=== PATIENT | female | born 2000 | race Caucasian/White ===

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

== ENCOUNTER 2021-04-12 10:41 | Emergency (ER) | payer OTHER, MEDICAID ==
[2021-04-12 11:00] VITALS: BP 135/69
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
== END 2021-04-12 11:48 | disposition home or self-care (01) ==
LOC: ED 10:41
DX: S09.90XA Unspecified injury of head, initial encounter (principal); W03.XXXA Other fall on same level due to collision with another person, initial encounter; Y99.0 Civilian activity done for income or pay
CPT/HCPCS: 99282

== ENCOUNTER 2021-10-16 17:16 | Emergency (ER) | payer OTHER, MEDICAID ==
[2021-10-16 17:29] VITALS: BP 131/87
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
--- NOTE | 2021-10-16 17:49 | XRAY Report ---
PROCEDURE: Wrist 4 View LT INDICATIONS: Trauma TECHNIQUE: 4 views of the wrist were acquired. COMPARISON: None. FINDINGS: Bones: No acute fractures or dislocations. No suspicious bony lesions. Scaphoid view: Intact scaphoid. Soft tissues: No suspicious soft tissue calcifications. IMPRESSION: No acute osseous abnormality. If there is clinical concern or persistent symptoms, additional imaging such as repeat radiographs or advanced imaging (e.g. CT, MRI) may be helpful for further evaluation. Reviewed by: Rene Bradford MD on 10/16/2021 4:47 PM [facility] Approved by: Rene Bradford MD on 10/16/2021 4:47 PM [facility] Station ID: [id number]
[2021-10-16] MEDS ORDERED: IBUPROFEN 400 MG TABLET PO STA (18:07)
[2021-10-16] MEDS ORDERED: ACETAMINOPHEN 500 MG TABLET PO STA (18:08)
== END 2021-10-16 18:24 | disposition home or self-care (01) ==
LOC: ED 17:16
DX: S63.502A Unspecified sprain of left wrist, initial encounter (principal); W03.XXXA Other fall on same level due to collision with another person, initial encounter; Y93.F9 Activity, other caregiving; Y92.199 Unspecified place in other specified residential institution as the place of occurrence of the external cause; Y99.0 Civilian activity done for income or pay
CPT/HCPCS: 73110; 99282; 99283; A9270

== ENCOUNTER 2021-12-01 10:42 | Emergency (ER) | payer MEDICAID ==
[2021-12-01] MEDS ORDERED: SODIUM CHLORIDE 0.9% 1,000 ML IV STA (11:18)
[2021-12-01 11:38] LABS: BASOPHILS % (AUTO) 0.2 %; BILIRUBIN,URINE NEGATIVE (NEGATIVE); EOSINOPHILS % (AUTO) 0.4 %; GLUCOSE, URINE (UA) NEGATIVE (NEGATIVE); HCT - HEMATOCRIT 37.9 % (37.0-47.0); KETONES,URINE (UA) NEGATIVE (NEGATIVE); LEUKOCYTE ESTERASE, URINE NEGATIVE (NEGATIVE); LYMPHOCYTES # (AUTO) 3.3 10^3/uL (1.5-3.5); LYMPHOCYTES % (AUTO) 31.5 %; MEAN CORPUSCULAR HGB CONC 31.7 g/dL (32.0-36.0); MEAN PLATELET VOLUME 9.1 fL (7.9-10.8); MONOCYTES # (AUTO) 0.8 10^3/uL (0.0-1.0); MONOCYTES % (AUTO) 7.1 %; NEUTROPHILS # (AUTO) 6.4 10^3/uL (1.5-6.6); NEUTROPHILS % (AUTO) 60.5 %; NITRITE,URINE NEGATIVE (NEGATIVE); OCCULT BLOOD,URINE TRACE-INTA (NEGATIVE); PH,URINE 6.5 PH (5.0-7.5); PLT - PLATELET COUNT 353 10^3/uL (130-450); PROTEIN,URINE NEGATIVE (NEGATIVE); RED BLOOD COUNT 4.62 10^6/uL (4.20-5.40); RED CELL DISTRIBUTION WIDTH 14.3 % (12.0-15.0); UROBILINOGEN,URINE 2 E.U./dL (NORMAL); WHITE BLOOD COUNT 10.5 x10^3/uL (4.8-10.8)
[2021-12-01 11:40] LABS: CLARITY,URINE CLEAR (CLEAR); HCG UR QUAL NEGATIVE
[2021-12-01 11:51] LABS: ALBUMIN 4.5 g/dL (3.2-5.5); ALBUMIN/GLOBULIN RATIO 1.4 (1.0-2.2); BILIRUBIN,TOTAL 0.8 mg/dL (0.2-1.0); CALCIUM 9.8 mg/dL (8.5-10.3); CREATININE 0.7 mg/dL (0.4-1.0); POTASSIUM 3.6 mmol/L (3.5-5.0); TOTAL PROTEIN 7.7 g/dL (6.7-8.2)
--- NOTE | 2021-12-01 12:35 | ED Physician Documentation ---
PD HPI ABD PAIN - Stated complaint Stated Complaint: LOWER ABDOMINAL PX - Chief complaint Chief Complaint: Abd Pain - History obtained from History obtained from: Patient - Additional information Additional information: Pt c/o RLQ pain for the past couple of days. She states she has not had any other sx--no nausea, fever, chills, dysuria, or bowel changes. No vaginal sx. H/o possible ovarian cyst in the past. She states the pain seemed a little worse today, so she decided to come in. 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 Review of Systems Ten Systems: 10 systems reviewed and negative Constitutional: reports: Reviewed and negative Eyes: reports: Reviewed and negative Ears: reports: Reviewed and negative Nose: reports: Reviewed and negative Throat: reports: Reviewed and negative Cardiac: reports: Reviewed and negative Respiratory: reports: Reviewed and negative GI: reports: Abdominal Pain : reports: Reviewed and negative Skin: reports: Reviewed and negative Musculoskeletal: reports: Reviewed and negative Neurologic: reports: Reviewed and negative Psychiatric: reports: Reviewed and negative Endocrine: reports: Reviewed and negative Immunocompromised: reports: Reviewed and negative PD PAST MEDICAL HISTORY - Past Medical History Cardiovascular: None Respiratory: None Psych: ADD/ADHD Musculoskeletal: None - Past Surgical History Past Surgical History: No - Present Medications Home Medications: Ambulatory Orders Medication Instructions Recorded Confirmed No Known Home Medications 12/31/20 12/31/20 - Allergies Allergies/Adverse Reactions: Allergies Allergy/AdvReac Type Severity Reaction Status Date / Time No Known Drug Allergies Allergy Verified 12/01/21 10:52 - Social History Does the pt smoke?: No Smoking Status: Never smoker Does the pt drink ETOH?: No Does the pt have substance abuse?: Yes - Immunizations Immunizations are current?: Yes - POLST Patient has POLST: No PD ED PE NORMAL - Vitals Vital signs reviewed: Yes - General General: Alert and oriented X 3, No acute distress, Well developed/nourished - HEENT HEENT: Atraumatic, PERRL, EOMI, Moist mucous membranes - Neck Neck: Supple, no meningeal sign - Cardiac Cardiac: RRR, No murmur - Respiratory Respiratory: No respiratory distress, Clear bilaterally - Abdomen Abdomen: Soft, Non distended, Other (mild RLQ tenderness) - Derm Derm: Warm and dry - Extremities Extremities: No deformity - Neuro Neuro: Alert and oriented X 3 - Psych Psych: Normal mood, Normal affect Results - Vitals Vitals: Oxygen O2 Source Room air - Labs Labs: Laboratory Tests 12/01/21 12/01/21 12/01/21 11:23 11:23 11:23 WBC 10.5 RBC 4.62 Hgb 12.0 Hct 37.9 MCV 82.0 MCH 26.0 L MCHC 31.7 L RDW 14.3 Plt Count 353 MPV 9.1 Neut # (Auto) 6.4 Lymph # (Auto) 3.3 [place] # (Auto) 0.8 Eos # (Auto) 0.0 Baso # (Auto) 0.0 Absolute Nucleated RBC 0.00 Nucleated RBC % 0.0 Sodium 139 Potassium 3.6 Chloride 104 Carbon Dioxide 24 Anion Gap 11.0 BUN 15 Creatinine 0.7 Estimated GFR (MDRD) 107 Glucose 96 Calcium 9.8 Total Bilirubin 0.8 AST 19 ALT 14 Alkaline Phosphatase 42 Total Protein 7.7 Albumin 4.5 Globulin 3.2 Albumin/Globulin Ratio 1.4 Lipase 28 Urine Color YELLOW Urine Clarity CLEAR Urine pH 6.5 Ur Specific [place] 1.020 Urine Protein NEGATIVE Urine Glucose (UA) NEGATIVE Urine Ketones NEGATIVE Urine Occult Blood TRACE-INTA Urine Nitrite NEGATIVE Urine Bilirubin NEGATIVE Urine Urobilinogen 2 H Ur Leukocyte Esterase NEGATIVE Ur Microscopic Review NOT INDICATED Urine Culture Comments NOT INDICATED Urine HCG, Qual NEGATIVE - Rads (name of study) CT abd/pelvis Radiology: Final report received, EMP read indepedently, See rad report (neg) PD MEDICAL DECISION MAKING - ED course Complexity details: reviewed results, re-evaluated patient, considered differential, d/w patient, d/w family ED course: Pt was worked up with labs and CT, all of which were negative. We have discussed home management of the sx, as well as the usual indications for return. Departure - Departure Disposition: 01 Home, Self Care Clinical Impression: Gallstone Qualifiers: Cholecystitis presence: without cholecystitis Biliary obstruction: without biliary obstruction Qualified Code(s): K80.20 - Calculus of gallbladder without cholecystitis without obstruction Inguinal strain Qualifiers: Encounter type: initial encounter Laterality: right Qualified Code(s): S76.211A - Strain of adductor muscle, fascia and tendon of right thigh, initial encounter Condition: Stable Instructions: Gallstones Dc, ED Strain Groin Comments: Your CT scan does not show any problems with your appendix and does not show any kidney stones. You do not have any discernible cysts on your ovaries. You do incidentally have a stone in your gallbladder, but this does not appear to be causing any problems at this point. Additionally, this is way above where your pain is and is unlikely related to what you are experiencing. 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 You should take ibuprofen to help with inflammation and try to avoid heavy lifting whenever possible until this is feeling better. If you do lift, be sure to bend her legs and try not to strain your pelvic area. If you begin to notice worsening pain with lifting then you will need to have a more extended period of relief from the heavy work, as you could be in the process of developing a hernia. Please follow-up with your primary care physician for further concerns in this regard. Discharge Date/Time: 12/01/21 14:40
[2021-12-01] MEDS ORDERED: iohexoL-300 100 ML VIAL ONE (13:05)
[2021-12-01] MEDS ORDERED: HYDROmorphone 0.5 MG/0.5 ML SYRINGE IVP STA (13:26)
[2021-12-01] MEDS ORDERED: iohexoL-300 100 ML VIAL IVP ONE (13:27)
--- NOTE | 2021-12-01 14:11 | CT Report ---
PROCEDURE: ABDOMEN/PELVIS W INDICATIONS: RLQ pain CONTRAST: 100ml omni 300 TECHNIQUE: After the administration of intravenous contrast, 5 mm thick sections acquired from the diaphragms to the symphysis. 5 mm thick coronal and sagittal reformats were acquired. For radiation dose reducti on, the following was used: automated exposure control, adjustment of mA and/or kV according to idalmis ent size. COMPARISON: None. FINDINGS: Image quality: Excellent. ABDOMEN: Lung bases: Lung bases are clear. Heart size is normal. Solid organs: Calcified gallstone in the gallbladder neck measuring 4 mm. No gallbladder wall thicken ing or pericholecystic fluid identified. No intrahepatic or extrahepatic biliary ductal dilatation. L iver, spleen, adrenal glands, kidneys, and pancreas normal. Peritoneum and bowel: Appendix not definitively identified. No inflammatory changes or free fluid in the right lower quadrant. No right lower quadrant lymphadenopathy. Nodes and vessels: No retroperito peterson or mesenteric adenopathy by size criteria. Aorta and inferior vena cava are normal in size. Miscellaneous: No ventral hernias. PELVIS: Genitourinary: Normal appearance of ovaries and uterus. Urinary bladder unremarkable. Small volume fr ee pelvic fluid is within physiologic normal limits. Miscellaneous: No inguinal hernias or adenopathy. Bones: No suspicious bony lesions. No vertebral body compression fractures. IMPRESSION: Approximately 4 mm gallstone in the gallbladder neck with no CT findings of cholecystitis. Right uppe r quadrant ultrasound could be considered for more sensitive gallbladder evaluation. Appendix not visualized however there are no secondary signs of appendicitis in the right lower quadr ant. Reviewed by: Mayank Marino MD on 12/01/2021 2:10 PM PDT Approved by: Mayank Marino MD on 12/01/2021 2:10 PM PDT Station ID: [id number]
[2021-12-01 14:40] VITALS: BP 118/77
== END 2021-12-01 14:40 | disposition home or self-care (01) ==
LOC: ED 10:42
DX: K80.20 Calculus of gallbladder without cholecystitis without obstruction (principal); S76.211A Strain of adductor muscle, fascia and tendon of right thigh, initial encounter; X50.0XXA Overexertion from strenuous movement or load, initial encounter; Y93.F2 Activity, caregiving, lifting
CPT/HCPCS: 36415; 74177; 80053; 81003; 81025; 83690; 85025; 96374; 99282; 99284; J1170; Q9967; 81001; 87086

== ENCOUNTER 2021-12-24 18:11 | Emergency (ER) | payer MEDICAID ==
[2021-12-24 18:42] VITALS: BP 119/72
--- NOTE | 2021-12-24 19:07 | XRAY Report ---
PROCEDURE: Ankle 3 View RT INDICATIONS: Trauma TECHNIQUE: 3 views of the ankle were acquired. COMPARISON: None FINDINGS: Bones: No fractures or dislocations. Ankle mortise is normally aligned. No suspicious bony lesions . Soft tissues: No tibiotalar joint effusion. Achilles tendon appears normal. IMPRESSION: No acute radiographic abnormality. If there is high concern for occult injury, consider repeat radiography or cross-sectional imaging. Reviewed by: Guy Landin MD on 12/24/2021 7:06 PM [facility] Approved by: Guy Landin MD on 12/24/2021 7:06 PM PST Station ID: [id number]
--- NOTE | 2021-12-24 19:46 | ED Physician Documentation ---
History of Present Illness - Stated complaint Stated Complaint: RT ANKLE INJ - Chief complaint Chief Complaint: Trauma Ext - Additonal information Additional information: 21-year-old female presents emergency department for evaluation of acute right ankle injury. Reports riding her skateboard yesterday and twisting it however the skateboard came back and hit her on the inside of the foot. Antalgic gait and pain bearing weight since. Has a history of recurrent sprains and injuries to this foot in the past. Did not strike her head or lose consciousness Review of Systems Musculoskeletal: reports: Joint pain PD PAST MEDICAL HISTORY - Past Medical History Past Medical History: Yes Cardiovascular: None Respiratory: None Psych: ADD/ADHD Musculoskeletal: None - Past Surgical History Past Surgical History: No - Present Medications Home Medications: Ambulatory Orders Medication Instructions Recorded Confirmed norgestimate-ethinyl estradioL 1 tab PO DAILY 12/24/21 12/24/21 [Norgestimate-Ee 0.25-0.035 mg] - Allergies Allergies/Adverse Reactions: Allergies Allergy/AdvReac Type Severity Reaction Status Date / Time No Known Drug Allergies Allergy Verified 12/24/21 18:42 - Social History Does the pt smoke?: No Smoking Status: Never smoker Does the pt drink ETOH?: No Does the pt have substance abuse?: Yes - Immunizations Immunizations are current?: Yes - POLST Patient has POLST: No PD ED PE NORMAL - General General: Alert and oriented X 3, No acute distress - Abdomen Abdomen: Normal bowel sounds, Soft, Non tender, Non distended - Derm Derm: Normal color, Warm and dry, No rash - Extremities Extremities: Other (Mild tenderness of the lateral malleolus. No swelling. Full range of motion of the ankle in all planes. 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 Eye Opening: Spontaneous Motor: Obeys Commands Verbal: Oriented GCS Score: 15 Results - Vitals Vitals: Vital Signs - 24 hr 12/24/21 18:39 Temperature 36.9 C Heart Rate 84 Respiratory 14 Rate Blood Pressure 119/72 O2 Saturation 100 Oxygen O2 Source Room air - Rads (name of study) right foot Radiology: Final report received (No acute fracture or osseous lesion or dislocation) PD MEDICAL DECISION MAKING - ED course Complexity details: reviewed results, re-evaluated patient, considered differential, d/w patient ED course: Well-appearing 21-year-old female presents emergency department for evaluation of acute right ankle pain after an inversion injury yesterday afternoon and the skateboard came back and hit her in the medial foot. No bruising or ecchymosis. Full range of motion of the ankle in all planes and normal dorsi and plantar flexion. Has an antalgic gait. Given the lack of obvious x-ray findings as well as ability to bear weight my suspicion for occult fracture is rather low. Patient reports having crutches at home. She was placed in an Ash bandage and advised Motrin and Tylenol. Return to the emergency department if not markedly better in 7 to 10 days for repeat imaging Departure - Departure Disposition: Home, Self Care Clinical Impression: Moderate right ankle sprain Qualifiers: Encounter type: initial encounter Qualified Code(s): S93.401A - Sprain of unspecified ligament of right ankle, initial encounter Condition: Stable Record reviewed to determine appropriate education?: Yes Instructions: ED Sprain Ankle Comments: The x-ray of your foot and ankle do not show any broken bones however you probably have a bruise or contusion where the skateboard hit it and you also have a sprain from twisting it. In general use 600 mg of ibuprofen or alternate with 500 mg of Tylenol 2-3 times a day for discomfort. Use the crutches that you have at home to get around. In general I would expect your pain and ability to bear weight to be markedly better over the next week. If not improving then please return immediately to the ER for second evaluation.
== END 2021-12-24 19:56 | disposition home or self-care (01) ==
LOC: ED 18:11
DX: S93.401A Sprain of unspecified ligament of right ankle, initial encounter (principal); X50.1XXA Overexertion from prolonged static or awkward postures, initial encounter; W20.8XXA Other cause of strike by thrown, projected or falling object, initial encounter; Y93.51 Activity, roller skating (inline) and skateboarding
CPT/HCPCS: 99281; 99283

== ENCOUNTER 2021-12-30 10:19 | Emergency (ER) | payer OTHER, MEDICAID ==
[2021-12-30 10:50] VITALS: BP 139/87
--- NOTE | 2021-12-30 12:31 | CT Report ---
PROCEDURE: HEAD WO INDICATIONS: head injury, altered TECHNIQUE: Noncontrast 4.5 mm thick angled axial sections acquired from the foramen magnum to the vertex. For r adiation dose reduction, the following was used: automated exposure control, adjustment of mA and/or kV according to patient size. COMPARISON: None. FINDINGS: Image quality: Excellent. CSF spaces: Basal cisterns are patent. No extra-axial fluid collections. Ventricles are normal in size and shape. Brain: No midline shift. No intracranial masses or hemorrhage. Armendariz-white matter interface is norm al. Skull and face: Calvarium and visualized facial bones are intact, without suspicious lesions. Sinuses: Visualized sinuses and mastoids are clear. IMPRESSION: No acute intracranial process. Reviewed by: Megan Church MD on 12/30/2021 12:29 PM PST Approved by: Megan Church MD on 12/30/2021 12:29 PM [facility] Station ID: [id number]
[2021-12-30 12:55] LABS: HCG UR QUAL NEGATIVE
[2021-12-30] MEDS ORDERED: ONDANSETRON ODT 4 MG TABLET TL STA (13:30)
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
== END 2021-12-30 13:54 | disposition home or self-care (01) ==
LOC: ED 10:19
DX: S06.0X0A Concussion without loss of consciousness, initial encounter (principal); W51.XXXA Accidental striking against or bumped into by another person, initial encounter; Y93.F9 Activity, other caregiving; Y92.199 Unspecified place in other specified residential institution as the place of occurrence of the external cause; Y99.0 Civilian activity done for income or pay
CPT/HCPCS: 1040M; 70450; 81025; 99284; Q0162

== ENCOUNTER 2022-01-26 08:00 | Outpatient (CLI) | payer MEDICAID ==
[2022-01-26 18:36] LABS: HCG,QUALITATIVE BLOOD NEGATIVE
== END 2022-01-26 23:59 | disposition home or self-care (01) ==
LOC: LAB.N 08:00
PROVIDERS: ATTEND Nurse Practitioner
DX: N92.6 Irregular menstruation, unspecified (principal)
CPT/HCPCS: 36415; 84703

== ENCOUNTER 2022-02-16 15:10 | Outpatient (CLI) | payer MEDICAID ==
--- NOTE | 2022-02-16 17:07 | XRAY Report ---
PROCEDURE: Lumbar Spine 2 View INDICATIONS: LOW BACK PAIN UNSPECIFIED TECHNIQUE: 2 views of the lumbar spine were acquired. COMPARISON: CT abdomen pelvis 12/01/2021. FINDINGS: Bones: 5 [id number] vertebrae are present. There is normal bony alignment. No vertebral body compression fractures. No suspicious bony lesions. Soft tissues: Overlying bowel gas pattern is normal. No suspicious soft tissue calcifications. IMPRESSION: No osseous abnormality demonstrated. Reviewed by: Adal Love MD on 02/16/2022 5:06 PM [facility] Approved by: Adal Love MD on 02/16/2022 5:06 PM [facility] Station ID: [id number]
== END 2022-02-16 15:11 | disposition home or self-care (01) ==
LOC: DI 15:10
PROVIDERS: ATTEND Nurse Practitioner
DX: M54.50 Low back pain, unspecified (principal)

== ENCOUNTER 2022-02-24 05:44 | Emergency (ER) | payer MEDICAID ==
[2022-02-24 07:42] LABS: BASOPHILS % (AUTO) 0.3 %; EOSINOPHILS % (AUTO) 0.2 %; HGB - HEMOGLOBIN 12.7 g/dL (12.0-16.0); LYMPHOCYTES # (AUTO) 1.7 10^3/uL (1.5-3.5); LYMPHOCYTES % (AUTO) 14.6 %; MEAN CORPUSCULAR HGB CONC 32.6 g/dL (32.0-36.0); MEAN CORPUSCULAR VOLUME 82.8 fL (81.0-99.0); MEAN PLATELET VOLUME 8.8 fL (7.9-10.8); MONOCYTES # (AUTO) 0.7 10^3/uL (0.0-1.0); MONOCYTES % (AUTO) 5.8 %; NEUTROPHILS # (AUTO) 8.9 10^3/uL (1.5-6.6); NEUTROPHILS % (AUTO) 78.8 %; PLT - PLATELET COUNT 301 10^3/uL (130-450); RED BLOOD COUNT 4.71 10^6/uL (4.20-5.40); RED CELL DISTRIBUTION WIDTH 13.6 % (12.0-15.0); WHITE BLOOD COUNT 11.3 x10^3/uL (4.8-10.8)
[2022-02-24 08:02] LABS: ALBUMIN 4.8 g/dL (3.2-5.5); ALBUMIN/GLOBULIN RATIO 1.6 (1.0-2.2); BILIRUBIN,TOTAL 1.2 mg/dL (0.2-1.0); CALCIUM 9.5 mg/dL (8.5-10.3); CREATININE 0.7 mg/dL (0.4-1.0); POTASSIUM 3.6 mmol/L (3.5-5.0); TOTAL PROTEIN 7.8 g/dL (6.7-8.2)
--- NOTE | 2022-02-24 08:02 | XRAY Report ---
PROCEDURE: Chest 1 View X-Ray INDICATIONS: chest pain TECHNIQUE: One view of the chest was acquired. COMPARISON: None. FINDINGS: Surgical changes and devices: None. Lungs and pleura: No pleural effusions or pneumothorax. Lungs are clear. Mediastinum: Mediastinal contours appear normal. Heart size is normal. Bones and chest wall: No suspicious bony lesions. Overlying soft tissues appear unremarkable. IMPRESSION: Normal portable chest. Reviewed by: Moises Mendoza MD on 02/24/2022 7:01 AM [facility] Approved by: Moises Mendoza MD on 02/24/2022 7:01 AM [facility] Station ID: [id number]
[2022-02-24 08:11] LABS: RAPID STREP SCREEN Negative (Negative)
--- NOTE | 2022-02-24 08:15 | ED Physician Documentation ---
PD HPI CHEST PAIN - Stated complaint Stated Complaint: CHEST PX/SOA - Chief complaint Chief Complaint: Resp - History obtained from History obtained from: Patient - History of Present Illness Timing - onset: Today Timing - onset during: Rest Timing - duration: Hours Timing - details: Gradual onset, Still present, Waxing and waning Quality: Pressure, Sharp, Pain Location: Left chest Radiation: No: Jaw, Neck, Back, Abdominal, Left upper extremity, Right upper extremity Improved by: Rest Worsened by: Inspiration, Palpation Associated symptoms: No: Shortness of air, Diaphoresis, Nausea, Vomiting, Feeling faint / dizzy, General Weakness, Palpitations, Cough Similar symptoms before: Has not had sx before Recently seen: Not recently seen - Additional information Additional information: 21-year-old Carol Grimm has developed pain in her left chest and she feels this might likely related to the amount of stress that she has been under with her significant other being hospitalized yesterday. Review of Systems Constitutional: denies: Fever Eyes: denies: Decreased vision Ears: denies: Ear pain Nose: denies: Congestion Throat: denies: Sore throat Cardiac: reports: Chest pain / pressure. denies: Palpitations Respiratory: denies: Dyspnea, Cough GI: denies: Abdominal Pain, Nausea, Vomiting, Constipation, Diarrhea PD PAST MEDICAL HISTORY - Past Medical History Past Medical History: Yes Cardiovascular: None Respiratory: None Psych: ADD/ADHD Musculoskeletal: None - Past Surgical History Past Surgical History: No - Present Medications Home Medications: Ambulatory Orders Medication Instructions Recorded Confirmed Ondansetron Odt [Zofran] 4 mg TL Q6H PRN #10 tablet 12/30/21 02/24/22 - Allergies Allergies/Adverse Reactions: Allergies Allergy/AdvReac Type Severity Reaction Status Date / Time No Known Drug Allergies Allergy Verified 02/24/22 06:02 - Social History Does the pt smoke?: No Smoking Status: Never smoker Does the pt drink ETOH?: No Does the pt have substance abuse?: Yes - Immunizations Immunizations are current?: Yes - POLST Patient has POLST: No PD ED PE NORMAL - Vitals Vital signs reviewed: Yes (Normal) - General General: Alert and oriented X 3, No acute distress, Well developed/nourished - HEENT HEENT: Atraumatic, PERRL, EOMI - Neck Neck: Supple, no meningeal sign, No bony TTP - Cardiac Cardiac: RRR, No murmur, Other (Tenderness to left anterior chest wall to deep palpation.) - Respiratory Respiratory: No respiratory distress, Clear bilaterally - Abdomen Abdomen: Soft, Non tender - Back Back: No CVA TTP, No spinal TTP - Derm Derm: Normal color, Warm and dry, No rash - Extremities Extremities: No deformity, No edema - Neuro Neuro: Alert and oriented X 3, roving hauler 2-12 intact, No motor deficit, No sensory deficit, Normal speech Eye Opening: Spontaneous Motor: Obeys Commands Verbal: Oriented GCS Score: 15 - Psych Psych: Normal mood, Normal affect Results - Vitals Vitals: Vital Signs - 24 hr 02/24/22 02/24/22 02/24/22 05:51 06:16 07:00 Temperature 37.1 C 37.0 C Heart Rate 95 81 68 Respiratory 18 16 16 Rate Blood Pressure 124/67 118/74 101/75 O2 Saturation 99 98 98 02/24/22 08:24 Temperature Heart Rate 80 Respiratory 80 H Rate Blood Pressure 103/66 O2 Saturation 97 Oxygen O2 Source Room air - EKG (time done) 0600 Rate: Rate (enter#) (88) Rhythm: NSR Ischemia: Normal ST segments Compare to prior EKG: Old EKG unavailable Computer interpretation: Agree with computer - Labs Labs: Laboratory Tests 02/24/22 02/24/22 02/24/22 07:35 07:35 07:35 WBC 11.3 H RBC 4.71 Hgb 12.7 Hct 39.0 MCV 82.8 MCH 27.0 MCHC 32.6 RDW 13.6 Plt Count 301 MPV 8.8 Neut # (Auto) 8.9 H Lymph # (Auto) 1.7 Henry # (Auto) 0.7 Eos # (Auto) 0.0 Baso # (Auto) 0.0 Absolute Nucleated RBC 0.00 Nucleated RBC % 0.0 Sodium 135 Potassium 3.6 Chloride 101 Carbon Dioxide 24 Anion Gap 10.0 BUN 15 Creatinine 0.7 Estimated GFR (MDRD) 107 Glucose 98 Calcium 9.5 Total Bilirubin 1.2 H AST 14 ALT 14 Alkaline Phosphatase 43 Troponin I High Sens < 2.3 L Total Protein 7.8 Albumin 4.8 Globulin 3.0 Albumin/Globulin Ratio 1.6 Lipase 27 Group A Strep Rapid 02/24/22 07:50 WBC RBC Hgb Hct MCV MCH MCHC RDW Plt Count MPV Neut # (Auto) Lymph # (Auto) Henry # (Auto) Eos # (Auto) Baso # (Auto) Absolute Nucleated RBC Nucleated RBC % Sodium Potassium Chloride Carbon Dioxide Anion Gap BUN Creatinine Estimated GFR (MDRD) Glucose Calcium Total Bilirubin AST ALT Alkaline Phosphatase Troponin I High Sens Total Protein Albumin Globulin Albumin/Globulin Ratio Lipase Group A Strep Rapid Negative - Rads (name of study) chest Radiology: Prelim report reviewed (Impression: Normal portable chest.), EMP read indepedently PD Medical Decision Making - ED course Complexity details: reviewed old records, reviewed results, re-evaluated idalmis ent, considered differential, d/w patient Reviewed Lab Results: Specifically reviewed a complete blood count with a normal white blood cell count hematocrit hemoglobin and platelets. Chemistry panel evaluated with normal electrolytes kidney and liver function. ED course: 21-year-old female with chest wall pain and a stress reaction has some te nderness to her chest wall and normal-appearing chest x-ray minimal pain and normal electrocardiogram, troponin and blood work. She did not require specific treatment. Departure - Departure Disposition: 01 Home, Self Care Clinical Impression: Costochondritis, acute, Viral URI with cough, Stress reaction Condition: Stable Instructions: ED Stress React, ED Chest Pain Costochondritis, ED URI Viral Follow-Up: Jennifer Rincon ARNP [Provider Admit Priv/Credential] - Comments: Carol, today it looks like the pain you are having in your chest is related to your chest wall and we did not find any evidence of a heart attack or a problem in the lungs itself. Discharge Date/Time: 02/24/22 08:31
[2022-02-24 08:25] VITALS: BP 103/66
== END 2022-02-24 08:31 | disposition home or self-care (01) ==
LOC: ED 05:44
DX: M94.0 Chondrocostal junction syndrome [Tietze] (principal); J06.9 Acute upper respiratory infection, unspecified; F43.9 Reaction to severe stress, unspecified
CPT/HCPCS: 36415; 80053; 83690; 84484; 85025; 87070; 87430; 93005; 99283; 99284

== ENCOUNTER 2022-04-02 16:38 | Emergency (ER) | payer MEDICAID ==
[2022-04-02 17:26] LABS: BILIRUBIN,URINE NEGATIVE (NEGATIVE); GLUCOSE, URINE (UA) NEGATIVE (NEGATIVE); KETONES,URINE (UA) TRACE mg/dL (NEGATIVE); LEUKOCYTE ESTERASE, URINE NEGATIVE (NEGATIVE); NITRITE,URINE NEGATIVE (NEGATIVE); OCCULT BLOOD,URINE NEGATIVE (NEGATIVE); PROTEIN,URINE NEGATIVE (NEGATIVE); UROBILINOGEN,URINE 0.2 (NORMAL) E.U./dL (NORMAL)
[2022-04-02 17:29] LABS: BASOPHILS % (AUTO) 0.4 %; EOSINOPHILS % (AUTO) 0.4 %; HCT - HEMATOCRIT 39.8 % (37.0-47.0); HGB - HEMOGLOBIN 12.4 g/dL (12.0-16.0); LYMPHOCYTES # (AUTO) 2.5 10^3/uL (1.5-3.5); LYMPHOCYTES % (AUTO) 22.9 %; MEAN CORPUSCULAR HEMOGLOBIN 26.8 pg (27.0-31.0); MEAN CORPUSCULAR HGB CONC 31.2 g/dL (32.0-36.0); MONOCYTES # (AUTO) 0.7 10^3/uL (0.0-1.0); MONOCYTES % (AUTO) 6.6 %; NEUTROPHILS # (AUTO) 7.5 10^3/uL (1.5-6.6); NEUTROPHILS % (AUTO) 69.2 %; PLT - PLATELET COUNT 307 10^3/uL (130-450); RED BLOOD COUNT 4.63 10^6/uL (4.20-5.40); RED CELL DISTRIBUTION WIDTH 14.3 % (12.0-15.0); WHITE BLOOD COUNT 10.8 x10^3/uL (4.8-10.8)
[2022-04-02 17:33] LABS: CLARITY,URINE CLEAR (CLEAR); HCG UR QUAL NEGATIVE
--- OUTSIDE RECORDS SUMMARY | 2022-04-02 17:33 | EXTERNAL MEDICAL SUMMARY RPT | Continuity of Care Document ---
:2000 Author Organization [facility] Address [address] [place] [address] Phone Care Team Providers Name Role Phone Abdias Valles Unavailable Unavailable Allergies and Intolerances date description facility type (no date) No Known Drug Allergies [facility] (unkn own) Encounters No information. Functional Status No information. Immunizations No information. Medications No information. Problems date description facility 2022-03-08 00:00 Endometriosis [facility] 2022-03-08 00:00 Abdominal pain [facility] 2022-03-21 10:55 Unspecified abdominal pain [facility] 2022-03-21 10:55 Encounter for screening for infections with a [facility] predominantly 2022-03-21 16:11 Amenorrhea, unspecified [facility] 2022-03-21 16:11 Pelvic and perineal pain [facility] 2022-03-21 16:11 Encounter for test, result [facility] 2022-03-21 17:21 Amenorrhea, unspecified [facility] 2022-03-21 17:21 Pelvic and perineal pain [facility] 2022-03-21 17:21 Encounter for test, result [facility] 2022-03-22 00:57 Unspecified abdominal pain [facility] 2022-03-22 00:57 Encounter for screening for infections with a [facility] predominantly Procedures No information. Results/Labs test date author facility value unit interpret ation Result panel 1 (unknown) (no (unknown) (unknown) (no value) (units (unk nown) date) unknown) (unknown) (no (unknown) (unknown) 03/08/22 (units (unkno wn) date) unknown) (unknown) (no (unknown) (unknown) 19:36 03/08/22 (units (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) unknown) (unknown) (no (unknown) (unknown) 21:35 03/08/22 (units (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) unknown) (unknown) (no (unknown) (unknown) 21:36 (units (unkno wn) date) unknown) (unknown) (no (unknown) (unknown) : [id number] (units (u nknown) date) unknown) (unknown) (no (unknown) (unknown) Age/Sex: 21 / F (units (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) unknown) (unknown) (no (unknown) (unknown) Allergies (units (unkn own) date) unknown) (unknown) (no (unknown) (unknown) Allergy/AdvReac (units (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) Type Severity unknown) Reaction Status Date / Time (unknown) (no (unknown) (unknown) Bedside Urine (units ( 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) Bilirubin - unknown) Negative (unknown) (no (unknown) (unknown) Bedside Urine (units ( 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) Glucose Negative unknown) (unknown) (no (unknown) (unknown) Bedside Urine (units ( 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) Ketone - unknown) Negative (unknown) (no (unknown) (unknown) Bedside Urine (units ( 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) Leukocytes - unknown) Negative (unknown) (no (unknown) (unknown) Bedside Urine (units ( 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) Nitrite - unknown) Negative (unknown) (no (unknown) (unknown) Bedside Urine (units ( 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) Occult Blood - unknown) Negative (unknown) (no (unknown) (unknown) Bedside Urine (units ( 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) Protein - unknown) Negative (unknown) (no (unknown) (unknown) Bedside Urine (units ( 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) Urobilinogen - unknown) Negative (unknown) (no (unknown) (unknown) Bedside Urine (units ( 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) pH 7.0 unknown) (unknown) (no (unknown) (unknown) Blood Pressure (units (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) 112/68 unknown) (unknown) (no (unknown) (unknown) Blood Pressure (units (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) 121/72 03/08/22 unknown) 19:36 (unknown) (no (unknown) (unknown) Blood Pressure (units (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) 121 unknown) (unknown) (no (unknown) (unknown) Chief (units (unkno wn) date) complaint: unknown) Abdominal Pain (unknown) (no (unknown) (unknown) Course (units (unkno wn) date) unknown) (unknown) (no (unknown) (unknown) : 2000 (units (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) Acct:[id number] unknown) (unknown) (no (unknown) (unknown) Date of (units (unkno wn) date) Service: unknown) 03/08/22 (unknown) (no (unknown) (unknown) ER Physician: (units ( 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) Abdias Valles unknown) D.O. (unknown) (no (unknown) (unknown) Emergency (units (unkn own) date) Report unknown) (unknown) (no (unknown) (unknown) Esterase (units (unkno wn) date) unknown) (unknown) (no (unknown) (unknown) Exam (units (unkno wn) date) unknown) (unknown) (no (unknown) (unknown) General (units (unkno wn) date) unknown) (unknown) (no (unknown) (unknown) HPI - General (units ( 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) Adult unknown) (unknown) (no (unknown) (unknown) Healthy adult (units ( 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) unknown) (unknown) (no (unknown) (unknown) Initial Vital (units ( 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) Signs unknown) (unknown) (no (unknown) (unknown) Initial Vital (units ( 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) Signs: unknown) (unknown) (no (unknown) (unknown) [facility] (units (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) [address] [place] [address] unknown) [place] [address] (unknown) (no (unknown) (unknown) Lab Data (units (unkno wn) date) unknown) (unknown) (no (unknown) (unknown) Labs: (units (unkno wn) date) unknown) (unknown) (no (unknown) (unknown) Medical (units (unkno wn) date) Decision Making unknown) (unknown) (no (unknown) (unknown) Medical History (units (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) (Reviewed unknown) 06/25/20 @ 23:13 by Abdias Valles DO) (unknown) (no (unknown) (unknown) Mode of (units (unkno wn) date) arrival: unknown) Ambulatory (unknown) (no (unknown) (unknown) No Known Drug (units ( 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) Allergies unknown) Allergy Verified 03/08/22 19:36 (unknown) (no (unknown) (unknown) Oxygen Delivery (units (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) Method 03/08/22 unknown) 19:36 (unknown) (no (unknown) (unknown) Oxygen Delivery (units (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) Method Room Air unknown) Room Air Room Air (unknown) (no (unknown) (unknown) Oxygen Delivery (units (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) Method unknown) (unknown) (no (unknown) (unknown) Patient History (units (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) unknown) (unknown) (no (unknown) (unknown) Patient: (units (unkno wn) date) Carol Grimm unknown) Claudia MR# (unknown) (no (unknown) (unknown) Point of Care (units ( 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) Testing unknown) (unknown) (no (unknown) (unknown) Point of care (units ( 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) testing: unknown) (unknown) (no (unknown) (unknown) Test (units (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) Results Negative unknown) (unknown) (no (unknown) (unknown) Pulse Oximetry (units (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) 98 03/08/22 unknown) 19:36 (unknown) (no (unknown) (unknown) Pulse Oximetry (units (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) 98 99 99 unknown) (unknown) (no (unknown) (unknown) Pulse Oximetry (units (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) unknown) (unknown) (no (unknown) (unknown) Pulse Rate 97 H (units (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) 03/08/22 19:36 unknown) (unknown) (no (unknown) (unknown) Pulse Rate 97 H (units (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) 95 H 95 H unknown) (unknown) (no (unknown) (unknown) Pulse Rate (units (unk nown) date) unknown) (unknown) (no (unknown) (unknown) Related Data (units (u nknown) date) unknown) (unknown) (no (unknown) (unknown) Respiratory (units (un known) date) Rate 15 03/08/22 unknown) 19:36 (unknown) (no (unknown) (unknown) Respiratory (units (un known) date) Rate 15 unknown) (unknown) (no (unknown) (unknown) Respiratory (units (un known) date) Rate unknown) (unknown) (no (unknown) (unknown) Signed By: (units (unk nown) date) unknown) (unknown) (no (unknown) (unknown) Smoking Status: (units (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) Unknown if ever unknown) smoked (unknown) (no (unknown) (unknown) Social History (units (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) (Reviewed unknown) 06/25/20 @ 23:13 by Abdias Valles DO) (unknown) (no (unknown) (unknown) Source: patient (units (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) unknown) (unknown) (no (unknown) (unknown) Stated (units (unkno wn) date) complaint: lower unknown) abd pain moving to back (unknown) (no (unknown) (unknown) Substance Use (units ( 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) Type: marijuana unknown) (unknown) (no (unknown) (unknown) Temperature (units (un known) date) 98.1 F 03/08/22 unknown) 19:36 (unknown) (no (unknown) (unknown) Temperature (units (un known) date) 98.1 F unknown) (unknown) (no (unknown) (unknown) Temperature (units (un known) date) unknown) (unknown) (no (unknown) (unknown) Time Seen by (units (u nknown) date) Provider: unknown) 03/08/22 21:27 (unknown) (no (unknown) (unknown) Urine Dip (units (unkn own) date) unknown) (unknown) (no (unknown) (unknown) Urine Specific (units (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) [place] 1.010 unknown) (unknown) (no (unknown) (unknown) Vital Signs - 8 (units (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) hr unknown) (unknown) (no (unknown) (unknown) Vital Signs (units (un known) date) unknown) (unknown) (no (unknown) (unknown) Vital signs: (units (u nknown) date) unknown) (unknown) (no (unknown) (unknown) alcohol intake (units (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) frequency: unknown) holidays/special occasions only (unknown) (no (unknown) (unknown) lives (units (unkno wn) date) independently: unknown) Yes Result panel 2 (unknown) (no (unknown) (unknown) (no value) (units (unk nown) date) unknown) (unknown) (no (unknown) (unknown) <Electronically (units (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) signed by Abdias Valles D.O.> (unknown) (no (unknown) (unknown) 03/08/22 (units (unkno wn) date) unknown) (unknown) (no (unknown) (unknown) 03/09/22 0257 (units ( 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) unknown) (unknown) (no (unknown) (unknown) 19:36 03/08/22 (units (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) unknown) (unknown) (no (unknown) (unknown) 21:35 03/08/22 (units (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) unknown) (unknown) (no (unknown) (unknown) 21:36 03/08/22 (units (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) unknown) (unknown) (no (unknown) (unknown) 21:36 (units (unkno wn) date) unknown) (unknown) (no (unknown) (unknown) 22:00 03/08/22 (units (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) unknown) (unknown) (no (unknown) (unknown) 22:00 (units (unkno wn) date) unknown) (unknown) (no (unknown) (unknown) : [id number] (units (u nknown) date) unknown) (unknown) (no (unknown) (unknown) Abdominal pain, (units (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) Endometriosis unknown) (unknown) (no (unknown) (unknown) Activity (units (unkno wn) date) Restrictions/Additi unknown) onal Instructions: (unknown) (no (unknown) (unknown) Advised that she (units (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) contact OB to unknown) discuss further evaluation treatment of her (unknown) (no (unknown) (unknown) Age/Sex: 21 / F (units (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) unknown) (unknown) (no (unknown) (unknown) Allergies (units (unkn own) date) unknown) (unknown) (no (unknown) (unknown) Allergy/AdvReac (units (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) Type Severity unknown) Reaction Status Date / Time (unknown) (no (unknown) (unknown) Back/Spine/Pelvis (units (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) unknown) (unknown) (no (unknown) (unknown) Back: No CVA (units (u nknown) date) tenderness unknown) (unknown) (no (unknown) (unknown) Bedside Urine (units ( 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) Bilirubin - unknown) Negative (unknown) (no (unknown) (unknown) Bedside Urine (units ( 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) Glucose Negative unknown) (unknown) (no (unknown) (unknown) Bedside Urine (units ( 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) Ketone - Negative unknown) (unknown) (no (unknown) (unknown) Bedside Urine (units ( 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) Leukocytes - unknown) Negative (unknown) (no (unknown) (unknown) Bedside Urine (units ( 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) Nitrite - Negative unknown) (unknown) (no (unknown) (unknown) Bedside Urine (units ( 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) Occult Blood - unknown) Negative (unknown) (no (unknown) (unknown) Bedside Urine (units ( 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) Protein - Negative unknown) (unknown) (no (unknown) (unknown) Bedside Urine (units ( 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) Urobilinogen - unknown) Negative (unknown) (no (unknown) (unknown) Bedside Urine pH (units (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) 7.0 unknown) (unknown) (no (unknown) (unknown) Blood Pressure (units (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) 112/68 98/56 L unknown) (unknown) (no (unknown) (unknown) Blood Pressure (units (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) 121/72 03/08/22 unknown) 19:36 (unknown) (no (unknown) (unknown) Blood Pressure (units (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) 121/72 unknown) (unknown) (no (unknown) (unknown) Cardio (units (unkno wn) date) unknown) (unknown) (no (unknown) (unknown) Chief complaint: (units (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) Abdominal Pain unknown) (unknown) (no (unknown) (unknown) Chronic Condition (units (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) is having:: Mild unknown) excerbation (unknown) (no (unknown) (unknown) Clinical (units (o wn) date) Impression: unknown) (unknown) (no (unknown) (unknown) Condition is at (units (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) treatment goal?: unknown) Yes (unknown) (no (unknown) (unknown) Constitutional (units (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) unknown) (unknown) (no (unknown) (unknown) Constitutional: (units (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) Reports system unknown) reviewed and no additional complaints, except as (unknown) (no (unknown) (unknown) Course (units (o wn) date) unknown) (unknown) (no (unknown) (unknown) : 2000 (units (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) Acct:[id number] unknown) (unknown) (no (unknown) (unknown) Date of Service: (units (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) 03/08/22 unknown) (unknown) (no (unknown) (unknown) Departure (units (unkn own) date) unknown) (unknown) (no (unknown) (unknown) Differential (units (u nknown) date) Diagnosis unknown) (unknown) (no (unknown) (unknown) Differential (units (u nknown) date) Diagnosis: unknown) Appendicitis, endometriosis, UTI, pyelo, , (unknown) (no (unknown) (unknown) Discharge Plan (units (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) unknown) (unknown) (no (unknown) (unknown) Discontinued (units (u nknown) date) Medications unknown) (unknown) (no (unknown) (unknown) Documented By: CLEMENTINE (units (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) unknown) (unknown) (no (unknown) (unknown) ER Physician: (units ( 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) Abdias Valles D.O. unknown) (unknown) (no (unknown) (unknown) Emergency Report (units (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) unknown) (unknown) (no (unknown) (unknown) Esterase (units (unkno wn) date) unknown) (unknown) (no (unknown) (unknown) Exam (units (unkno wn) date) unknown) (unknown) (no (unknown) (unknown) Extrem (units (unkno wn) date) unknown) (unknown) (no (unknown) (unknown) GI (units (unkno wn) date) unknown) (unknown) (no (unknown) (unknown) Jasmyne Abraham, (units (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) [Physician] unknown) (unknown) (no (unknown) (unknown) Gastrointestinal (units (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) unknown) (unknown) (no (unknown) (unknown) Gastrointestinal: (units (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) Reports system unknown) reviewed and no additional complaints, except (unknown) (no (unknown) (unknown) General (units (unkno wn) date) unknown) (unknown) (no (unknown) (unknown) General: normal to (units (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) inspection unknown) (unknown) (no (unknown) (unknown) Genitourinary (units ( 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) unknown) (unknown) (no (unknown) (unknown) Genitourinary: (units (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) Reports system unknown) reviewed and no additional complaints, except as (unknown) (no (unknown) (unknown) HENMT (units (unkno wn) date) unknown) (unknown) (no (unknown) (unknown) HPI - General (units ( 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) Adult unknown) (unknown) (no (unknown) (unknown) HPI narrative: (units (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) unknown) (unknown) (no (unknown) (unknown) Head: normal to (units (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) inspection and unknown) normocephalic (unknown) (no (unknown) (unknown) Healthy adult (units ( 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) unknown) (unknown) (no (unknown) (unknown) History of Present (units (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) Illness unknown) (unknown) (no (unknown) (unknown) I recommend that (units (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) you contact an OB unknown) provider for a follow-up. You can contact (unknown) (no (unknown) (unknown) Initial Vital (units ( 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) Signs unknown) (unknown) (no (unknown) (unknown) Initial Vital (units ( 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) Signs: unknown) (unknown) (no (unknown) (unknown) Inspection: normal (units (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) to inspection and unknown) non-distended (unknown) (no (unknown) (unknown) Instructions: DI (units (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) for Endometriosis, unknown) DI for Abdominal Pain-Adult (unknown) (no (unknown) (unknown) Integumentary/[place] (units (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) sts unknown) (unknown) (no (unknown) (unknown) [facility] (units (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) [address] unknown) [place] [address] (unknown) (no (unknown) (unknown) Ketorolac (units (unkn own) date) Tromethamine unknown) (Ketorolac 30 Mg/Ml Vial) 30 mg IM NOW ONE (unknown) (no (unknown) (unknown) Lab Data (units (unkno wn) date) unknown) (unknown) (no (unknown) (unknown) Lab results (units (un known) date) reviewed: Yes I unknown) reviewed the patient's lab results. (unknown) (no (unknown) (unknown) Labs: (units (unkno wn) date) unknown) (unknown) (no (unknown) (unknown) Last Admin: (units (un known) date) 03/08/22 22:29 unknown) Dose: 30 mg (unknown) (no (unknown) (unknown) Limitations: no (units (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) limitations unknown) (unknown) (no (unknown) (unknown) MDM Narrative (units ( 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) unknown) (unknown) (no (unknown) (unknown) Medical Decision (units (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) Making unknown) (unknown) (no (unknown) (unknown) Medical History (units (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) (Reviewed 03/09/22 unknown) @ 02:55 by Abdias Valles DO) (unknown) (no (unknown) (unknown) Medical decision (units (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) making narrative: unknown) (unknown) (no (unknown) (unknown) Mode of arrival: (units (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) Ambulatory unknown) (unknown) (no (unknown) (unknown) No Known Drug (units ( 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) Allergies Allergy unknown) Verified 03/08/22 19:36 (unknown) (no (unknown) (unknown) Ordered: (units (unkno wn) date) unknown) (unknown) (no (unknown) (unknown) Orders (units (unkno wn) date) unknown) (unknown) (no (unknown) (unknown) Oxygen Delivery (units (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) Method 03/08/22 unknown) 19:36 (unknown) (no (unknown) (unknown) Oxygen Delivery (units (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) Method Room Air unknown) Room Air Room Air (unknown) (no (unknown) (unknown) Oxygen Delivery (units (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) Method Room Air unknown) (unknown) (no (unknown) (unknown) Palpation: tender (units (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) (Lower abdomen) unknown) (unknown) (no (unknown) (unknown) Patient (units (unkno wn) date) Disposition: Home unknown) (unknown) (no (unknown) (unknown) Patient History (units (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) unknown) (unknown) (no (unknown) (unknown) Patient is a (units (u nknown) date) 21-year-old female unknown) who is here for evaluation of approximately 5 (unknown) (no (unknown) (unknown) Patient: (units (unkno wn) date) Carol Grimm unknown) Claudia MR# (unknown) (no (unknown) (unknown) Point of Care (units ( 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) Testing unknown) (unknown) (no (unknown) (unknown) Point of care (units ( 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) testing: unknown) (unknown) (no (unknown) (unknown) Test (units (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) Results Negative unknown) (unknown) (no (unknown) (unknown) Pulse Oximetry 98 (units (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) 03/08/22 19:36 unknown) (unknown) (no (unknown) (unknown) Pulse Oximetry 98 (units (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) 99 99 unknown) (unknown) (no (unknown) (unknown) Pulse Oximetry 98 (units (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) unknown) (unknown) (no (unknown) (unknown) Pulse Rate 75 (units ( 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) unknown) (unknown) (no (unknown) (unknown) Pulse Rate 97 H (units (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) 03/08/22 19:36 unknown) (unknown) (no (unknown) (unknown) Pulse Rate 97 H 95 (units (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) H 95 H unknown) (unknown) (no (unknown) (unknown) Rate: regular rate (units (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) unknown) (unknown) (no (unknown) (unknown) Referrals: (units (unk nown) date) unknown) (unknown) (no (unknown) (unknown) Related Data (units (u nknown) date) unknown) (unknown) (no (unknown) (unknown) Respiratory Rate (units (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) 15 03/08/22 19:36 unknown) (unknown) (no (unknown) (unknown) Respiratory Rate (units (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) 15 unknown) (unknown) (no (unknown) (unknown) Respiratory Rate (units (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) unknown) (unknown) (no (unknown) (unknown) Review of Systems (units (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) unknown) (unknown) (no (unknown) (unknown) She is not on (units ( 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) control. She unknown) does have a history of endometriosis. No (unknown) (no (unknown) (unknown) Signed By: (units (unk nown) date) unknown) (unknown) (no (unknown) (unknown) Skin/Breast: (units (u nknown) date) Reports system unknown) reviewed and no additional complaints, except as (unknown) (no (unknown) (unknown) Smoking Status: (units (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) Unknown if ever unknown) smoked (unknown) (no (unknown) (unknown) Social History (units (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) (Reviewed 03/09/22 unknown) @ 02:55 by Abdias Valles DO) (unknown) (no (unknown) (unknown) Source: patient (units (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) unknown) (unknown) (no (unknown) (unknown) Stand Alone Forms: (units (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) Patient Portal/API unknown) (unknown) (no (unknown) (unknown) Stated complaint: (units (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) lower abd pain unknown) moving to back (unknown) (no (unknown) (unknown) Stop: 03/08/22 (units (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) 22:23 unknown) (unknown) (no (unknown) (unknown) Substance Use (units ( 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) Type: marijuana unknown) (unknown) (no (unknown) (unknown) Temperature 98.1 F (units (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) 03/08/22 19:36 unknown) (unknown) (no (unknown) (unknown) Temperature 98.1 F (units (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) unknown) (unknown) (no (unknown) (unknown) Temperature (units (un known) date) unknown) (unknown) (no (unknown) (unknown) Time Seen by (units (u nknown) date) Provider: 03/08/22 unknown) 21:27 (unknown) (no (unknown) (unknown) Urinalysis shows (units (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) no signs of unknown) infection. Low suspicion for pyelo. She does have (unknown) (no (unknown) (unknown) Urine Dip (units (unkn own) date) unknown) (unknown) (no (unknown) (unknown) Urine Specific (units (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) [place] 1.010 unknown) (unknown) (no (unknown) (unknown) Vital Signs - 8 hr (units (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) unknown) (unknown) (no (unknown) (unknown) Vital Signs (units (un known) date) unknown) (unknown) (no (unknown) (unknown) Vital signs: (units (u nknown) date) unknown) (unknown) (no (unknown) (unknown) a history of (units (u nknown) date) endometriosis. She unknown) has had the discomfort that she came in with (unknown) (no (unknown) (unknown) alcohol intake (units (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) frequency: unknown) holidays/special occasions only (unknown) (no (unknown) (unknown) appendicitis to be (units (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) off and on for unknown) months. I do not feel that a CT scan is (unknown) (no (unknown) (unknown) as documented (units ( 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) unknown) (unknown) (no (unknown) (unknown) but no vomiting. (units (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) unknown) (unknown) (no (unknown) (unknown) couple days. Her (units (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) test is unknown) negative. She is not on control. No (unknown) (no (unknown) (unknown) days of (units (unkno wn) date) persistently unknown) worsening lower abdominal pain that at 1 point was radiat (unknown) (no (unknown) (unknown) diverticulitis, (units (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) bowel o unknown) (unknown) (no (unknown) (unknown) doctor. (units (unkno wn) date) Endometriosis most unknown) of the time response to anti-inflammatories . Return (unknown) (no (unknown) (unknown) documented (units (unk nown) date) unknown) (unknown) (no (unknown) (unknown) endometriosis. (units (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) unknown) (unknown) (no (unknown) (unknown) help the (units (unkno wn) date) endometriosis since unknown) she declined. She was given a shot of Toradol. (unknown) (no (unknown) (unknown) ing to her back. (units (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) She actually has unknown) had this pain off and on for the past several (unknown) (no (unknown) (unknown) intra-abdominal (units (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) surgical pathology unknown) to include appendicitis however her (unknown) (no (unknown) (unknown) lives (units (unkno wn) date) independently: Yes unknown) (unknown) (no (unknown) (unknown) presenting (units (unk nown) date) symptoms are not unknown) consistent with this. Would not suspect (unknown) (no (unknown) (unknown) prior abdominal (units (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) surgeries. No unknown) change in bowel habits. She has had some nausea (unknown) (no (unknown) (unknown) them if you wish. (units (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) It is also unknown) important that you follow-up with a primary (unknown) (no (unknown) (unknown) to the emergency (units (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) department for new unknown) symptoms. (unknown) (no (unknown) (unknown) today off and on (units (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) for the past unknown) several months has just been worse over the past (unknown) (no (unknown) (unknown) urinary symptoms. (units (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) Has not had a unknown) menstrual cycle in the past several months. (unknown) (no (unknown) (unknown) vaginal bleeding. (units (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) She does have lower unknown) abdominal tenderness. Considered acute (unknown) (no (unknown) (unknown) warranted today. I (units (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) did offer to start unknown) her on control to see if this would (unknown) (no (unknown) (unknown) weeks/months. It (units (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) has just become unknown) more frequent recently. She denies any Result panel 3 (unknown) (no (unknown) (unknown) (no value) (units (unk nown) date) unknown) (unknown) (no (unknown) (unknown) 03/21/22 (units (unkno wn) date) unknown) (unknown) (no (unknown) (unknown) : [id number] (units (u nknown) date) unknown) (unknown) (no (unknown) (unknown) Age/Sex: 21 / F (units (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) Date of Service: unknown) (unknown) (no (unknown) (unknown) Allergies (units (unkn own) date) unknown) (unknown) (no (unknown) (unknown) D[place]RI[place] (units ( 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) [id number] unknown) (unknown) (no (unknown) (unknown) Attending Dr: (units ( 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) Yordan Llanos unknown) (unknown) (no (unknown) (unknown) : 2000 (units (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) Acct:[id number] unknown) (unknown) (no (unknown) (unknown) Dept at (units (unkno wn) date) . unknown) (unknown) (no (unknown) (unknown) Documented By: (units (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) Yordan Llanos unknown) 03/21/22 0955 (unknown) (no (unknown) (unknown) Draft (units (unkno wn) date) unknown) (unknown) (no (unknown) (unknown) [facility] (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) (unknown) (no (unknown) (unknown) Gynecology Visit (units (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) unknown) (unknown) (no (unknown) (unknown) Healthy adult (units ( 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) unknown) (unknown) (no (unknown) (unknown) Intake (units (unkno wn) date) unknown) (unknown) (no (unknown) (unknown) Loc: [facility] (units (unkno wn) date) unknown) (unknown) (no (unknown) (unknown) Medical History (units (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) (Reviewed unknown) 03/09/22 @ 02:55 by Abdias Valles DO) (unknown) (no (unknown) (unknown) No Known Drug (units ( 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) Allergies Allergy unknown) (Verified 03/08/22 19:36) (unknown) (no (unknown) (unknown) PFSH (units (unkno wn) date) unknown) (unknown) (no (unknown) (unknown) Patient: (units (unkno wn) date) Carol Grimm unknown) Claudia MR# (unknown) (no (unknown) (unknown) Reason For Visit (units (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) unknown) (unknown) (no (unknown) (unknown) Signed By: (units (unk nown) date) unknown) (unknown) (no (unknown) (unknown) Smoking Status: (units (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) Unknown if ever unknown) smoked (unknown) (no (unknown) (unknown) Social History (units (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) unknown) (unknown) (no (unknown) (unknown) This note may (units ( 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) have been all or unknown) partially generated using voice recognition (unknown) (no (unknown) (unknown) Tobacco + (units (unkn own) date) Substance Use unknown) (unknown) (no (unknown) (unknown) Tobacco Status (units (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) unknown) (unknown) (no (unknown) (unknown) 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 (units (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) If there are any unknown) questions, please contact the Medical Records (unknown) (no (unknown) (unknown) lives (units (unkno wn) date) independently: unknown) Yes (unknown) (no (unknown) (unknown) may occur. (units (unk nown) date) Occasional unknown) wrong-word or 'sound-alike' substitutions may have (unknown) (no (unknown) (unknown) occurred due to (units (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) the inherent unknown) limitations of voice recognition software. Please (unknown) (no (unknown) (unknown) read the note (units ( 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) carefully and unknown) recognize, using context, where these substitutions (unknown) (no (unknown) (unknown) software. (units (unkn own) date) Although every unknown) effort is made to edit content, cereal miller errors Result panel 4 (unknown) (no (unknown) (unknown) (no value) (units (unk nown) date) unknown) (unknown) (no (unknown) (unknown) 03/21/22 (units (unkno wn) date) unknown) (unknown) (no (unknown) (unknown) : [id number] (units (u nknown) date) unknown) (unknown) (no (unknown) (unknown) Age/Sex: 21 / F (units (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) Date of Service: unknown) (unknown) (no (unknown) (unknown) Allergies (units (unkn own) date) unknown) (unknown) (no (unknown) (unknown) [place], [place] (units ( 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) [id number] unknown) (unknown) (no (unknown) (unknown) Attending Dr: (units ( 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) Yordan Llanos unknown) (unknown) (no (unknown) (unknown) : 2000 (units (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) Acct:[id number] unknown) (unknown) (no (unknown) (unknown) Dept at (units (unkno wn) date) . unknown) (unknown) (no (unknown) (unknown) Documented By: (units (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) Yordan Llanos unknown) 03/21/22 0955 (unknown) (no (unknown) (unknown) Draft (units (unkno wn) date) unknown) (unknown) (no (unknown) (unknown) [facility] (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) (unknown) (no (unknown) (unknown) Gynecology Visit (units (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) unknown) (unknown) (no (unknown) (unknown) Healthy adult (units ( 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) unknown) (unknown) (no (unknown) (unknown) Intake performed (units (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) by: Maggie Bonds unknown) (unknown) (no (unknown) (unknown) Intake (units (unkno wn) date) unknown) (unknown) (no (unknown) (unknown) Intake- Clincial (units (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) Staff unknown) (unknown) (no (unknown) (unknown) Loc: [facility] (units (unkno wn) date) unknown) (unknown) (no (unknown) (unknown) Medical History (units (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) (Reviewed unknown) 03/09/22 @ 02:55 by Abdias Valles DO) (unknown) (no (unknown) (unknown) Medications (units (un known) date) unknown) (unknown) (no (unknown) (unknown) No Known Drug (units ( 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) Allergies Allergy unknown) (Verified 03/21/22 10:08) (unknown) (no (unknown) (unknown) No Known Home (units ( 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) Medications unknown) 03/21/22 [History Confirmed 03/21/22] (unknown) (no (unknown) (unknown) PFSH (units (unkno wn) date) unknown) (unknown) (no (unknown) (unknown) Patient: (units (unkno wn) date) Carol Grimm unknown) Claudia MR# (unknown) (no (unknown) (unknown) Reason For Visit (units (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) unknown) (unknown) (no (unknown) (unknown) Signed By: (units (unk nown) date) unknown) (unknown) (no (unknown) (unknown) Smoking Status: (units (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) Unknown if ever unknown) smoked (unknown) (no (unknown) (unknown) Social History (units (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) unknown) (unknown) (no (unknown) (unknown) This note may (units ( 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) have been all or unknown) partially generated using voice recognition (unknown) (no (unknown) (unknown) Tobacco + (units (unkn own) date) Substance Use unknown) (unknown) (no (unknown) (unknown) Tobacco Status (units (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) unknown) (unknown) (no (unknown) (unknown) 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 (units (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) If there are any unknown) questions, please contact the Medical Records (unknown) (no (unknown) (unknown) lives (units (unkno wn) date) independently: unknown) Yes (unknown) (no (unknown) (unknown) may occur. (units (unk nown) date) Occasional unknown) wrong-word or 'sound-alike' substitutions may have (unknown) (no (unknown) (unknown) occurred due to (units (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) the inherent unknown) limitations of voice recognition software. Please (unknown) (no (unknown) (unknown) read the note (units ( 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) carefully and unknown) recognize, using context, where these substitutions (unknown) (no (unknown) (unknown) software. (units (unkn own) date) Although every unknown) effort is made to edit content, cereal miller errors Result panel 5 (unknown) (no (unknown) (unknown) (no value) (units (unk nown) date) unknown) (unknown) (no (unknown) (unknown) 03/21/22 (units (unkno wn) date) unknown) (unknown) (no (unknown) (unknown) 10:17 (units (unkno wn) date) unknown) (unknown) (no (unknown) (unknown) : [id number] (units (u nknown) date) unknown) (unknown) (no (unknown) (unknown) Age/Sex: 21 / F (units (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) Date of Service: unknown) (unknown) (no (unknown) (unknown) Allergies (units (unkn own) date) unknown) (unknown) (no (unknown) (unknown) [place], [place] (units ( 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) [id number] unknown) (unknown) (no (unknown) (unknown) Attending Dr: (units ( 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) Yordan Llanos unknown) (unknown) (no (unknown) (unknown) BMI 21.3 (units (unkno wn) date) unknown) (unknown) (no (unknown) (unknown) BP 120/70 (units (unkn own) date) unknown) (unknown) (no (unknown) (unknown) Blood Pressure (units (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) Location Rt unknown) brachial (unknown) (no (unknown) (unknown) : 2000 (units (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) Acct:[id number] unknown) (unknown) (no (unknown) (unknown) Date of Last (units (u nknown) date) Menstrual Period: unknown) 12/26/21 (unknown) (no (unknown) (unknown) Dept at (units (unkno wn) date) . unknown) (unknown) (no (unknown) (unknown) Documented By: (units (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) Yordan Llanos unknownRikki CHINCHILLA 03/21/22 0955 (unknown) (no (unknown) (unknown) Draft (units (unkno wn) date) unknown) (unknown) (no (unknown) (unknown) [facility] (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 unknown) (unknown) (no (unknown) (unknown) Gynecology Visit (units (unknown) date) unknown) (unknown) (no (unknown) (unknown) Healthy adult (units ( unknown) date) unknown) (unknown) (no (unknown) (unknown) Height 4 ft 10 (units (unknown) date) in unknown) (unknown) (no (unknown) (unknown) Her PCP (units (unkno wn) date) suggested to her unknown) that she may have endometriosis. (unknown) (no (unknown) (unknown) Intake Note: (units (u nknown) date) unknown) (unknown) (no (unknown) (unknown) Intake performed (units (unknown) date) by: Maggie Bonds unknown) (unknown) (no (unknown) (unknown) Intake (units (unkno wn) date) unknown) (unknown) (no (unknown) (unknown) Intake- Clincial (units (unknown) date) Staff unknown) (unknown) (no (unknown) (unknown) Is last (units (unkno wn) date) menstrual period unknown) known: Yes (unknown) (no (unknown) (unknown) Last Menstural (units (unknown) date) Cycle + Details unknown) (unknown) (no (unknown) (unknown) Loc: [facility] (units (unkno wn) date) unknown) (unknown) (no (unknown) (unknown) Medical History (units (unknown) date) (Reviewed unknown) 03/09/22 @ 02:55 by Abdias Valles DO) (unknown) (no (unknown) (unknown) Medications (units (un known) date) unknown) (unknown) (no (unknown) (unknown) 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 unknown) (unknown) (no (unknown) (unknown) No Known Drug (units ( unknown) date) Allergies Allergy unknown) (Verified 03/21/22 10:08) (unknown) (no (unknown) (unknown) No Known Home (units ( unknown) date) Medications unknown) 03/21/22 [History Confirmed 03/21/22] (unknown) (no (unknown) (unknown) PFSH (units (unkno wn) date) unknown) (unknown) (no (unknown) (unknown) Patient: (units (unkno wn) date) AlfaCarol unknown) Claudia MR# (unknown) (no (unknown) (unknown) Position Sitting (units (unknown) date) unknown) (unknown) (no (unknown) (unknown) Pt has never had (units (unknown) date) a pap performed unknown) due to her age (unknown) (no (unknown) (unknown) Pt said she (units (un known) date) asked for an US unknown) in the ER but they refused to order one and have it (unknown) (no (unknown) (unknown) Pt states that (units ( unknown) date) since she was 13 unknown) she has had extremely heavy periods was using BC (unknown) (no (unknown) (unknown) Reason For Visit (units (unknown) date) unknown) (unknown) (no (unknown) (unknown) She stopped (units (un known) date) taking the BC unknown) when her period started in Dec and has not had a (unknown) (no (unknown) (unknown) Signed By: (units (unk nown) date) unknown) (unknown) (no (unknown) (unknown) Smoking Status: (units (unknown) date) Never smoker unknown) (unknown) (no (unknown) (unknown) Social History (units (unknown) date) unknown) (unknown) (no (unknown) (unknown) This note may (units ( unknown) date) have been all or unknown) partially generated using voice recognition (unknown) (no (unknown) (unknown) Tobacco + (units (unkn own) date) Substance Use unknown) (unknown) (no (unknown) (unknown) Tobacco Status (units (unknown) date) unknown) (unknown) (no (unknown) (unknown) 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 (unknown) (no (unknown) (unknown) have occurred. (units (unknown) date) If there are any unknown) questions, please contact the Medical Records (unknown) (no (unknown) (unknown) lives (units (unkno wn) date) independently: unknown) Yes (unknown) (no (unknown) (unknown) may occur. (units (unk nown) date) Occasional unknown) wrong-word or 'sound-alike' substitutions may have (unknown) (no (unknown) (unknown) occurred due to (units (unknown) date) the inherent unknown) limitations of voice recognition software. Please (unknown) (no (unknown) (unknown) performed. (units (unk nown) date) unknown) (unknown) (no (unknown) (unknown) period since. She (units (unknown) date) has had multiple unknown) negative tests including in the ER. (unknown) (no (unknown) (unknown) read the note (units ( unknown) date) carefully and unknown) recognize, using context, where these substitutions (unknown) (no (unknown) (unknown) software. (units (unkn own) date) Although every unknown) effort is made to edit content, cereal miller errors Result panel 6 (unknown) (no (unknown) (unknown) (no value) (units (unk nown) date) unknown) (unknown) (no (unknown) (unknown) 03/21/22 (units (unkno wn) date) unknown) (unknown) (no (unknown) (unknown) 10:17 (units (unkno wn) date) unknown) (unknown) (no (unknown) (unknown) 6-8 week history (units (unknown) date) unknown) (unknown) (no (unknown) (unknown) : [id number] (units (u nknown) date) unknown) (unknown) (no (unknown) (unknown) Age/Sex: 21 / F (units (unknown) date) Date of Service: unknown) (unknown) (no (unknown) (unknown) Allergies (units (unkn own) date) unknown) (unknown) (no (unknown) (unknown) [place], [place] (units ( unknown) date) [id number] unknown) (unknown) (no (unknown) (unknown) Attending Dr: (units ( unknown) date) Yordan Llanos unknown) (unknown) (no (unknown) (unknown) BMI 21.3 (units (unkno wn) date) unknown) (unknown) (no (unknown) (unknown) BP 120/70 (units (unkn own) date) unknown) (unknown) (no (unknown) (unknown) Blood Pressure (units (unknown) date) Location Rt unknown) brachial (unknown) (no (unknown) (unknown) Carol is a (units (u nknown) date) 21-year-old unknown) G0, LMP 12/26/2021 who presents today with a (unknown) (no (unknown) (unknown) Chief Complaint: (units (unknown) date) Lower abdominal unknown) pain (unknown) (no (unknown) (unknown) : 2000 (units (unknown) date) Acct:[id number] unknown) (unknown) (no (unknown) (unknown) Date of Last (units (u nknown) date) Menstrual Period: unknown) 12/26/21 (unknown) (no (unknown) (unknown) Dept at (units (unkno wn) date) . unknown) (unknown) (no (unknown) (unknown) Documented By: (units (unknown) date) Yordan Llanos unknown) 03/21/22 0955 (unknown) (no (unknown) (unknown) Draft (units (unkno wn) date) unknown) (unknown) (no (unknown) (unknown) [facility] ([facility] date[facility] unknown) (unknown) (no (unknown) (unknown) Gynecology Visit (units (unknown) date) unknown) (unknown) (no (unknown) (unknown) Healthy adult (units ( unknown) date) unknown) (unknown) (no (unknown) (unknown) Height 4 ft 10 (units (unknown) date) in unknown) (unknown) (no (unknown) (unknown) Her PCP (units (unkno wn) date) suggested to her unknown) that she may have endometriosis. (unknown) (no (unknown) (unknown) Intake Note: (units (u nknown) date) unknown) (unknown) (no (unknown) (unknown) Intake performed (units (unknown) date) by: Maggie Bonds unknown) (unknown) (no (unknown) (unknown) Intake (units (unkno wn) date) unknown) (unknown) (no (unknown) (unknown) Intake- Clincial (units (unknown) date) Staff unknown) (unknown) (no (unknown) (unknown) Is last (units (unkno wn) date) menstrual period unknown) known: Yes (unknown) (no (unknown) (unknown) Last Menstural (units (unknown) date) Cycle + Details unknown) (unknown) (no (unknown) (unknown) Loc: [facility] (units (unkno wn) date) unknown) (unknown) (no (unknown) (unknown) Medical History (units (unknown) date) (Reviewed unknown) 03/09/22 @ 02:55 by Abdias Valles DO) (unknown) (no (unknown) (unknown) Medications (units (un known) date) unknown) (unknown) (no (unknown) (unknown) 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 unknown) (unknown) (no (unknown) (unknown) No Known Drug (units ( unknown) date) Allergies Allergy unknown) (Verified 03/21/22 10:08) (unknown) (no (unknown) (unknown) No Known Home (units ( unknown) date) Medications unknown) 03/21/22 [History Confirmed 03/21/22] (unknown) (no (unknown) (unknown) Note (units (unkno wn) date) unknown) (unknown) (no (unknown) (unknown) Note: (units (unkno wn) date) unknown) (unknown) (no (unknown) (unknown) Notes (units (unkno wn) date) unknown) (unknown) (no (unknown) (unknown) PFSH (units (unkno wn) date) unknown) (unknown) (no (unknown) (unknown) Patient: (units (unkno wn) date) Carol Grimm unknown) Claudia MR# (unknown) (no (unknown) (unknown) Position Sitting (units (unknown) date) unknown) (unknown) (no (unknown) (unknown) Pt has never had (units (unknown) date) a pap performed unknown) due to her age (unknown) (no (unknown) (unknown) Pt said she (units (un known) date) asked for an US unknown) in the ER but they refused to order one and have it (unknown) (no (unknown) (unknown) Pt states that (units ( unknown) date) since she was 13 unknown) she has had extremely heavy periods was using BC (unknown) (no (unknown) (unknown) Reason For Visit (units (unknown) date) unknown) (unknown) (no (unknown) (unknown) She stopped (units (un known) date) taking the BC unknown) when her period started in Nov and has not had a (unknown) (no (unknown) (unknown) Signed By: (units (unk nown) date) unknown) (unknown) (no (unknown) (unknown) Smoking Status: (units (unknown) date) Never smoker unknown) (unknown) (no (unknown) (unknown) Social History (units (unknown) date) unknown) (unknown) (no (unknown) (unknown) This note may (units ( unknown) date) have been all or unknown) partially generated using voice recognition (unknown) (no (unknown) (unknown) Tobacco + (units (unkn own) date) Substance Use unknown) (unknown) (no (unknown) (unknown) Tobacco Status (units (unknown) date) unknown) (unknown) (no (unknown) (unknown) 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 (unknown) (no (unknown) (unknown) have occurred. (units (unknown) date) If there are any unknown) questions, please contact the Medical Records (unknown) (no (unknown) (unknown) lives (units (unkno wn) date) independently: unknown) Yes (unknown) (no (unknown) (unknown) may occur. (units (unk nown) date) Occasional unknown) wrong-word or 'sound-alike' substitutions may have (unknown) (no (unknown) (unknown) occurred due to (units (unknown) date) the inherent unknown) limitations of voice recognition software. Please (unknown) (no (unknown) (unknown) performed. (units (unk nown) date) unknown) (unknown) (no (unknown) (unknown) period since. She (units (unknown) date) has had multiple unknown) negative tests including in the ER. (unknown) (no (unknown) (unknown) read the note (units ( unknown) date) carefully and unknown) recognize, using context, where these substitutions (unknown) (no (unknown) (unknown) software. (units (unkn own) date) Although every unknown) effort is made to edit content, cereal miller errors Result panel 7 (unknown) (no (unknown) (unknown) (no value) (units (unk nown) date) unknown) (unknown) (no (unknown) (unknown) 03/21/22 (units (unkno wn) date) unknown) (unknown) (no (unknown) (unknown) 10:17 (units (unkno wn) date) unknown) (unknown) (no (unknown) (unknown) 6-8 week history (units (unknown) date) of lower abdominal unknown) discomfort which is typically midline but (unknown) (no (unknown) (unknown) : [id number] (units (u nknown) date) unknown) (unknown) (no (unknown) (unknown) Age/Sex: 21 / F (units (unknown) date) Date of Service: unknown) (unknown) (no (unknown) (unknown) Allergies (units (unkn own) date) unknown) (unknown) (no (unknown) (unknown) [place] (units ( unknown) date) [id number] unknown) (unknown) (no (unknown) (unknown) Attending Dr: (units ( unknown) date) Yordan Llanos MD unknown) (unknown) (no (unknown) (unknown) BMI 21.3 (units (unkno wn) date) unknown) (unknown) (no (unknown) (unknown) BP 120/70 (units (unkn own) date) unknown) (unknown) (no (unknown) (unknown) Blood Pressure (units (unknown) date) Location Rt unknown) brachial (unknown) (no (unknown) (unknown) Carol is a (units (u nknown) date) 21-year-old unknown) G0, LMP 12/26/2021 who presents today with a (unknown) (no (unknown) (unknown) Chief Complaint: (units (unknown) date) Lower abdominal unknown) pain (unknown) (no (unknown) (unknown) : 2000 (units (unknown) date) Acct:[id number] unknown) (unknown) (no (unknown) (unknown) Date of Last (units (u nknown) date) Menstrual Period: unknown) 12/26/21 (unknown) (no (unknown) (unknown) January 2022, (units (unknown) date) the patient began unknown) having constant pain in the lower abdomen with (unknown) (no (unknown) (unknown) Dept at (units (unkno wn) date) . unknown) (unknown) (no (unknown) (unknown) Documented By: (units (unknown) date) Yordan Llanos MD unknown) 03/21/22 0955 (unknown) (no (unknown) (unknown) Draft (units (unkno wn) date) unknown) (unknown) (no (unknown) (unknown) [facility]units ([facility] date[facility] unknown) (unknown) (no (unknown) (unknown) Gynecology Visit (units (unknown) date) unknown) (unknown) (no (unknown) (unknown) Healthy adult (units ( unknown) date) unknown) (unknown) (no (unknown) (unknown) Height 4 ft 10 in (units (unknown) date) unknown) (unknown) (no (unknown) (unknown) Her PCP suggested (units (unknown) date) to her that she unknown) may have endometriosis. (unknown) (no (unknown) (unknown) Intake Note: (units (u nknown) date) unknown) (unknown) (no (unknown) (unknown) Intake performed (units (unknown) date) by: Maggie Bonds unknown) (unknown) (no (unknown) (unknown) Intake (units (unkno wn) date) unknown) (unknown) (no (unknown) (unknown) Intake- Clincial (units (unknown) date) Staff unknown) (unknown) (no (unknown) (unknown) Is last menstrual (units (unknown) date) period known: Yes unknown) (unknown) (no (unknown) (unknown) Last Menstural (units (unknown) date) Cycle + Details unknown) (unknown) (no (unknown) (unknown) Loc: [facility] (units (unkno wn) date) unknown) (unknown) (no (unknown) (unknown) Medical History (units (unknown) date) (Reviewed 03/09/22 unknown) @ 02:55 by Abdias Valles DO) (unknown) (no (unknown) (unknown) Medications (units (un known) date) unknown) (unknown) (no (unknown) (unknown) 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 unknown) (unknown) (no (unknown) (unknown) No Known Drug (units ( unknown) date) Allergies Allergy unknown) (Verified 03/21/22 10:08) (unknown) (no (unknown) (unknown) No Known Home (units ( unknown) date) Medications unknown) 03/21/22 [History Confirmed 03/21/22] (unknown) (no (unknown) (unknown) Note (units (unkno wn) date) unknown) (unknown) (no (unknown) (unknown) Note: (units (unkno wn) date) unknown) (unknown) (no (unknown) (unknown) Notes (units (unkno wn) date) unknown) (unknown) (no (unknown) (unknown) PFSH (units (unkno wn) date) unknown) (unknown) (no (unknown) (unknown) Patient: (units (unkno wn) date) Carol Grimm unknown) Claudia MR# (unknown) (no (unknown) (unknown) Position Sitting (units (unknown) date) unknown) (unknown) (no (unknown) (unknown) Pt has never had (units (unknown) date) a pap performed unknown) due to her age (unknown) (no (unknown) (unknown) Pt said she asked (units (unknown) date) for an US in the unknown) ER but they refused to order one and have it (unknown) (no (unknown) (unknown) Pt states that (units ( unknown) date) since she was 13 unknown) she has had extremely heavy periods was using BC (unknown) (no (unknown) (unknown) Reason For Visit (units (unknown) date) unknown) (unknown) (no (unknown) (unknown) She stopped (units (un known) date) taking the BC when unknown) her period started in Nov and has not had a (unknown) (no (unknown) (unknown) Signed By: (units (unk nown) date) unknown) (unknown) (no (unknown) (unknown) Smoking Status: (units (unknown) date) Never smoker unknown) (unknown) (no (unknown) (unknown) Social History (units (unknown) date) unknown) (unknown) (no (unknown) (unknown) This note may (units ( unknown) date) have been all or unknown) partially generated using voice recognition (unknown) (no (unknown) (unknown) Tobacco + (units (unkn own) date) Substance Use unknown) (unknown) (no (unknown) (unknown) Tobacco Status (units (unknown) date) unknown) (unknown) (no (unknown) (unknown) 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 She has had no vaginal bleeding (unknown) (no (unknown) (unknown) control (units ( unknown) date) pills immediately unknown) prior to her LMP in December 2021. Around mid (unknown) (no (unknown) (unknown) but states that (units (unknown) date) her PCP switched unknown) it to a non hormonal one without telling her. (unknown) (no (unknown) (unknown) can also be in (units (unknown) date) the left and right unknown) lower quadrant. Patient has been on (unknown) (no (unknown) (unknown) control pills (units ( unknown) date) since she was unknown) about 18 due to dysmenorrhea and discontinued the (unknown) (no (unknown) (unknown) have occurred. If (units (unknown) date) there are any unknown) questions, please contact the Medical Records (unknown) (no (unknown) (unknown) lives (units (unkno wn) date) independently: Yes unknown) (unknown) (no (unknown) (unknown) may occur. (units (unk nown) date) Occasional unknown) wrong-word or 'sound-alike' substitutions may have (unknown) (no (unknown) (unknown) occurred due to (units (unknown) date) the inherent unknown) limitations of voice recognition software. Please (unknown) (no (unknown) (unknown) on a constant (units (u nknown) date) basis with sharp unknown) severe exacerbations she rates as a 10/10 and can (unknown) (no (unknown) (unknown) performed. (units (unk nown) date) unknown) (unknown) (no (unknown) (unknown) period since. She (units (unknown) date) has had multiple unknown) negative tests including in the ER. (unknown) (no (unknown) (unknown) read the note (units ( unknown) date) carefully and unknown) recognize, using context, where these substitutions (unknown) (no (unknown) (unknown) result in nausea (units (unknown) date) and vomiting. The unknown) pain also radiates to her back, goes up her (unknown) (no (unknown) (unknown) severe episodes (units (unknown) date) which comes unknown) sporadically and without warning. The pain is dull (unknown) (no (unknown) (unknown) since dense (units (un known) date) discontinuation of unknown) her oral contraceptives in December 2021 (unknown) (no (unknown) (unknown) software. (units (unkn own) date) Although every unknown) effort is made to edit content, cereal miller errors Result panel 8 (unknown) (no (unknown) (unknown) (no value) (units (unk nown) date) unknown) (unknown) (no (unknown) (unknown) (Clear, (units (unkno wn) date) proliferative unknown) phase cervical mucus), no cervical discharge, no lesions (unknown) (no (unknown) (unknown) 03/21/22 (units (unkno wn) date) unknown) (unknown) (no (unknown) (unknown) 10:17 (units (unkno wn) date) unknown) (unknown) (no (unknown) (unknown) 6-8 week history (units (unknown) date) of lower abdominal unknown) discomfort which is typically midline but (unknown) (no (unknown) (unknown) : [id number] (units (u nknown) date) unknown) (unknown) (no (unknown) (unknown) Affect: normal (units (unknown) date) affect unknown) (unknown) (no (unknown) (unknown) Age/Sex: 21 / F (units (unknown) date) Date of Service: unknown) (unknown) (no (unknown) (unknown) Allergies (units (unkn own) date) unknown) (unknown) (no (unknown) (unknown) [place], [place] (units ( unknown) date) [id number] unknown) (unknown) (no (unknown) (unknown) Appearance: (units (un known) date) grossly normal unknown) (unknown) (no (unknown) (unknown) Attending Dr: (units ( unknown) date) Yordan Llanos MD unknown) (unknown) (no (unknown) (unknown) Attitude: (units (unkn own) date) cooperative unknown) (unknown) (no (unknown) (unknown) BMI 21.3 (units (unkno wn) date) unknown) (unknown) (no (unknown) (unknown) BP 120/70 (units (unkn own) date) unknown) (unknown) (no (unknown) (unknown) Bimanual Exam- (units (unknown) date) Adnexa, other: unknown) normal adnexae, adnexae mobile, no masses, non (unknown) (no (unknown) (unknown) Bimanual Exam- (units (unknown) date) Vagina + Uterus: unknown) normal bimanual exam, uterine size normal, No (unknown) (no (unknown) (unknown) Blood Pressure (units (unknown) date) Location Rt unknown) brachial (unknown) (no (unknown) (unknown) Carol is a (units (u nknown) date) 21-year-old unknown) G0, LMP 12/26/2021 who presents today with a (unknown) (no (unknown) (unknown) Chief Complaint (units (unknown) date) unknown) (unknown) (no (unknown) (unknown) Chief Complaint: (units (unknown) date) Lower abdominal unknown) pain (unknown) (no (unknown) (unknown) Conjunctivae: (units ( unknown) date) conjunctivae unknown) normal (unknown) (no (unknown) (unknown) Const (units (unkno wn) date) unknown) (unknown) (no (unknown) (unknown) : 2000 (units (unknown) date) Acct:[id number] unknown) (unknown) (no (unknown) (unknown) Date of Last (units (u nknown) date) Menstrual Period: unknown) 12/26/21 (unknown) (no (unknown) (unknown) January 2022, (units (unknown) date) the patient began unknown) having constant pain in the lower abdomen with (unknown) (no (unknown) (unknown) Dept at (units (unkno wn) date) . unknown) (unknown) (no (unknown) (unknown) Details: (units (o wn) date) unknown) (unknown) (no (unknown) (unknown) Documented By: (units (unknown) date) Yordan Llanos MD unknown) 03/21/22 0955 (unknown) (no (unknown) (unknown) Draft (units (o wn) date) unknown) (unknown) (no (unknown) (unknown) EOM: EOM intact (units (unknown) date) bilaterally unknown) (unknown) (no (unknown) (unknown) Ears: hearing (units ( unknown) date) grossly normal unknown) bilaterally (unknown) (no (unknown) (unknown) Effort + (units (o wn) date) Inspection: normal unknown) respiratory effort and able to speak in complete (unknown) (no (unknown) (unknown) Exam (units (unkno wn) date) unknown) (unknown) (no (unknown) (unknown) External Female (units (unknown) date) Exam: normal unknown) external appearance, normal appearance of the (unknown) (no (unknown) (unknown) Eyes (units (unkno wn) date) unknown) (unknown) (no (unknown) (unknown) Face and sinus: (units (unknown) date) face symmetric unknown) (unknown) (no (unknown) (unknown) [facility]) (unknown) (no (unknown) (unknown) (units (o wn) date) unknown) (unknown) (no (unknown) (unknown) General: (units (o wn) date) appearance normal, unknown) both eyes and all related structures (unknown) (no (unknown) (unknown) General: (units (o wn) date) cooperative, unknown) comfortable and no acute distress (unknown) (no (unknown) (unknown) Gynecology Visit (units (unknown) date) unknown) (unknown) (no (unknown) (unknown) HENMT (units (unkno wn) date) unknown) (unknown) (no (unknown) (unknown) HPI (units (unkno wn) date) unknown) (unknown) (no (unknown) (unknown) Head: normal to (units (unknown) date) inspection, unknown) normocephalic and atraumatic (unknown) (no (unknown) (unknown) Healthy adult (units ( unknown) date) unknown) (unknown) (no (unknown) (unknown) Height 4 ft 10 in (units (unknown) date) unknown) (unknown) (no (unknown) (unknown) Her PCP suggested (units (unknown) date) to her that she unknown) may have endometriosis. (unknown) (no (unknown) (unknown) Intake Note: (units (u nknown) date) unknown) (unknown) (no (unknown) (unknown) Intake performed (units (unknown) date) by: Maggie Bonds unknown) (unknown) (no (unknown) (unknown) Intake (units (unkno wn) date) unknown) (unknown) (no (unknown) (unknown) Intake- Clincial (units (unknown) date) Staff unknown) (unknown) (no (unknown) (unknown) Is last menstrual (units (unknown) date) period known: Yes unknown) (unknown) (no (unknown) (unknown) Judgment: (units (unkn own) date) judgment good unknown) (unknown) (no (unknown) (unknown) Last Menstural (units (unknown) date) Cycle + Details unknown) (unknown) (no (unknown) (unknown) Loc: [facility] (units (unkno wn) date) unknown) (unknown) (no (unknown) (unknown) Medical History (units (unknown) date) (Reviewed 03/09/22 unknown) @ 02:55 by Abdias Valles DO) (unknown) (no (unknown) (unknown) Medications (units (un known) date) unknown) (unknown) (no (unknown) (unknown) Mental Status: (units (unknown) date) mental status unknown) grossly normal (unknown) (no (unknown) (unknown) Mood: congruent (units (unknown) date) mood unknown) (unknown) (no (unknown) (unknown) 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 unknown) (unknown) (no (unknown) (unknown) Neck (units (unkno wn) date) unknown) (unknown) (no (unknown) (unknown) Neck: normal (units (u nknown) date) visual inspection unknown) (unknown) (no (unknown) (unknown) No Known Drug (units ( unknown) date) Allergies Allergy unknown) (Verified 03/21/22 10:08) (unknown) (no (unknown) (unknown) No Known Home (units ( unknown) date) Medications unknown) 03/21/22 [History Confirmed 03/21/22] (unknown) (no (unknown) (unknown) Nutritional (units (un known) date) Appearance: unknown) average body habitus (unknown) (no (unknown) (unknown) OB/External + (units ( unknown) date) Speculum: cervical unknown) os open (Clear, proliferative phase cervical (unknown) (no (unknown) (unknown) Orientation: (units (u nknown) date) alert and oriented unknown) x3 (unknown) (no (unknown) (unknown) PFSH (units (unkno wn) date) unknown) (unknown) (no (unknown) (unknown) Patient: (units (unkno wn) date) Carol Grimm unknown) Claudia MR# (unknown) (no (unknown) (unknown) Position Sitting (units (unknown) date) unknown) (unknown) (no (unknown) (unknown) Problem-specific (units (unknown) date) ROS positives unknown) included with the HPI (unknown) (no (unknown) (unknown) Psych (units (unkno wn) date) unknown) (unknown) (no (unknown) (unknown) Pt has never had (units (unknown) date) a pap performed unknown) due to her age (unknown) (no (unknown) (unknown) Pt said she asked (units (unknown) date) for an US in the unknown) ER but they refused to order one and have it (unknown) (no (unknown) (unknown) Pt states that (units ( unknown) date) since she was 13 unknown) she has had extremely heavy periods was using BC (unknown) (no (unknown) (unknown) ROS Narrative (units ( unknown) date) unknown) (unknown) (no (unknown) (unknown) ROS Narrative: (units (unknown) date) unknown) (unknown) (no (unknown) (unknown) ROS (units (unkno wn) date) unknown) (unknown) (no (unknown) (unknown) Reason For Visit (units (unknown) date) unknown) (unknown) (no (unknown) (unknown) Resp (units (unkno wn) date) unknown) (unknown) (no (unknown) (unknown) Sclera: sclerae (units (unknown) date) normal unknown) (unknown) (no (unknown) (unknown) She stopped (units (un known) date) taking the BC when unknown) her period started in Nov and has not had a (unknown) (no (unknown) (unknown) Signed By: (units (unk nown) date) unknown) (unknown) (no (unknown) (unknown) Smoking Status: (units (unknown) date) Never smoker unknown) (unknown) (no (unknown) (unknown) Social History (units (unknown) date) unknown) (unknown) (no (unknown) (unknown) Speculum Exam - (units (unknown) date) Cervix: normal unknown) appearance of the cervix, cervical os open (unknown) (no (unknown) (unknown) Speculum Exam - (units (unknown) date) Vagina: normal unknown) appearance of the vagina, normal vaginal (unknown) (no (unknown) (unknown) Speculum Exam: (units (unknown) date) cervical os open unknown) (Clear, proliferative phase cervical mucus) and (unknown) (no (unknown) (unknown) Speech and (units (unk nown) date) Movement: speech unknown) and movement normal (unknown) (no (unknown) (unknown) This note may (units ( unknown) date) have been all or unknown) partially generated using voice recognition (unknown) (no (unknown) (unknown) Thought Content: (units (unknown) date) normal unknown) (unknown) (no (unknown) (unknown) Thought Process: (units (unknown) date) normal unknown) (unknown) (no (unknown) (unknown) Tobacco + (units (unkn own) date) Substance Use unknown) (unknown) (no (unknown) (unknown) Tobacco Status (units (unknown) date) unknown) (unknown) (no (unknown) (unknown) Urethra: normal (units (unknown) date) appearance of the unknown) urethra (unknown) (no (unknown) (unknown) 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 She has had no vaginal bleeding (unknown) (no (unknown) (unknown) control (units ( unknown) date) pills immediately unknown) prior to her LMP in December 2021. Around mid (unknown) (no (unknown) (unknown) but states that (units (unknown) date) her PCP switched unknown) it to a non hormonal one without telling her. (unknown) (no (unknown) (unknown) can also be in (units (unknown) date) the left and right unknown) lower quadrant. Patient has been on (unknown) (no (unknown) (unknown) control pills (units ( unknown) date) since she was unknown) about 18 due to dysmenorrhea and discontinued the (unknown) (no (unknown) (unknown) discharge, no (units ( unknown) date) lesions, No unknown) vaginal bleeding and nontender (unknown) (no (unknown) (unknown) had a Pap or (units (u nknown) date) pelvic exam unknown) performed. (unknown) (no (unknown) (unknown) have occurred. If (units (unknown) date) there are any unknown) questions, please contact the Medical Records (unknown) (no (unknown) (unknown) lives (units (unkno wn) date) independently: Yes unknown) (unknown) (no (unknown) (unknown) may occur. (units (unk nown) date) Occasional unknown) wrong-word or 'sound-alike' substitutions may have (unknown) (no (unknown) (unknown) mucus) and No (units ( unknown) date) vaginal bleeding unknown) (unknown) (no (unknown) (unknown) no vaginal (units (unk nown) date) bleeding unknown) (unknown) (no (unknown) (unknown) occurred due to (units (unknown) date) the inherent unknown) limitations of voice recognition software. Please (unknown) (no (unknown) (unknown) office hCG today (units (unknown) date) is negative. unknown) Patient has not had pelvic imaging and has never (unknown) (no (unknown) (unknown) on a constant (units (u nknown) date) basis with sharp unknown) severe exacerbations she rates as a 10/10 and can (unknown) (no (unknown) (unknown) performed. (units (unk nown) date) unknown) (unknown) (no (unknown) (unknown) period since. She (units (unknown) date) has had multiple unknown) negative tests including in the ER. (unknown) (no (unknown) (unknown) read the note (units ( unknown) date) carefully and unknown) recognize, using context, where these substitutions (unknown) (no (unknown) (unknown) result in nausea (units (unknown) date) and vomiting. The unknown) pain also radiates to her back, goes up her (unknown) (no (unknown) (unknown) retroverted) (units (u nknown) date) unknown) (unknown) (no (unknown) (unknown) sentences (units (unkn own) date) unknown) (unknown) (no (unknown) (unknown) severe episodes (units (unknown) date) which comes unknown) sporadically and without warning. The pain is dull (unknown) (no (unknown) (unknown) since dense (units (un known) date) discontinuation of unknown) her oral contraceptives in December 2021. In (unknown) (no (unknown) (unknown) software. (units (unkn own) date) Although every unknown) effort is made to edit content, cereal miller errors (unknown) (no (unknown) (unknown) tender and other (units (unknown) date) unknown) (unknown) (no (unknown) (unknown) tender, (units (unkno wn) date) non-tender, no unknown) cervical motion tenderness and displaced (Slightly (unknown) (no (unknown) (unknown) urethra and no (units (unknown) date) lesions unknown) Result panel 9 (unknown) (no (unknown) (unknown) (no value) (units (unk nown) date) unknown) (unknown) (no (unknown) (unknown) (1) Abdominal (units ( unknown) date) pain: unknown) (unknown) (no (unknown) (unknown) (Clear, (units (unkno wn) date) proliferative unknown) phase cervical mucus), no cervical discharge, no lesions (unknown) (no (unknown) (unknown) (constipative (units ( unknown) date) type) but those unknown) symptoms have largely resolved over the last few (unknown) (no (unknown) (unknown) 03/21/22 (units (unkno wn) date) unknown) (unknown) (no (unknown) (unknown) 10:17 (units (unkno wn) date) unknown) (unknown) (no (unknown) (unknown) 6-8 week history (units (unknown) date) of lower abdominal unknown) discomfort which is typically midline but (unknown) (no (unknown) (unknown) : [id number] (units (u nknown) date) unknown) (unknown) (no (unknown) (unknown) Abdominal (units (unkn own) date) location: lower unknown) abdomen, unspecified Qualified Code(s): (unknown) (no (unknown) (unknown) Affect: normal (units (unknown) date) affect unknown) (unknown) (no (unknown) (unknown) Age/Sex: 21 / F (units (unknown) date) Date of Service: unknown) (unknown) (no (unknown) (unknown) Allergies (units (unkn own) date) unknown) (unknown) (no (unknown) (unknown) [place], [place] (units ( unknown) date) [id number] unknown) (unknown) (no (unknown) (unknown) Appearance: (units (un known) date) grossly normal unknown) (unknown) (no (unknown) (unknown) Assessment + Plan (units (unknown) date) unknown) (unknown) (no (unknown) (unknown) Attending Dr: (units ( unknown) date) Yordan Llanos MD unknown) (unknown) (no (unknown) (unknown) Attitude: (units (unkn own) date) cooperative unknown) (unknown) (no (unknown) (unknown) BMI 21.3 (units (unkno wn) date) unknown) (unknown) (no (unknown) (unknown) BP 120/70 (units (unkn own) date) unknown) (unknown) (no (unknown) (unknown) Bimanual Exam- (units ( unknown) date) Adnexa, other: unknown) normal adnexae, adnexae mobile, no masses, normal, (unknown) (no (unknown) (unknown) Bimanual Exam- (units (unknown) date) Vagina + Uterus: unknown) normal bimanual exam, uterine size normal, No (unknown) (no (unknown) (unknown) Blood Pressure (units (unknown) date) Location Rt unknown) brachial (unknown) (no (unknown) (unknown) Carol is a (units (u nknown) date) 21-year-old unknown) G0, LMP 12/26/2021 who presents today with a (unknown) (no (unknown) (unknown) Chief Complaint (units (unknown) date) unknown) (unknown) (no (unknown) (unknown) Chief Complaint: (units (unknown) date) Lower abdominal unknown) pain (unknown) (no (unknown) (unknown) Chlamydia (units (unkn own) date) Gonorrhea PCR unknown) -URINE Today R10.9 - Unspecified abdominal pain, Z11.3 (unknown) (no (unknown) (unknown) Clinical (units (unkno wn) date) history/findings unknown) and pelvic exam are not consistent with a gynecologic (unknown) (no (unknown) (unknown) Conjunctivae: (units ( unknown) date) conjunctivae unknown) normal (unknown) (no (unknown) (unknown) Const (units (unkno wn) date) unknown) (unknown) (no (unknown) (unknown) : 2000 (units (unknown) date) Acct:[id number] unknown) (unknown) (no (unknown) (unknown) Date of Last (units (u nknown) date) Menstrual Period: unknown) 12/26/21 (unknown) (no (unknown) (unknown) January 2022, (units (unknown) date) the patient began unknown) having constant pain in the lower abdomen with (unknown) (no (unknown) (unknown) Dept at (units (unkno wn) date) . unknown) (unknown) (no (unknown) (unknown) Details: (units (unkno wn) date) unknown) (unknown) (no (unknown) (unknown) Documented By: (units (unknown) date) Yordan Llanos MD unknown) 03/21/22 0955 (unknown) (no (unknown) (unknown) Draft (units (unkno wn) date) unknown) (unknown) (no (unknown) (unknown) EOM: EOM intact (units (unknown) date) bilaterally unknown) (unknown) (no (unknown) (unknown) Ears: hearing (units ( unknown) date) grossly normal unknown) bilaterally (unknown) (no (unknown) (unknown) Effort + (units (unkno wn) date) Inspection: normal unknown) respiratory effort and able to speak in complete (unknown) (no (unknown) (unknown) Encounter for (units ( unknown) date) screening for unknown) infections with a predominantly sexual mode of (unknown) (no (unknown) (unknown) Exam (units (unkno wn) date) unknown) (unknown) (no (unknown) (unknown) External Female (units (unknown) date) Exam: normal unknown) external appearance, normal appearance of the (unknown) (no (unknown) (unknown) Eyes (units (unkno wn) date) unknown) (unknown) (no (unknown) (unknown) Face and sinus: (units (unknown) date) face symmetric unknown) (unknown) (no (unknown) (unknown) [facility]) (unknown) (no (unknown) (unknown) (units (unkno wn) date) unknown) (unknown) (no (unknown) (unknown) General: (units (o wn) date) appearance normal, unknown) both eyes and all related structures (unknown) (no (unknown) (unknown) General: (units (o wn) date) cooperative, unknown) comfortable and no acute distress (unknown) (no (unknown) (unknown) Gynecology Visit (units (unknown) date) unknown) (unknown) (no (unknown) (unknown) HENMT (units (unkno wn) date) unknown) (unknown) (no (unknown) (unknown) HPI (units (unkno wn) date) unknown) (unknown) (no (unknown) (unknown) Head: normal to (units (unknown) date) inspection, unknown) normocephalic and atraumatic (unknown) (no (unknown) (unknown) Healthy adult (units ( unknown) date) unknown) (unknown) (no (unknown) (unknown) Height 4 ft 10 in (units (unknown) date) unknown) (unknown) (no (unknown) (unknown) Her PCP suggested (units (unknown) date) to her that she unknown) may have endometriosis. (unknown) (no (unknown) (unknown) Intake Note: (units (u nknown) date) unknown) (unknown) (no (unknown) (unknown) Intake performed (units (unknown) date) by: Maggie Bonds unknown) (unknown) (no (unknown) (unknown) Intake (units (unkno wn) date) unknown) (unknown) (no (unknown) (unknown) Intake- Clincial (units (unknown) date) Staff unknown) (unknown) (no (unknown) (unknown) Is last menstrual (units (unknown) date) period known: Yes unknown) (unknown) (no (unknown) (unknown) Judgment: (units (unkn own) date) judgment good unknown) (unknown) (no (unknown) (unknown) Last Menstural (units (unknown) date) Cycle + Details unknown) (unknown) (no (unknown) (unknown) Loc: [facility] (units (unkno wn) date) unknown) (unknown) (no (unknown) (unknown) Medical History (units (unknown) date) (Reviewed 03/09/22 unknown) @ 02:55 by Abdias Valles DO) (unknown) (no (unknown) (unknown) Medications (units (un known) date) unknown) (unknown) (no (unknown) (unknown) Mental Status: (units (unknown) date) mental status unknown) grossly normal (unknown) (no (unknown) (unknown) Mood: congruent (units (unknown) date) mood unknown) (unknown) (no (unknown) (unknown) 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 unknown) (unknown) (no (unknown) (unknown) Neck (units (unkno wn) date) unknown) (unknown) (no (unknown) (unknown) Neck: normal (units (u nknown) date) visual inspection unknown) (unknown) (no (unknown) (unknown) No Known Drug (units ( unknown) date) Allergies Allergy unknown) (Verified 03/21/22 10:08) (unknown) (no (unknown) (unknown) No Known Home (units ( unknown) date) Medications unknown) 03/21/22 [History Confirmed 03/21/22] (unknown) (no (unknown) (unknown) Nutritional (units (un known) date) Appearance: unknown) average body habitus (unknown) (no (unknown) (unknown) OB/External + (units ( unknown) date) Speculum: cervical unknown) os open (Clear, proliferative phase cervical (unknown) (no (unknown) (unknown) Orders (units (unkno wn) date) unknown) (unknown) (no (unknown) (unknown) Orders: (units (unkno wn) date) unknown) (unknown) (no (unknown) (unknown) Orientation: (units (u nknown) date) alert and oriented unknown) x3 (unknown) (no (unknown) (unknown) PFSH (units (unkno wn) date) unknown) (unknown) (no (unknown) (unknown) Patient: (units (unkno wn) date) Carol Grimm unknown) Claudia MR# (unknown) (no (unknown) (unknown) Pelvic Support: (units (unknown) date) normal unknown) (unknown) (no (unknown) (unknown) Plan (units (unkno wn) date) unknown) (unknown) (no (unknown) (unknown) Position Sitting (units (unknown) date) unknown) (unknown) (no (unknown) (unknown) Problem-specific (units (unknown) date) ROS positives unknown) included with the HPI (unknown) (no (unknown) (unknown) Psych (units (unkno wn) date) unknown) (unknown) (no (unknown) (unknown) Pt has never had (units (unknown) date) a pap performed unknown) due to her age (unknown) (no (unknown) (unknown) Pt said she asked (units (unknown) date) for an US in the unknown) ER but they refused to order one and have it (unknown) (no (unknown) (unknown) Pt states that (units ( unknown) date) since she was 13 unknown) she has had extremely heavy periods was using BC (unknown) (no (unknown) (unknown) Qualifiers: (units (un known) date) unknown) (unknown) (no (unknown) (unknown) R10.30 - Lower (units (unknown) date) abdominal pain, unknown) unspecified (unknown) (no (unknown) (unknown) ROS Narrative (units ( unknown) date) unknown) (unknown) (no (unknown) (unknown) ROS Narrative: (units (unknown) date) unknown) (unknown) (no (unknown) (unknown) ROS (units (unkno wn) date) unknown) (unknown) (no (unknown) (unknown) Reason For Visit (units (unknown) date) unknown) (unknown) (no (unknown) (unknown) Resp (units (unkno wn) date) unknown) (unknown) (no (unknown) (unknown) Sclera: sclerae (units (unknown) date) normal unknown) (unknown) (no (unknown) (unknown) She stopped (units (un known) date) taking the BC when unknown) her period started in Dec and has not had a (unknown) (no (unknown) (unknown) Signed By: (units (unk nown) date) unknown) (unknown) (no (unknown) (unknown) Smoking Status: (units (unknown) date) Never smoker unknown) (unknown) (no (unknown) (unknown) Social History (units (unknown) date) unknown) (unknown) (no (unknown) (unknown) Speculum Exam - (units (unknown) date) Cervix: normal unknown) appearance of the cervix, cervical os open (unknown) (no (unknown) (unknown) Speculum Exam - (units (unknown) date) Vagina: normal unknown) appearance of the vagina, normal vaginal (unknown) (no (unknown) (unknown) Speculum Exam: (units (unknown) date) cervical os open unknown) (Clear, proliferative phase cervical mucus) and (unknown) (no (unknown) (unknown) Speech and (units (unk nown) date) Movement: speech unknown) and movement normal (unknown) (no (unknown) (unknown) Status: Acute (units ( unknown) date) unknown) (unknown) (no (unknown) (unknown) This note may (units ( unknown) date) have been all or unknown) partially generated using voice recognition (unknown) (no (unknown) (unknown) Thought Content: (units (unknown) date) normal unknown) (unknown) (no (unknown) (unknown) Thought Process: (units (unknown) date) normal unknown) (unknown) (no (unknown) (unknown) Tobacco + (units (unkn own) date) Substance Use unknown) (unknown) (no (unknown) (unknown) Tobacco Status (units (unknown) date) unknown) (unknown) (no (unknown) (unknown) Urethra: normal (units (unknown) date) appearance of the unknown) urethra (unknown) (no (unknown) (unknown) 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 She has had no vaginal bleeding (unknown) (no (unknown) (unknown) control (units ( unknown) date) pills immediately unknown) prior to her LMP in December 2021. Around mid (unknown) (no (unknown) (unknown) but states that (units (unknown) date) her PCP switched unknown) it to a non hormonal one without telling her. (unknown) (no (unknown) (unknown) can also be in (units (unknown) date) the left and right unknown) lower quadrant. Patient has been on (unknown) (no (unknown) (unknown) control pills (units ( unknown) date) since she was unknown) about 18 due to dysmenorrhea and discontinued the (unknown) (no (unknown) (unknown) discharge, no (units ( unknown) date) lesions, No unknown) vaginal bleeding and nontender (unknown) (no (unknown) (unknown) have occurred. If (units (unknown) date) there are any unknown) questions, please contact the Medical Records (unknown) (no (unknown) (unknown) imaging and has (units (unknown) date) never had a Pap or unknown) pelvic exam performed. (unknown) (no (unknown) (unknown) lives (units (unkno wn) date) independently: Yes unknown) (unknown) (no (unknown) (unknown) may occur. (units (unk nown) date) Occasional unknown) wrong-word or 'sound-alike' substitutions may have (unknown) (no (unknown) (unknown) mucus) and No (units ( unknown) date) vaginal bleeding unknown) (unknown) (no (unknown) (unknown) no vaginal (units (unk nown) date) bleeding unknown) (unknown) (no (unknown) (unknown) non-tender and (units (unknown) date) other (Right ovary unknown) is palpable 3 x 4 cm, non-tender, left (unknown) (no (unknown) (unknown) nonpalpable) (units (u nknown) date) unknown) (unknown) (no (unknown) (unknown) occurred due to (units (unknown) date) the inherent unknown) limitations of voice recognition software. Please (unknown) (no (unknown) (unknown) office hCG today (units (unknown) date) is negative. unknown) Patient has a history of irritable bowel syndrome (unknown) (no (unknown) (unknown) on a constant (units (u nknown) date) basis with sharp unknown) severe exacerbations she rates as a 10/10 and can (unknown) (no (unknown) (unknown) performed. (units (unk nown) date) unknown) (unknown) (no (unknown) (unknown) period since. She (units (unknown) date) has had multiple unknown) negative tests including in the ER. (unknown) (no (unknown) (unknown) read the note (units ( unknown) date) carefully and unknown) recognize, using context, where these substitutions (unknown) (no (unknown) (unknown) result in nausea (units (unknown) date) and vomiting. The unknown) pain also radiates to her back, goes up her (unknown) (no (unknown) (unknown) retroverted) (units (u nknown) date) unknown) (unknown) (no (unknown) (unknown) sentences (units (unkn own) date) unknown) (unknown) (no (unknown) (unknown) severe episodes (units (unknown) date) which comes unknown) sporadically and without warning. The pain is dull (unknown) (no (unknown) (unknown) since dense (units (un known) date) discontinuation of unknown) her oral contraceptives in December 2021. In (unknown) (no (unknown) (unknown) software. 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 unknown) (unknown) (no (unknown) (unknown) tender, (units (unkno wn) date) non-tender, no unknown) cervical motion tenderness and displaced (Slightly (unknown) (no (unknown) (unknown) transmission (units (u nknown) date) unknown) (unknown) (no (unknown) (unknown) urethra and no (units (unknown) date) lesions unknown) (unknown) (no (unknown) (unknown) years and (units (unkn own) date) currently her unknown) bowel function is normal. Patient has not had pelvic Result panel 10 (unknown) (no (unknown) (unknown) (no value) (units (unk nown) date) unknown) (unknown) (no (unknown) (unknown) (1) Abdominal (units ( unknown) date) pain: unknown) (unknown) (no (unknown) (unknown) (Clear, (units (unkno wn) date) proliferative unknown) phase cervical mucus), no cervical discharge, no lesions (unknown) (no (unknown) (unknown) (constipative (units ( unknown) date) type) but those unknown) symptoms have largely resolved over the last few (unknown) (no (unknown) (unknown) 03/21/22 (units (unkno wn) date) unknown) (unknown) (no (unknown) (unknown) 10:17 (units (unkno wn) date) unknown) (unknown) (no (unknown) (unknown) 6-8 week history (units (unknown) date) of lower abdominal unknown) discomfort which is typically midline but (unknown) (no (unknown) (unknown) : [id number] (units (u nknown) date) unknown) (unknown) (no (unknown) (unknown) Abdominal (units (unkn own) date) location: lower unknown) abdomen, unspecified Qualified Code(s): (unknown) (no (unknown) (unknown) Affect: normal (units (unknown) date) affect unknown) (unknown) (no (unknown) (unknown) Age/Sex: 21 / F (units (unknown) date) Date of Service: unknown) (unknown) (no (unknown) (unknown) Allergies (units (unkn own) date) unknown) (unknown) (no (unknown) (unknown) Also discussed (units (unknown) date) post pill unknown) amenorrhea. Patient does not wish to resume OCs as she (unknown) (no (unknown) (unknown) [place], [place] (units ( unknown) date) [id number] unknown) (unknown) (no (unknown) (unknown) Appearance: (units (un known) date) grossly normal unknown) (unknown) (no (unknown) (unknown) Assessment + Plan (units (unknown) date) unknown) (unknown) (no (unknown) (unknown) Attending Dr: (units ( unknown) date) Yordan Llanos MD unknown) (unknown) (no (unknown) (unknown) Attitude: (units (unkn own) date) cooperative unknown) (unknown) (no (unknown) (unknown) BMI 21.3 (units (unkno wn) date) unknown) (unknown) (no (unknown) (unknown) BP 120/70 (units (unkn own) date) unknown) (unknown) (no (unknown) (unknown) Bimanual Exam- (units ( unknown) date) Adnexa, other: unknown) normal adnexae, adnexae mobile, no masses, normal, (unknown) (no (unknown) (unknown) Bimanual Exam- (units (unknown) date) Vagina + Uterus: unknown) normal bimanual exam, uterine size normal, No (unknown) (no (unknown) (unknown) Blood Pressure (units (unknown) date) Location Rt unknown) brachial (unknown) (no (unknown) (unknown) Carol is a (units (u nknown) date) 21-year-old unknown) G0, LMP 12/26/2021 who presents today with a (unknown) (no (unknown) (unknown) Chief Complaint (units (unknown) date) unknown) (unknown) (no (unknown) (unknown) Chief Complaint: (units (unknown) date) Lower abdominal unknown) pain (unknown) (no (unknown) (unknown) Chlamydia (units (unkn own) date) Gonorrhea PCR unknown) -URINE Today R10.9 - Unspecified abdominal pain, Z11.3 (unknown) (no (unknown) (unknown) Clinical (units (unkno wn) date) history/findings unknown) and pelvic exam are not consistent with a gynecologic (unknown) (no (unknown) (unknown) Conjunctivae: (units ( unknown) date) conjunctivae unknown) normal (unknown) (no (unknown) (unknown) Const (units (unkno wn) date) unknown) (unknown) (no (unknown) (unknown) : 2000 (units (unknown) date) Acct:[id number] unknown) (unknown) (no (unknown) (unknown) Date of Last (units (u nknown) date) Menstrual Period: unknown) 12/26/21 (unknown) (no (unknown) (unknown) January 2022, (units (unknown) date) the patient began unknown) having constant pain in the lower abdomen with (unknown) (no (unknown) (unknown) Dept at (units (unkno wn) date) . unknown) (unknown) (no (unknown) (unknown) Details: (units (unkno wn) date) unknown) (unknown) (no (unknown) (unknown) Documented By: (units (unknown) date) Yordan Llanos MD unknown) 03/21/22 0955 (unknown) (no (unknown) (unknown) Draft (units (unkno wn) date) unknown) (unknown) (no (unknown) (unknown) EOM: EOM intact (units (unknown) date) bilaterally unknown) (unknown) (no (unknown) (unknown) Ears: hearing (units ( unknown) date) grossly normal unknown) bilaterally (unknown) (no (unknown) (unknown) Effort + (units (unkno wn) date) Inspection: normal unknown) respiratory effort and able to speak in complete (unknown) (no (unknown) (unknown) Encounter for (units ( unknown) date) screening for unknown) infections with a predominantly sexual mode of (unknown) (no (unknown) (unknown) Exam (units (unkno wn) date) unknown) (unknown) (no (unknown) (unknown) External Female (units (unknown) date) Exam: normal unknown) external appearance, normal appearance of the (unknown) (no (unknown) (unknown) Eyes (units (unkno wn) date) unknown) (unknown) (no (unknown) (unknown) Face and sinus: (units (unknown) date) face symmetric unknown) (unknown) (no (unknown) (unknown) [facility]) (unknown) (no (unknown) (unknown) GC and chlamydia (units (unknown) date) submitted although unknown) unlikely to be positive. (unknown) (no (unknown) (unknown) (units (unkno wn) date) unknown) (unknown) (no (unknown) (unknown) General: (units (unkno wn) date) appearance normal, unknown) both eyes and all related structures (unknown) (no (unknown) (unknown) General: (units (unkno wn) date) cooperative, unknown) comfortable and no acute distress (unknown) (no (unknown) (unknown) Gynecology Visit (units (unknown) date) unknown) (unknown) (no (unknown) (unknown) HENMT (units (unkno wn) date) unknown) (unknown) (no (unknown) (unknown) HPI (units (unkno wn) date) unknown) (unknown) (no (unknown) (unknown) Head: normal to (units (unknown) date) inspection, unknown) normocephalic and atraumatic (unknown) (no (unknown) (unknown) Healthy adult (units ( unknown) date) unknown) (unknown) (no (unknown) (unknown) Height 4 ft 10 in (units (unknown) date) unknown) (unknown) (no (unknown) (unknown) Her PCP suggested (units (unknown) date) to her that she unknown) may have endometriosis. (unknown) (no (unknown) (unknown) Intake Note: (units (u nknown) date) unknown) (unknown) (no (unknown) (unknown) Intake performed (units (unknown) date) by: Maggie Bonds unknown) (unknown) (no (unknown) (unknown) Intake (units (unkno wn) date) unknown) (unknown) (no (unknown) (unknown) Intake- Clincial (units (unknown) date) Staff unknown) (unknown) (no (unknown) (unknown) Is last menstrual (units (unknown) date) period known: Yes unknown) (unknown) (no (unknown) (unknown) Judgment: (units (unkn own) date) judgment good unknown) (unknown) (no (unknown) (unknown) Last Menstural (units (unknown) date) Cycle + Details unknown) (unknown) (no (unknown) (unknown) Loc: [facility] (units (unkno wn) date) unknown) (unknown) (no (unknown) (unknown) Medical History (units (unknown) date) (Reviewed 03/09/22 unknown) @ 02:55 by Abdias Valles DO) (unknown) (no (unknown) (unknown) Medications (units (un known) date) unknown) (unknown) (no (unknown) (unknown) Mental Status: (units (unknown) date) mental status unknown) grossly normal (unknown) (no (unknown) (unknown) Mood: congruent (units (unknown) date) mood unknown) (unknown) (no (unknown) (unknown) 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 unknown) (unknown) (no (unknown) (unknown) Neck (units (unkno wn) date) unknown) (unknown) (no (unknown) (unknown) Neck: normal (units (u nknown) date) visual inspection unknown) (unknown) (no (unknown) (unknown) No Known Drug (units ( unknown) date) Allergies Allergy unknown) (Verified 03/21/22 10:08) (unknown) (no (unknown) (unknown) No Known Home (units ( unknown) date) Medications unknown) 03/21/22 [History Confirmed 03/21/22] (unknown) (no (unknown) (unknown) Nutritional (units (un known) date) Appearance: unknown) average body habitus (unknown) (no (unknown) (unknown) OB/External + (units ( unknown) date) Speculum: cervical unknown) os open (Clear, proliferative phase cervical (unknown) (no (unknown) (unknown) Orders (units (unkno wn) date) unknown) (unknown) (no (unknown) (unknown) Orders: (units (unkno wn) date) unknown) (unknown) (no (unknown) (unknown) Orientation: (units (u nknown) date) alert and oriented unknown) x3 (unknown) (no (unknown) (unknown) PFSH (units (unkno wn) date) unknown) (unknown) (no (unknown) (unknown) Patient advised (units (unknown) date) to identify a unknown) primary care provider for continuity care and for (unknown) (no (unknown) (unknown) Patient: (units (unkno wn) date) Carol Grimm unknown) Claudia MR# (unknown) (no (unknown) (unknown) Pelvic Support: (units (unknown) date) normal unknown) (unknown) (no (unknown) (unknown) Pelvic ultrasound (units (unknown) date) ordered and it unknown) will be done later today. Patient be notified (unknown) (no (unknown) (unknown) Plan (units (unkno wn) date) unknown) (unknown) (no (unknown) (unknown) Position Sitting (units (unknown) date) unknown) (unknown) (no (unknown) (unknown) Prescription for (units (unknown) date) naproxen 500 mg unknown) q.8 hours to the patient's pharmacy. Patient (unknown) (no (unknown) (unknown) Problem-specific (units (unknown) date) ROS positives unknown) included with the HPI (unknown) (no (unknown) (unknown) Psych (units (unkno wn) date) unknown) (unknown) (no (unknown) (unknown) Pt has never had (units (unknown) date) a pap performed unknown) due to her age (unknown) (no (unknown) (unknown) Pt said she asked (units (unknown) date) for an US in the unknown) ER but they refused to order one and have it (unknown) (no (unknown) (unknown) Pt states that (units ( unknown) date) since she was 13 unknown) she has had extremely heavy periods was using BC (unknown) (no (unknown) (unknown) Qualifiers: (units (un known) date) unknown) (unknown) (no (unknown) (unknown) R10.30 - Lower (units (unknown) date) abdominal pain, unknown) unspecified (unknown) (no (unknown) (unknown) ROS Narrative (units ( unknown) date) unknown) (unknown) (no (unknown) (unknown) ROS Narrative: (units (unknown) date) unknown) (unknown) (no (unknown) (unknown) ROS (units (unkno wn) date) unknown) (unknown) (no (unknown) (unknown) Reason For Visit (units (unknown) date) unknown) (unknown) (no (unknown) (unknown) Resp (units (unkno wn) date) unknown) (unknown) (no (unknown) (unknown) Sclera: sclerae (units (unknown) date) normal unknown) (unknown) (no (unknown) (unknown) She stopped (units (un known) date) taking the BC when unknown) her period started in Nov and has not had a (unknown) (no (unknown) (unknown) Signed By: (units (unk nown) date) unknown) (unknown) (no (unknown) (unknown) Smoking Status: (units (unknown) date) Never smoker unknown) (unknown) (no (unknown) (unknown) Social History (units (unknown) date) unknown) (unknown) (no (unknown) (unknown) Speculum Exam - (units (unknown) date) Cervix: normal unknown) appearance of the cervix, cervical os open (unknown) (no (unknown) (unknown) Speculum Exam - (units (unknown) date) Vagina: normal unknown) appearance of the vagina, normal vaginal (unknown) (no (unknown) (unknown) Speculum Exam: (units (unknown) date) cervical os open unknown) (Clear, proliferative phase cervical mucus) and (unknown) (no (unknown) (unknown) Speech and (units (unk nown) date) Movement: speech unknown) and movement normal (unknown) (no (unknown) (unknown) Status: Acute (units ( unknown) date) unknown) (unknown) (no (unknown) (unknown) This note may (units ( unknown) date) have been all or unknown) partially generated using voice recognition (unknown) (no (unknown) (unknown) Thought Content: (units (unknown) date) normal unknown) (unknown) (no (unknown) (unknown) Thought Process: (units (unknown) date) normal unknown) (unknown) (no (unknown) (unknown) Tobacco + (units (unkn own) date) Substance Use unknown) (unknown) (no (unknown) (unknown) Tobacco Status (units (unknown) date) unknown) (unknown) (no (unknown) (unknown) US pelvic (units (unkn own) date) complete Today unknown) N91.2 - Amenorrhea, unspecified, R10.2 - Pelvic and (unknown) (no (unknown) (unknown) Urethra: normal (units (unknown) date) appearance of the unknown) urethra (unknown) (no (unknown) (unknown) 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) Menorrhagia/Dysmen orrhea (unknown) (no (unknown) (unknown) Vitals (units (unkno wn) date) unknown) (unknown) (no (unknown) (unknown) Weight 102 lb (units ( unknown) date) unknown) (unknown) (no (unknown) (unknown) advised to start (units (unknown) date) taking naproxen 2 unknown) days prior to expected onset of menses for (unknown) (no (unknown) (unknown) and nontender (units ( unknown) date) unknown) (unknown) (no (unknown) (unknown) apparently that (units (unknown) date) suggested unknown) since she was 17 years old for the pain that (unknown) (no (unknown) (unknown) back, and can (units ( unknown) date) trigger the onset unknown) of a migraine. She has had no vaginal bleeding (unknown) (no (unknown) (unknown) best relief of (units (unknown) date) dysmenorrhea. unknown) (unknown) (no (unknown) (unknown) control (units ( unknown) date) pills immediately unknown) prior to her LMP in December 2021. Around mid (unknown) (no (unknown) (unknown) but states that (units (unknown) date) her PCP switched unknown) it to a non hormonal one without telling her. (unknown) (no (unknown) (unknown) can also be in (units (unknown) date) the left and right unknown) lower quadrant. Patient has been on (unknown) (no (unknown) (unknown) control pills (units ( unknown) date) since she was unknown) about 18 due to dysmenorrhea and discontinued the (unknown) (no (unknown) (unknown) discharge, no (units ( unknown) date) lesions, No unknown) vaginal bleeding and nontender (unknown) (no (unknown) (unknown) does not feel as (units (unknown) date) though they have unknown) been significantly beneficial. Discussed the (unknown) (no (unknown) (unknown) further (units (unkno wn) date) evaluation for non unknown) gynecologic causes of her ongoing abdominal pain (unknown) (no (unknown) (unknown) have occurred. If (units (unknown) date) there are any unknown) questions, please contact the Medical Records (unknown) (no (unknown) (unknown) imaging and has (units (unknown) date) never had a Pap or unknown) pelvic exam performed. (unknown) (no (unknown) (unknown) lives (units (unkno wn) date) independently: Yes unknown) (unknown) (no (unknown) (unknown) may occur. (units (unk nown) date) Occasional unknown) wrong-word or 'sound-alike' substitutions may have (unknown) (no (unknown) (unknown) mucus) and No (units ( unknown) date) vaginal bleeding unknown) (unknown) (no (unknown) (unknown) no vaginal (units (unk nown) date) bleeding unknown) (unknown) (no (unknown) (unknown) non-tender and (units (unknown) date) other (Right ovary unknown) is palpable 3 x 4 cm, non-tender, left (unknown) (no (unknown) (unknown) nonpalpable) (units (u nknown) date) unknown) (unknown) (no (unknown) (unknown) occurred due to (units (unknown) date) the inherent unknown) limitations of voice recognition software. Please (unknown) (no (unknown) (unknown) of results when (units (unknown) date) available. unknown) (unknown) (no (unknown) (unknown) office hCG today (units (unknown) date) is negative. unknown) Patient has a history of irritable bowel syndrome (unknown) (no (unknown) (unknown) on a constant (units (u nknown) date) basis with sharp unknown) severe exacerbations she rates as a 10/10 and can (unknown) (no (unknown) (unknown) otherwise (units (unkn own) date) follow-up will be unknown) on an as needed basis. (unknown) (no (unknown) (unknown) performed. (units (unk nown) date) unknown) (unknown) (no (unknown) (unknown) perineal pain, (units (unknown) date) Z32.02 - Encounter unknown) for test, result negative (unknown) (no (unknown) (unknown) period since. She (units (unknown) date) has had multiple unknown) negative tests including in the ER. (unknown) (no (unknown) (unknown) possibility of (units (unknown) date) laparoscopy for unknown) her severe dysmenorrhea at some point and (unknown) (no (unknown) (unknown) read the note (units ( unknown) date) carefully and unknown) recognize, using context, where these substitutions (unknown) (no (unknown) (unknown) result in nausea (units (unknown) date) and vomiting. The unknown) pain also radiates to her back, goes up her (unknown) (no (unknown) (unknown) retroverted) (units (u nknown) date) unknown) (unknown) (no (unknown) (unknown) sentences (units (unkn own) date) unknown) (unknown) (no (unknown) (unknown) severe episodes (units (unknown) date) which comes unknown) sporadically and without warning. The pain is dull (unknown) (no (unknown) (unknown) she has with her (units (unknown) date) periods. unknown) (unknown) (no (unknown) (unknown) since dense (units (un known) date) discontinuation of unknown) her oral contraceptives in December 2021. In (unknown) (no (unknown) (unknown) software. 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 unknown) (unknown) (no (unknown) (unknown) tender, (units (unkno wn) date) non-tender, no unknown) cervical motion tenderness and displaced (Slightly (unknown) (no (unknown) (unknown) transmission (units (u nknown) date) unknown) (unknown) (no (unknown) (unknown) urethra and no (units (unknown) date) lesions unknown) (unknown) (no (unknown) (unknown) years and (units (unkn own) date) currently her unknown) bowel function is normal. Patient has not had pelvic Result panel 11 (unknown) (no (unknown) (unknown) (no value) (units (unk nown) date) unknown) (unknown) (no (unknown) (unknown) (1) Abdominal (units ( unknown) date) pain: unknown) (unknown) (no (unknown) (unknown) (Clear, (units (unkno wn) date) proliferative unknown) phase cervical mucus), no cervical discharge, no lesions (unknown) (no (unknown) (unknown) (constipative (units ( unknown) date) type) but those unknown) symptoms have largely resolved over the last few (unknown) (no (unknown) (unknown) 03/21/22 (units (unkno wn) date) unknown) (unknown) (no (unknown) (unknown) 03/21/22] (units (unkn own) date) unknown) (unknown) (no (unknown) (unknown) 10:17 (units (unkno wn) date) unknown) (unknown) (no (unknown) (unknown) 500 mg PO Q8H PRN (units (unknown) date) 30 tabs 12RF pain unknown) (unknown) (no (unknown) (unknown) 6-8 week history (units (unknown) date) of lower abdominal unknown) discomfort which is typically midline but (unknown) (no (unknown) (unknown) : [id number] (units (u nknown) date) unknown) (unknown) (no (unknown) (unknown) Abdominal (units (unkn own) date) location: lower unknown) abdomen, unspecified Qualified Code(s): (unknown) (no (unknown) (unknown) Affect: normal (units (unknown) date) affect unknown) (unknown) (no (unknown) (unknown) Age/Sex: 21 / F (units (unknown) date) Date of Service: unknown) (unknown) (no (unknown) (unknown) Allergies (units (unkn own) date) unknown) (unknown) (no (unknown) (unknown) Also discussed (units (unknown) date) post pill unknown) amenorrhea. Patient does not wish to resume OCs as she (unknown) (no (unknown) (unknown) [place], [place] (units ( unknown) date) [id number] unknown) (unknown) (no (unknown) (unknown) Appearance: (units (un known) date) grossly normal unknown) (unknown) (no (unknown) (unknown) Assessment + Plan (units (unknown) date) unknown) (unknown) (no (unknown) (unknown) Attending Dr: (units ( unknown) date) Yordan Llanos MD unknown) (unknown) (no (unknown) (unknown) Attitude: (units (unkn own) date) cooperative unknown) (unknown) (no (unknown) (unknown) BMI 21.3 (units (unkno wn) date) unknown) (unknown) (no (unknown) (unknown) BP 120/70 (units (unkn own) date) unknown) (unknown) (no (unknown) (unknown) Bimanual Exam- (units ( unknown) date) Adnexa, other: unknown) normal adnexae, adnexae mobile, no masses, normal, (unknown) (no (unknown) (unknown) Bimanual Exam- (units (unknown) date) Vagina + Uterus: unknown) normal bimanual exam, uterine size normal, No (unknown) (no (unknown) (unknown) Blood Pressure (units (unknown) date) Location Rt unknown) brachial (unknown) (no (unknown) (unknown) Carol is a (units (u nknown) date) 21-year-old unknown) G0, LMP 12/26/2021 who presents today with a (unknown) (no (unknown) (unknown) Chief Complaint (units (unknown) date) unknown) (unknown) (no (unknown) (unknown) Chief Complaint: (units (unknown) date) Lower abdominal unknown) pain (unknown) (no (unknown) (unknown) Chlamydia (units (unkn own) date) Gonorrhea PCR unknown) -URINE Today R10.9 - Unspecified abdominal pain, Z11.3 (unknown) (no (unknown) (unknown) Clinical (units (unkno wn) date) history/findings unknown) and pelvic exam are not consistent with a gynecologic (unknown) (no (unknown) (unknown) Conjunctivae: (units ( unknown) date) conjunctivae unknown) normal (unknown) (no (unknown) (unknown) Const (units (unkno wn) date) unknown) (unknown) (no (unknown) (unknown) : 2000 (units (unknown) date) Acct:[id number] unknown) (unknown) (no (unknown) (unknown) Date of Last (units (u nknown) date) Menstrual Period: unknown) 12/26/21 (unknown) (no (unknown) (unknown) January 2022, (units (unknown) date) the patient began unknown) having constant pain in the lower abdomen with (unknown) (no (unknown) (unknown) Dept at (units ( wn) date) . unknown) (unknown) (no (unknown) (unknown) Details: (units ( wn) date) unknown) (unknown) (no (unknown) (unknown) Documented By: (units (unknown) date) Yordan Llanos MD unknown) 03/21/22 0955 (unknown) (no (unknown) (unknown) Draft (units (o wn) date) unknown) (unknown) (no (unknown) (unknown) EOM: EOM intact (units (unknown) date) bilaterally unknown) (unknown) (no (unknown) (unknown) Ears: hearing (units ( unknown) date) grossly normal unknown) bilaterally (unknown) (no (unknown) (unknown) Effort + (units (o wn) date) Inspection: normal unknown) respiratory effort and able to speak in complete (unknown) (no (unknown) (unknown) Encounter for (units ( unknown) date) screening for unknown) infections with a predominantly sexual mode of (unknown) (no (unknown) (unknown) Exam (units (o wn) date) unknown) (unknown) (no (unknown) (unknown) External Female (units (unknown) date) Exam: normal unknown) external appearance, normal appearance of the (unknown) (no (unknown) (unknown) Eyes (units (o wn) date) unknown) (unknown) (no (unknown) (unknown) Face and sinus: (units (unknown) date) face symmetric unknown) (unknown) (no (unknown) (unknown) [facility]) (unknown) (no (unknown) (unknown) For best effect, (units (unknown) date) start medication unknown) 1-2 days prior to expected onset of period (unknown) (no (unknown) (unknown) GC and chlamydia (units (unknown) date) submitted although unknown) unlikely to be positive. (unknown) (no (unknown) (unknown) (units (o wn) date) unknown) (unknown) (no (unknown) (unknown) General: (units ( wn) ) appearance normal, unknown) both eyes and all related structures (unknown) (no (unknown) (unknown) General: (units (unkno wn) date) cooperative, unknown) comfortable and no acute distress (unknown) (no (unknown) (unknown) Gynecology Visit (units (unknown) date) unknown) (unknown) (no (unknown) (unknown) HENMT (units (unkno wn) date) unknown) (unknown) (no (unknown) (unknown) HPI (units (unkno wn) date) unknown) (unknown) (no (unknown) (unknown) Head: normal to (units (unknown) date) inspection, unknown) normocephalic and atraumatic (unknown) (no (unknown) (unknown) Healthy adult (units ( unknown) date) unknown) (unknown) (no (unknown) (unknown) Height 4 ft 10 in (units (unknown) date) unknown) (unknown) (no (unknown) (unknown) Her PCP suggested (units (unknown) date) to her that she unknown) may have endometriosis. (unknown) (no (unknown) (unknown) Intake Note: (units (u nknown) date) unknown) (unknown) (no (unknown) (unknown) Intake performed (units (unknown) date) by: Maggie Bonds unknown) (unknown) (no (unknown) (unknown) Intake (units (unkno wn) date) unknown) (unknown) (no (unknown) (unknown) Intake- Clincial (units (unknown) date) Staff unknown) (unknown) (no (unknown) (unknown) Is last menstrual (units (unknown) date) period known: Yes unknown) (unknown) (no (unknown) (unknown) Judgment: (units (unkn own) date) judgment good unknown) (unknown) (no (unknown) (unknown) Last Menstural (units (unknown) date) Cycle + Details unknown) (unknown) (no (unknown) (unknown) Loc: [facility] (units (unkno wn) date) unknown) (unknown) (no (unknown) (unknown) Medical History (units (unknown) date) (Reviewed 03/09/22 unknown) @ 02:55 by Abdias Valles DO) (unknown) (no (unknown) (unknown) Medications (units (un known) date) unknown) (unknown) (no (unknown) (unknown) Medications: (units (u nknown) date) unknown) (unknown) (no (unknown) (unknown) Mental Status: (units (unknown) date) mental status unknown) grossly normal (unknown) (no (unknown) (unknown) Mood: congruent (units (unknown) date) mood unknown) (unknown) (no (unknown) (unknown) 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 unknown) (unknown) (no (unknown) (unknown) Neck (units (unkno wn) date) unknown) (unknown) (no (unknown) (unknown) Neck: normal (units (u nknown) date) visual inspection unknown) (unknown) (no (unknown) (unknown) New (units (unkno wn) date) unknown) (unknown) (no (unknown) (unknown) No Known Drug (units ( unknown) date) Allergies Allergy unknown) (Verified 03/21/22 10:08) (unknown) (no (unknown) (unknown) Nutritional (units (un known) date) Appearance: unknown) average body habitus (unknown) (no (unknown) (unknown) OB/External + (units ( unknown) date) Speculum: cervical unknown) os open (Clear, proliferative phase cervical (unknown) (no (unknown) (unknown) Orders (units (unkno wn) date) unknown) (unknown) (no (unknown) (unknown) Orders: (units (unkno wn) date) unknown) (unknown) (no (unknown) (unknown) Orientation: (units (u nknown) date) alert and oriented unknown) x3 (unknown) (no (unknown) (unknown) PFSH (units (unkno wn) date) unknown) (unknown) (no (unknown) (unknown) Patient advised (units (unknown) date) to identify a unknown) primary care provider for continuity care and for (unknown) (no (unknown) (unknown) Patient: (units (unkno wn) date) Carol Grimm unknown) Claudia MR# (unknown) (no (unknown) (unknown) Pelvic Support: (units (unknown) date) normal unknown) (unknown) (no (unknown) (unknown) Pelvic ultrasound (units (unknown) date) ordered and it unknown) will be done later today. Patient be notified (unknown) (no (unknown) (unknown) Plan (units (unkno wn) date) unknown) (unknown) (no (unknown) (unknown) Position Sitting (units (unknown) date) unknown) (unknown) (no (unknown) (unknown) Prescription for (units (unknown) date) naproxen 500 mg unknown) q.8 hours to the patient's pharmacy. Patient (unknown) (no (unknown) (unknown) Problem-specific (units (unknown) date) ROS positives unknown) included with the HPI (unknown) (no (unknown) (unknown) Psych (units (unkno wn) date) unknown) (unknown) (no (unknown) (unknown) Pt has never had (units (unknown) date) a pap performed unknown) due to her age (unknown) (no (unknown) (unknown) Pt said she asked (units (unknown) date) for an US in the unknown) ER but they refused to order one and have it (unknown) (no (unknown) (unknown) Pt states that (units ( unknown) date) since she was 13 unknown) she has had extremely heavy periods was using BC (unknown) (no (unknown) (unknown) Qualifiers: (units (un known) date) unknown) (unknown) (no (unknown) (unknown) R10.30 - Lower (units (unknown) date) abdominal pain, unknown) unspecified (unknown) (no (unknown) (unknown) ROS Narrative (units ( unknown) date) unknown) (unknown) (no (unknown) (unknown) ROS Narrative: (units (unknown) date) unknown) (unknown) (no (unknown) (unknown) ROS (units (unkno wn) date) unknown) (unknown) (no (unknown) (unknown) Reason For Visit (units (unknown) date) unknown) (unknown) (no (unknown) (unknown) Resp (units (unkno wn) date) unknown) (unknown) (no (unknown) (unknown) Sclera: sclerae (units (unknown) date) normal unknown) (unknown) (no (unknown) (unknown) She stopped (units (un known) date) taking the BC when unknown) her period started in Nov and has not had a (unknown) (no (unknown) (unknown) Signed By: (units (unk nown) date) unknown) (unknown) (no (unknown) (unknown) Smoking Status: (units (unknown) date) Never smoker unknown) (unknown) (no (unknown) (unknown) Social History (units (unknown) date) unknown) (unknown) (no (unknown) (unknown) Speculum Exam - (units (unknown) date) Cervix: normal unknown) appearance of the cervix, cervical os open (unknown) (no (unknown) (unknown) Speculum Exam - (units (unknown) date) Vagina: normal unknown) appearance of the vagina, normal vaginal (unknown) (no (unknown) (unknown) Speculum Exam: (units (unknown) date) cervical os open unknown) (Clear, proliferative phase cervical mucus) and (unknown) (no (unknown) (unknown) Speech and (units (unk nown) date) Movement: speech unknown) and movement normal (unknown) (no (unknown) (unknown) Status: Acute (units ( unknown) date) unknown) (unknown) (no (unknown) (unknown) This note may (units ( unknown) date) have been all or unknown) partially generated using voice recognition (unknown) (no (unknown) (unknown) Thought Content: (units (unknown) date) normal unknown) (unknown) (no (unknown) (unknown) Thought Process: (units (unknown) date) normal unknown) (unknown) (no (unknown) (unknown) Tobacco + (units (unkn own) date) Substance Use unknown) (unknown) (no (unknown) (unknown) Tobacco Status (units (unknown) date) unknown) (unknown) (no (unknown) (unknown) US pelvic (units (unkn own) date) complete Today unknown) N91.2 - Amenorrhea, unspecified, R10.2 - Pelvic and (unknown) (no (unknown) (unknown) Urethra: normal (units (unknown) date) appearance of the unknown) urethra (unknown) (no (unknown) (unknown) 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) Menorrhagia/Dysmen orrhea (unknown) (no (unknown) (unknown) Vitals (units (unkno wn) date) unknown) (unknown) (no (unknown) (unknown) Weight 102 lb (units ( unknown) date) unknown) (unknown) (no (unknown) (unknown) advised to start (units (unknown) date) taking naproxen 2 unknown) days prior to expected onset of menses for (unknown) (no (unknown) (unknown) and nontender (units ( unknown) date) unknown) (unknown) (no (unknown) (unknown) apparently that (units (unknown) date) suggested unknown) since she was 17 years old for the pain that (unknown) (no (unknown) (unknown) back, and can (units ( unknown) date) trigger the onset unknown) of a migraine. She has had no vaginal bleeding (unknown) (no (unknown) (unknown) best relief of (units (unknown) date) dysmenorrhea. unknown) (unknown) (no (unknown) (unknown) control (units ( unknown) date) pills immediately unknown) prior to her LMP in December 2021. Around mid (unknown) (no (unknown) (unknown) but states that (units (unknown) date) her PCP switched unknown) it to a non hormonal one without telling her. (unknown) (no (unknown) (unknown) can also be in (units (unknown) date) the left and right unknown) lower quadrant. Patient has been on (unknown) (no (unknown) (unknown) control pills (units ( unknown) date) since she was unknown) about 18 due to dysmenorrhea and discontinued the (unknown) (no (unknown) (unknown) discharge, no (units ( unknown) date) lesions, No unknown) vaginal bleeding and nontender (unknown) (no (unknown) (unknown) does not feel as (units (unknown) date) though they have unknown) been significantly beneficial. Discussed the (unknown) (no (unknown) (unknown) further (units (unkno wn) date) evaluation for non unknown) gynecologic causes of her ongoing abdominal pain ot (unknown) (no (unknown) (unknown) have occurred. If (units (unknown) date) there are any unknown) questions, please contact the Medical Records (unknown) (no (unknown) (unknown) herwise follow-up (units (unknown) date) will be on an as unknown) needed basis. (unknown) (no (unknown) (unknown) imaging and has (units (unknown) date) never had a Pap or unknown) pelvic exam performed. (unknown) (no (unknown) (unknown) lives (units (unkno wn) date) independently: Yes unknown) (unknown) (no (unknown) (unknown) may occur. (units (unk nown) date) Occasional unknown) wrong-word or 'sound-alike' substitutions may have (unknown) (no (unknown) (unknown) mucus) and No (units ( unknown) date) vaginal bleeding unknown) (unknown) (no (unknown) (unknown) naproxen 500 mg (units (unknown) date) tablet 500 mg PO unknown) Q8H PRN pain #30 tabs 03/21/22 [Rx Confirmed (unknown) (no (unknown) (unknown) naproxen (units (unkno wn) date) unknown) (unknown) (no (unknown) (unknown) no vaginal (units (unk nown) date) bleeding unknown) (unknown) (no (unknown) (unknown) non-tender and (units (unknown) date) other (Right ovary unknown) is palpable 3 x 4 cm, non-tender, left (unknown) (no (unknown) (unknown) nonpalpable) (units (u nknown) date) unknown) (unknown) (no (unknown) (unknown) occurred due to (units (unknown) date) the inherent unknown) limitations of voice recognition software. Please (unknown) (no (unknown) (unknown) of results when (units (unknown) date) available. unknown) (unknown) (no (unknown) (unknown) office hCG today (units (unknown) date) is negative. unknown) Patient has a history of irritable bowel syndrome (unknown) (no (unknown) (unknown) on a constant (units (u nknown) date) basis with sharp unknown) severe exacerbations she rates as a 10/10 and can (unknown) (no (unknown) (unknown) performed. (units (unk nown) date) unknown) (unknown) (no (unknown) (unknown) perineal pain, (units (unknown) date) Z32.02 - Encounter unknown) for test, result negative (unknown) (no (unknown) (unknown) period since. She (units (unknown) date) has had multiple unknown) negative tests including in the ER. (unknown) (no (unknown) (unknown) possibility of (units (unknown) date) laparoscopy for unknown) her severe dysmenorrhea at some point and (unknown) (no (unknown) (unknown) read the note (units ( unknown) date) carefully and unknown) recognize, using context, where these substitutions (unknown) (no (unknown) (unknown) result in nausea (units (unknown) date) and vomiting. The unknown) pain also radiates to her back, goes up her (unknown) (no (unknown) (unknown) retroverted) (units (u nknown) date) unknown) (unknown) (no (unknown) (unknown) sentences (units (unkn own) date) unknown) (unknown) (no (unknown) (unknown) severe episodes (units (unknown) date) which comes unknown) sporadically and without warning. The pain is dull (unknown) (no (unknown) (unknown) she has with her (units (unknown) date) periods. unknown) (unknown) (no (unknown) (unknown) since dense (units (un known) date) discontinuation of unknown) her oral contraceptives in December 2021. In (unknown) (no (unknown) (unknown) software. 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 unknown) (unknown) (no (unknown) (unknown) tender, (units (unkno wn) date) non-tender, no unknown) cervical motion tenderness and displaced (Slightly (unknown) (no (unknown) (unknown) transmission (units (u nknown) date) unknown) (unknown) (no (unknown) (unknown) urethra and no (units (unknown) date) lesions unknown) (unknown) (no (unknown) (unknown) years and (units (unkn own) date) currently her unknown) bowel function is normal. Patient has not had pelvic Result panel 12 (unknown) (no date) (unknown) (unknown) NOT DETECTED (units ( unknown) unknown) Result panel 13 (unknown) (no (unknown) (unknown) (no value) (units (unk nown) date) unknown) (unknown) (no (unknown) (unknown) #: [id number] (units ( unknown) date) unknown) (unknown) (no (unknown) (unknown) 03/21/22 (units (unkno wn) date) unknown) (unknown) (no (unknown) (unknown) [address] [place] [address] (units (unknown) date) unknown) (unknown) (no (unknown) (unknown) Accession (units (unkn own) date) Number: unknown) [id number] (unknown) (no (unknown) (unknown) Additional (units (unk nown) date) endovaginal unknown) scanning was necessary due to incomplete visualization (unknown) (no (unknown) (unknown) Age/Sex: 21 / F (units (unknown) date) Date of Service: unknown) (unknown) (no (unknown) (unknown) [place], [place] (units ( unknown) date) [id number] unknown) (unknown) (no (unknown) (unknown) Approved by: (units (u nknown) date) sandra Borden) Sophia on 03/23/2022 at 9:14 (unknown) (no (unknown) (unknown) COMPARISON: (units (un known) date) None. unknown) (unknown) (no (unknown) (unknown) : 2000 (units (unknown) date) Acct:[id number] unknown) (unknown) (no (unknown) (unknown) Dictated by: (units (u nknown) date) sandra Borden) Sophia on 03/23/2022 at 9:09 (unknown) (no (unknown) (unknown) FINDINGS: (units (unkn own) date) unknown) (unknown) (no (unknown) (unknown) IMPRESSION: (units (un known) date) Normal study. unknown) (unknown) (no (unknown) (unknown) INDICATIONS: LLQ (units (unknown) date) Pelvic Pain unknown) (unknown) (no (unknown) (unknown) [facility] (units (unknown) date) unknown) (unknown) (no (unknown) (unknown) Loc: US (units (unkno wn) date) unknown) (unknown) (no (unknown) (unknown) Ordering (units (unkno wn) date) Provider: unknown) Yordan Llanos MD (unknown) (no (unknown) (unknown) PROCEDURE: US (units ( unknown) date) PELVIC COMPLETE unknown) (unknown) (no (unknown) (unknown) Patient: (units (unkno wn) date) Carol Grimm unknown) Claudia MR (unknown) (no (unknown) (unknown) Physiologic (units (un known) date) unknown) (unknown) (no (unknown) (unknown) Procedure: US (units ( unknown) date) pelvic complete unknown) (unknown) (no (unknown) (unknown) Real-time (units (unkn own) date) scanning was unknown) performed of the pelvic organs, with image (unknown) (no (unknown) (unknown) Several (units (unkno wn) date) physiologic/folli unknown) cular subcentimeter cysts present in both ovaries. (unknown) (no (unknown) (unknown) Signed (units (unkno wn) date) unknown) (unknown) (no (unknown) (unknown) TECHNIQUE: (units (unk nown) date) unknown) (unknown) (no (unknown) (unknown) The uterine body (units (unknown) date) measures 6.4 x unknown) 3.2 x 4.1 centimeters. Normal endometrial (unknown) (no (unknown) (unknown) To assist (units (unkn own) date) unknown) (unknown) (no (unknown) (unknown) Ultrasound (units (unk nown) date) Report unknown) (unknown) (no (unknown) (unknown) We strive to (units (u nknown) date) produce accurate, unknown) complete, and clear reports of imaging services. (unknown) (no (unknown) (unknown) adnexal and (units (un known) date) endometrial unknown) structures by transabdominal scanning. (unknown) (no (unknown) (unknown) adnexal mass. (units ( unknown) date) unknown) (unknown) (no (unknown) (unknown) and voice (units (unkn own) date) recognition unknown) software. Therefore, it may contain abnormal punctuation, (unknown) (no (unknown) (unknown) documentation. (units (unknown) date) unknown) (unknown) (no (unknown) (unknown) free fluid in (units ( unknown) date) the [place]. unknown) (unknown) (no (unknown) (unknown) inaccuracies. (units ( unknown) date) unknown) (unknown) (no (unknown) (unknown) insertions (units (unk nown) date) and/or omissions. unknown) Occasional wrong-word or sound-alike substitutions (unknown) (no (unknown) (unknown) may (units (unkno wn) date) unknown) (unknown) (no (unknown) (unknown) occur. Though we (units (unknown) date) review the report unknown) and make efforts to correct it, we do (unknown) (no (unknown) (unknown) of the (units (unkno wn) date) unknown) (unknown) (no (unknown) (unknown) recommend that (units (unknown) date) unknown) (unknown) (no (unknown) (unknown) templates (units (unkn own) date) unknown) (unknown) (no (unknown) (unknown) the report be (units ( unknown) date) read carefully in unknown) proper context to recognize any text (unknown) (no (unknown) (unknown) thickness. No (units ( unknown) date) unknown) (unknown) (no (unknown) (unknown) us in improving (units (unknown) date) patient care, unknown) this report was composed using standard report (unknown) (no (unknown) (unknown) uterine mass. (units ( unknown) date) Normal size and unknown) appearance of both ovaries. No ovarian or Result panel 14 (unknown) (no (unknown) (unknown) (no value) (units (unk nown) date) unknown) (unknown) (no (unknown) (unknown) (1) Abdominal (units ( unknown) date) pain: unknown) (unknown) (no (unknown) (unknown) (Clear, (units (unkno wn) date) proliferative unknown) phase cervical mucus), no cervical discharge, no lesions (unknown) (no (unknown) (unknown) (constipative (units ( unknown) date) type) but those unknown) symptoms have largely resolved over the last few (unknown) (no (unknown) (unknown) 03/21/22 (units (unkno wn) date) unknown) (unknown) (no (unknown) (unknown) 03/21/22] (units (unkn own) date) unknown) (unknown) (no (unknown) (unknown) 10:17 (units (unkno wn) date) unknown) (unknown) (no (unknown) (unknown) 500 mg PO Q8H PRN (units (unknown) date) 30 tabs 12RF pain unknown) (unknown) (no (unknown) (unknown) 6-8 week history (units (unknown) date) of lower abdominal unknown) discomfort which is typically midline but (unknown) (no (unknown) (unknown) : [id number] (units (u nknown) date) unknown) (unknown) (no (unknown) (unknown) Abdominal (units (unkn own) date) location: lower unknown) abdomen, unspecified Qualified Code(s): (unknown) (no (unknown) (unknown) Affect: normal (units (unknown) date) affect unknown) (unknown) (no (unknown) (unknown) Age/Sex: 21 / F (units (unknown) date) Date of Service: unknown) (unknown) (no (unknown) (unknown) Allergies (units (unkn own) date) unknown) (unknown) (no (unknown) (unknown) Also discussed (units (unknown) date) post pill unknown) amenorrhea. Patient does not wish to resume OCs as she (unknown) (no (unknown) (unknown) [place], [place] (units ( unknown) date) [id number] unknown) (unknown) (no (unknown) (unknown) Appearance: (units (un known) date) grossly normal unknown) (unknown) (no (unknown) (unknown) Assessment + Plan (units (unknown) date) unknown) (unknown) (no (unknown) (unknown) Attending Dr: (units ( unknown) date) Yordan Llanos MD unknown) (unknown) (no (unknown) (unknown) Attitude: (units (unkn own) date) cooperative unknown) (unknown) (no (unknown) (unknown) BMI 21.3 (units (unkno wn) date) unknown) (unknown) (no (unknown) (unknown) BP 120/70 (units (unkn own) date) unknown) (unknown) (no (unknown) (unknown) Bimanual Exam- (units ( unknown) date) Adnexa, other: unknown) normal adnexae, adnexae mobile, no masses, normal, (unknown) (no (unknown) (unknown) Bimanual Exam- (units (unknown) date) Vagina + Uterus: unknown) normal bimanual exam, uterine size normal, No (unknown) (no (unknown) (unknown) Blood Pressure (units (unknown) date) Location Rt unknown) brachial (unknown) (no (unknown) (unknown) Carol is a (units (u nknown) date) 21-year-old unknown) G0, LMP 12/26/2021 who presents today with a (unknown) (no (unknown) (unknown) Chief Complaint (units (unknown) date) unknown) (unknown) (no (unknown) (unknown) Chief Complaint: (units (unknown) date) Lower abdominal unknown) pain (unknown) (no (unknown) (unknown) Chlamydia (units (unkn own) date) Gonorrhea PCR unknown) -URINE Today R10.9 - Unspecified abdominal pain, Z11.3 (unknown) (no (unknown) (unknown) Clinical (units (unkno wn) date) history/findings unknown) and pelvic exam are not consistent with a gynecologic (unknown) (no (unknown) (unknown) Conjunctivae: (units ( unknown) date) conjunctivae unknown) normal (unknown) (no (unknown) (unknown) Const (units (unkno wn) date) unknown) (unknown) (no (unknown) (unknown) : 2000 (units (unknown) date) Acct:[id number] unknown) (unknown) (no (unknown) (unknown) Date of Last (units (u nknown) date) Menstrual Period: unknown) 12/26/21 (unknown) (no (unknown) (unknown) January 2022, (units (unknown) date) the patient began unknown) having constant pain in the lower abdomen with (unknown) (no (unknown) (unknown) Dept at (units (unkno wn) date) . unknown) (unknown) (no (unknown) (unknown) Details: (units (unkno wn) date) unknown) (unknown) (no (unknown) (unknown) Documented By: (units (unknown) date) Yordan Llanos MD unknown) 03/21/22 0955 (unknown) (no (unknown) (unknown) Draft (units (unkno wn) date) unknown) (unknown) (no (unknown) (unknown) EOM: EOM intact (units (unknown) date) bilaterally unknown) (unknown) (no (unknown) (unknown) Ears: hearing (units ( unknown) date) grossly normal unknown) bilaterally (unknown) (no (unknown) (unknown) Effort + (units (unkno wn) date) Inspection: normal unknown) respiratory effort and able to speak in complete (unknown) (no (unknown) (unknown) Encounter for (units ( unknown) date) screening for unknown) infections with a predominantly sexual mode of (unknown) (no (unknown) (unknown) Exam (units (unkno wn) date) unknown) (unknown) (no (unknown) (unknown) External Female (units (unknown) date) Exam: normal unknown) external appearance, normal appearance of the (unknown) (no (unknown) (unknown) Eyes (units (unkno wn) date) unknown) (unknown) (no (unknown) (unknown) Face and sinus: (units (unknown) date) face symmetric unknown) (unknown) (no (unknown) (unknown) [facility]) (unknown) (no (unknown) (unknown) For best effect, (units (unknown) date) start medication unknown) 1-2 days prior to expected onset of period (unknown) (no (unknown) (unknown) GC and chlamydia (units (unknown) date) submitted although unknown) unlikely to be positive. (unknown) (no (unknown) (unknown) (units (unkno wn) date) unknown) (unknown) (no (unknown) (unknown) General: (units (unkno wn) date) appearance normal, unknown) both eyes and all related structures (unknown) (no (unknown) (unknown) General: (units (unkno wn) date) cooperative, unknown) comfortable and no acute distress (unknown) (no (unknown) (unknown) Gynecology Visit (units (unknown) date) unknown) (unknown) (no (unknown) (unknown) HENMT (units (unkno wn) date) unknown) (unknown) (no (unknown) (unknown) HPI (units (unkno wn) date) unknown) (unknown) (no (unknown) (unknown) Head: normal to (units (unknown) date) inspection, unknown) normocephalic and atraumatic (unknown) (no (unknown) (unknown) Healthy adult (units ( unknown) date) unknown) (unknown) (no (unknown) (unknown) Height 4 ft 10 in (units (unknown) date) unknown) (unknown) (no (unknown) (unknown) Her PCP suggested (units (unknown) date) to her that she unknown) may have endometriosis. (unknown) (no (unknown) (unknown) Intake Note: (units (u nknown) date) unknown) (unknown) (no (unknown) (unknown) Intake performed (units (unknown) date) by: Maggie Bonds unknown) (unknown) (no (unknown) (unknown) Intake (units (unkno wn) date) unknown) (unknown) (no (unknown) (unknown) Intake- Clincial (units (unknown) date) Staff unknown) (unknown) (no (unknown) (unknown) Is last menstrual (units (unknown) date) period known: Yes unknown) (unknown) (no (unknown) (unknown) Judgment: (units (unkn own) date) judgment good unknown) (unknown) (no (unknown) (unknown) Last Menstural (units (unknown) date) Cycle + Details unknown) (unknown) (no (unknown) (unknown) Loc: [facility] (units (unkno wn) date) unknown) (unknown) (no (unknown) (unknown) Medical History (units (unknown) date) (Reviewed 03/09/22 unknown) @ 02:55 by Abdias Valles DO) (unknown) (no (unknown) (unknown) Medications (units (un known) date) unknown) (unknown) (no (unknown) (unknown) Medications: (units (u nknown) date) unknown) (unknown) (no (unknown) (unknown) Mental Status: (units (unknown) date) mental status unknown) grossly normal (unknown) (no (unknown) (unknown) Mood: congruent (units (unknown) date) mood unknown) (unknown) (no (unknown) (unknown) 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 unknown) (unknown) (no (unknown) (unknown) Neck (units (unkno wn) date) unknown) (unknown) (no (unknown) (unknown) Neck: normal (units (u nknown) date) visual inspection unknown) (unknown) (no (unknown) (unknown) New (units (unkno wn) date) unknown) (unknown) (no (unknown) (unknown) No Known Drug (units ( unknown) date) Allergies Allergy unknown) (Verified 03/21/22 10:08) (unknown) (no (unknown) (unknown) Nutritional (units (un known) date) Appearance: unknown) average body habitus (unknown) (no (unknown) (unknown) OB/External + (units ( unknown) date) Speculum: cervical unknown) os open (Clear, proliferative phase cervical (unknown) (no (unknown) (unknown) Orders (units (unkno wn) date) unknown) (unknown) (no (unknown) (unknown) Orders: (units (unkno wn) date) unknown) (unknown) (no (unknown) (unknown) Orientation: (units (u nknown) date) alert and oriented unknown) x3 (unknown) (no (unknown) (unknown) PFSH (units (unkno wn) date) unknown) (unknown) (no (unknown) (unknown) POC PREG (units (unkno wn) date) unknown) (unknown) (no (unknown) (unknown) POC Preg Test (units ( unknown) date) Negative Last Edit unknown) by Maggie Bonds MA on 03/21/22 17:11 (unknown) (no (unknown) (unknown) POC Urine (units (unkn own) date) Test unknown) Today N91.2 - Amenorrhea, unspecified (unknown) (no (unknown) (unknown) Patient advised (units (unknown) date) to identify a unknown) primary care provider for continuity care and for (unknown) (no (unknown) (unknown) Patient: (units (unkno wn) date) Alfa,Carol unknown) Claudia MR# (unknown) (no (unknown) (unknown) Pelvic Support: (units (unknown) date) normal unknown) (unknown) (no (unknown) (unknown) Pelvic ultrasound (units (unknown) date) ordered and it unknown) will be done later today. Patient be notified (unknown) (no (unknown) (unknown) Plan (units (unkno wn) date) unknown) (unknown) (no (unknown) (unknown) Position Sitting (units (unknown) date) unknown) (unknown) (no (unknown) (unknown) Preg Expiration (units (unknown) date) [id number] Last Edit unknown) by Maggie Bonds MA on 03/21/22 17:11 (unknown) (no (unknown) (unknown) Preg Lot # (units (unk nown) date) [id number] Last unknown) Edit by Maggie Bonds MA on 03/21/22 17:11 (unknown) (no (unknown) (unknown) Preg QC (units (unkno wn) date) Acceptable? Yes unknown) Last Edit by Maggie Bonds MA on 03/21/22 17:11 (unknown) (no (unknown) (unknown) Prescription for (units (unknown) date) naproxen 500 mg unknown) q.8 hours to the patient's pharmacy. Patient (unknown) (no (unknown) (unknown) Problem-specific (units (unknown) date) ROS positives unknown) included with the HPI (unknown) (no (unknown) (unknown) Psych (units (unkno wn) date) unknown) (unknown) (no (unknown) (unknown) Pt has never had (units (unknown) date) a pap performed unknown) due to her age (unknown) (no (unknown) (unknown) Pt said she asked (units (unknown) date) for an US in the unknown) ER but they refused to order one and have it (unknown) (no (unknown) (unknown) Pt states that (units ( unknown) date) since she was 13 unknown) she has had extremely heavy periods was using BC (unknown) (no (unknown) (unknown) Qualifiers: (units (un known) date) unknown) (unknown) (no (unknown) (unknown) R10.30 - Lower (units (unknown) date) abdominal pain, unknown) unspecified (unknown) (no (unknown) (unknown) ROS Narrative (units ( unknown) date) unknown) (unknown) (no (unknown) (unknown) ROS Narrative: (units (unknown) date) unknown) (unknown) (no (unknown) (unknown) ROS (units (unkno wn) date) unknown) (unknown) (no (unknown) (unknown) Reason For Visit (units (unknown) date) unknown) (unknown) (no (unknown) (unknown) Resp (units (unkno wn) date) unknown) (unknown) (no (unknown) (unknown) Results (units (unkno wn) date) unknown) (unknown) (no (unknown) (unknown) Sclera: sclerae (units (unknown) date) normal unknown) (unknown) (no (unknown) (unknown) She stopped (units (un known) date) taking the BC when unknown) her period started in Nov and has not had a (unknown) (no (unknown) (unknown) Signed By: (units (unk nown) date) unknown) (unknown) (no (unknown) (unknown) Smoking Status: (units (unknown) date) Never smoker unknown) (unknown) (no (unknown) (unknown) Social History (units (unknown) date) unknown) (unknown) (no (unknown) (unknown) Speculum Exam - (units (unknown) date) Cervix: normal unknown) appearance of the cervix, cervical os open (unknown) (no (unknown) (unknown) Speculum Exam - (units (unknown) date) Vagina: normal unknown) appearance of the vagina, normal vaginal (unknown) (no (unknown) (unknown) Speculum Exam: (units (unknown) date) cervical os open unknown) (Clear, proliferative phase cervical mucus) and (unknown) (no (unknown) (unknown) Speech and (units (unk nown) date) Movement: speech unknown) and movement normal (unknown) (no (unknown) (unknown) Status: Acute (units ( unknown) date) unknown) (unknown) (no (unknown) (unknown) This note may (units ( unknown) date) have been all or unknown) partially generated using voice recognition (unknown) (no (unknown) (unknown) Thought Content: (units (unknown) date) normal unknown) (unknown) (no (unknown) (unknown) Thought Process: (units (unknown) date) normal unknown) (unknown) (no (unknown) (unknown) Tobacco + (units (unkn own) date) Substance Use unknown) (unknown) (no (unknown) (unknown) Tobacco Status (units (unknown) date) unknown) (unknown) (no (unknown) (unknown) US pelvic (units (unkn own) date) complete Today unknown) N91.2 - Amenorrhea, unspecified, R10.2 - Pelvic and (unknown) (no (unknown) (unknown) Urethra: normal (units (unknown) date) appearance of the unknown) urethra (unknown) (no (unknown) (unknown) 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) Menorrhagia/Dysmen orrhea (unknown) (no (unknown) (unknown) Vitals (units (unkno wn) date) unknown) (unknown) (no (unknown) (unknown) Weight 102 lb (units ( unknown) date) unknown) (unknown) (no (unknown) (unknown) advised to start (units (unknown) date) taking naproxen 2 unknown) days prior to expected onset of menses for (unknown) (no (unknown) (unknown) and nontender (units ( unknown) date) unknown) (unknown) (no (unknown) (unknown) apparently that (units (unknown) date) suggested unknown) since she was 17 years old for the pain that (unknown) (no (unknown) (unknown) back, and can (units ( unknown) date) trigger the onset unknown) of a migraine. She has had no vaginal bleeding (unknown) (no (unknown) (unknown) best relief of (units (unknown) date) dysmenorrhea. unknown) (unknown) (no (unknown) (unknown) control (units ( unknown) date) pills immediately unknown) prior to her LMP in December 2021. Around mid (unknown) (no (unknown) (unknown) but states that (units (unknown) date) her PCP switched unknown) it to a non hormonal one without telling her. (unknown) (no (unknown) (unknown) can also be in (units (unknown) date) the left and right unknown) lower quadrant. Patient has been on (unknown) (no (unknown) (unknown) control pills (units ( unknown) date) since she was unknown) about 18 due to dysmenorrhea and discontinued the (unknown) (no (unknown) (unknown) discharge, no (units ( unknown) date) lesions, No unknown) vaginal bleeding and nontender (unknown) (no (unknown) (unknown) does not feel as (units (unknown) date) though they have unknown) been significantly beneficial. Discussed the (unknown) (no (unknown) (unknown) further (units (unkno wn) date) evaluation for non unknown) gynecologic causes of her ongoing abdominal pain (unknown) (no (unknown) (unknown) have occurred. If (units (unknown) date) there are any unknown) questions, please contact the Medical Records (unknown) (no (unknown) (unknown) imaging and has (units (unknown) date) never had a Pap or unknown) pelvic exam performed. (unknown) (no (unknown) (unknown) lives (units (unkno wn) date) independently: Yes unknown) (unknown) (no (unknown) (unknown) may occur. (units (unk nown) date) Occasional unknown) wrong-word or 'sound-alike' substitutions may have (unknown) (no (unknown) (unknown) mucus) and No (units ( unknown) date) vaginal bleeding unknown) (unknown) (no (unknown) (unknown) naproxen 500 mg (units (unknown) date) tablet 500 mg PO unknown) Q8H PRN pain #30 tabs 03/21/22 [Rx Confirmed (unknown) (no (unknown) (unknown) naproxen (units (unkno wn) date) unknown) (unknown) (no (unknown) (unknown) no vaginal (units (unk nown) date) bleeding unknown) (unknown) (no (unknown) (unknown) non-tender and (units (unknown) date) other (Right ovary unknown) is palpable 3 x 4 cm, non-tender, left (unknown) (no (unknown) (unknown) nonpalpable) (units (u nknown) date) unknown) (unknown) (no (unknown) (unknown) occurred due to (units (unknown) date) the inherent unknown) limitations of voice recognition software. Please (unknown) (no (unknown) (unknown) of results when (units (unknown) date) available. unknown) (unknown) (no (unknown) (unknown) office hCG today (units (unknown) date) is negative. unknown) Patient has a history of irritable bowel syndrome (unknown) (no (unknown) (unknown) on a constant (units (u nknown) date) basis with sharp unknown) severe exacerbations she rates as a 10/10 and can (unknown) (no (unknown) (unknown) otherwise (units (unkn own) date) follow-up will be unknown) on an as needed basis. (unknown) (no (unknown) (unknown) performed. (units (unk nown) date) unknown) (unknown) (no (unknown) (unknown) perineal pain, (units (unknown) date) Z32.02 - Encounter unknown) for test, result negative (unknown) (no (unknown) (unknown) period since. She (units (unknown) date) has had multiple unknown) negative tests including in the ER. (unknown) (no (unknown) (unknown) possibility of (units (unknown) date) laparoscopy for unknown) her severe dysmenorrhea at some point and (unknown) (no (unknown) (unknown) read the note (units ( unknown) date) carefully and unknown) recognize, using context, where these substitutions (unknown) (no (unknown) (unknown) result in nausea (units (unknown) date) and vomiting. The unknown) pain also radiates to her back, goes up her (unknown) (no (unknown) (unknown) retroverted) (units (u nknown) date) unknown) (unknown) (no (unknown) (unknown) sentences (units (unkn own) date) unknown) (unknown) (no (unknown) (unknown) severe episodes (units (unknown) date) which comes unknown) sporadically and without warning. The pain is dull (unknown) (no (unknown) (unknown) she has with her (units (unknown) date) periods. unknown) (unknown) (no (unknown) (unknown) since dense (units (un known) date) discontinuation of unknown) her oral contraceptives in December 2021. In (unknown) (no (unknown) (unknown) software. 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 unknown) (unknown) (no (unknown) (unknown) tender, (units (unkno wn) date) non-tender, no unknown) cervical motion tenderness and displaced (Slightly (unknown) (no (unknown) (unknown) transmission (units (u nknown) date) unknown) (unknown) (no (unknown) (unknown) urethra and no (units (unknown) date) lesions unknown) (unknown) (no (unknown) (unknown) years and (units (unkn own) date) currently her unknown) bowel function is normal. Patient has not had pelvic Result panel 15 (unknown) (no (unknown) (unknown) (no value) (units (unk nown) date) unknown) (unknown) (no (unknown) (unknown) (1) Abdominal (units ( unknown) date) pain: unknown) (unknown) (no (unknown) (unknown) (2) IBS (units (unkno wn) date) (irritable bowel unknown) syndrome): (unknown) (no (unknown) (unknown) (Clear, (units (unkno wn) date) proliferative unknown) phase cervical mucus), no cervical discharge, no lesions (unknown) (no (unknown) (unknown) (constipative (units ( unknown) date) type) but those unknown) symptoms have largely resolved over the last few (unknown) (no (unknown) (unknown) 03/21/22 (units (unkno wn) date) unknown) (unknown) (no (unknown) (unknown) 03/21/22] (units (unkn own) date) unknown) (unknown) (no (unknown) (unknown) 03/22/22 1613 (units ( unknown) date) unknown) (unknown) (no (unknown) (unknown) 10:17 (units (unkno wn) date) unknown) (unknown) (no (unknown) (unknown) 500 mg PO Q8H PRN (units (unknown) date) 30 tabs 12RF pain unknown) (unknown) (no (unknown) (unknown) 6-8 week history (units (unknown) date) of lower abdominal unknown) discomfort which is typically midline but (unknown) (no (unknown) (unknown) : [id number] (units (u nknown) date) unknown) (unknown) (no (unknown) (unknown) Abdominal (units (unkn own) date) location: lower unknown) abdomen, unspecified Qualified Code(s): (unknown) (no (unknown) (unknown) Affect: normal (units (unknown) date) affect unknown) (unknown) (no (unknown) (unknown) Age/Sex: 21 / F (units (unknown) date) Date of Service: unknown) (unknown) (no (unknown) (unknown) Allergies (units (unkn own) date) unknown) (unknown) (no (unknown) (unknown) Also discussed (units (unknown) date) post pill unknown) amenorrhea. Patient does not wish to resume OCs as she (unknown) (no (unknown) (unknown) [place], [place] (units ( unknown) date) [id number] unknown) (unknown) (no (unknown) (unknown) Appearance: (units (un known) date) grossly normal unknown) (unknown) (no (unknown) (unknown) Assessment + Plan (units (unknown) date) unknown) (unknown) (no (unknown) (unknown) Attending Dr: (units ( unknown) date) Yordan Llanos MD unknown) (unknown) (no (unknown) (unknown) Attitude: (units (unkn own) date) cooperative unknown) (unknown) (no (unknown) (unknown) BMI 21.3 (units (unkno wn) date) unknown) (unknown) (no (unknown) (unknown) BP 120/70 (units (unkn own) date) unknown) (unknown) (no (unknown) (unknown) Bimanual Exam- (units ( unknown) date) Adnexa, other: unknown) normal adnexae, adnexae mobile, no masses, normal, (unknown) (no (unknown) (unknown) Bimanual Exam- (units (unknown) date) Vagina + Uterus: unknown) normal bimanual exam, uterine size normal, No (unknown) (no (unknown) (unknown) Blood Pressure (units (unknown) date) Location Rt unknown) brachial (unknown) (no (unknown) (unknown) Carol is a (units (u nknown) date) 21-year-old unknown) G0, LMP 12/26/2021 who presents today with a (unknown) (no (unknown) (unknown) Chief Complaint (units (unknown) date) unknown) (unknown) (no (unknown) (unknown) Chief Complaint: (units (unknown) date) Lower abdominal unknown) pain (unknown) (no (unknown) (unknown) Chlamydia (units (unkn own) date) Gonorrhea PCR unknown) -URINE 03/21/22 R10.9 - Unspecified abdominal pain, (unknown) (no (unknown) (unknown) Clinical (units (unkno wn) date) history/findings unknown) and pelvic exam are not consistent with a gynecologic (unknown) (no (unknown) (unknown) Conjunctivae: (units ( unknown) date) conjunctivae unknown) normal (unknown) (no (unknown) (unknown) Const (units (unkno wn) date) unknown) (unknown) (no (unknown) (unknown) Counseling and (units (unknown) date) educating the unknown) 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 unknown) (unknown) (no (unknown) (unknown) Details: (units (unkno wn) date) unknown) (unknown) (no (unknown) (unknown) Documented By: (units (unknown) date) Yordan Llanos MD unknown) 03/21/22 0955 (unknown) (no (unknown) (unknown) Documenting (units (un known) date) clinical unknown) information in EHR/Medical record: 10 (unknown) (no (unknown) (unknown) EOM: EOM intact (units (unknown) date) bilaterally unknown) (unknown) (no (unknown) (unknown) Ears: hearing (units ( unknown) date) grossly normal unknown) bilaterally (unknown) (no (unknown) (unknown) Effort + (units (unkno wn) date) Inspection: normal unknown) respiratory effort and able to speak in complete (unknown) (no (unknown) (unknown) Exam (units (unkno wn) date) unknown) (unknown) (no (unknown) (unknown) External Female (units (unknown) date) Exam: normal unknown) external appearance, normal appearance of the (unknown) (no (unknown) (unknown) Eyes (units (unkno wn) date) unknown) (unknown) (no (unknown) (unknown) Face and sinus: (units (unknown) date) face symmetric unknown) (unknown) (no (unknown) (unknown) [facility] unknown) (unknown) (no (unknown) (unknown) For best effect, (units (unknown) date) start medication unknown) 1-2 days prior to expected onset of period (unknown) (no (unknown) (unknown) GC and chlamydia (units (unknown) date) submitted although unknown) unlikely to be positive. (unknown) (no (unknown) (unknown) (units (unkno wn) date) unknown) (unknown) (no (unknown) (unknown) General: (units (unkno wn) date) appearance normal, unknown) both eyes and all related structures (unknown) (no (unknown) (unknown) General: (units (unkno wn) date) cooperative, unknown) comfortable and no acute distress (unknown) (no (unknown) (unknown) Gynecology Visit (units (unknown) date) unknown) (unknown) (no (unknown) (unknown) HENMT (units (unkno wn) date) unknown) (unknown) (no (unknown) (unknown) HPI (units (unkno wn) date) unknown) (unknown) (no (unknown) (unknown) Head: normal to (units (unknown) date) inspection, unknown) normocephalic and atraumatic (unknown) (no (unknown) (unknown) Healthy adult (units ( unknown) date) unknown) (unknown) (no (unknown) (unknown) Height 4 ft 10 in (units (unknown) date) unknown) (unknown) (no (unknown) (unknown) Her PCP suggested (units (unknown) date) to her that she unknown) may have endometriosis. (unknown) (no (unknown) (unknown) Intake Note: (units (u nknown) date) unknown) (unknown) (no (unknown) (unknown) Intake performed (units (unknown) date) by: Maggie Bonds unknown) (unknown) (no (unknown) (unknown) Intake (units (unkno wn) date) unknown) (unknown) (no (unknown) (unknown) Intake- Clincial (units (unknown) date) Staff unknown) (unknown) (no (unknown) (unknown) Irritable bowel (units (unknown) date) syndrome type: unknown) with constipation Qualified Code(s): (unknown) (no (unknown) (unknown) Is last menstrual (units (unknown) date) period known: Yes unknown) (unknown) (no (unknown) (unknown) Judgment: (units (unkn own) date) judgment good unknown) (unknown) (no (unknown) (unknown) K58.1 - Irritable (units (unknown) date) bowel syndrome unknown) with constipation (unknown) (no (unknown) (unknown) Last Menstural (units (unknown) date) Cycle + Details unknown) (unknown) (no (unknown) (unknown) Loc: [facility] (units (unkno wn) date) unknown) (unknown) (no (unknown) (unknown) Medical History (units (unknown) date) (Reviewed 03/09/22 unknown) @ 02:55 by Abdias Valles DO) (unknown) (no (unknown) (unknown) Medications (units (un known) date) unknown) (unknown) (no (unknown) (unknown) Medications: (units (u nknown) date) unknown) (unknown) (no (unknown) (unknown) Mental Status: (units (unknown) date) mental status unknown) grossly normal (unknown) (no (unknown) (unknown) Mood: congruent (units (unknown) date) mood unknown) (unknown) (no (unknown) (unknown) 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 unknown) (unknown) (no (unknown) (unknown) Neck (units (unkno wn) date) unknown) (unknown) (no (unknown) (unknown) Neck: normal (units (u nknown) date) visual inspection unknown) (unknown) (no (unknown) (unknown) New (units (unkno wn) date) unknown) (unknown) (no (unknown) (unknown) No Known Drug (units ( unknown) date) Allergies Allergy unknown) (Verified 03/21/22 10:08) (unknown) (no (unknown) (unknown) Nutritional (units (un known) date) Appearance: unknown) average body habitus (unknown) (no (unknown) (unknown) OB/External + (units ( unknown) date) Speculum: cervical unknown) os open (Clear, proliferative phase cervical (unknown) (no (unknown) (unknown) Obtaining and/or (units (unknown) date) reviewing unknown) separately obtained history: 5 (unknown) (no (unknown) (unknown) Ordering (units (unkno wn) date) medications, unknown) tests, or procedures: 5 (unknown) (no (unknown) (unknown) Orders (units (unkno wn) date) unknown) (unknown) (no (unknown) (unknown) Orders: (units (unkno wn) date) unknown) (unknown) (no (unknown) (unknown) Orientation: (units (u nknown) date) alert and oriented unknown) x3 (unknown) (no (unknown) (unknown) PFSH (units (unkno wn) date) unknown) (unknown) (no (unknown) (unknown) POC PREG (units (unkno wn) date) unknown) (unknown) (no (unknown) (unknown) POC Preg Test (units ( unknown) date) Negative Last Edit unknown) by Maggie Bonds MA on 03/21/22 17:11 (unknown) (no (unknown) (unknown) POC Urine (units (unkn own) date) Test unknown) 03/21/22 N91.2 - Amenorrhea, unspecified (unknown) (no (unknown) (unknown) Patient advised (units (unknown) date) to identify a unknown) primary care provider for continuity care and for (unknown) (no (unknown) (unknown) Patient: (units (unkno wn) date) Alfa,Carol unknown) Claudia MR# (unknown) (no (unknown) (unknown) Pelvic Support: (units (unknown) date) normal unknown) (unknown) (no (unknown) (unknown) Pelvic ultrasound (units (unknown) date) ordered and it unknown) will be done later today. Patient be notified (unknown) (no (unknown) (unknown) Performing a (units (u nknown) date) medically unknown) appropriate exam and/or evaluation: 5 (unknown) (no (unknown) (unknown) Plan (units (unkno wn) date) unknown) (unknown) (no (unknown) (unknown) Position Sitting (units (unknown) date) unknown) (unknown) (no (unknown) (unknown) Preg Expiration (units (unknown) date) [id number] Last Edit unknown) by Maggie Bonds MA on 03/21/22 17:11 (unknown) (no (unknown) (unknown) Preg Lot # (units (unk nown) date) [id number] Last unknown) Edit by Maggie Bonds MA on 03/21/22 17:11 (unknown) (no (unknown) (unknown) Preg QC (units (unkno wn) date) Acceptable? Yes unknown) Last Edit by Maggie Bonds MA on 03/21/22 17:11 (unknown) (no (unknown) (unknown) Preparing to see (units (unknown) date) the patient, i.e., unknown) chart review, review of tests: 5 (unknown) (no (unknown) (unknown) Prescription for (units (unknown) date) naproxen 500 mg unknown) q.8 hours to the patient's pharmacy. Patient (unknown) (no (unknown) (unknown) Problem-specific (units (unknown) date) ROS positives unknown) included with the HPI (unknown) (no (unknown) (unknown) Psych (units (unkno wn) date) unknown) (unknown) (no (unknown) (unknown) Pt has never had (units (unknown) date) a pap performed unknown) due to her age (unknown) (no (unknown) (unknown) Pt said she asked (units (unknown) date) for an US in the unknown) ER but they refused to order one and have it (unknown) (no (unknown) (unknown) Pt states that (units ( unknown) date) since she was 13 unknown) she has had extremely heavy periods was using BC (unknown) (no (unknown) (unknown) Qualifiers: (units (un known) date) unknown) (unknown) (no (unknown) (unknown) R10.30 - Lower (units (unknown) date) abdominal pain, unknown) unspecified (unknown) (no (unknown) (unknown) ROS Narrative (units ( unknown) date) unknown) (unknown) (no (unknown) (unknown) ROS Narrative: (units (unknown) date) unknown) (unknown) (no (unknown) (unknown) ROS (units (unkno wn) date) unknown) (unknown) (no (unknown) (unknown) Reason For Visit (units (unknown) date) unknown) (unknown) (no (unknown) (unknown) Resp (units (unkno wn) date) unknown) (unknown) (no (unknown) (unknown) Results (units (unkno wn) date) unknown) (unknown) (no (unknown) (unknown) Sclera: sclerae (units (unknown) date) normal unknown) (unknown) (no (unknown) (unknown) She stopped (units (un known) date) taking the BC when unknown) her period started in Nov and has not had a (unknown) (no (unknown) (unknown) Signed By: (units (unk nown) date) <Electronically unknown) signed by Yordan Llanos MD> (unknown) (no (unknown) (unknown) Signed (units (unkno wn) date) unknown) (unknown) (no (unknown) (unknown) Smoking Status: (units (unknown) date) Never smoker unknown) (unknown) (no (unknown) (unknown) Social History (units (unknown) date) unknown) (unknown) (no (unknown) (unknown) Speculum Exam - (units (unknown) date) Cervix: normal unknown) appearance of the cervix, cervical os open (unknown) (no (unknown) (unknown) Speculum Exam - (units (unknown) date) Vagina: normal unknown) appearance of the vagina, normal vaginal (unknown) (no (unknown) (unknown) Speculum Exam: (units (unknown) date) cervical os open unknown) (Clear, proliferative phase cervical mucus) and (unknown) (no (unknown) (unknown) Speech and (units (unk nown) date) Movement: speech unknown) and movement normal (unknown) (no (unknown) (unknown) Status: Acute (units ( unknown) date) unknown) (unknown) (no (unknown) (unknown) Status: Suspected (units (unknown) date) unknown) (unknown) (no (unknown) (unknown) This note may (units ( unknown) date) have been all or unknown) partially generated using voice recognition (unknown) (no (unknown) (unknown) Thought Content: (units (unknown) date) normal unknown) (unknown) (no (unknown) (unknown) Thought Process: (units (unknown) date) normal unknown) (unknown) (no (unknown) (unknown) Time Coding (units (un known) date) Minutes Spent: unknown) (must be on same date of service/appointmen t) (unknown) (no (unknown) (unknown) Time Spent (units (unk nown) date) unknown) (unknown) (no (unknown) (unknown) Tobacco + (units (unkn own) date) Substance Use unknown) (unknown) (no (unknown) (unknown) Tobacco Status (units (unknown) date) unknown) (unknown) (no (unknown) (unknown) Total Time: 35 (units (unknown) date) unknown) (unknown) (no (unknown) (unknown) US pelvic (units (unkn own) date) complete 03/21/22 unknown) N91.2 - Amenorrhea, unspecified, R10.2 - Pelvic and (unknown) (no (unknown) (unknown) Urethra: normal (units (unknown) date) appearance of the unknown) urethra (unknown) (no (unknown) (unknown) 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) Menorrhagia/Dysmen orrhea (unknown) (no (unknown) (unknown) Vitals (units (unkno wn) date) unknown) (unknown) (no (unknown) (unknown) Weight 102 lb (units ( unknown) date) unknown) (unknown) (no (unknown) (unknown) Z11.3 - Encounter (units (unknown) date) for screening for unknown) infections with a predominantly sexual mode (unknown) (no (unknown) (unknown) advised to start (units (unknown) date) taking naproxen 2 unknown) days prior to expected onset of menses for (unknown) (no (unknown) (unknown) and nontender (units ( unknown) date) unknown) (unknown) (no (unknown) (unknown) apparently that (units (unknown) date) suggested unknown) since she was 17 years old for the pain that (unknown) (no (unknown) (unknown) ay occur. (units (unkn own) date) Occasional unknown) wrong-word or 'sound-alike' substitutions may have (unknown) (no (unknown) (unknown) back, and can (units ( unknown) date) trigger the onset unknown) of a migraine. She has had no vaginal bleeding (unknown) (no (unknown) (unknown) best relief of (units (unknown) date) dysmenorrhea. unknown) (unknown) (no (unknown) (unknown) control (units ( unknown) date) pills immediately unknown) prior to her LMP in December 2021. Around mid (unknown) (no (unknown) (unknown) but states that (units (unknown) date) her PCP switched unknown) it to a non hormonal one without telling her. (unknown) (no (unknown) (unknown) can also be in (units (unknown) date) the left and right unknown) lower quadrant. Patient has been on (unknown) (no (unknown) (unknown) control pills (units ( unknown) date) since she was unknown) about 18 due to dysmenorrhea and discontinued the (unknown) (no (unknown) (unknown) discharge, no (units ( unknown) date) lesions, No unknown) vaginal bleeding and nontender (unknown) (no (unknown) (unknown) does not feel as (units (unknown) date) though they have unknown) been significantly beneficial. Discussed the (unknown) (no (unknown) (unknown) further (units (unkno wn) date) evaluation for non unknown) gynecologic causes of her ongoing abdominal pain (unknown) (no (unknown) (unknown) have occurred. If (units (unknown) date) there are any unknown) questions, please contact the Medical Records (unknown) (no (unknown) (unknown) imaging and has (units (unknown) date) never had a Pap or unknown) pelvic exam performed. (unknown) (no (unknown) (unknown) lives (units (unkno wn) date) independently: Yes unknown) (unknown) (no (unknown) (unknown) mucus) and No (units ( unknown) date) vaginal bleeding unknown) (unknown) (no (unknown) (unknown) naproxen 500 mg (units (unknown) date) tablet 500 mg PO unknown) Q8H PRN pain #30 tabs 03/21/22 [Rx Confirmed (unknown) (no (unknown) (unknown) naproxen (units (unkno wn) date) unknown) (unknown) (no (unknown) (unknown) no vaginal (units (unk nown) date) bleeding unknown) (unknown) (no (unknown) (unknown) non-tender and (units (unknown) date) other (Right ovary unknown) is palpable 3 x 4 cm, non-tender, left (unknown) (no (unknown) (unknown) nonpalpable) (units (u nknown) date) unknown) (unknown) (no (unknown) (unknown) occurred due to (units (unknown) date) the inherent unknown) limitations of voice recognition software. Please (unknown) (no (unknown) (unknown) of results when (units (unknown) date) available. unknown) (unknown) (no (unknown) (unknown) of transmission (units (unknown) date) unknown) (unknown) (no (unknown) (unknown) office hCG today (units (unknown) date) is negative. unknown) Patient has a history of irritable bowel syndrome (unknown) (no (unknown) (unknown) on a constant (units (u nknown) date) basis with sharp unknown) severe exacerbations she rates as a 10/10 and can (unknown) (no (unknown) (unknown) otherwise (units (unkn own) date) follow-up will be unknown) on an as needed basis. (unknown) (no (unknown) (unknown) performed. (units (unk nown) date) unknown) (unknown) (no (unknown) (unknown) perineal pain, (units (unknown) date) Z32.02 - Encounter unknown) for test, result negative (unknown) (no (unknown) (unknown) period since. She (units (unknown) date) has had multiple unknown) negative tests including in the ER. (unknown) (no (unknown) (unknown) possibility of (units (unknown) date) laparoscopy for unknown) her severe dysmenorrhea at some point and (unknown) (no (unknown) (unknown) read the note (units ( unknown) date) carefully and unknown) recognize, using context, where these substitutions (unknown) (no (unknown) (unknown) result in nausea (units (unknown) date) and vomiting. The unknown) pain also radiates to her back, goes up her (unknown) (no (unknown) (unknown) retroverted) (units (u nknown) date) unknown) (unknown) (no (unknown) (unknown) sentences (units (unkn own) date) unknown) (unknown) (no (unknown) (unknown) severe episodes (units (unknown) date) which comes unknown) sporadically and without warning. The pain is dull (unknown) (no (unknown) (unknown) she has with her (units (unknown) date) periods. unknown) (unknown) (no (unknown) (unknown) since dense (units (un known) date) discontinuation of unknown) her oral contraceptives in December 2021. In (unknown) (no (unknown) (unknown) software. (units (unkn own) date) Although every unknown) effort is made to edit content, cereal miller errors m (unknown) (no (unknown) (unknown) source for the (units (unknown) date) patient's pain. unknown) (unknown) (no (unknown) (unknown) tender, (units (unkno wn) date) non-tender, no unknown) cervical motion tenderness and displaced (Slightly (unknown) (no (unknown) (unknown) urethra and no (units (unknown) date) lesions unknown) (unknown) (no (unknown) (unknown) years and (units (unkn own) date) currently her unknown) bowel function is normal. Patient has not had pelvic Social History date description facility 2022-03-08 00:00 Tobacco smoking consumption unknown ([facility]) [facility] 2022-03-21 00:00 Never smoked tobacco (finding) [facility] Vital Signs date measurement value units 2022-03-08 00:00 BMI 21.7 kg/m2 2022-03-08 00:00 BP_diastolic 56 mmHg 2022-03-08 00:00 BP_systolic 98 mmHg 2022-03-08 00:00 heart_rate 75 /min 2022-03-08 00:00 height_metric 147.32 cm 2022-03-08 00:00 height_standard 58 in 2022-03-08 00:00 o2_saturation 98 % 2022-03-08 00:00 respiration_rate 15 /min 2022-03-08 00:00 temperature_metric 36.72 C 2022-03-08 00:00 temperature_standard 98.1 F 2022-03-08 00:00 weight_metric 47.17 kg 2022-03-08 00:00 weight_standard 103.99 lb 2022-03-21 00:00 BMI 21.3 kg/m2 2022-03-21 00:00 BP_diastolic 70 mmHg 2022-03-21 00:00 BP_systolic 120 mmHg 2022-03-21 00:00 height_metric 147.32 cm 2022-03-21 00:00 height_standard 58 in 2022-03-21 00:00 weight_metric 46.26 kg 2022-03-21 00:00 weight_standard 101.99 lb
[2022-04-02 17:40] LABS: ALBUMIN 4.8 g/dL (3.2-5.5); ALBUMIN/GLOBULIN RATIO 1.5 (1.0-2.2); BILIRUBIN,TOTAL 1.6 mg/dL (0.2-1.0); CALCIUM 10.8 mg/dL (8.5-10.3); CREATININE 0.6 mg/dL (0.4-1.0)
[2022-04-02] MEDS ORDERED: KETOROLAC 30 MG/ML VIAL IVP STA (20:04)
[2022-04-02] MEDS ORDERED: SODIUM CHLORIDE 0.9% 1,000 ML IV STA (20:04)
[2022-04-02] MEDS ORDERED: iohexoL-300 100 ML VIAL ONE (20:09)
[2022-04-02] MEDS ORDERED: iohexoL-300 100 ML VIAL IVP ONE (20:35)
--- NOTE | 2022-04-02 20:47 | CT Report ---
PROCEDURE: ABDOMEN/PELVIS W INDICATIONS: diffuse abd pain CONTRAST: 100mL Omni 300 TECHNIQUE: After the administration of nonionic contrast, 5 mm thick sections acquired from the diaphragms to th e symphysis. 5 mm thick coronal and sagittal reformats were acquired. For radiation dose reduction, the following was used: automated exposure control, adjustment of mA and/or kV according to patient size. COMPARISON: 12/01/[address] FINDINGS: Image quality: Excellent. ABDOMEN: Lung bases: Lung bases are clear. Heart size is normal. Solid organs: Liver and spleen are normal in size and enhancement. Gallbladder contains several sma ll nonobstructive calcified gallstones without evidence of associated biliary obstruction or acute ch olecystitis Biliary system is non dilated. Pancreas enhances normally. No adrenal nodules. Kidney s demonstrate normal size and enhancement, without hydronephrosis. Peritoneum and bowel: Bowel loops demonstrate normal wall thickness and caliber. No free fluid or a ir. Nodes and vessels: No retroperitoneal or mesenteric adenopathy by size criteria. Aorta and inferior vena cava are normal in size. Miscellaneous: No ventral hernias. PELVIS: Genitourinary: Bladder wall thickness is normal. Miscellaneous: No inguinal hernias or adenopathy. Bones: No suspicious bony lesions. No vertebral body compression fractures. IMPRESSION: Previously present small calcified gallstones are seen within the gallbladder lumen, wit hout evidence of biliary obstruction or acute cholecystitis. No intestinal obstruction or perforation is found. Reviewed by: Armand Parrish MD on 04/02/2022 8:46 PM PST Approved by: Armand Parrish MD on 04/02/2022 8:46 PM PST Station ID: [id number]
[2022-04-02] MEDS ORDERED: MORPHINE 2 MG/ML CARPUJECT IVP STA (21:22)
[2022-04-02 22:11] LABS: BACTERIAL VAGINOSIS DNA NEGATIVE (NEGATIVE)
[2022-04-02 22:12] LABS: CANDIDA GLABRATA DNA NEGATIVE (NEGATIVE); CANDIDA GROUP DNA NEGATIVE (NEGATIVE); CANDIDA KRUSEI DNA NEGATIVE (NEGATIVE); TRICHOMONAS VAGINALIS DNA NEGATIVE (NEGATIVE)
[2022-04-02] MEDS ORDERED: oxyCODONE 5 MG TABLET PO STA (22:26)
--- NOTE | 2022-04-02 22:29 | ED Physician Documentation ---
History of Present Illness - Stated complaint Stated Complaint: ABD PX - Chief complaint Chief Complaint: Abd Pain - History obtained from History obtained from: Patient - History of Present Illness Timing: Today Pain level max: 8 Pain level now: 8 - Additonal information Additional information: 21-year-old female presents to the emergency department complaint of pelvic pain. She states that this is been ongoing intermittently over several months, but increased recently. 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 She had a full pelvic exam. She states that she was told that everything was normal. At the triage note states that she had clear yellow discharge, patient denies this to me. She states that she has no vaginal bleeding or discharge. She denies any change in sexual partners. No STD exposure. Has not taken anything for the pain today. No fevers. No chills. Review of Systems Constitutional: denies: Fever, Chills Nose: denies: Rhinorrhea / runny nose, Congestion Respiratory: denies: Cough GI: denies: Diarrhea, Hematemesis, Bloody / black stool : denies: Dysuria, Frequency, Hesitancy Skin: denies: Rash Musculoskeletal: denies: Neck pain, Back pain Neurologic: denies: Headache PD PAST MEDICAL HISTORY - Past Medical History Cardiovascular: None Respiratory: None Psych: ADD/ADHD Musculoskeletal: None - Past Surgical History Past Surgical History: No - Present Medications Home Medications: Ambulatory Orders Medication Instructions Recorded Confirmed Ondansetron Odt [Zofran] 4 mg TL Q6H PRN #10 tablet 12/30/21 04/03/22 HYDROcod/ACETAM 5/325 [[place] 5/325] 1 - 2 ea PO Q6H PRN #14 tablet 04/02/22 04/03/22 - Allergies Allergies/Adverse Reactions: Allergies Allergy/AdvReac Type Severity Reaction Status Date / Time No Known Drug Allergies Allergy Verified 04/02/22 16:56 - Social History Does the pt smoke?: No Smoking Status: Never smoker Does the pt drink ETOH?: No Does the pt have substance abuse?: Yes - Immunizations Immunizations are current?: Yes - POLST Patient has POLST: No PD ED PE NORMAL - Vitals Vital signs reviewed: Yes - General General: Alert and oriented X 3, No acute distress - HEENT HEENT: Moist mucous membranes - Neck Neck: Supple, no meningeal sign - Cardiac Cardiac: RRR, Strong equal pulses - Respiratory Respiratory: No respiratory distress, Clear bilaterally - Abdomen Abdomen: Soft, Non tender, Non distended - Female Female : Pt declined - Back Back: No CVA TTP, No spinal TTP - Derm Derm: Warm and dry - Extremities Extremities: No edema - Neuro Neuro: Alert and oriented X 3 - Psych Psych: Normal mood, Normal affect Results - Vitals Vitals: Vital Signs - 24 hr 04/02/22 04/02/22 04/02/22 16:53 21:00 22:45 Temperature 36.8 C 36.9 C Heart Rate 79 69 71 Respiratory 16 15 15 Rate Blood Pressure 114/65 116/77 102/72 O2 Saturation 100 100 100 Oxygen O2 Source Room air - Labs Labs: Laboratory Tests 04/02/22 04/02/22 04/02/22 17:20 17:20 17:24 WBC 10.8 RBC 4.63 Hgb 12.4 Hct 39.8 MCV 86.0 MCH 26.8 L MCHC 31.2 L RDW 14.3 Plt Count 307 MPV 9.0 Neut # (Auto) 7.5 H Lymph # (Auto) 2.5 Crane # (Auto) 0.7 Eos # (Auto) 0.0 Baso # (Auto) 0.0 Absolute Nucleated RBC 0.00 Nucleated RBC % 0.0 Sodium Potassium Chloride Carbon Dioxide Anion Gap BUN Creatinine Estimated GFR (MDRD) Glucose Calcium Total Bilirubin AST ALT Alkaline Phosphatase Total Protein Albumin Globulin Albumin/Globulin Ratio Lipase Urine Color YELLOW Urine Clarity CLEAR Urine pH 6.0 Ur Specific [place] 1.010 Urine Protein NEGATIVE Urine Glucose (UA) NEGATIVE Urine Ketones TRACE Urine Occult Blood NEGATIVE Urine Nitrite NEGATIVE Urine Bilirubin NEGATIVE Urine Urobilinogen 0.2 (NORMAL) Ur Leukocyte Esterase NEGATIVE Ur Microscopic Review NOT INDICATED Urine Culture Comments NOT INDICATED Urine HCG, Qual NEGATIVE C. glabrata (PCR) C. krusei (PCR) Lesli species DNA Chlam trachomat DNA PCR N.gonorrhoeae DNA (PCR) T. vaginalis (PCR) Bact Vaginosis (PCR) 04/02/22 04/02/22 04/02/22 17:24 18:43 19:44 WBC RBC Hgb Hct MCV MCH MCHC RDW Plt Count MPV Neut # (Auto) Lymph # (Auto) Crane # (Auto) Eos # (Auto) Baso # (Auto) Absolute Nucleated RBC Nucleated RBC % Sodium 137 Potassium 4.0 Chloride 102 Carbon Dioxide 23 Anion Gap 12.0 BUN 15 Creatinine 0.6 Estimated GFR (MDRD) 127 Glucose 136 H Calcium 10.8 H Total Bilirubin 1.6 H AST 20 ALT 21 Alkaline Phosphatase 51 Total Protein 8.0 Albumin 4.8 Globulin 3.2 Albumin/Globulin Ratio 1.5 Lipase 28 Urine Color Urine Clarity Urine pH Ur Specific [place] Urine Protein Urine Glucose (UA) Urine Ketones Urine Occult Blood Urine Nitrite Urine Bilirubin Urine Urobilinogen Ur Leukocyte Esterase Ur Microscopic Review Urine Culture Comments Urine HCG, Qual C. glabrata (PCR) NEGATIVE C. krusei (PCR) NEGATIVE Lesli species DNA NEGATIVE Chlam trachomat DNA PCR NEGATIVE N.gonorrhoeae DNA (PCR) NEGATIVE T. vaginalis (PCR) TNP NEGATIVE Bact Vaginosis (PCR) NEGATIVE - Rads (name of study) CT abdomen pelvis Radiology: Final report received, See rad report Pelvic ultrasound Radiology: Final report received, See rad report PD Medical Decision Making - ED course Complexity details: reviewed results, re-evaluated patient, considered differential, d/w patient Reviewed Lab Results: No acute findings on CBC. Your abdominal panel shows a mildly elevated glucose, mildly elevated total bilirubin and mildly elevated calcium. Otherwise negative. Negative urinalysis. Negative test. Negative bacterial vaginitis panel. Negative gonorrhea and Chlamydia testing. ED course: Patient with pelvic pain of unclear etiology. No acute findings on laboratory testing. No significant findings on ultrasound other than a left paraovarian cyst. Patient refuses a pelvic exam as she states she just had one with her lining closer. Her swabs are negative. Pain well controlled. I will place her on pain medication have her follow-up with her doctor for further care. Abdomen is soft, nontender nondistended on serial exam. Patient counseled regarding signs and symptoms for which I believe and urgent re-evaluation would be necessary. Patient with good understanding of and agreement to plan and is comfortable going home at this time This document was made in part using voice recognition software. While efforts are made to proofread this document, sound alike and grammatical errors may occur. IMPRESSION: Previously present small calcified gallstones are seen within the gallbladder lumen, without evidence of biliary obstruction or acute cholecystitis. No intestinal obstruction or perforation is found. IMPRESSION: Normal-appearing uterus and endometrial lining, no evidence of ovarian torsion bilaterally. Patient was given IV Toradol, IV morphine and oral oxycodone for pain. Departure - Departure Disposition: 01 Home, Self Care Clinical Impression: Pelvic pain in female Ovarian cyst Qualifiers: Laterality: bilateral Qualified Code(s): N83.201 - Unspecified ovarian cyst, right side Condition: Good Instructions: ED Cyst Ovarian, ED Pelvic Pain [facility] Follow-Up: your,doctor in 1 week [Other] Prescriptions: HYDROcod/ACETAM 5/325 [[place] 5/325] 1 - 2 ea PO Q6H PRN #14 tablet PRN Reason: Pain Comments: Your prescriptions were sent to [email or web address] in [place]. You do have multiple ovarian cysts in the right ovary that appears to be a paraovarian cyst on the left ovary. You can use the medications as prescribed for pain. Please follow- up with your doctor for further care. Please return if you worsen. Your doctor will likely want to evaluate you for polycystic ovarian syndrome. I am prescribing a short course of narcotic pain medication for you. These are potentially dangerous and addictive medications that should be used carefully. These medications may constipate you. Take an zwyf-oxa-vbydrjo stool softener (docusate) twice daily with plenty of water while taking these medications. If you go 24 hours without a bowel movement, take kdks-ekj-yvgplen miralax, per package instructions. Do not drink or drive while taking these medications. If you received narcotic or sedating medications while in the emergency department, do not drive for 24 hours. Store this medication in a safe, secure place and out of reach of children. It is a violation of federal law to give or sell this medication to another person or to use in a manner other than prescribed. The ED will not refill narcotic prescriptions, including prescriptions lost or stolen. To dispose of unwanted medications: 1. [facility] [address] in [place] has a medication drop box. They accept prescription medications (in pill form) Saturday through Saturday 9:00 a.m. to 5:00 p.m. 2. The [facility] [employer] accepts prescription medications (in pill form only) for disposal year round. Call for more information. 3. Contact the [facility] for the next [facility] sponsored prescription drug collection event. , [phone], or [phone]; Discharge Date/Time: 04/02/22 22:46
[2022-04-02 22:46] VITALS: BP 102/72
--- NOTE | 2022-04-02 22:46 | Ultrasound Report ---
PROCEDURE: Pelvic w/Transvag+Doppler Comp INDICATIONS: pelvic pain, B TECHNIQUE: Real-time scanning was performed of the pelvic organs, with image documentation. Additional endovagi nal scanning was necessary due to incomplete visualization of the adnexal and endometrial structures by transabdominal scanning. Doppler interrogation was performed of the ovaries bilaterally. COMPARISON: 04/02/2022 CT abdomen/pelvis. FINDINGS: No pathologic free abdominal or pelvic fluid. Uterus: Uterus is normal in size at 2.9 x 4.2 x 6.4 cm. The endometrium measures 6.6 mm in combined thickness. Ovaries: The right ovary measures 1.9 x 4.1 x 4.0 cm and the left measures 3.5 x 3.0 x 3.5 cm. No do minant cyst is seen at either ovary. Normal appearing arterial and venous waveforms are confirmed to each ovary.] Incidental note is made of a small left paraovarian cyst at the left adnexa. Other: No free pelvic fluid. IMPRESSION: Normal-appearing uterus and endometrial lining, no evidence of ovarian torsion bilateral ly. Reviewed by: Armand Parrish MD on 04/02/2022 10:44 PM PST Approved by: Armand Parrish MD on 04/02/2022 10:44 PM PST Station ID: [id number]
[2022-04-03 01:04] LABS: CHLAMYDIA TRACHOMATIS DNA NEGATIVE (NEGATIVE); NEISSERIA GONORRHOEAE DNA NEGATIVE (NEGATIVE)
== END 2022-04-02 22:46 | disposition home or self-care (01) ==
LOC: ED 16:38
DX: N83.202 Unspecified ovarian cyst, left side (principal); R10.2 Pelvic and perineal pain
CPT/HCPCS: 36415; 74177; 76830; 76856; 80053; 81003; 81025; 81514; 83690; 85025; 87491; 87591; 93975; 96361; 96374; 96375; 99284; A9270; Q9967; 81001; 87086; 87661

== ENCOUNTER 2022-04-03 04:07 | Emergency (ER) | payer MEDICAID ==
--- NOTE | 2022-04-03 04:21 | ED Physician Documentation ---
PD HPI ABD PAIN - Stated complaint Stated Complaint: FEMALE - Chief complaint Chief Complaint: Abd Pain - History obtained from History obtained from: Patient - Additional information Additional information: HPI from patient. Patient c/o right pelvic pain, episodic over several months and has been evaluated in outpatient setting for this recently, no apparent etiology thus far. She was evaluated in this ED ([facility]) yesterday afternoon (approximately 12 hours ago) and had significant workup including blood tests, urinalysis, pelvic exam with swabs for hector, BV, trich, CT A/P, and pelvic US. There were no findings that suggested nor yielded an etiology for her symptoms. She was given 4mg IV morphine , IV toradol, and one dose of 5mg PO oxycodone. 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 She is visiting/staying with an inpatient friend of hers at [facility]. She tells me her symptoms are not new nor worse, but that they have returned to the level of pain she was having when she was first evaluated yesterday in this ED. She says her goal of this visit is simply adequate pain control until the pharmacy is open. Review of Systems Constitutional: denies: Fever, Chills, Sweats Cardiac: reports: Reviewed and negative Respiratory: reports: Reviewed and negative GI: reports: Abdominal Pain. denies: Nausea, Vomiting : denies: Dysuria, Frequency, Vaginal bleeding, Now [facility] PD PAST MEDICAL HISTORY - Past Medical History Cardiovascular: None Respiratory: None Psych: ADD/ADHD Musculoskeletal: None - Past Surgical History Past Surgical History: No - Present Medications Home Medications: Ambulatory Orders Medication Instructions Recorded Confirmed Ondansetron Odt [Zofran] 4 mg TL Q6H PRN #10 tablet 12/30/21 04/03/22 HYDROcod/ACETAM 5/325 [[place] 5/325] 1 - 2 ea PO Q6H PRN #14 tablet 04/02/22 04/03/22 - Allergies Allergies/Adverse Reactions: Allergies Allergy/AdvReac Type Severity Reaction Status Date / Time No Known Drug Allergies Allergy Verified 04/02/22 16:56 - Social History Does the pt smoke?: No Smoking Status: Never smoker Does the pt drink ETOH?: No Does the pt have substance abuse?: Yes - Immunizations Immunizations are current?: Yes - POLST Patient has POLST: No PD ED PE NORMAL - Vitals Vital signs reviewed: Yes - General General: Alert and oriented X 3, No acute distress, Well developed/nourished - Abdomen Abdomen: Soft, Non tender, Non distended - Back Back: No CVA TTP Results - Vitals Vitals: Oxygen O2 Source Room air PD Medical Decision Making - ED course Complexity details: reviewed old records, considered differential, d/w patient ED course: No indication for repeat nor further emergent testing at this time, given that she has no new c/o , just recurrence of the pain she presented with last night. She is being driven home. She is given 10mg PO oxycodone, take-home pack of percocet, and she says she will go to the pharmacy as soon as it opens to obtain the medication prescribed on yesterday's ED visit. Departure - Departure Disposition: Home, Self Care Clinical Impression: Pelvic pain in female Condition: Good Instructions: ED Pelvic Pain [facility] Comments: You had a number of the test performed in the ER on your visit here last night (less than 12 hours ago); there were no concerning or diagnostic findings on these tests. As you are returning for the same pain without new signs or symptoms, we are focusing on pain control at this time. You are given a dose of oxycodone on the previous visit (5 mg); you have indicated that this provided some pain relief that was short-lived. Thus, we are giving you twice the dose of the oxycodone on this current visit (10 mg) and I am providing you with a "take-at home" pack of Percocet. Percocet is oxycodone with acetaminophen (Tylenol) and there are four tablets in a take-home pack. 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 Please return to the emergency department if your symptoms are not controlled by the prescribed medications, or if you develop new/concerning signs/symptoms (such as fever, blood in vomitus, uncontrolled vomiting). I am prescribing a short course of narcotic pain medication for you. These are potentially dangerous and addictive medications that should be used carefully. These medications may constipate you. Take an agiq-xql-mfisdzt stool softener (docusate) twice daily with plenty of water while taking these medications. If you go 24 hours without a bowel movement, take itto-jye-tgqsumk miralax, per package instructions. Do not drink or drive while taking these medications. If you received narcotic or sedating medications while in the emergency department, do not drive for 24 hours. Store this medication in a safe, secure place and out of reach of children. It is a violation of federal law to give or sell this medication to another person or to use in a manner other than prescribed. The ED will not refill narcotic prescriptions, including prescriptions lost or stolen. To dispose of unwanted medications: 1. [facility] at [address] in [place] has a medication drop box. They accept prescription medications (in pill form) Saturday through Saturday 9:00 a.m. to 5:00 p.m. 2. The [facility] [employer] accepts prescription medications (in pill form only) for disposal year round. Call for more information. 3. Contact the [facility] for the next [facility] sponsored prescription drug collection event. , [phone], or [phone]; Discharge Date/Time: 04/03/22 05:07
[2022-04-03] MEDS ORDERED: oxyCODONE 5 MG TABLET PO STA (04:52)
[2022-04-03] MEDS ORDERED: oxyCODONE/ACET 5/325 Prepack 4 PO STA (04:55)
[2022-04-03 05:06] VITALS: BP 104/50
--- OUTSIDE RECORDS SUMMARY | 2022-04-03 05:09 | EXTERNAL MEDICAL SUMMARY RPT | Continuity of Care Document ---
:2000 Author Organization [facility] Address [address] [place] [address] Phone Care Team Providers Name Role Phone Abdias Valles Unavailable Unavailable Allergies and Intolerances date description facility type (no date) No Known Drug Allergies [facility] (unkn own) Encounters No information. Functional Status No information. Immunizations No information. Medications No information. Problems date description facility 2022-03-08 00:00 Endometriosis [facility] 2022-03-08 00:00 Abdominal pain [facility] 2022-03-21 10:55 Unspecified abdominal pain [facility] 2022-03-21 10:55 Encounter for screening for infections with a [facility] predominantly 2022-03-21 16:11 Amenorrhea, unspecified [facility] 2022-03-21 16:11 Pelvic and perineal pain [facility] 2022-03-21 16:11 Encounter for test, result [facility] 2022-03-21 17:21 Amenorrhea, unspecified [facility] 2022-03-21 17:21 Pelvic and perineal pain [facility] 2022-03-21 17:21 Encounter for test, result [facility] 2022-03-22 00:57 Unspecified abdominal pain [facility] 2022-03-22 00:57 Encounter for screening for infections with a [facility] predominantly Procedures No information. Results/Labs test date [...] date) unknown) (unknown) (no (unknown) (unknown) : [id number] (units (u nknown) date) unknown) (unknown) (no [...] (unknown) (unknown) : 2000 (units (unknown) date) Acct:[id number] unknown) (unknown) (no (unknown) (unknown) Date of [...] date) Signs: unknown) (unknown) (no (unknown) (unknown) [facility] (units (unknown) date) [address] [place] [address] unknown) [place] [address] (unknown) (no (unknown) (unknown) Lab Data (units [...] (unknown) (unknown) Urine Specific (units (unknown) date) [place] 1.010 unknown) (unknown) (no (unknown) (unknown) Vital [...] date) unknown) (unknown) (no (unknown) (unknown) : [id number] (units (u nknown) date) unknown) (unknown) (no [...] (unknown) (unknown) : 2000 (units (unknown) date) Acct:[id number] unknown) (unknown) (no (unknown) (unknown) Date of [...] for Abdominal Pain-Adult (unknown) (no (unknown) (unknown) Integumentary/Katherine (units (unknown) date) sts unknown) (unknown) (no (unknown) (unknown) [facility] (units (unknown) date) [address] unknown) [place] [address] (unknown) (no (unknown) (unknown) Ketorolac (units (unkn [...] (unknown) (unknown) Urine Specific (units (unknown) date) [place] 1.010 unknown) (unknown) (no (unknown) (unknown) Vital [...] date) unknown) (unknown) (no (unknown) (unknown) : [id number] (units (u nknown) date) unknown) (unknown) (no (unknown) (unknown) Age/Sex: 21 / F (units (unknown) date) Date of Service: unknown) (unknown) (no (unknown) (unknown) Allergies (units (unkn own) date) unknown) (unknown) (no (unknown) (unknown) DIMITRIOS Odonnell (units ( unknown) date) [id number] unknown) (unknown) (no (unknown) (unknown) Attending Dr: (units ( unknown) date) Yordan Llanos unknown) (unknown) (no (unknown) (unknown) : 2000 (units (unknown) date) Acct:[id number] unknown) (unknown) (no (unknown) (unknown) Dept at [...] (unknown) (unknown) 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: (units (unknown) date) 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) Menorrhagia/Dysme norrhea (unknown) (no [...] unknown) effort is made to edit content, welfare interviewer errors Result panel 4 (unknown) (no (unknown) (unknown) (no value) (units (unk nown) date) unknown) (unknown) (no (unknown) (unknown) 03/21/22 (units (unkno wn) date) unknown) (unknown) (no (unknown) (unknown) : [id number] (units (u nknown) date) unknown) (unknown) (no (unknown) (unknown) Age/Sex: 21 / F (units (unknown) date) Date of Service: unknown) (unknown) (no (unknown) (unknown) Allergies (units (unkn own) date) unknown) (unknown) (no (unknown) (unknown) [place], [place] (units ( unknown) date) [id number] unknown) (unknown) (no (unknown) (unknown) Attending Dr: (units ( unknown) date) Yordan Llanos unknown) (unknown) (no (unknown) (unknown) : 2000 (units (unknown) date) Acct:[id number] unknown) (unknown) (no (unknown) (unknown) Dept at [...] (unknown) (unknown) 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: (units (unknown) date) [employer]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) Menorrhagia/Dysme norrhea (unknown) (no [...] unknown) effort is made to edit content, welfare interviewer errors Result panel 5 (unknown) (no (unknown) (unknown) (no value) (units (unk nown) date) unknown) (unknown) (no (unknown) (unknown) 03/21/22 (units (unkno wn) date) unknown) (unknown) (no (unknown) (unknown) 10:17 (units (unkno wn) date) unknown) (unknown) (no (unknown) (unknown) : [id number] (units (u nknown) date) unknown) (unknown) (no (unknown) (unknown) Age/Sex: 21 / F (units (unknown) date) Date of Service: unknown) (unknown) (no (unknown) (unknown) Allergies (units (unkn own) date) unknown) (unknown) (no (unknown) (unknown) [place], [place] (units ( unknown) date) [id number] unknown) (unknown) (no (unknown) (unknown) Attending Dr: (units ( unknown) date) Yordan Llanos unknown) (unknown) (no (unknown) (unknown) BMI 21.3 (units (unkno wn) date) unknown) (unknown) (no (unknown) (unknown) BP 120/70 (units (unkn own) date) unknown) (unknown) (no (unknown) (unknown) Blood Pressure (units (unknown) date) Location Rt unknown) brachial (unknown) (no (unknown) (unknown) : 2000 (units (unknown) date) Acct:[id number] unknown) (unknown) (no (unknown) (unknown) Date of [...] known) date) unknown) (unknown) (no (unknown) (unknown) 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 (units (unknown) date) on [...] (unknown) (unknown) 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: (units (unknown) date) [employer]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) Menorrhagia/Dysme norrhea (unknown) (no [...] unknown) effort is made to edit content, welfare interviewer errors Result panel 6 (unknown) (no (unknown) (unknown) (no value) (units (unk nown) date) unknown) (unknown) (no (unknown) (unknown) 03/21/22 (units (unkno wn) date) unknown) (unknown) (no (unknown) (unknown) 10:17 (units (unkno wn) date) unknown) (unknown) (no (unknown) (unknown) 6-8 week history (units (unknown) date) unknown) (unknown) (no (unknown) (unknown) : [id number] (units (u nknown) date) unknown) (unknown) (no (unknown) (unknown) Age/Sex: 21 / F (units (unknown) date) Date of Service: unknown) (unknown) (no (unknown) (unknown) Allergies (units (unkn own) date) unknown) (unknown) (no (unknown) (unknown) [place], [place] (units ( unknown) date) [id number] unknown) (unknown) (no (unknown) (unknown) Attending Dr: [...] (unknown) (unknown) : 2000 (units (unknown) date) Acct:[id number] unknown) (unknown) (no (unknown) (unknown) Date of [...] known) date) unknown) (unknown) (no (unknown) (unknown) 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 (units (unknown) date) on [...] (unknown) (unknown) 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: (units (unknown) date) [employer]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) Menorrhagia/Dysme norrhea (unknown) (no [...] unknown) effort is made to edit content, welfare interviewer errors Result panel 7 (unknown) (no (unknown) (unknown) (no value) (units (unk nown) date) unknown) (unknown) (no (unknown) (unknown) 03/21/22 (units (unkno wn) date) unknown) (unknown) (no (unknown) (unknown) 10:17 (units (unkno wn) date) unknown) (unknown) (no (unknown) (unknown) 6-8 week history (units (unknown) date) of lower abdominal unknown) discomfort which is typically midline but (unknown) (no (unknown) (unknown) : [id number] (units (u nknown) date) unknown) (unknown) (no (unknown) (unknown) Age/Sex: 21 / F (units (unknown) date) Date of Service: unknown) (unknown) (no (unknown) (unknown) Allergies (units (unkn own) date) unknown) (unknown) (no (unknown) (unknown) [place] (units ( unknown) date) [address] unknown) (unknown) (no (unknown) (unknown) Attending Dr: [...] (unknown) (unknown) : 2000 (units (unknown) date) Acct:[id number] unknown) (unknown) (no (unknown) (unknown) Date of [...] known) date) unknown) (unknown) (no (unknown) (unknown) 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 (units (unknown) date) [...] unknown) (unknown) (no (unknown) (unknown) 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 F/U unknown) Menorrhagia/Dysmen [...] unknown) effort is made to edit content, welfare interviewer errors Result panel 8 (unknown) (no (unknown) [...] midline but (unknown) (no (unknown) (unknown) : [id number] (units (u nknown) date) unknown) (unknown) (no (unknown) (unknown) Affect: normal (units (unknown) date) affect unknown) (unknown) (no (unknown) (unknown) Age/Sex: 21 / F (units (unknown) date) Date of Service: unknown) (unknown) (no (unknown) (unknown) Allergies (units (unkn own) date) unknown) (unknown) (no (unknown) (unknown) [place], [place] (units ( unknown) date) [id number] unknown) (unknown) (no (unknown) (unknown) Appearance: (units [...] (unknown) (unknown) : 2000 (units (unknown) date) Acct:[id number] unknown) (unknown) (no (unknown) (unknown) Date of [...] date) mood unknown) (unknown) (no (unknown) (unknown) [employer]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 (units (unknown) date) [...] urethra (unknown) (no (unknown) (unknown) 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 F/U unknown) Menorrhagia/Dysmen [...] unknown) effort is made to edit content, welfare interviewer errors (unknown) (no (unknown) (unknown) tender and [...] midline but (unknown) (no (unknown) (unknown) : [id number] (units (u nknown) date) unknown) (unknown) (no (unknown) (unknown) Abdominal (units (unkn own) date) location: lower unknown) abdomen, unspecified Qualified Code(s): (unknown) (no (unknown) (unknown) Affect: normal (units (unknown) date) affect unknown) (unknown) (no (unknown) (unknown) Age/Sex: 21 / F (units (unknown) date) Date of Service: unknown) (unknown) (no (unknown) (unknown) Allergies (units (unkn own) date) unknown) (unknown) (no (unknown) (unknown) [place], [place] (units ( unknown) date) [address] unknown) (unknown) (no (unknown) (unknown) Appearance: (units [...] (unknown) (unknown) : 2000 (units (unknown) date) Acct:[id number] unknown) (unknown) (no (unknown) (unknown) Date of [...] date) mood unknown) (unknown) (no (unknown) (unknown) [employer]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 (units (unknown) date) [...] urethra (unknown) (no (unknown) (unknown) 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 F/U unknown) Menorrhagia/Dysmen [...] unknown) effort is made to edit content, welfare interviewer errors (unknown) (no (unknown) (unknown) source for [...] midline but (unknown) (no (unknown) (unknown) : [id number] (units (u nknown) date) unknown) (unknown) (no [...] OCs as she (unknown) (no (unknown) (unknown) [place], [place] (units ( unknown) date) [address] unknown) (unknown) (no (unknown) (unknown) Appearance: (units [...] Rt unknown) brachial (unknown) (no (unknown) (unknown) aCrol is a (units (u nknown) date) 21-year-old [...] (unknown) (unknown) : 2000 (units (unknown) date) Acct:[id number] unknown) (unknown) (no (unknown) (unknown) Date of [...] date) mood unknown) (unknown) (no (unknown) (unknown) [employer]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 (units (unknown) date) [...] urethra (unknown) (no (unknown) (unknown) 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 F/U unknown) Menorrhagia/Dysmen [...] unknown) effort is made to edit content, welfare interviewer errors (unknown) (no (unknown) (unknown) source for [...] midline but (unknown) (no (unknown) (unknown) : [id number] (units (u nknown) date) unknown) (unknown) (no [...] OCs as she (unknown) (no (unknown) (unknown) [place], [place] (units ( unknown) date) [address] unknown) (unknown) (no (unknown) (unknown) Appearance: (units [...] (unknown) (unknown) : 2000 (units (unknown) date) Acct:[id number] unknown) (unknown) (no (unknown) (unknown) Date of [...] (no (unknown) (unknown) General: (units ( wn) date) appearance normal, unknown) both eyes [...] date) mood unknown) (unknown) (no (unknown) (unknown) [employer]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 (units (unknown) date) [...] urethra (unknown) (no (unknown) (unknown) 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 F/U unknown) Menorrhagia/Dysmen [...] unknown) effort is made to edit content, welfare interviewer errors (unknown) (no (unknown) (unknown) source for [...] date) unknown) (unknown) (no (unknown) (unknown) #: [id number] (units ( unknown) date) unknown) (unknown) (no (unknown) (unknown) 03/21/22 (units (unkno wn) date) unknown) (unknown) (no (unknown) (unknown) [address] [place] [address] (units (unknown) date) unknown) (unknown) (no (unknown) (unknown) Accession (units (unkn own) date) Number: unknown) [id number] (unknown) (no (unknown) (unknown) Additional (units (unk nown) date) endovaginal unknown) scanning was necessary due to incomplete visualization (unknown) (no (unknown) (unknown) Age/Sex: 21 / F (units (unknown) date) Date of Service: unknown) (unknown) (no (unknown) (unknown) [place] (units ( unknown) date) [address] unknown) (unknown) (no (unknown) (unknown) Approved by: (units (u nknown) date) sandra Borden) Sophia on 03/23/2022 at 9:14 (unknown) (no (unknown) (unknown) COMPARISON: (units (un known) date) None. unknown) (unknown) (no (unknown) (unknown) : 2000 (units (unknown) date) Acct:[id number] unknown) (unknown) (no (unknown) (unknown) Dictated by: (units (u nknown) date) sandra Borden) Sophia on 03/23/2022 at 9:09 (unknown) (no (unknown) (unknown) FINDINGS: (units (unkn own) date) unknown) (unknown) (no (unknown) (unknown) IMPRESSION: (units (un known) date) Normal study. unknown) (unknown) (no (unknown) (unknown) INDICATIONS: LLQ (units (unknown) date) Pelvic Pain unknown) (unknown) (no (unknown) (unknown) [facility] (units (unknown) date) unknown) (unknown) (no (unknown) [...] midline but (unknown) (no (unknown) (unknown) : [id number] (units (u nknown) date) unknown) (unknown) (no [...] OCs as she (unknown) (no (unknown) (unknown) [place], [place] (units ( unknown) date) [address] unknown) (unknown) (no (unknown) (unknown) Appearance: (units [...] (unknown) (unknown) : 2000 (units (unknown) date) Acct:[id number] unknown) (unknown) (no (unknown) (unknown) Date of [...] date) mood unknown) (unknown) (no (unknown) (unknown) 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 (units (unknown) date) [...] (unknown) (unknown) Preg Expiration (units (unknown) date) [id number] Last Edit unknown) by Maggie Bonds MA on 03/21/22 17:11 (unknown) (no (unknown) (unknown) Preg Lot # (units (unk nown) date) [id number] Last unknown) Edit by Maggie Bonds MA [...] urethra (unknown) (no (unknown) (unknown) 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 F/U unknown) Menorrhagia/Dysmen [...] unknown) effort is made to edit content, welfare interviewer errors (unknown) (no (unknown) (unknown) source for [...] midline but (unknown) (no (unknown) (unknown) : [id number] (units (u nknown) date) unknown) (unknown) (no [...] OCs as she (unknown) (no (unknown) (unknown) [place], [place] (units ( unknown) date) [id number] unknown) (unknown) (no (unknown) (unknown) Appearance: (units [...] (unknown) (unknown) : 2000 (units (unknown) date) Acct:[id number] unknown) (unknown) (no (unknown) (unknown) Date of [...] date) mood unknown) (unknown) (no (unknown) (unknown) [employer]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 (units (unknown) date) [...] Patient: (units (unkno wn) date) [employer] unknown) [place] MR# (unknown) (no (unknown) (unknown) Pelvic Support: [...] (unknown) (unknown) Preg Expiration (units (unknown) date) [id number] Last Edit unknown) by Maggie Bonds MA on 03/21/22 17:11 (unknown) (no (unknown) (unknown) Preg Lot # (units (unk nown) date) [id number] Last unknown) Edit by Maggie Bonds MA [...] urethra (unknown) (no (unknown) (unknown) 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
== END 2022-04-03 05:07 | disposition home or self-care (01) ==
LOC: ED 04:07
DX: R10.2 Pelvic and perineal pain (principal)
CPT/HCPCS: 99282; 99284; A9270

== ENCOUNTER 2022-04-24 13:22 | Emergency (ER) | payer MEDICAID ==
[2022-04-24 13:41] VITALS: BP 117/67
--- NOTE | 2022-04-24 14:36 | ED Physician Documentation ---
History of Present Illness - Stated complaint Stated Complaint: NOSE BLEED - Chief complaint Chief Complaint: Heent - History obtained from History obtained from: Patient - History of Present Illness Timing: Today Pain level max: 0 Pain level now: 0 - Additonal information Additional information: 21-year-old female presents to the emergency department rhinorrhea, congestion and cough. This been ongoing for the past several days. No fevers. No chills. Had a episode of epistaxis today that started about 2 hours prior to arrival, lasted for about 15 minutes. Currently no bleeding. Currently asymptomatic. She states that she just feels tired. Denies any possibility of . Is not on any blood thinners. The cough is mostly dry, occasionally productive. No abdominal pain. No nausea or vomiting. Review of Systems Constitutional: denies: Fever, Chills Nose: reports: Epistaxis GI: denies: Vomiting, Diarrhea Skin: denies: Rash Musculoskeletal: denies: Neck pain, Back pain Neurologic: denies: Headache PD PAST MEDICAL HISTORY - Past Medical History Cardiovascular: None Respiratory: None FORTUNE TELLER: Ovarian cysts Psych: ADD/ADHD Musculoskeletal: None - Past Surgical History Past Surgical History: No - Present Medications Home Medications: Ambulatory Orders Medication Instructions Recorded Confirmed Ondansetron Odt [Zofran] 4 mg TL Q6H PRN #10 tablet 12/30/21 04/03/22 HYDROcod/ACETAM 5/325 [[place] 5/325] 1 - 2 ea PO Q6H PRN #14 tablet 04/02/22 04/03/22 Cetirizine HCl/Pseudoephedrine 1 each PO BID PRN #30 tab 04/24/22 [Zyrtec-D Tablet] Oxymetazoline HCl [Afrin] 1 spray NS BID #1 each 04/24/22 - Allergies Allergies/Adverse Reactions: Allergies Allergy/AdvReac Type Severity Reaction Status Date / Time No Known Drug Allergies Allergy Verified 04/24/22 13:41 - Social History Does the pt smoke?: No Smoking Status: Never smoker Does the pt drink ETOH?: No Does the pt have substance abuse?: Yes - Immunizations Immunizations are current?: Yes - POLST Patient has POLST: No PD ED PE NORMAL - Vitals Vital signs reviewed: Yes - General General: Alert and oriented X 3, No acute distress, Well developed/nourished - HEENT HEENT: PERRL (no pallor to inner eyelids), Ears normal, Moist mucous membranes, Pharynx benign, Other (No dried blood in the nares. No visible bleeding. Mild inflammation of the intranasal mucosa) - Neck Neck: Supple, no meningeal sign, No adenopathy - Cardiac Cardiac: RRR, Strong equal pulses - Respiratory Respiratory: No respiratory distress, Clear bilaterally - Abdomen Abdomen: Soft, Non tender, Non distended - Derm Derm: Warm and dry, No rash, Other (No petechiae. No easy bruising or bleeding) - Neuro Neuro: Alert and oriented X 3 - Psych Psych: Normal mood, Normal affect Results - Vitals Vitals: Vital Signs - 24 hr 04/24/22 13:38 Temperature 37.1 C Heart Rate 90 Respiratory 16 Rate Blood Pressure 117/67 O2 Saturation 99 Oxygen O2 Source Room air PD Medical Decision Making - ED course Complexity details: considered differential, d/w patient, d/w family ED course: Patient with a viral URI and an episode of epistaxis earlier today. This is since resolved. Patient currently asymptomatic. She is well-appearing, nontoxic. Afebrile. No hypoxia. No respiratory distress. We did discuss laboratory testing, patient declines this at this time. We will place her on decongestants for home. We will also add Afrin for 2 days. Recommend that she not put anything in her nose. Recommend that she refrain from bleeding her nose as well. Patient denies any possibility of . Patient counseled regarding signs and symptoms for which I believe and urgent re-evaluation would be necessary. Patient with good understanding of and agreement to plan and is comfortable going home at this time This document was made in part using voice recognition software. While efforts are made to proofread this document, sound alike and grammatical errors may occur. Departure - Departure Disposition: 01 Home, Self Care Clinical Impression: Epistaxis, Viral URI Condition: Good Instructions: ED Nosebleed, ED Viral Syndrome Follow-Up: your,doctor in 1 week [Other] Prescriptions: Oxymetazoline HCl [Afrin] 1 spray NS BID #1 each Cetirizine HCl/Pseudoephedrine [Zyrtec-D Tablet] 1 each PO BID PRN #30 tab PRN Reason: nasal congestion Comments: Your prescriptions were sent to [facility]. If you have further bleeding, please apply steady pressure to your nose just below the bone for about 15 minutes, lean your head forward, not back, this will prevent any blood from going down your throat. Please do not blow your nose, pick your nose or insert anything into your nose for the next 24 hours. Please return if you worsen Forms: Activity restrictions
--- OUTSIDE RECORDS SUMMARY | 2022-04-24 14:38 | EXTERNAL MEDICAL SUMMARY RPT | Continuity of Care Document ---
:2000 Author Organization [place] Address [address] [place] [address] Phone Care Team Providers Name Role Phone Abdias Valles Unavailable Unavailable Allergies and Intolerances date description facility type (no date) No Known Drug Allergies [facility] (unkn own) Encounters No information. Functional Status No information. Immunizations No information. Medications date description facility 2022-03-21 00:00 Naproxen [facility] Problems date description facility 2022-03-08 00:00 Endometriosis [facility] 2022-03-08 00:00 Abdominal pain [facility] 2022-03-21 10:55 Unspecified abdominal pain [facility] 2022-03-21 10:55 Encounter for screening for infections with [facility] 2022-03-21 16:11 Amenorrhea, unspecified [facility] 2022-03-21 16:11 Pelvic and [facility]ineal pain [facility] 2022-03-21 16:11 Encounter for test, result [facility] 2022-03-21 17:21 [facility], [facility] 2022-[facility] 17:21 Pelvic and perineal pain [facility] 2022-03-21 17:21 Encounter for test, result [facility] 2022-03-22 00:57 Unspecified abdominal pain [facility] 2022-03-22 00:57 Encounter for screening for infections with [facility] 2022-04-04 00:00 Anxiety [facility] 2022-04-04 00:00 Attention deficit hyperactivity disorde r (ADHD) [facility] 2022-04-04 00:00 Migraine headache [facility] 2022-04-04 00:00 Glaucoma [facility] 2022-04-04 00:00 Disorder of optic nerve [facility] 2022-04-04 00:00 Raynaud's disease [facility] 2022-04-04 00:00 Multiple gallstones [facility] 2022-04-04 00:00 Eczema [facility] 2022-04-04 00:00 Ankle pain [facility] 2022-04-04 00:00 Pain of foot [facility] 2022-04-04 00:00 Menorrhagia [facility] 2022-04-04 00:00 Heart murmur [facility] 2022-04-04 00:00 Chronic cough [facility] 2022-04-04 00:00 Allergy [facility] 2022-04-13 17:00 Encounter for screening for infections with a [facility] 2022-04-13 18:03 Pelvic and perineal pain [facility] 2022-04-14 02:27 Encounter for screening for infections with a [facility] 2022-04-24 10:10 Pain in right ankle and joints of right foot [facility] Procedures date description facility 2022-03-21 00:00 Complete ultrasound of pelvis [facility] Results/Labs test date author facility value unit interpret ation Result panel 1 (unknown) (no date) (unknown) [facility] ([facility] value) (units ([facility] unknown) Result panel 2 (unknown) (no date) (unknown) [facility] (no value) (units ([facility] unknown) Result panel 3 (unknown) (no (unknown) (unknown) (no value) (units (k nown) date) unknown) (unknown) (no (unknown) (unknown) 03/08/22 (units (unkno wn) date) unknown) (unknown) (no (unknown) (unknown) 19:36 03/08/22 (units (unknown) date) unknown) (unknown) (no (unknown) (unknown) 21:35 03/08/22 (units (unknown) date) unknown) (unknown) (no (unknown) (unknown) 21:36 (units (unkno wn) date) unknown) (unknown) (no (unknown) (unknown) : [id number] (units (u nknown) date) unknown) (unknown) (no [...] date) 121/72 unknown) (unknown) (no (unknown) (unknown) Chief (units (unkno wn) date) complaint: unknown) Abdominal Pain (unknown) (no (unknown) (unknown) Course (units (unkno wn) date) unknown) (unknown) (no (unknown) (unknown) : 2000 (units (unknown) date) Acct:[id number] unknown) (unknown) (no (unknown) (unknown) Date of [...] date) Signs: unknown) (unknown) (no (unknown) (unknown) [facility] (units (unknown) date) [address] [place] [address] unknown) [place] [address] (unknown) (no (unknown) (unknown) Lab Data (units [...] (unknown) (unknown) Urine Specific (units (unknown) date) [place] 1.010 unknown) (unknown) (no (unknown) (unknown) Vital [...] wn) date) independently: unknown) Yes Result panel 4 (unknown) (no (unknown) (unknown) [...] date) unknown) (unknown) (no (unknown) (unknown) : [id number] (units (u nknown) date) unknown) (unknown) (no [...] excerbation (unknown) (no (unknown) (unknown) Clinical (units (unkno wn) date) Impression: unknown) (unknown) (no (unknown) (unknown) Condition is at (units (unknown) date) treatment goal?: unknown) Yes (unknown) (no (unknown) (unknown) Constitutional (units (unknown) date) unknown) (unknown) (no (unknown) (unknown) Constitutional: (units (unknown) date) Reports system unknown) reviewed and no additional complaints, except as (unknown) (no (unknown) (unknown) Course (units (unkno wn) date) unknown) (unknown) (no (unknown) (unknown) : 2000 (units (unknown) date) Acct:[id number] unknown) (unknown) (no (unknown) (unknown) Date of [...] for Abdominal Pain-Adult (unknown) (no (unknown) (unknown) Integumentary/[place] (units (unknown) date) sts unknown) (unknown) (no (unknown) (unknown) [facility] (units (unknown) date) [address] [place] [address] unknown) [place] [address] (unknown) (no (unknown) (unknown) Ketorolac (units (unkn [...] (unknown) (unknown) Urine Specific (units (unknown) date) [place] 1.010 unknown) (unknown) (no (unknown) (unknown) Vital [...] frequent recently. She denies any Result panel 5 (unknown) (no (unknown) (unknown) (no value) (units (unk nown) date) unknown) (unknown) (no (unknown) (unknown) 03/21/22 (units (unkno wn) date) unknown) (unknown) (no (unknown) (unknown) : [id number] (units (u nknown) date) unknown) (unknown) (no (unknown) (unknown) Age/Sex: 21 / F (units (unknown) date) Date of Service: unknown) (unknown) (no (unknown) (unknown) Allergies (units (unkn own) date) unknown) (unknown) (no (unknown) (unknown) [place], [place] (units ( unknown) date) [id number] unknown) (unknown) (no (unknown) (unknown) Attending Dr: (units ( unknown) date) Yordan Llanos unknown) (unknown) (no (unknown) (unknown) : 2000 (units (unknown) date) Acct:[id number] unknown) (unknown) (no (unknown) (unknown) Dept at (units (unkno wn) date) . 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) Menorrhagia/Dysme norrhea (unknown) [...] unknown) effort is made to edit content, [place] patrol officer errors Result panel 6 (unknown) (no (unknown) (unknown) (no value) (units (unk nown) date) unknown) (unknown) (no (unknown) (unknown) 03/21/22 (units (unkno wn) date) unknown) (unknown) (no (unknown) (unknown) : [id number] (units (u nknown) date) unknown) (unknown) (no (unknown) (unknown) Age/Sex: 21 / F (units (unknown) date) Date of Service: unknown) (unknown) (no (unknown) (unknown) Allergies (units (unkn own) date) unknown) (unknown) (no (unknown) (unknown) [place], [place] (units ( unknown) date) [id number] unknown) (unknown) (no (unknown) (unknown) Attending Dr: (units ( unknown) date) Yordan Llanos unknown) (unknown) (no (unknown) (unknown) : 2000 (units (unknown) date) Acct:[id number] unknown) (unknown) (no (unknown) (unknown) Dept at [...] (unknown) (unknown) 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: (units (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) Menorrhagia/Dysme norrhea (unknown) [...] unknown) effort is made to edit content, [place] patrol officer errors Result panel 7 (unknown) (no (unknown) (unknown) (no value) (units (unk nown) date) unknown) (unknown) (no (unknown) (unknown) 03/21/22 (units (unkno wn) date) unknown) (unknown) (no (unknown) (unknown) 10:17 (units (unkno wn) date) unknown) (unknown) (no (unknown) (unknown) : [id number] (units (u nknown) date) unknown) (unknown) (no (unknown) (unknown) Age/Sex: 21 / F (units (unknown) date) Date of Service: unknown) (unknown) (no (unknown) (unknown) Allergies (units (unkn own) date) unknown) (unknown) (no (unknown) (unknown) [place], [place] (units ( unknown) date) [id number] unknown) (unknown) (no (unknown) (unknown) Attending Dr: (units ( unknown) date) Yordan Llanos unknown) (unknown) (no (unknown) (unknown) BMI 21.3 (units (unkno wn) date) unknown) (unknown) (no (unknown) (unknown) BP 120/70 (units (unkn own) date) unknown) (unknown) (no (unknown) (unknown) Blood Pressure (units (unknown) date) Location Rt unknown) brachial (unknown) (no (unknown) (unknown) : 2000 (units (unknown) date) Acct:[id number] unknown) (unknown) (no (unknown) (unknown) Date of [...] known) date) unknown) (unknown) (no (unknown) (unknown) 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 (units (unknown) date) [...] (unknown) (unknown) 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: (units (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) Menorrhagia/Dysme norrhea (unknown) [...] unknown) effort is made to edit content, [place] patrol officer errors Result panel 8 (unknown) (no (unknown) (unknown) (no value) (units (unk nown) date) unknown) (unknown) (no (unknown) (unknown) 03/21/22 (units (unkno wn) date) unknown) (unknown) (no (unknown) (unknown) 10:17 (units (unkno wn) date) unknown) (unknown) (no (unknown) (unknown) 6-8 week history (units (unknown) date) unknown) (unknown) (no (unknown) (unknown) : [id number] (units (u nknown) date) unknown) (unknown) (no (unknown) (unknown) Age/Sex: 21 / F (units (unknown) date) Date of Service: unknown) (unknown) (no (unknown) (unknown) Allergies (units (unkn own) date) unknown) (unknown) (no (unknown) (unknown) [place] (units ( unknown) date) [address] unknown) (unknown) (no (unknown) (unknown) Attending Dr: [...] (unknown) (unknown) : 2000 (units (unknown) date) Acct:[id number] unknown) (unknown) (no (unknown) (unknown) Date of [...] known) date) unknown) (unknown) (no (unknown) (unknown) 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 (units (unknown) date) [...] (unknown) (unknown) 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: (units (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) Menorrhagia/Dysme norrhea (unknown) [...] unknown) effort is made to edit content, [place] patrol officer errors Result panel 9 (unknown) (no (unknown) (unknown) (no value) (units (unk nown) date) unknown) (unknown) (no (unknown) (unknown) 03/21/22 (units (unkno wn) date) unknown) (unknown) (no (unknown) (unknown) 10:17 (units (unkno wn) date) unknown) (unknown) (no (unknown) (unknown) 6-8 week history (units (unknown) date) of lower abdominal unknown) discomfort which is typically midline but (unknown) (no (unknown) (unknown) : [id number] (units (u nknown) date) unknown) (unknown) (no (unknown) (unknown) Age/Sex: 21 / F (units (unknown) date) Date of Service: unknown) (unknown) (no (unknown) (unknown) Allergies (units (unkn own) date) unknown) (unknown) (no (unknown) (unknown) [place], [place] (units ( unknown) date) [id number] unknown) (unknown) (no (unknown) (unknown) Attending Dr: [...] (unknown) (unknown) : 2000 (units (unknown) date) Acct:[id number] unknown) (unknown) (no (unknown) (unknown) Date of [...] known) date) unknown) (unknown) (no (unknown) (unknown) 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 (units (unknown) [...] unknown) (unknown) (no (unknown) (unknown) 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 unknown) [...] unknown) effort is made to edit content, [place] patrol officer errors Result panel 10 (unknown) (no (unknown) (unknown) [...] midline but (unknown) (no (unknown) (unknown) : [id number] (units (u nknown) date) unknown) (unknown) (no (unknown) (unknown) Affect: normal (units (unknown) date) affect unknown) (unknown) (no (unknown) (unknown) Age/Sex: 21 / F (units (unknown) date) Date of Service: unknown) (unknown) (no (unknown) (unknown) Allergies (units (unkn own) date) unknown) (unknown) (no (unknown) (unknown) [place], [place] (units ( unknown) date) [address] unknown) (unknown) (no (unknown) (unknown) Appearance: (units [...] (unknown) (unknown) : 2000 (units (unknown) date) Acct:[id number] unknown) (unknown) (no (unknown) (unknown) Date of [...] date) mood unknown) (unknown) (no (unknown) (unknown) 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 (units (unknown) [...] urethra (unknown) (no (unknown) (unknown) 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 unknown) [...] unknown) effort is made to edit content, [place] patrol officer errors (unknown) (no (unknown) (unknown) tender and other (units (unknown) date) unknown) (unknown) (no (unknown) (unknown) tender, (units (unkno wn) date) non-tender, no unknown) cervical motion tenderness and displaced (Slightly (unknown) (no (unknown) (unknown) urethra and no (units (unknown) date) lesions unknown) Result panel 11 (unknown) (no (unknown) (unknown) [...] midline but (unknown) (no (unknown) (unknown) : [id number] (units (u nknown) date) unknown) (unknown) (no (unknown) (unknown) Abdominal (units (unkn own) date) location: lower unknown) abdomen, unspecified Qualified Code(s): (unknown) (no (unknown) (unknown) Affect: normal (units (unknown) date) affect unknown) (unknown) (no (unknown) (unknown) Age/Sex: 21 / F (units (unknown) date) Date of Service: unknown) (unknown) (no (unknown) (unknown) Allergies (units (unkn own) date) unknown) (unknown) (no (unknown) (unknown) [place], [place] (units ( unknown) date) [id number] unknown) (unknown) (no (unknown) (unknown) Appearance: (units [...] (unknown) (unknown) : 2000 (units (unknown) date) Acct:[id number] unknown) (unknown) (no (unknown) (unknown) Date of [...] (unknown) (unknown) Documented By: (units (unknown) date) Yrodan Llanos MD unknown) 03/21/22 0955 (unknown) (no [...] date) mood unknown) (unknown) (no (unknown) (unknown) 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 (units (unknown) [...] urethra (unknown) (no (unknown) (unknown) 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 unknown) [...] unknown) effort is made to edit content, [place] patrol officer errors (unknown) (no (unknown) (unknown) source for [...] had pelvic Result panel 12 (unknown) (no (unknown) (unknown) (no value) (units [...] midline but (unknown) (no (unknown) (unknown) : [id number] (units (u nknown) date) unknown) (unknown) (no [...] OCs as she (unknown) (no (unknown) (unknown) [place] (units ( unknown) date) [id number] unknown) (unknown) (no (unknown) (unknown) Appearance: (units [...] (unknown) (unknown) : 2000 (units (unknown) date) Acct:[id number] unknown) (unknown) (no (unknown) (unknown) Date of [...] (unknown) (no (unknown) (unknown) Effort + (units () ) Inspection: normal unknown) respiratory effort and able [...] unknown) (unknown) (no (unknown) (unknown) General: (units () ) appearance normal, unknown) both eyes and [...] date) mood unknown) (unknown) (no (unknown) (unknown) 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 (units (unknown) [...] urethra (unknown) (no (unknown) (unknown) 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 unknown) [...] unknown) effort is made to edit content, [place] patrol officer errors (unknown) (no (unknown) (unknown) source for [...] Patient has not had pelvic Result panel 13 (unknown) (no (unknown) (unknown) [...] midline but (unknown) (no (unknown) (unknown) : [id number] (units (u nknown) date) unknown) (unknown) (no [...] OCs as she (unknown) (no (unknown) (unknown) [place], [place] (units ( unknown) date) [address] unknown) (unknown) (no (unknown) (unknown) Appearance: (units [...] (unknown) (unknown) : 2000 (units (unknown) date) Acct:[id number] unknown) (unknown) (no (unknown) (unknown) Date of [...] (unknown) (no (unknown) (unknown) Effort + (units ( wn) ) Inspection: normal unknown) respiratory effort and able [...] unknown) (unknown) (no (unknown) (unknown) General: (units () ) appearance normal, unknown) both eyes and all related structures (unknown) (no (unknown) (unknown) General: (units () date) cooperative, unknown) comfortable and no acute distress (unknown) (no (unknown) (unknown) Gynecology Visit (units (unknown) date) unknown) (unknown) (no (unknown) (unknown) HENMT (units (o wn) date) unknown) (unknown) (no (unknown) (unknown) HPI (units (o wn) date) unknown) (unknown) (no [...] date) mood unknown) (unknown) (no (unknown) (unknown) 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 (units (unknown) [...] urethra (unknown) (no (unknown) (unknown) 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 unknown) [...] unknown) effort is made to edit content, [place] patrol officer errors (unknown) (no (unknown) (unknown) source for [...] Patient has not had pelvic Result panel 14 (unknown) (no date) (unknown) (unknown) NOT DETECTED (units ( unknown) unknown) Result panel 15 (unknown) (no (unknown) (unknown) (no value) (units (unk nown) date) unknown) (unknown) (no (unknown) (unknown) #: [id number] (units ( unknown) date) unknown) (unknown) (no (unknown) (unknown) 03/21/22 (units (unkno wn) date) unknown) (unknown) (no (unknown) (unknown) [address] [place] [address] (units (unknown) date) unknown) (unknown) (no (unknown) (unknown) Accession (units (unkn own) date) Number: unknown) [id number] (unknown) (no (unknown) (unknown) Additional (units (unk nown) date) endovaginal unknown) scanning was necessary due to incomplete visualization (unknown) (no (unknown) (unknown) Age/Sex: 21 / F (units (unknown) date) Date of Service: unknown) (unknown) (no (unknown) (unknown) [place] (units ( unknown) date) [id number] unknown) (unknown) (no (unknown) (unknown) Approved by: (units (u nknown) date) sandra Borden) Sophia on 03/23/2022 at 9:14 (unknown) (no (unknown) (unknown) COMPARISON: (units (un known) date) None. unknown) (unknown) (no (unknown) (unknown) : 2000 (units (unknown) date) Acct:[id number] unknown) (unknown) (no (unknown) (unknown) Dictated by: (units (u nknown) date) Mayank Marino unknown) Sophia on 03/23/2022 at 9:09 (unknown) (no (unknown) (unknown) FINDINGS: (units (unkn own) date) unknown) (unknown) (no (unknown) (unknown) IMPRESSION: (units (un known) date) Normal study. unknown) (unknown) (no (unknown) (unknown) INDICATIONS: LLQ (units (unknown) date) Pelvic Pain unknown) (unknown) (no (unknown) (unknown) [facility] (units (unknown) date) unknown) (unknown) (no [...] both ovaries. 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 (units (unknown) [...] (unknown) (unknown) Preg Expiration (units (unknown) date) [id number] Last Edit unknown) by Maggie Bonds MA on 03/21/22 17:11 (unknown) (no (unknown) (unknown) Preg Lot # (units (unk nown) date) [id number] Last unknown) Edit by Maggie Bonds MA [...] urethra (unknown) (no (unknown) (unknown) 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 unknown) [...] unknown) effort is made to edit content, [place] patrol officer errors (unknown) (no (unknown) (unknown) source for [...] Patient has not had pelvic Result panel 17 (unknown) (no (unknown) (unknown) (no value) (units [...] midline but (unknown) (no (unknown) (unknown) : [id number] (units (u nknown) date) unknown) (unknown) (no [...] OCs as she (unknown) (no (unknown) (unknown) [place], [place] (units ( unknown) date) [address] unknown) (unknown) (no (unknown) (unknown) Appearance: (units [...] (unknown) (unknown) : 2000 (units (unknown) date) Acct:[id number] unknown) (unknown) (no (unknown) (unknown) Date of [...] complete (unknown) (no (unknown) (unknown) Exam (units (o [...] date) mood unknown) (unknown) (no (unknown) (unknown) 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 (units (unknown) [...] (unknown) (unknown) Preg Expiration (units (unknown) date) [id number] Last Edit unknown) by Maggie Bonds MA on 03/21/22 17:11 (unknown) (no (unknown) (unknown) Preg Lot # (units (unk nown) date) [id number] Last unknown) Edit by Maggie Bonds MA [...] urethra (unknown) (no (unknown) (unknown) 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 unknown) [...] unknown) effort is made to edit content, [place] patrol officer errors m (unknown) (no (unknown) (unknown) source [...] Patient has not had pelvic Result panel 18 (unknown) (no (unknown) (unknown) (no value) (units (unk nown) date) unknown) (unknown) (no (unknown) (unknown) 04/13/22 (units (unkno wn) date) unknown) (unknown) (no (unknown) (unknown) : [id number] (units (u nknown) date) unknown) (unknown) (no (unknown) (unknown) ADHD (-2004) (units (u nknown) date) unknown) (unknown) (no (unknown) (unknown) Age/Sex: 21 / F (units (unknown) date) Date of Service: unknown) (unknown) (no (unknown) (unknown) Allergies (units (unkn own) date) () unknown) (unknown) (no (unknown) (unknown) Allergies (units (unkn own) date) unknown) (unknown) (no (unknown) (unknown) [place], [place] (units ( unknown) date) [address] unknown) (unknown) (no (unknown) (unknown) Ankle pain (units (unk nown) date) () unknown) (unknown) (no (unknown) (unknown) Anxiety () (units (unknown) date) unknown) (unknown) (no (unknown) (unknown) Attending Dr: (units ( unknown) date) Yordan Llanos unknown) (unknown) (no (unknown) (unknown) Chronic cough (units ( unknown) date) () unknown) (unknown) (no (unknown) (unknown) : 2000 (units (unknown) date) Acct:[id number] unknown) (unknown) (no (unknown) (unknown) Dept at (units (unkno wn) date) . unknown) (unknown) (no (unknown) (unknown) Documented By: (units (unknown) date) Yordan Llanos unknown) 04/13/22 1609 (unknown) (no (unknown) (unknown) Draft (units (unkno wn) date) unknown) (unknown) (no (unknown) (unknown) Eczema (-2002) (units (unknown) date) unknown) (unknown) (no (unknown) (unknown) Family History (units (unknown) date) (Updated 04/04/22 unknown) @ 20:47 by Awilda Bernal) (unknown) (no (unknown) (unknown) [facility]) (unknown) (no (unknown) (unknown) Foot pain (units (unkn own) date) () unknown) (unknown) (no (unknown) (unknown) Fracture () (units (unknown) date) unknown) (unknown) (no (unknown) (unknown) Gallstones (units (unk nown) date) unknown) (unknown) (no (unknown) (unknown) Glaucoma () (units (unknown) date) unknown) (unknown) (no (unknown) (unknown) Grandmother (units (un known) date) Breast cancer unknown) (unknown) (no (unknown) (unknown) Gynecology Visit (units (unknown) date) unknown) (unknown) (no (unknown) (unknown) Healthy adult (units ( unknown) date) unknown) (unknown) (no (unknown) (unknown) Heart murmur (units (u nknown) date) unknown) (unknown) (no (unknown) (unknown) Heavy menstrual (units (unknown) date) period () unknown) (unknown) (no (unknown) (unknown) Intake (units (unkno wn) date) unknown) (unknown) (no (unknown) (unknown) Loc: [facility] (units (unkno wn) date) unknown) (unknown) (no (unknown) (unknown) Medical History (units (unknown) date) (Updated 04/04/22 unknown) @ 20:47 by Awilda Bernal) (unknown) (no (unknown) (unknown) Migraines (units (unkn own) date) () unknown) (unknown) (no (unknown) (unknown) No Known Drug (units ( unknown) date) Allergies Allergy unknown) (Verified 03/21/22 10:08) 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 Result panel 19 (unknown) (no (unknown) (unknown) (no value) (units (unk nown) date) unknown) (unknown) (no (unknown) (unknown) 04/13/22 (units (unkno wn) date) unknown) (unknown) (no (unknown) (unknown) 16:18 (units (unkno wn) date) unknown) (unknown) (no (unknown) (unknown) : [id number] (units (u nknown) date) unknown) (unknown) (no (unknown) (unknown) ADHD (-2004) (units (u nknown) date) unknown) (unknown) (no (unknown) (unknown) Age/Sex: 21 / F (units (unknown) date) Date of Service: unknown) (unknown) (no (unknown) (unknown) Allergies (units (unkn own) date) () unknown) (unknown) (no (unknown) (unknown) Allergies (units (unkn own) date) unknown) (unknown) (no (unknown) (unknown) [place], [place] (units ( unknown) date) [id number] unknown) (unknown) (no (unknown) (unknown) Ankle pain (units (unk nown) date) () unknown) (unknown) (no (unknown) (unknown) Anxiety () (units (unknown) date) unknown) (unknown) (no (unknown) (unknown) Attending Dr: (units ( unknown) date) Yordan Llanos unknown) (unknown) (no (unknown) (unknown) BMI 21.1 (units (unkno wn) date) unknown) (unknown) (no (unknown) (unknown) BP 100/60 (units (unkn own) date) unknown) (unknown) (no (unknown) (unknown) Blood Pressure (units (unknown) date) Location Rt unknown) brachial (unknown) (no (unknown) (unknown) Chronic cough (units ( unknown) date) () unknown) (unknown) (no (unknown) (unknown) : 2000 (units (unknown) date) Acct:[id number] unknown) (unknown) (no (unknown) (unknown) Date of Last (units (u nknown) date) Menstrual Period: unknown) 12/26/21 (unknown) (no (unknown) (unknown) Dept at (units (unkno wn) date) . unknown) (unknown) (no (unknown) (unknown) Documented By: (units (unknown) date) Yordan Llanos unknown) 04/13/22 1609 (unknown) (no (unknown) (unknown) Draft (units (unkno wn) date) unknown) (unknown) (no (unknown) (unknown) Eczema (-2002) (units (unknown) date) unknown) (unknown) (no (unknown) (unknown) Family History (units (unknown) date) (Updated 04/04/22 unknown) @ 20:47 by Awilda Bernal) (unknown) (no (unknown) (unknown) [facility]) (unknown) (no (unknown) (unknown) Foot pain (units (unkn own) date) () unknown) (unknown) (no (unknown) (unknown) Fracture () (units (unknown) date) unknown) (unknown) (no (unknown) (unknown) Gallstones (units (unk nown) date) unknown) (unknown) (no (unknown) (unknown) Glaucoma (-2007) (units (unknown) date) unknown) (unknown) (no (unknown) (unknown) Grandmother (units (un known) date) Breast cancer unknown) (unknown) (no (unknown) (unknown) Gynecology Visit (units (unknown) date) unknown) (unknown) (no (unknown) (unknown) Healthy adult (units ( unknown) date) unknown) (unknown) (no (unknown) (unknown) Heart murmur (units (u nknown) date) unknown) (unknown) (no (unknown) (unknown) Heavy menstrual (units (unknown) date) period () unknown) (unknown) (no (unknown) (unknown) Height 4 ft (units (un known) date) 10.25 in unknown) (unknown) (no (unknown) (unknown) Intake Note: (units (u nknown) date) unknown) (unknown) (no (unknown) (unknown) Intake performed (units (unknown) date) by: Malika Eugene unknown) (unknown) (no (unknown) (unknown) Intake (units (unkno wn) date) unknown) (unknown) (no (unknown) (unknown) Intake- Clincial (units (unknown) date) Staff unknown) (unknown) (no (unknown) (unknown) LMP 12/26/21 (units (u nknown) date) unknown) (unknown) (no (unknown) (unknown) Last Menstural (units (unknown) date) Cycle + Details unknown) (unknown) (no (unknown) (unknown) Loc: [facility] (units (unkno wn) date) unknown) (unknown) (no (unknown) (unknown) Medical History (units (unknown) date) (Updated 04/04/22 unknown) @ 20:47 by Awilda Bernal) (unknown) (no (unknown) (unknown) Migraines (units (unkn own) date) (-2015) unknown) (unknown) (no (unknown) (unknown) No Known Drug (units ( unknown) date) Allergies Allergy unknown) (Verified 04/13/22 16:16) 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) (unknown) (no (unknown) (unknown) PFSH (units (unkno wn) date) unknown) (unknown) (no (unknown) (unknown) Painful (units (unkno wn) date) menstrual periods unknown) () (unknown) (no (unknown) (unknown) Patient: (units (unkno wn) date) Carol Grimm unknown) Claudia MR# (unknown) (no (unknown) (unknown) Position Sitting (units (unknown) date) unknown) (unknown) (no (unknown) (unknown) Pt here with (units (u nknown) date) pelvic pain x 3-4 unknown) months, intermittent (unknown) (no (unknown) (unknown) Pt is taking (units (u nknown) date) hydrocodone prn unknown) (unknown) (no (unknown) (unknown) Raynaud's (units (unkn own) date) disease unknown) (unknown) (no (unknown) (unknown) Reason For [...] (unknown) (unknown) 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: (units (unknown) date) Pelvic unknown) pain/possible PCOS *per Saba (unknown) (no (unknown) (unknown) Vitals (units (unkno wn) date) unknown) (unknown) (no (unknown) (unknown) Weight 102 lb (units ( unknown) date) unknown) (unknown) (no (unknown) (unknown) have occurred. 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 Result panel 20 (unknown) (no (unknown) (unknown) (no value) (units (unk nown) date) unknown) (unknown) (no (unknown) (unknown) 04/13/22 (units (unkno wn) date) unknown) (unknown) (no (unknown) (unknown) 16:18 (units (unkno wn) date) unknown) (unknown) (no (unknown) (unknown) : [id number] (units (u nknown) date) unknown) (unknown) (no (unknown) (unknown) ADHD (-2004) (units (u nknown) date) unknown) (unknown) (no (unknown) (unknown) Age/Sex: 21 / F (units (unknown) date) Date of Service: unknown) (unknown) (no (unknown) (unknown) Allergies (units (unkn own) date) () unknown) (unknown) (no (unknown) (unknown) Allergies (units (unkn own) date) unknown) (unknown) (no (unknown) (unknown) [place], [place] (units ( unknown) date) [id number] unknown) (unknown) (no (unknown) (unknown) Ankle pain (units (unk nown) date) () unknown) (unknown) (no (unknown) (unknown) Anxiety () (units (unknown) date) unknown) (unknown) (no (unknown) (unknown) Attending Dr: (units ( unknown) date) Yordan Llanos unknown) (unknown) (no (unknown) (unknown) BMI 21.1 (units (unkno wn) date) unknown) (unknown) (no (unknown) (unknown) BP 100/60 (units (unkn own) date) unknown) (unknown) (no (unknown) (unknown) Blood Pressure (units (unknown) date) Location Rt unknown) brachial (unknown) (no (unknown) (unknown) Chief Complaint (units (unknown) date) unknown) (unknown) (no (unknown) (unknown) Chief Complaint: (units (unknown) date) Pelvic pain unknown) (unknown) (no (unknown) (unknown) Chronic cough (units ( unknown) date) () unknown) (unknown) (no (unknown) (unknown) : 2000 (units (unknown) date) Acct:[id number] unknown) (unknown) (no (unknown) (unknown) Date of Last (units (u nknown) date) Menstrual Period: unknown) 12/26/21 (unknown) (no (unknown) (unknown) Dept at (units (unkno wn) date) . unknown) (unknown) (no (unknown) (unknown) Documented By: (units (unknown) date) Yordan Llanos unknownRikki CHINCHILLA 04/13/22 1609 (unknown) (no (unknown) (unknown) Draft (units (unkno wn) date) unknown) (unknown) (no (unknown) (unknown) Eczema (-2002) (units (unknown) date) unknown) (unknown) (no (unknown) (unknown) Family History (units (unknown) date) (Updated 04/04/22 unknown) @ 20:47 by Awilda Bernal) (unknown) (no (unknown) (unknown) [facility]) (unknown) (no (unknown) (unknown) Foot pain (units (unkn own) date) () unknown) (unknown) (no (unknown) (unknown) Fracture () (units (unknown) date) unknown) (unknown) (no (unknown) (unknown) Gallstones (units (unk nown) date) unknown) (unknown) (no (unknown) (unknown) Glaucoma () (units (unknown) date) unknown) (unknown) (no (unknown) (unknown) Grandmother (units (un known) date) Breast cancer unknown) (unknown) (no (unknown) (unknown) Gynecology Visit (units (unknown) date) unknown) (unknown) (no (unknown) (unknown) HPI (units (unkno wn) date) unknown) (unknown) (no (unknown) (unknown) Healthy adult (units ( unknown) date) unknown) (unknown) (no (unknown) (unknown) Heart murmur (units (u nknown) date) unknown) (unknown) (no (unknown) (unknown) Heavy menstrual (units (unknown) date) period () unknown) (unknown) (no (unknown) (unknown) Height 4 ft (units (un known) date) 10.25 in unknown) (unknown) (no (unknown) (unknown) Intake Note: (units (u nknown) date) unknown) (unknown) (no (unknown) (unknown) Intake performed (units (unknown) date) by: Malika Eugene unknown) (unknown) (no (unknown) (unknown) Intake (units (unkno wn) date) unknown) (unknown) (no (unknown) (unknown) Intake- Clincial (units (unknown) date) Staff unknown) (unknown) (no (unknown) (unknown) LMP 12/26/21 (units (u nknown) date) unknown) (unknown) (no (unknown) (unknown) Last Menstural (units (unknown) date) Cycle + Details unknown) (unknown) (no (unknown) (unknown) Loc: [facility] (units (unkno wn) date) unknown) (unknown) (no (unknown) (unknown) Medical History (units (unknown) date) (Updated 04/04/22 unknown) @ 20:47 by Awilda Bernal) (unknown) (no (unknown) (unknown) Migraines (units (unkn own) date) (-2015) unknown) (unknown) (no (unknown) (unknown) Negative (units (unkno wn) date) unknown) (unknown) (no (unknown) (unknown) Negative (units 39600- 6 date) unknown) (unknown) (no (unknown) (unknown) Negative (units 00291- 1 date) unknown) (unknown) (no (unknown) (unknown) Negative (units 02975- 5 date) unknown) (unknown) (no (unknown) (unknown) No Known Drug (units ( unknown) date) Allergies Allergy unknown) (Verified 04/13/22 16:16) 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) (unknown) (no (unknown) (unknown) PFSH (units (unkno wn) date) unknown) (unknown) (no (unknown) (unknown) Painful (units (unkno wn) date) menstrual periods unknown) () (unknown) (no (unknown) (unknown) Patient: (units (unkno wn) date) AlfaCarol unknown) Claudia MR# (unknown) (no (unknown) (unknown) Position Sitting (units (unknown) date) unknown) (unknown) (no (unknown) (unknown) Pt here with (units (u nknown) date) pelvic pain x 3-4 unknown) months, intermittent (unknown) (no (unknown) (unknown) Pt is taking (units (u nknown) date) hydrocodone prn unknown) (unknown) (no (unknown) (unknown) Raynaud's (units (unkn own) date) disease unknown) (unknown) (no (unknown) (unknown) Reason For [...] (unknown) (unknown) 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: (units (unknown) date) Pelvic unknown) pain/possible PCOS *per Saba (unknown) (no (unknown) (unknown) Vitals (units (unkno wn) date) unknown) (unknown) (no (unknown) (unknown) Weight 102 lb (units ( unknown) date) unknown) (unknown) (no (unknown) (unknown) have occurred. 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 Result panel 21 (unknown) (no (unknown) (unknown) (no value) (units (unk nown) date) unknown) (unknown) (no (unknown) (unknown) 04/13/22 (units (unkno wn) date) unknown) (unknown) (no (unknown) (unknown) 16:18 (units (unkno wn) date) unknown) (unknown) (no (unknown) (unknown) : [id number] (units (u nknown) date) unknown) (unknown) (no (unknown) (unknown) ADHD (-2004) (units (u nknown) date) unknown) (unknown) (no (unknown) (unknown) Age/Sex: 21 / F (units (unknown) date) Date of Service: unknown) (unknown) (no (unknown) (unknown) Allergies (units (unkn own) date) () unknown) (unknown) (no (unknown) (unknown) Allergies (units (unkn own) date) unknown) (unknown) (no (unknown) (unknown) [place], [place] (units ( unknown) date) [id number] unknown) (unknown) (no (unknown) (unknown) Ankle pain (units (unk nown) date) () unknown) (unknown) (no (unknown) (unknown) Anxiety () (units (unknown) date) unknown) (unknown) (no (unknown) (unknown) Assessment + (units (u nknown) date) Plan unknown) (unknown) (no (unknown) (unknown) Attending Dr: (units ( unknown) date) Yordan Llanos unknown) (unknown) (no (unknown) (unknown) BMI 21.1 (units (unkno wn) date) unknown) (unknown) (no (unknown) (unknown) BP 100/60 (units (unkn own) date) unknown) (unknown) (no (unknown) (unknown) Blood Pressure (units (unknown) date) Location Rt unknown) brachial (unknown) (no (unknown) (unknown) Chief Complaint (units (unknown) date) unknown) (unknown) (no (unknown) (unknown) Chief Complaint: (units (unknown) date) Pelvic pain unknown) (unknown) (no (unknown) (unknown) Chlamydia/Gonoc/ (units (unknown) date) Myco Genital unknown) Today Z11.3 - Encounter for screening for (unknown) (no (unknown) (unknown) Chronic cough (units ( unknown) date) () unknown) (unknown) (no (unknown) (unknown) Complete Blood (units (unknown) date) Count AUTO DIFF unknown) Today R10.2 - Pelvic and perineal pain (unknown) (no (unknown) (unknown) : 2000 (units (unknown) date) Acct:[id number] unknown) (unknown) (no (unknown) (unknown) Date of Last (units (u nknown) date) Menstrual Period: unknown) 12/26/21 (unknown) (no (unknown) (unknown) Dept at (units (unkno wn) date) . unknown) (unknown) (no (unknown) (unknown) Documented By: (units (unknown) date) Yordan Llanos unknownRikki CHINCHILLA 04/13/22 1609 (unknown) (no (unknown) (unknown) Draft (units (unkno wn) date) unknown) (unknown) (no (unknown) (unknown) Eczema (-2002) (units (unknown) date) unknown) (unknown) (no (unknown) (unknown) Erythrocyte (units (un known) date) Sedimentation unknown) Rate Today R10.2 - Pelvic and perineal pain (unknown) (no (unknown) (unknown) Family History (units (unknown) date) (Updated 04/04/22 unknown) @ 20:47 by Awilda Bernal) (unknown) (no (unknown) (unknown) [facility]) (unknown) (no (unknown) (unknown) Foot pain (units (unkn own) date) () unknown) (unknown) (no (unknown) (unknown) Fracture () (units (unknown) date) unknown) (unknown) (no (unknown) (unknown) Gallstones (units (unk nown) date) unknown) (unknown) (no (unknown) (unknown) Glaucoma (-2007) (units (unknown) date) unknown) (unknown) (no (unknown) (unknown) Grandmother (units (un known) date) Breast cancer unknown) (unknown) (no (unknown) (unknown) Gynecology Visit (units (unknown) date) unknown) (unknown) (no (unknown) (unknown) HPI (units (unkno wn) date) unknown) (unknown) (no (unknown) (unknown) Healthy adult (units ( unknown) date) unknown) (unknown) (no (unknown) (unknown) Heart murmur (units (u nknown) date) unknown) (unknown) (no (unknown) (unknown) Heavy menstrual (units (unknown) date) period () unknown) (unknown) (no (unknown) (unknown) Height 4 ft (units (un known) date) 10.25 in unknown) (unknown) (no (unknown) (unknown) Intake Note: (units (u nknown) date) unknown) (unknown) (no (unknown) (unknown) Intake performed (units (unknown) date) by: Malika Eugene unknown) (unknown) (no (unknown) (unknown) Intake (units (unkno wn) date) unknown) (unknown) (no (unknown) (unknown) Intake- Clincial (units (unknown) date) Staff unknown) (unknown) (no (unknown) (unknown) LMP 12/26/21 (units (u nknown) date) unknown) (unknown) (no (unknown) (unknown) Last Menstural (units (unknown) date) Cycle + Details unknown) (unknown) (no (unknown) (unknown) Loc: [facility] (units (unkno wn) date) unknown) (unknown) (no (unknown) (unknown) Medical History (units (unknown) date) (Updated 04/13/22 unknown) @ 17:19 by Yordan Llanos MD) (unknown) (no (unknown) (unknown) Migraines (units (unkn own) date) () unknown) (unknown) (no (unknown) (unknown) No Known Drug (units ( unknown) date) Allergies Allergy unknown) (Verified 04/13/22 16:16) 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) (unknown) (no (unknown) (unknown) Orders (units (unkno wn) date) unknown) (unknown) (no (unknown) (unknown) Orders: (units (unkno wn) date) unknown) (unknown) (no (unknown) (unknown) PFSH (units (unkno wn) date) unknown) (unknown) (no (unknown) (unknown) Painful (units (unkno wn) date) menstrual periods unknown) (-2010) (unknown) (no (unknown) (unknown) Patient: (units (unkno wn) date) Carol Grimm unknown) Claudia MR# (unknown) (no (unknown) (unknown) Position Sitting (units (unknown) date) unknown) (unknown) (no (unknown) (unknown) Pt here with (units (u nknown) date) pelvic pain x 3-4 unknown) months, intermittent (unknown) (no (unknown) (unknown) Pt is taking (units (u nknown) date) hydrocodone prn unknown) (unknown) (no (unknown) (unknown) Raynaud's (units (unkn own) date) disease unknown) (unknown) (no (unknown) (unknown) Reason For [...] (unknown) (unknown) 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: (units (unknown) date) Pelvic unknown) pain/possible PCOS *per Saba (unknown) (no (unknown) (unknown) Vitals (units (unkno wn) date) unknown) (unknown) (no (unknown) (unknown) Weight 102 lb (units ( unknown) date) unknown) (unknown) (no (unknown) (unknown) have occurred. 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 Recent unknown) pelvic imaging thus far includes a pelvic (unknown) (no (unknown) (unknown) 16:18 (units (unkno wn) date) unknown) (unknown) (no (unknown) (unknown) 2021 when she (units ( unknown) date) discontinued them unknown) and had her final withdrawal period. She had (unknown) (no (unknown) (unknown) : [id number] (units (u nknown) date) unknown) (unknown) (no (unknown) (unknown) ADHD (-2004) (units (u nknown) date) unknown) (unknown) (no (unknown) (unknown) Age/Sex: 21 / F (units (unknown) date) Date of Service: unknown) (unknown) (no (unknown) (unknown) Allergies (units (unkn own) date) () unknown) (unknown) (no (unknown) (unknown) Allergies (units (unkn own) date) unknown) (unknown) (no (unknown) (unknown) [place], [place] (units ( unknown) date) [id number] unknown) (unknown) (no (unknown) (unknown) Ankle pain (units (unk nown) date) () unknown) (unknown) (no (unknown) (unknown) Anxiety (-2009) (units (unknown) date) unknown) (unknown) (no (unknown) (unknown) Assessment + (units (u nknown) date) Plan unknown) (unknown) (no (unknown) (unknown) Attending Dr: (units ( unknown) date) Yordan Llanos unknown) (unknown) (no (unknown) (unknown) BMI 21.1 (units (unkno wn) date) unknown) (unknown) (no (unknown) (unknown) BP 100/60 (units (unkn own) date) unknown) (unknown) (no (unknown) (unknown) Blood Pressure (units (unknown) date) Location Rt unknown) brachial (unknown) (no (unknown) (unknown) Carol is a (units (u nknown) date) 21-year-old G0, unknown) LMP December 26, 2021, who presents today for (unknown) (no (unknown) (unknown) Chief Complaint (units (unknown) date) unknown) (unknown) (no (unknown) (unknown) Chief Complaint: (units (unknown) date) Pelvic pain unknown) (unknown) (no (unknown) (unknown) Chlamydia/Gonoc/ (units (unknown) date) Myco Genital unknown) Today Z11.3 - Encounter for screening for (unknown) (no (unknown) (unknown) Chronic cough (units ( unknown) date) (-2017) unknown) (unknown) (no (unknown) (unknown) Complete Blood (units (unknown) date) Count AUTO DIFF unknown) Today R10.2 - Pelvic and perineal pain (unknown) (no (unknown) (unknown) : 2000 (units (unknown) date) Acct:[id number] unknown) (unknown) (no (unknown) (unknown) Date of Last (units (u nknown) date) Menstrual Period: unknown) 12/26/21 (unknown) (no (unknown) (unknown) Dept at (units (unkno wn) date) . unknown) (unknown) (no (unknown) (unknown) Details: (units (unkno wn) date) unknown) (unknown) (no (unknown) (unknown) Documented By: (units (unknown) date) Yordan Llanos unknownRikki CHINCHILLA 03/03/23 1609 (unknown) (no (unknown) (unknown) Draft (units (unkno wn) date) unknown) (unknown) (no (unknown) (unknown) Eczema (-2002) (units (unknown) date) unknown) (unknown) (no (unknown) (unknown) Erythrocyte (units (un known) date) Sedimentation unknown) Rate Today R10.2 - Pelvic and perineal pain (unknown) (no (unknown) (unknown) Family History (units (unknown) date) (Updated 04/04/22 unknown) @ 20:47 by Awilda Bernal) (unknown) (no (unknown) (unknown) [facility] ([facility] date[facility] unknown) (unknown) (no (unknown) (unknown) Foot pain (units (unkn own) date) () unknown) (unknown) (no (unknown) (unknown) Fracture () (units (unknown) date) unknown) (unknown) (no (unknown) (unknown) Gallstones (units (unk nown) date) unknown) (unknown) (no (unknown) (unknown) Glaucoma () (units (unknown) date) unknown) (unknown) (no (unknown) (unknown) Grandmother (units (un known) date) Breast cancer unknown) (unknown) (no (unknown) (unknown) Gynecology Visit (units (unknown) date) unknown) (unknown) (no (unknown) (unknown) HPI (units (unkno wn) date) unknown) (unknown) (no (unknown) (unknown) Healthy adult (units ( unknown) date) unknown) (unknown) (no (unknown) (unknown) Heart murmur (units (u nknown) date) unknown) (unknown) (no (unknown) (unknown) Heavy menstrual (units (unknown) date) period () unknown) (unknown) (no (unknown) (unknown) Height 4 ft (units (un known) date) 10.25 in unknown) (unknown) (no (unknown) (unknown) Intake Note: (units (u nknown) date) unknown) (unknown) (no (unknown) (unknown) Intake performed (units (unknown) date) by: Malika Eugene unknown) (unknown) (no (unknown) (unknown) Intake (units (unkno wn) date) unknown) (unknown) (no (unknown) (unknown) Intake- Clincial (units (unknown) date) Staff unknown) (unknown) (no (unknown) (unknown) LMP 12/26/21 (units (u nknown) date) unknown) (unknown) (no (unknown) (unknown) Last Menstural (units (unknown) date) Cycle + Details unknown) (unknown) (no (unknown) (unknown) Loc: [facility] (units (unkno wn) date) unknown) (unknown) (no (unknown) (unknown) Medical History (units (unknown) date) (Updated 04/13/22 unknown) @ 17:19 by Yordan Llanos MD) (unknown) (no (unknown) (unknown) Migraines (units (unkn own) date) (-2015) unknown) (unknown) (no (unknown) (unknown) No Known Drug (units ( unknown) date) Allergies Allergy unknown) (Verified 04/13/22 16:16) 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) (unknown) (no (unknown) (unknown) Orders (units (unkno wn) date) unknown) (unknown) (no (unknown) (unknown) Orders: (units (unkno wn) date) unknown) (unknown) (no (unknown) (unknown) PFSH (units (unkno wn) date) unknown) (unknown) (no (unknown) (unknown) Painful (units (unkno wn) date) menstrual periods unknown) () (unknown) (no (unknown) (unknown) Patient: (units (unkno wn) date) Carol Grimm unknown) Claudia MR# (unknown) (no (unknown) (unknown) Position Sitting (units (unknown) date) unknown) (unknown) (no (unknown) (unknown) Pt here with (units (u nknown) date) pelvic pain x 3-4 unknown) months, intermittent (unknown) (no (unknown) (unknown) Pt is taking (units (u nknown) date) hydrocodone prn unknown) (unknown) (no (unknown) (unknown) Raynaud's (units (unkn own) date) disease unknown) (unknown) (no (unknown) (unknown) Reason For [...] (unknown) (unknown) 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: (units (unknown) date) Pelvic unknown) pain/possible PCOS *per Saba (unknown) (no (unknown) (unknown) Vitals (units (unkno wn) date) unknown) (unknown) (no (unknown) (unknown) Weight 102 lb (units ( unknown) date) unknown) (unknown) (no (unknown) (unknown) another period (units (unknown) date) on December 26 unknown) 2021 but has not had any bleeding since that (unknown) (no (unknown) (unknown) can radiate down (units (unknown) date) the anterior unknown) aspect of her right thigh. She states her (unknown) (no (unknown) (unknown) constant right (units (unknown) date) lower unknown) quadrant/right sided pelvic pain for the last 3 months and (unknown) (no (unknown) (unknown) currently use (units ( unknown) date) contraception. unknown) She was on control pills up until November of (unknown) (no (unknown) (unknown) dysmenorrhea has (units (unknown) date) gradually unknown) increased over the years and she does have both (unknown) (no (unknown) (unknown) evaluation of a (units (unknown) date) three-month unknown) history of right lower quadrant/right sided pelvic (unknown) (no (unknown) (unknown) have occurred. (units (unknown) date) If there are any unknown) questions, please contact the Medical Records (unknown) (no (unknown) (unknown) infections with (units (unknown) date) a predominantly unknown) sexual mode of transmission (unknown) (no (unknown) (unknown) introital and (units (u nknown) date) deep dyspareunia unknown) on occasion patient states that she is lost about (unknown) (no (unknown) (unknown) is only obtained (units (unknown) date) relief by taking unknown) hydrocodone which she has received from her ER (unknown) (no (unknown) (unknown) lives (units (unkno wn) date) independently: unknown) Yes (unknown) (no (unknown) (unknown) may occur. (units (unk nown) date) Occasional unknown) wrong-word or 'sound-alike' substitutions may have (unknown) (no (unknown) (unknown) menses but she (units (unknown) date) has a long unknown) history of primary dysmenorrhea. Her symptoms are (unknown) (no (unknown) (unknown) occurred due to (units (unknown) date) the inherent unknown) limitations of voice recognition software. Please (unknown) (no (unknown) (unknown) pain. Menarche (units (unknown) date) occurred at age unknown) 13 and in general she is had regular periods (unknown) (no (unknown) (unknown) read the note (units ( unknown) date) carefully and unknown) recognize, using context, where these substitutions (unknown) (no (unknown) (unknown) software. (units (unkn own) date) Although every unknown) effort is made to edit content, [place] patrol officer errors (unknown) (no (unknown) (unknown) then (units (unkno wn) date) exacerbations unknown) which are sharp. These do not appear to be related to her (unknown) (no (unknown) (unknown) throughout her (units (unknown) date) reproductive life unknown) thus far. She is sexually active but does not (unknown) (no (unknown) (unknown) time. Serial (units (u nknown) date) tests unknown) have been negative. Patient has been having sharp (unknown) (no (unknown) (unknown) ultrasound at (units ( unknown) date) [facility] unknown) on 03/21/2022 which showed: (unknown) (no (unknown) (unknown) visits and also (units (unknown) date) from her mother. unknown) Pain is constant with a dull component and (unknown) (no (unknown) (unknown) walking. She has (units (unknown) date) no GI or unknown) complaints. Pain is always in the same spot but (unknown) (no (unknown) (unknown) worsened with (units ( unknown) date) prolonged sitting unknown) or prolonged standing, or prolonged episodes of Result panel 23 (unknown) (no (unknown) (unknown) (no value) (units (unk nown) date) unknown) (unknown) (no (unknown) (unknown) 04/13/22 (units (unkno wn) date) unknown) (unknown) (no (unknown) (unknown) 13 lb since July (units (unknown) date) 2021. Recent unknown) pelvic imaging thus far includes a pelvic (unknown) (no (unknown) (unknown) 16:18 (units (unkno wn) date) unknown) (unknown) (no (unknown) (unknown) 2021 when she (units ( unknown) date) discontinued them unknown) and had her final withdrawal period. She had (unknown) (no (unknown) (unknown) : [id number] (units (u nknown) date) unknown) (unknown) (no (unknown) (unknown) ? (units (unkno wn) date) unknown) (unknown) (no (unknown) (unknown) ?? (units (unkno wn) date) unknown) (unknown) (no (unknown) (unknown) ADHD (-2004) (units (u nknown) date) unknown) (unknown) (no (unknown) (unknown) Abdominopelvic (units (unknown) date) CT performed at unknown) [facility] on 04/02/2022 showed (unknown) (no (unknown) (unknown) Age/Sex: 21 / F (units (unknown) date) Date of Service: unknown) (unknown) (no (unknown) (unknown) Allergies (units (unkn own) date) (-2009) unknown) (unknown) (no (unknown) (unknown) Allergies (units (unkn own) date) unknown) (unknown) (no (unknown) (unknown) [place], [place] (units ( unknown) date) [id number] unknown) (unknown) (no (unknown) (unknown) Ankle pain (units (unk nown) date) (-2019) unknown) (unknown) (no (unknown) (unknown) Anxiety (-2009) (units (unknown) date) unknown) (unknown) (no (unknown) (unknown) Assessment + (units (u nknown) date) Plan unknown) (unknown) (no (unknown) (unknown) Attending Dr: (units ( unknown) date) Yordan Llanos unknown) (unknown) (no (unknown) (unknown) BMI 21.1 (units (unkno wn) date) unknown) (unknown) (no (unknown) (unknown) BP 100/60 (units (unkn own) date) unknown) (unknown) (no (unknown) (unknown) Blood Pressure (units (unknown) date) Location Rt unknown) brachial (unknown) (no (unknown) (unknown) Carol meraz a (units (u nknown) date) 21-year-old G0, unknown) LMP December 26, 2021, who presents today for (unknown) (no (unknown) (unknown) Chief Complaint (units (unknown) date) unknown) (unknown) (no (unknown) (unknown) Chief Complaint: (units (unknown) date) Pelvic pain unknown) (unknown) (no (unknown) (unknown) Chlamydia/Gonoc/ (units (unknown) date) Myco Genital unknown) Today Z11.3 - Encounter for screening for (unknown) (no (unknown) (unknown) Chronic cough (units ( unknown) date) () unknown) (unknown) (no (unknown) (unknown) Complete Blood (units (unknown) date) Count AUTO DIFF unknown) Today R10.2 - Pelvic and perineal pain (unknown) (no (unknown) (unknown) : 2000 (units (unknown) date) Acct:[id number] unknown) (unknown) (no (unknown) (unknown) Date of Last (units (u nknown) date) Menstrual Period: unknown) 12/26/21 (unknown) (no (unknown) (unknown) Dept at (units (unkno wn) date) . unknown) (unknown) (no (unknown) (unknown) Details: (units (unkno wn) date) unknown) (unknown) (no (unknown) (unknown) Documented By: (units (unknown) date) Yordan Llanos unknown) 04/13/22 1609 (unknown) (no (unknown) (unknown) Draft (units (unkno wn) date) unknown) (unknown) (no (unknown) (unknown) Eczema (-2002) (units (unknown) date) unknown) (unknown) (no (unknown) (unknown) Erythrocyte (units (un known) date) Sedimentation unknown) Rate Today R10.2 - Pelvic and perineal pain (unknown) (no (unknown) (unknown) FINDINGS:? (units (unk nown) date) unknown) (unknown) (no (unknown) (unknown) Family History (units (unknown) date) (Updated 04/04/22 unknown) @ 20:47 by Awilda Bernal) (unknown) (no (unknown) (unknown) [facility]) (unknown) (no (unknown) (unknown) Foot pain (units (unkn own) date) () unknown) (unknown) (no (unknown) (unknown) Fracture () (units (unknown) date) unknown) (unknown) (no (unknown) (unknown) Gallstones (units (unk nown) date) unknown) (unknown) (no (unknown) (unknown) Glaucoma (-2007) (units (unknown) date) unknown) (unknown) (no (unknown) (unknown) Grandmother (units (un known) date) Breast cancer unknown) (unknown) (no (unknown) (unknown) Gynecology Visit (units (unknown) date) unknown) (unknown) (no (unknown) (unknown) HPI (units (unkno wn) date) unknown) (unknown) (no (unknown) (unknown) Healthy adult (units ( unknown) date) unknown) (unknown) (no (unknown) (unknown) Heart murmur (units (u nknown) date) unknown) (unknown) (no (unknown) (unknown) Heavy menstrual (units (unknown) date) period (-2010) unknown) (unknown) (no (unknown) (unknown) Height 4 ft (units (un known) date) 10.25 in unknown) (unknown) (no (unknown) (unknown) IMPRESSION:? (units (u nknown) date) Normal study. unknown) (unknown) (no (unknown) (unknown) Incidental note (units (unknown) date) is made of a unknown) small left paraovarian cyst at the left adnexa. (unknown) (no (unknown) (unknown) Intake Note: (units (u nknown) date) unknown) (unknown) (no (unknown) (unknown) Intake performed (units (unknown) date) by: Malika Eugene unknown) (unknown) (no (unknown) (unknown) Intake (units (unkno wn) date) unknown) (unknown) (no (unknown) (unknown) Intake- Clincial (units (unknown) date) Staff unknown) (unknown) (no (unknown) (unknown) LMP 12/26/21 (units (u nknown) date) unknown) (unknown) (no (unknown) (unknown) Last Menstural (units (unknown) date) Cycle + Details unknown) (unknown) (no (unknown) (unknown) Loc: [facility] (units (unkno wn) date) unknown) (unknown) (no (unknown) (unknown) Medical History (units (unknown) date) (Updated 04/13/22 unknown) @ 17:19 by Yordan Llanos MD) (unknown) (no (unknown) (unknown) Migraines (units (unkn own) date) (-2015) unknown) (unknown) (no (unknown) (unknown) No Known Drug (units ( unknown) date) Allergies Allergy unknown) (Verified 04/13/22 16:16) (unknown) (no (unknown) (unknown) Normal-appearing (units (unknown) date) arterial and unknown) venous waveforms are confirmed to each ovary. 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) (unknown) (no (unknown) (unknown) Orders (units (unkno wn) date) unknown) (unknown) (no (unknown) (unknown) Orders: (units (unkno wn) date) unknown) (unknown) (no (unknown) (unknown) PFSH (units (unkno wn) date) unknown) (unknown) (no (unknown) (unknown) Painful (units (unkno wn) date) menstrual periods unknown) () (unknown) (no (unknown) (unknown) Patient: (units (unkno wn) date) Carol Grimm unknown) Claudia MR# (unknown) (no (unknown) (unknown) Physiologic (units (un known) date) unknown) (unknown) (no (unknown) (unknown) Position Sitting (units (unknown) date) unknown) (unknown) (no (unknown) (unknown) Problem-specific (units (unknown) date) ROS positives unknown) included with the HPI (unknown) (no (unknown) (unknown) Pt here with (units (u nknown) date) pelvic pain x 3-4 unknown) months, intermittent (unknown) (no (unknown) (unknown) Pt is taking (units (u nknown) date) hydrocodone prn unknown) (unknown) (no (unknown) (unknown) ROS Narrative (units ( unknown) date) unknown) (unknown) (no (unknown) (unknown) ROS Narrative: (units (unknown) date) unknown) (unknown) (no (unknown) (unknown) ROS (units (unkno wn) date) unknown) (unknown) (no (unknown) (unknown) Raynaud's (units (unkn own) date) disease unknown) (unknown) (no (unknown) (unknown) Reason For Visit (units (unknown) date) unknown) (unknown) (no (unknown) (unknown) Several (units (unkno wn) date) physiologic/folli unknown) cular subcentimeter cysts present in both ovaries.? (unknown) (no (unknown) (unknown) Signed By: (units (unk nown) date) unknown) (unknown) (no (unknown) (unknown) Smoking Status: (units (unknown) date) Never smoker unknown) (unknown) (no (unknown) (unknown) Social History (units (unknown) date) unknown) (unknown) (no (unknown) (unknown) The uterine body (units (unknown) date) measures 6.4 x unknown) 3.2 x 4.1 centimeters.? Normal endometrial (unknown) (no (unknown) (unknown) This note may (units ( unknown) date) have been all or unknown) partially generated using voice recognition (unknown) (no (unknown) (unknown) Tobacco + (units (unkn own) date) Substance Use unknown) (unknown) (no (unknown) (unknown) Tobacco Status (units (unknown) date) unknown) (unknown) (no (unknown) (unknown) 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: (units (unknown) date) Pelvic unknown) pain/possible PCOS *per [place] (unknown) (no (unknown) (unknown) Vitals (units (unkno wn) date) unknown) (unknown) (no (unknown) (unknown) Weight 102 lb (units ( unknown) date) unknown) (unknown) (no (unknown) (unknown) adnexal mass.? (units (unknown) date) unknown) (unknown) (no (unknown) (unknown) another period (units (unknown) date) on December 26 unknown) 2021 but has not had any bleeding since that (unknown) (no (unknown) (unknown) can radiate down (units (unknown) date) the anterior unknown) aspect of her right thigh. She states her (unknown) (no (unknown) (unknown) combined (units (unkno wn) date) thickness. The unknown) right ovary measures 1.9 x 4.1 x 4.0 cm and the left (unknown) (no (unknown) (unknown) constant right (units (unknown) date) lower unknown) quadrant/right sided pelvic pain for the last 3 months and (unknown) (no (unknown) (unknown) currently use (units ( unknown) date) contraception. unknown) She was on control pills up until November (unknown) (no (unknown) (unknown) dysmenorrhea has (units (unknown) date) gradually unknown) increased over the years and she does have both (unknown) (no (unknown) (unknown) evaluation of a (units (unknown) date) three-month unknown) history of right lower quadrant/right sided pelvic (unknown) (no (unknown) (unknown) evidence of (units (un known) date) biliary unknown) obstruction or acute cholecystitis. No other abnormalities (unknown) (no (unknown) (unknown) free fluid in (units ( unknown) date) the cul-de-sac.? unknown) (unknown) (no (unknown) (unknown) have occurred. (units (unknown) date) If there are any unknown) questions, please contact the Medical Records (unknown) (no (unknown) (unknown) infections with (units (unknown) date) a predominantly unknown) sexual mode of transmission (unknown) (no (unknown) (unknown) introital and (units (u nknown) date) deep dyspareunia unknown) on occasion patient states that she is lost about (unknown) (no (unknown) (unknown) is only obtained (units (unknown) date) relief by taking unknown) hydrocodone which she has received from her ER (unknown) (no (unknown) (unknown) lives (units (unkno wn) date) independently: unknown) Yes (unknown) (no (unknown) (unknown) may occur. (units (unk nown) date) Occasional unknown) wrong-word or 'sound-alike' substitutions may have (unknown) (no (unknown) (unknown) measures 3.5 by (units (unknown) date) 3.0 x 3.5 cm. No unknown) dominant cyst is seen in either ovary. (unknown) (no (unknown) (unknown) menses but she (units (unknown) date) has a long unknown) history of primary dysmenorrhea. Her symptoms are (unknown) (no (unknown) (unknown) occurred due to (units (unknown) date) the inherent unknown) limitations of voice recognition software. Please (unknown) (no (unknown) (unknown) pain. Menarche (units (unknown) date) occurred at age unknown) 13 and in general she is had regular periods (unknown) (no (unknown) (unknown) previously noted (units (unknown) date) small calcified unknown) gallstones in the gallbladder lumen without (unknown) (no (unknown) (unknown) read the note (units ( unknown) date) carefully and unknown) recognize, using context, where these substitutions (unknown) (no (unknown) (unknown) software. (units (unkn own) date) Although every unknown) effort is made to edit content, [place] patrol officer errors (unknown) (no (unknown) (unknown) then (units (unkno wn) date) exacerbations unknown) which are sharp. These do not appear to be related to her (unknown) (no (unknown) (unknown) thickness.? No (units (unknown) date) unknown) (unknown) (no (unknown) (unknown) throughout her (units (unknown) date) reproductive life unknown) thus far. She is sexually active but does not (unknown) (no (unknown) (unknown) time. Serial (units (u nknown) date) tests unknown) have been negative. Patient has been having sharp (unknown) (no (unknown) (unknown) to be normal in (units (unknown) date) size at 2.9 x 4.2 unknown) x 6.4 cm. The endometrium measures 6.6 mm in (unknown) (no (unknown) (unknown) ultrasound at (units ( unknown) date) [facility] unknown) on 03/21/2022 which showed: (unknown) (no (unknown) (unknown) uterine mass.? (units (unknown) date) Normal size and unknown) appearance of both ovaries.? No ovarian or (unknown) (no (unknown) (unknown) visits and also (units (unknown) date) from her mother. unknown) Pain is constant with a dull component and (unknown) (no (unknown) (unknown) walking. She has (units (unknown) date) no GI or unknown) complaints. Pain is always in the same spot but (unknown) (no (unknown) (unknown) were seen. (units (unk nown) date) Pelvic ultrasound unknown) performed at that same ED visit showed the uterus (unknown) (no (unknown) (unknown) worsened with (units ( unknown) date) prolonged sitting unknown) or prolonged standing, or prolonged episodes of Result panel 24 (unknown) (no (unknown) (unknown) (no value) (units (unk nown) date) unknown) (unknown) (no (unknown) (unknown) (1) Pelvic pain in (units (unknown) date) female: unknown) (unknown) (no (unknown) (unknown) (2) Amenorrhea (units (unknown) date) following unknown) discontinuation of oral contraceptive use: (unknown) (no (unknown) (unknown) (Right side only, (units (unknown) date) mild), No cul-de-sac unknown) fullness, No cul-de-sac tenderness, No (unknown) (no (unknown) (unknown) 04/13/221813 (units ( unknown) date) unknown) (unknown) (no (unknown) (unknown) 04/13/22 (units (unkno wn) date) unknown) (unknown) (no (unknown) (unknown) 13 lb since July (units (unknown) date) 2021. Recent pelvic unknown) imaging thus far includes a pelvic (unknown) (no (unknown) (unknown) 16:18 (units (unkno wn) date) unknown) (unknown) (no (unknown) (unknown) 2021 when she (units ( unknown) date) discontinued them unknown) and had her final withdrawal period. She had (unknown) (no (unknown) (unknown) : [id number] (units (u nknown) date) unknown) (unknown) (no (unknown) (unknown) ? (units (unkno wn) date) unknown) (unknown) (no (unknown) (unknown) ?? (units (unkno wn) date) unknown) (unknown) (no (unknown) (unknown) A copy of this note (unit s (unknown) date) will be forwarded to unknown) her primary care provider. (unknown) (no (unknown) (unknown) ADHD (-2004) (units (u nknown) date) unknown) (unknown) (no (unknown) (unknown) Abdominopelvic CT (units (unknown) date) performed at [facility] on 04/02/2022 showed (unknown) (no (unknown) (unknown) Affect: normal (units (unknown) date) affect unknown) (unknown) (no (unknown) (unknown) Age/Sex: 21 / F (units (unknown) date) Date of Service: unknown) (unknown) (no (unknown) (unknown) Allergies (-2009) (units (unknown) date) unknown) (unknown) (no (unknown) (unknown) Allergies (units (unkn own) date) unknown) (unknown) (no (unknown) (unknown) [place] [id number] (unit s (unknown) date) unknown) (unknown) (no (unknown) (unknown) Ankle pain () (units (unknown) date) unknown) (unknown) (no (unknown) (unknown) Anxiety (-2009) (units (unknown) date) unknown) (unknown) (no (unknown) (unknown) Appearance: grossly (unit s (unknown) date) normal unknown) (unknown) (no (unknown) (unknown) Assessment + Plan (units (unknown) date) unknown) (unknown) (no (unknown) (unknown) Attending Dr: (units ( unknown) date) Yordan Llanos MD unknown) (unknown) (no (unknown) (unknown) Attitude: (units (unkn own) date) cooperative unknown) (unknown) (no (unknown) (unknown) BMI 21.1 (units (unkno wn) date) unknown) (unknown) (no (unknown) (unknown) BP 100/60 (units (unkn own) date) unknown) (unknown) (no (unknown) (unknown) Bimanual Exam- (units (unknown) date) Adnexa, other: unknown) normal adnexae, adnexae mobile, no masses, tender (unknown) (no (unknown) (unknown) Bimanual Exam- (units (unknown) date) Vagina + Uterus: unknown) normal bimanual exam, uterine size normal, No (unknown) (no (unknown) (unknown) Blood Pressure (units (unknown) date) Location Rt brachial unknown) (unknown) (no (unknown) (unknown) Carol is a (units (u nknown) date) 21-year-old G0, LMP unknown) December 26, 2021, who presents today for (unknown) (no (unknown) (unknown) Chief Complaint (units (unknown) date) unknown) (unknown) (no (unknown) (unknown) Chief Complaint: (units (unknown) date) Pelvic pain unknown) (unknown) (no (unknown) (unknown) Chlamydia/Gonoc/Myc (unit s (unknown) date) o Genital Today unknown) Z11.3 - Encounter for screening for (unknown) (no (unknown) (unknown) Chronic cough (units ( unknown) date) () unknown) (unknown) (no (unknown) (unknown) Complete Blood (units (unknown) date) Count AUTO DIFF unknown) Today R10.2 - Pelvic and perineal pain (unknown) (no (unknown) (unknown) Conjunctivae: (units ( unknown) date) conjunctivae normal unknown) (unknown) (no (unknown) (unknown) Const (units (unkno wn) date) unknown) (unknown) (no (unknown) (unknown) Counseling and (units (unknown) date) educating the unknown) patient/family/careg iver: 10 (unknown) (no (unknown) (unknown) : 2000 (units (unknown) date) Acct:[id number] unknown) (unknown) (no (unknown) (unknown) Date of Last (units (u nknown) date) Menstrual Period: unknown) 12/26/21 (unknown) (no (unknown) (unknown) Dept at (units (unkno wn) date) . unknown) (unknown) (no (unknown) (unknown) Details: (units (unkno wn) date) unknown) (unknown) (no (unknown) (unknown) Documented By: (units (unknown) date) Yordan Llanos MD unknown) 04/13/22 1609 (unknown) (no (unknown) (unknown) Documenting (units (un known) date) clinical information unknown) in EHR/Medical record: 10 (unknown) (no (unknown) (unknown) EOM: EOM intact (units (unknown) date) bilaterally unknown) (unknown) (no (unknown) (unknown) Ears: hearing (units ( unknown) date) grossly normal unknown) bilaterally (unknown) (no (unknown) (unknown) Eczema (-2002) (units (unknown) date) unknown) (unknown) (no (unknown) (unknown) Effort + (units (unkno wn) date) Inspection: normal unknown) respiratory effort and able to speak in complete (unknown) (no (unknown) (unknown) Erythrocyte (units (un known) date) Sedimentation Rate unknown) Today R10.2 - Pelvic and perineal pain (unknown) (no (unknown) (unknown) Exam (units (unkno wn) date) unknown) (unknown) (no (unknown) (unknown) External Female (units (unknown) date) Exam: normal unknown) external appearance, normal appearance of the (unknown) (no (unknown) (unknown) Eyes (units (unkno wn) date) unknown) (unknown) (no (unknown) (unknown) FINDINGS:? (units (unk nown) date) unknown) (unknown) (no (unknown) (unknown) Face and sinus: (units (unknown) date) face symmetric unknown) (unknown) (no (unknown) (unknown) Family History (units (unknown) date) (Updated 04/04/22 @ unknown) 20:47 by Awilda Bernal) (unknown) (no (unknown) (unknown) [facility] unknown) (unknown) (no (unknown) (unknown) Foot pain () (units (unknown) date) unknown) (unknown) (no (unknown) (unknown) Fracture () (units (unknown) date) unknown) (unknown) (no (unknown) (unknown) GI (units (unkno wn) date) unknown) (unknown) (no (unknown) (unknown) (units (unkno wn) date) unknown) (unknown) (no (unknown) (unknown) Gallstones (units (unk nown) date) unknown) (unknown) (no (unknown) (unknown) General: appearance (unit s (unknown) date) normal, both eyes unknown) and all related structures (unknown) (no (unknown) (unknown) General: (units (unkno wn) date) cooperative, unknown) comfortable and no acute distress (unknown) (no (unknown) (unknown) Glaucoma () (units (unknown) date) unknown) (unknown) (no (unknown) (unknown) Grandmother Breast (units (unknown) date) cancer unknown) (unknown) (no (unknown) (unknown) Gynecology Visit (units (unknown) date) unknown) (unknown) (no (unknown) (unknown) HENMT (units (unkno wn) date) unknown) (unknown) (no (unknown) (unknown) HPI (units (unkno wn) date) unknown) (unknown) (no (unknown) (unknown) Head: normal to (units (unknown) date) inspection, unknown) normocephalic and atraumatic (unknown) (no (unknown) (unknown) Healthy adult (units ( unknown) date) unknown) (unknown) (no (unknown) (unknown) Heart murmur (units (u nknown) date) unknown) (unknown) (no (unknown) (unknown) Heavy menstrual (units (unknown) date) period () unknown) (unknown) (no (unknown) (unknown) Height 4 ft 10.25 (units (unknown) date) in unknown) (unknown) (no (unknown) (unknown) IMPRESSION:? Normal (unit s (unknown) date) study. unknown) (unknown) (no (unknown) (unknown) Incidental note is (units (unknown) date) made of a small left unknown) paraovarian cyst at the left adnexa. (unknown) (no (unknown) (unknown) Inspection: normal (units (unknown) date) to inspection, unknown) non-distended and no scars (unknown) (no (unknown) (unknown) Intake Note: (units (u nknown) date) unknown) (unknown) (no (unknown) (unknown) Intake performed (units (unknown) date) by: Malika Eugene unknown) (unknown) (no (unknown) (unknown) Intake (units (unkno wn) date) unknown) (unknown) (no (unknown) (unknown) Intake- Clincial (units (unknown) date) Staff unknown) (unknown) (no (unknown) (unknown) Judgment: judgment (units (unknown) date) good unknown) (unknown) (no (unknown) (unknown) LMP 12/26/21 (units (u nknown) date) unknown) (unknown) (no (unknown) (unknown) Last Menstural (units (unknown) date) Cycle + Details unknown) (unknown) (no (unknown) (unknown) Loc: [facility] (units (unkno wn) date) unknown) (unknown) (no (unknown) (unknown) Medical History (units (unknown) date) (Updated 04/13/22 @ unknown) 18:08 by Yordan Llanos MD) (unknown) (no (unknown) (unknown) Mental Status: (units (unknown) date) mental status unknown) grossly normal (unknown) (no (unknown) (unknown) Migraines (-2016) (units (unknown) date) unknown) (unknown) (no (unknown) (unknown) Mood: congruent (units (unknown) date) mood unknown) (unknown) (no (unknown) (unknown) Neck (units (unkno wn) date) unknown) (unknown) (no (unknown) (unknown) Neck: normal visual (unit s (unknown) date) inspection unknown) (unknown) (no (unknown) (unknown) No Known Drug (units ( unknown) date) Allergies Allergy unknown) (Verified 04/13/22 16:16) (unknown) (no (unknown) (unknown) Normal-appearing (units (unknown) date) arterial and venous unknown) waveforms are confirmed to each ovary. 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) (unknown) (no (unknown) (unknown) Ordering (units (unkno wn) date) medications, tests, unknown) or procedures: 5 (unknown) (no (unknown) (unknown) Orders (units (unkno wn) date) unknown) (unknown) (no (unknown) (unknown) Orders: (units (unkno wn) date) unknown) (unknown) (no (unknown) (unknown) Orientation: alert (units (unknown) date) and oriented x3 unknown) (unknown) (no (unknown) (unknown) PFSH (units (unkno wn) date) unknown) (unknown) (no (unknown) (unknown) Painful menstrual (units (unknown) date) periods (-2010) unknown) (unknown) (no (unknown) (unknown) Palpation: soft, no (unit s (unknown) date) hepatosplenomegaly unknown) and tender (Mild direct tenderness of (unknown) (no (unknown) (unknown) Patient: (units (unkno wn) date) Carol Grimm unknown) MR# (unknown) (no (unknown) (unknown) Pelvic Support: (units (unknown) date) apex supported unknown) (unknown) (no (unknown) (unknown) Performing a (units (u nknown) date) medically unknown) appropriate exam and/or evaluation: 5 (unknown) (no (unknown) (unknown) Physiologic (units (un known) date) unknown) (unknown) (no (unknown) (unknown) Plan (units (unkno wn) date) unknown) (unknown) (no (unknown) (unknown) Position Sitting (units (unknown) date) unknown) (unknown) (no (unknown) (unknown) Preparing to see (units (unknown) date) the patient, i.e., unknown) chart review, review of tests: 5 (unknown) (no (unknown) (unknown) Problem-specific (units (unknown) date) ROS positives unknown) included with the HPI (unknown) (no (unknown) (unknown) Psych (units (unkno wn) date) unknown) (unknown) (no (unknown) (unknown) Pt here with pelvic (unit s (unknown) date) pain x 3-4 months, unknown) intermittent (unknown) (no (unknown) (unknown) Pt is taking (units (u nknown) date) hydrocodone prn unknown) (unknown) (no (unknown) (unknown) ROS Narrative (units ( unknown) date) unknown) (unknown) (no (unknown) (unknown) ROS Narrative: (units (unknown) date) unknown) (unknown) (no (unknown) (unknown) ROS (units (unkno wn) date) unknown) (unknown) (no (unknown) (unknown) Raynaud's disease (units (unknown) date) unknown) (unknown) (no (unknown) (unknown) Reason For Visit (units (unknown) date) unknown) (unknown) (no (unknown) (unknown) Recto-Vaginal: no (units (unknown) date) cul-de-sac fullness, unknown) no cul-de-sac tenderness and no (unknown) (no (unknown) (unknown) Resp (units (unkno wn) date) unknown) (unknown) (no (unknown) (unknown) Sclera: sclerae (units (unknown) date) normal unknown) (unknown) (no (unknown) (unknown) Several (units (unkno wn) date) physiologic/follicul unknown) ar subcentimeter cysts present in both ovaries.? (unknown) (no (unknown) (unknown) Signed By: (units [...] unknown) appearance of the cervix, cervical os open, no (unknown) (no (unknown) (unknown) Speculum Exam - (units (unknown) date) Vagina: normal unknown) appearance of the vagina, normal vaginal (unknown) (no (unknown) (unknown) Speculum Exam: (units (unknown) date) cervical os open and unknown) no vaginal bleeding (unknown) (no (unknown) (unknown) Speech and (units (unk nown) date) Movement: speech and unknown) movement normal (unknown) (no (unknown) (unknown) Status: Acute (units ( unknown) date) unknown) (unknown) (no (unknown) (unknown) The nature the (units (unknown) date) patient's pelvic unknown) pain is unclear at this point. Her long history (unknown) (no (unknown) (unknown) The patient asked (units (unknown) date) what she can take unknown) for pain in the interim and was advised to (unknown) (no (unknown) (unknown) The uterine body (units (unknown) date) measures 6.4 x 3.2 x unknown) 4.1 centimeters.? Normal endometrial (unknown) (no (unknown) (unknown) This note may have (units (unknown) date) been all or unknown) partially generated using voice recognition (unknown) (no (unknown) (unknown) Thought Content: (units (unknown) date) normal unknown) (unknown) (no (unknown) (unknown) Thought Process: (units (unknown) date) normal unknown) (unknown) (no (unknown) (unknown) Time Coding Minutes (unit s (unknown) date) Spent: (must be on unknown) same date of service/appointment) (unknown) (no (unknown) (unknown) Time Spent (units (unk nown) date) unknown) (unknown) (no (unknown) (unknown) Tobacco + Substance (unit s (unknown) date) Use unknown) (unknown) (no (unknown) (unknown) Tobacco Status (units (unknown) date) unknown) (unknown) (no (unknown) (unknown) Total Time: 45 (units (unknown) date) unknown) (unknown) (no (unknown) (unknown) Urethra: normal (units (unknown) date) appearance of the unknown) urethra (unknown) (no (unknown) (unknown) 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: (units (unknown) date) Pelvic pain/possible unknown) PCOS *per [facility] (unknown) (no (unknown) (unknown) Vitals (units (unkno wn) date) unknown) (unknown) (no (unknown) (unknown) Weight 102 lb (units ( unknown) date) unknown) (unknown) (no (unknown) (unknown) adnexal mass.? (units (unknown) date) unknown) (unknown) (no (unknown) (unknown) and patient is (units (unknown) date) contacted by our unknown) surgical pathologist. Another test will (unknown) (no (unknown) (unknown) another period on (units (unknown) date) December 26 2021 unknown) but has not had any bleeding since that (unknown) (no (unknown) (unknown) ay occur. (units (unkn own) date) Occasional unknown) wrong-word or 'sound-alike' substitutions may have (unknown) (no (unknown) (unknown) be ordered if she (units (unknown) date) has still not had a unknown) period in the next 30-45 days. (unknown) (no (unknown) (unknown) be (units (unkno wn) date) relieved/mitigated unknown) with nonnarcotic measures. We also discussed the fact (unknown) (no (unknown) (unknown) can radiate down (units (unknown) date) the anterior aspect unknown) of her right thigh. She states her (unknown) (no (unknown) (unknown) cecum and deep in (units (unknown) date) RLQ) psoas sign unknown) negative (unknown) (no (unknown) (unknown) combined thickness. (unit s (unknown) date) The right ovary unknown) measures 1.9 x 4.1 x 4.0 cm and the left (unknown) (no (unknown) (unknown) constant right (units (unknown) date) lower quadrant/right unknown) sided pelvic pain for the last 3 months and (unknown) (no (unknown) (unknown) cul-de-sac (units (unk nown) date) nodularity and apex unknown) supported (unknown) (no (unknown) (unknown) cul-de-sac (units (unk nown) date) nodularlity unknown) (unknown) (no (unknown) (unknown) currently use (units ( unknown) date) contraception. She unknown) was on control pills up until November of (unknown) (no (unknown) (unknown) discharge, no (units ( unknown) date) lesions and No unknown) vaginal bleeding (unknown) (no (unknown) (unknown) does not appear to (units (unknown) date) be cyclic. She does unknown) however have history of deep dyspareunia (unknown) (no (unknown) (unknown) dysmenorrhea has (units (unknown) date) gradually increased unknown) over the years and she does have both (unknown) (no (unknown) (unknown) evaluation of a (units (unknown) date) three-month history unknown) of right lower quadrant/right sided pelvic (unknown) (no (unknown) (unknown) evidence of biliary (unit s (unknown) date) obstruction or acute unknown) cholecystitis. No other abnormalities (unknown) (no (unknown) (unknown) free fluid in the (units (unknown) date) cul-de-sac.? unknown) (unknown) (no (unknown) (unknown) have occurred. If (units (unknown) date) there are any unknown) questions, please contact the Medical Records (unknown) (no (unknown) (unknown) infections with a (units (unknown) date) predominantly sexual unknown) mode of transmission (unknown) (no (unknown) (unknown) introital and deep (units (unknown) date) dyspareunia on unknown) occasion patient states that she is lost about (unknown) (no (unknown) (unknown) is only obtained (units (unknown) date) relief by taking unknown) hydrocodone which she has received from her ER (unknown) (no (unknown) (unknown) lesions and (units (un known) date) nontender unknown) (unknown) (no (unknown) (unknown) lives (units (unkno wn) date) independently: Yes unknown) (unknown) (no (unknown) (unknown) measures 3.5 by 3.0 (unit s (unknown) date) x 3.5 cm. No unknown) dominant cyst is seen in either ovary. (unknown) (no (unknown) (unknown) menses but she has (units (unknown) date) a long history of unknown) primary dysmenorrhea. Her symptoms are (unknown) (no (unknown) (unknown) methods of (units (unk nown) date) evaluating/treating unknown) those different possibilities. A CBC and ESR (unknown) (no (unknown) (unknown) occurred due to the (unit s (unknown) date) inherent limitations unknown) of voice recognition software. Please (unknown) (no (unknown) (unknown) of primary (units (unk nown) date) dysmenorrhea is unknown) concerning for the possibility of an previously (unknown) (no (unknown) (unknown) pain which I do not (unit s (unknown) date) support absent a unknown) firm diagnosis for the pain which can not (unknown) (no (unknown) (unknown) pain. Menarche (units (unknown) date) occurred at age 13 unknown) and in general she is had regular periods (unknown) (no (unknown) (unknown) potential causes of (unit s (unknown) date) right lower unknown) quadrant/pelvic pain. Case request submitted (unknown) (no (unknown) (unknown) previously noted (units (unknown) date) small calcified unknown) gallstones in the gallbladder lumen without (unknown) (no (unknown) (unknown) problematic for (units (unknown) date) both her and her unknown) mother. (unknown) (no (unknown) (unknown) read the note (units ( unknown) date) carefully and unknown) recognize, using context, where these substitutions (unknown) (no (unknown) (unknown) sentences (units (unkn own) date) unknown) (unknown) (no (unknown) (unknown) software. 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 unknown) These do not appear to be related to her (unknown) (no (unknown) (unknown) thickness.? No (units (unknown) date) unknown) (unknown) (no (unknown) (unknown) throughout her (units (unknown) date) reproductive life unknown) thus far. She is sexually active but does not (unknown) (no (unknown) (unknown) time. Serial (units (u nknown) date) tests have unknown) been negative. Patient has been having sharp (unknown) (no (unknown) (unknown) to be normal in (units (unknown) date) size at 2.9 x 4.2 x unknown) 6.4 cm. The endometrium measures 6.6 mm in (unknown) (no (unknown) (unknown) ultrasound at (units ( unknown) date) [facility] on unknown) 03/21/2022 which showed: (unknown) (no (unknown) (unknown) undiagnosed (units (un known) date) endometriosis with a unknown) right lower quadrant pain she is experiencing (unknown) (no (unknown) (unknown) urethra, no lesions (unit s (unknown) date) and No bartholin unknown) cyst (unknown) (no (unknown) (unknown) use Tylenol and/or (units (unknown) date) ibuprofen. We unknown) discussed the use of hydrocodone for pelvic (unknown) (no (unknown) (unknown) uterine mass.? (units (unknown) date) Normal size and unknown) appearance of both ovaries.? No ovarian or (unknown) (no (unknown) (unknown) visits and also (units (unknown) date) from her mother. unknown) Pain is constant with a dull component and (unknown) (no (unknown) (unknown) walking. She has no (unit s (unknown) date) GI or complaints. unknown) Pain is always in the same spot but (unknown) (no (unknown) (unknown) were seen. Pelvic (units (unknown) date) ultrasound performed unknown) at that same ED visit showed the uterus (unknown) (no (unknown) (unknown) which is also (units ( unknown) date) concerning. We unknown) discussed potential causes for her pelvic pain and (unknown) (no (unknown) (unknown) will be obtained. (units (unknown) date) After discussing all unknown) options, the patient wishes to proceed (unknown) (no (unknown) (unknown) with diagnostic (units (unknown) date) laparoscopy to unknown) evaluate for possible endometriosis and/or other (unknown) (no (unknown) (unknown) worsened with (units ( unknown) date) prolonged sitting or unknown) prolonged standing, or prolonged episodes of Result panel 25 (unknown) (no date) (unknown) (unknown) 0 /ul (unkn own) (unknown) (no date) (unknown) (unknown) 0 /ul (unkn own) (unknown) (no date) (unknown) (unknown) 0.3 % (unkn own) (unknown) (no date) (unknown) (unknown) 0.3 % (unkn own) (unknown) (no date) (unknown) (unknown) 12.5 g/dl (unkn own) (unknown) (no date) (unknown) (unknown) 14.6 % (unkn own) (unknown) (no date) (unknown) (unknown) 2100 /ul (unkn own) (unknown) (no date) (unknown) (unknown) 24.0 % (unkn own) (unknown) (no date) (unknown) (unknown) 27.3 pg (unkn own) (unknown) (no date) (unknown) (unknown) 323 x10 3/ul (unkn own) (unknown) (no date) (unknown) (unknown) 33.1 % (unkn own) (unknown) (no date) (unknown) (unknown) 37.9 % (unkn own) (unknown) (no date) (unknown) (unknown) 4.59 x10 6/ul (unkn own) (unknown) (no date) (unknown) (unknown) 6.9 % (unkn own) (unknown) (no date) (unknown) (unknown) 600 /ul (unkn own) (unknown) (no date) (unknown) (unknown) 6100 /ul (unkn own) (unknown) (no date) (unknown) (unknown) 68.5 % (unkn own) (unknown) (no date) (unknown) (unknown) 8.9 x10 3/ul (unkn own) (unknown) (no date) (unknown) (unknown) 82.5 fl (unkn own) Result panel 26 (unknown) (no date) (unknown) (unknown) 0 /ul (unkn own) (unknown) (no date) (unknown) (unknown) 0 /ul (unkn own) (unknown) (no date) (unknown) (unknown) 0.3 % (unkn own) (unknown) (no date) (unknown) (unknown) 0.3 % (unkn own) (unknown) (no date) (unknown) (unknown) 1 mm/hr (unkn own) (unknown) (no date) (unknown) (unknown) 12.5 g/dl (unkn own) (unknown) (no date) (unknown) (unknown) 14.6 % (unkn own) (unknown) (no date) (unknown) (unknown) 2100 /ul (unkn own) (unknown) (no date) (unknown) (unknown) 24.0 % (unkn own) (unknown) (no date) (unknown) (unknown) 27.3 pg (unkn own) (unknown) (no date) (unknown) (unknown) 323 x10 3/ul (unkn own) (unknown) (no date) (unknown) (unknown) 33.1 % (unkn own) (unknown) (no date) (unknown) (unknown) 37.9 % (unkn own) (unknown) (no date) (unknown) (unknown) 4.59 x10 6/ul (unkn own) (unknown) (no date) (unknown) (unknown) 6.9 % (unkn own) (unknown) (no date) (unknown) (unknown) 600 /ul (unkn own) (unknown) (no date) (unknown) (unknown) 6100 /ul (unkn own) (unknown) (no date) (unknown) (unknown) 68.5 % (unkn own) (unknown) (no date) (unknown) (unknown) 8.9 x10 3/ul (unkn own) (unknown) (no date) (unknown) (unknown) 82.5 fl (unkn own) Result panel 27 (unknown) (no date) (unknown) (unknown) Negative (units (unkn own) unknown) (unknown) (no date) (unknown) (unknown) Negative (units (unkn own) unknown) (unknown) (no date) (unknown) (unknown) Negative (units (unkn own) unknown) Social History date description facility 2022-03-08 00:00 Tobacco smoking consumption unknown (fi nding) [facility] 2022-03-21 00:00 Never smoked tobacco (finding) [facility] 2022-04-13 00:00 Never smoked tobacco (finding) [facility] Vital Signs date measurement value units [...] 46.26 kg 2022-03-21 00:00 weight_standard 101.99 lb 2022-04-13 00:00 BMI 21.1 kg/m2 2022-04-13 00:00 BP_diastolic 60 mmHg 2022-04-13 00:00 BP_systolic 100 mmHg 2022-04-13 00:00 height_metric 147.96 cm 2022-04-13 00:00 height_standard 58.25 in 2022-04-13 00:00 weight_metric 46.26 kg 2022-04-13 00:00 weight_standard 101.99 lb
== END 2022-04-24 15:05 | disposition home or self-care (01) ==
LOC: ED 13:22
DX: R04.0 Epistaxis (principal); J06.9 Acute upper respiratory infection, unspecified
CPT/HCPCS: 99281; 99283

== ENCOUNTER 2022-04-26 11:26 | Emergency (ER) | payer MEDICAID ==
[2022-04-26 11:58] LABS: BILIRUBIN,URINE NEGATIVE (NEGATIVE); GLUCOSE, URINE (UA) NEGATIVE (NEGATIVE); KETONES,URINE (UA) NEGATIVE (NEGATIVE); LEUKOCYTE ESTERASE, URINE NEGATIVE (NEGATIVE); NITRITE,URINE NEGATIVE (NEGATIVE); OCCULT BLOOD,URINE NEGATIVE (NEGATIVE); PH,URINE 7.5 PH (5.0-7.5); PROTEIN,URINE NEGATIVE (NEGATIVE); UROBILINOGEN,URINE 0.2 (NORMAL) E.U./dL (NORMAL)
[2022-04-26 12:00] LABS: CLARITY,URINE CLEAR (CLEAR); HCG UR QUAL NEGATIVE
[2022-04-26 12:01] LABS: BASOPHILS % (AUTO) 0.5 %; EOSINOPHILS % (AUTO) 0.5 %; HCT - HEMATOCRIT 38.7 % (37.0-47.0); HGB - HEMOGLOBIN 12.1 g/dL (12.0-16.0); LYMPHOCYTES # (AUTO) 1.9 10^3/uL (1.5-3.5); LYMPHOCYTES % (AUTO) 28.8 %; MEAN CORPUSCULAR HEMOGLOBIN 26.8 pg (27.0-31.0); MEAN CORPUSCULAR HGB CONC 31.3 g/dL (32.0-36.0); MEAN CORPUSCULAR VOLUME 85.8 fL (81.0-99.0); MEAN PLATELET VOLUME 8.8 fL (7.9-10.8); MONOCYTES # (AUTO) 0.6 10^3/uL (0.0-1.0); NEUTROPHILS # (AUTO) 3.9 10^3/uL (1.5-6.6); PLT - PLATELET COUNT 267 10^3/uL (130-450); RED BLOOD COUNT 4.51 10^6/uL (4.20-5.40); RED CELL DISTRIBUTION WIDTH 13.9 % (12.0-15.0); WHITE BLOOD COUNT 6.4 x10^3/uL (4.8-10.8)
[2022-04-26 12:15] LABS: ALBUMIN 4.7 g/dL (3.2-5.5); ALBUMIN/GLOBULIN RATIO 1.4 (1.0-2.2); CALCIUM 9.3 mg/dL (8.5-10.3); CREATININE 0.6 mg/dL (0.4-1.0); POTASSIUM 3.7 mmol/L (3.5-5.0)
--- OUTSIDE RECORDS SUMMARY | 2022-04-26 12:53 | EXTERNAL MEDICAL SUMMARY RPT | Continuity of Care Document ---
:2000 Author Organization [facility] Address [address] [place] [address] Phone Care Team Providers Name Role Phone Abdias Valles Unavailable Unavailable Allergies and Intolerances date description facility type (no date) No Known Drug Allergies [facility] (unkn own) Encounters No information. Functional Status No information. Immunizations No information. Medications date description facility 2022-03-21 00:00 Naproxen [facility] Problems date description facility 2022-03-08 00:00 Endometriosis [facility] 2022-03-08 00:00 Abdominal pain [facility] 2022-03-21 10:55 Unspecified abdominal pain [facility] 2022-03-21 10:55 Encounter for screening for infections with [facility] 2022-03-21 16:11 Amenorrhea, unspecified [facility] 2022-03-21 16:11 Pelvic and perineal pain [facility] 2022-03-21 16:11 Encounter for test, result [facility] 2022-03-21 17:21 [facility], [facility] 17:21 Pelvic and perineal pain [facility] 2022-03-21 17:21 Encounter for test, result [facility] 2022-03-22 00:57 Unspecified abdominal pain [facility] 2022-03-22 00:57 Encounter for screening for infections with [facility] 2022-04-04 00:00 Anxiety [facility] 2022-04-04 00:00 Attention deficit hyperactivity disorde r (ADHD) [facility] 2022-04-04 00:00 Migraine headache [facility] 2022-04-04 00:00 Glaucoma [facility] 2022-04-04 00:00 Disorder of optic nerve [facility] 2022-04-04 00:00 Raynaud's disease [facility] 2022-04-04 00:00 Multiple gallstones [facility] 2022-04-04 00:00 Eczema [facility] 2022-04-04 00:00 Ankle pain [facility] 2022-04-04 00:00 Pain of foot [facility] 2022-04-04 00:00 Menorrhagia [facility] 2022-04-04 00:00 Heart murmur [facility] 2022-04-04 00:00 Chronic cough [facility] 2022-04-04 00:00 Allergy [facility] 2022-04-13 17:00 Encounter for screening for infections with a [facility] 2022-04-13 18:03 Pelvic and perineal pain [facility] 2022-04-14 02:27 Encounter for screening for infections with a [facility] 2022-04-24 10:10 Pain in right ankle and joints of right foot [facility] Procedures date description facility 2022-03-21 00:00 Complete ultrasound of pelvis [facility] Results/Labs test date author facility value unit interpret ation Result panel 1 (unknown) (no date) (unknown) [facility] (no value) (units ([facility] unknown) Result panel 2 (unknown) (no date) (unknown) [facility] (no value) (units ([facility] unknown) Result panel 3 (unknown) (no (unknown) (unknown) (no value) (units (k nown) date) unknown) (unknown) (no (unknown) (unknown) 03/08/22 (units (unkno wn) date) unknown) (unknown) (no (unknown) (unknown) 19:36 03/08/22 (units (unknown) date) unknown) (unknown) (no (unknown) (unknown) 21:35 03/08/22 (units (unknown) date) unknown) (unknown) (no (unknown) (unknown) 21:36 (units (unkno wn) date) unknown) (unknown) (no (unknown) (unknown) : [id number] (units (u nknown) date) unknown) (unknown) (no [...] (unknown) (unknown) : 2000 (units (unknown) date) Acct:[id number] unknown) (unknown) (no (unknown) (unknown) Date of (units (unkno wn) date) Service: unknown) 03/08/22 (unknown) (no (unknown) (unknown) ER Physician: (units ( unknown) date) Abdias Vlales unknown) D.O. (unknown) (no (unknown) (unknown) Emergency [...] date) Signs: unknown) (unknown) (no (unknown) (unknown) [facility] (units (unknown) date) [address] [place] [address] unknown) [place] [address] (unknown) (no (unknown) (unknown) Lab Data (units [...] (unknown) (unknown) Urine Specific (units (unknown) date) [place] 1.010 unknown) (unknown) (no (unknown) (unknown) Vital [...] date) unknown) (unknown) (no (unknown) (unknown) : [id number] (units (u nknown) date) unknown) (unknown) (no [...] (unknown) (unknown) : 2000 (units (unknown) date) Acct:[id number] unknown) (unknown) (no (unknown) (unknown) Date of [...] for Abdominal Pain-Adult (unknown) (no (unknown) (unknown) Integumentary/[place] (units (unknown) date) sts unknown) (unknown) (no (unknown) (unknown) [facility] (units (unknown) date) [address] [place] [address] unknown) [place] [address] (unknown) (no (unknown) (unknown) Ketorolac (units (unkn [...] (unknown) (unknown) Urine Specific (units (unknown) date) [place] 1.010 unknown) (unknown) (no (unknown) (unknown) Vital [...] date) unknown) (unknown) (no (unknown) (unknown) : [id number] (units (u nknown) date) unknown) (unknown) (no (unknown) (unknown) Age/Sex: 21 / F (units (unknown) date) Date of Service: unknown) (unknown) (no (unknown) (unknown) Allergies (units (unkn own) date) unknown) (unknown) (no (unknown) (unknown) [place], [place] (units ( unknown) date) [address] unknown) (unknown) (no (unknown) (unknown) Attending Dr: (units ( unknown) date) Yordan Llanos unknown) (unknown) (no (unknown) (unknown) : 2000 (units (unknown) date) Acct:[id number] unknown) (unknown) (no (unknown) (unknown) Dept at [...] (unknown) (unknown) 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: (units (unknown) date) [facility] ED F/U unknown) Menorrhagia/Dysme norrhea (unknown) (no [...] unknown) effort is made to edit content, scalder errors Result panel 6 (unknown) (no (unknown) (unknown) (no value) (units (unk nown) date) unknown) (unknown) (no (unknown) (unknown) 03/21/22 (units (unkno wn) date) unknown) (unknown) (no (unknown) (unknown) : [id number] (units (u nknown) date) unknown) (unknown) (no (unknown) (unknown) Age/Sex: 21 / F (units (unknown) date) Date of Service: unknown) (unknown) (no (unknown) (unknown) Allergies (units (unkn own) date) unknown) (unknown) (no (unknown) (unknown) [place], [place] (units ( unknown) date) [address] unknown) (unknown) (no (unknown) (unknown) Attending Dr: (units ( unknown) date) Yordan Llanos unknown) (unknown) (no (unknown) (unknown) : 2000 (units (unknown) date) Acct:[id number] unknown) (unknown) (no (unknown) (unknown) Dept at [...] (unknown) (unknown) 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: (units (unknown) date) [facility] ED F/U unknown) Menorrhagia/Dysme norrhea (unknown) (no [...] unknown) effort is made to edit content, scalder errors Result panel 7 (unknown) (no (unknown) (unknown) (no value) (units (unk nown) date) unknown) (unknown) (no (unknown) (unknown) 03/21/22 (units (unkno wn) date) unknown) (unknown) (no (unknown) (unknown) 10:17 (units (unkno wn) date) unknown) (unknown) (no (unknown) (unknown) : [id number] (units (u nknown) date) unknown) (unknown) (no (unknown) (unknown) Age/Sex: 21 / F (units (unknown) date) Date of Service: unknown) (unknown) (no (unknown) (unknown) Allergies (units (unkn own) date) unknown) (unknown) (no (unknown) (unknown) [place], [place] (units ( unknown) date) [address] unknown) (unknown) (no (unknown) (unknown) Attending Dr: (units ( unknown) date) Yordan Llanos unknown) (unknown) (no (unknown) (unknown) BMI 21.3 (units (unkno wn) date) unknown) (unknown) (no (unknown) (unknown) BP 120/70 (units (unkn own) date) unknown) (unknown) (no (unknown) (unknown) Blood Pressure (units (unknown) date) Location Rt unknown) brachial (unknown) (no (unknown) (unknown) : 2000 (units (unknown) date) Acct:[id number] unknown) (unknown) (no (unknown) (unknown) Date of [...] known) date) unknown) (unknown) (no (unknown) (unknown) 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 (units (unknown) date) on [...] (unknown) (unknown) 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: (units (unknown) date) [facility] ED F/U unknown) Menorrhagia/Dysme norrhea (unknown) (no [...] unknown) effort is made to edit content, scalder errors Result panel 8 (unknown) (no (unknown) (unknown) (no value) (units (unk nown) date) unknown) (unknown) (no (unknown) (unknown) 03/21/22 (units (unkno wn) date) unknown) (unknown) (no (unknown) (unknown) 10:17 (units (unkno wn) date) unknown) (unknown) (no (unknown) (unknown) 6-8 week history (units (unknown) date) unknown) (unknown) (no (unknown) (unknown) : [id number] (units (u nknown) date) unknown) (unknown) (no (unknown) (unknown) Age/Sex: 21 / F (units (unknown) date) Date of Service: unknown) (unknown) (no (unknown) (unknown) Allergies (units (unkn own) date) unknown) (unknown) (no (unknown) (unknown) [place] (units ( unknown) date) [address] unknown) (unknown) (no (unknown) (unknown) Attending Dr: [...] (unknown) (unknown) : 2000 (units (unknown) date) Acct:[id number] unknown) (unknown) (no (unknown) (unknown) Date of [...] known) date) unknown) (unknown) (no (unknown) (unknown) 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 (units (unknown) date) on [...] (unknown) (unknown) 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: (units (unknown) date) [facility] ED F/U unknown) Menorrhagia/Dysme norrhea (unknown) (no [...] unknown) effort is made to edit content, scalder errors Result panel 9 (unknown) (no (unknown) (unknown) (no value) (units (unk nown) date) unknown) (unknown) (no (unknown) (unknown) 03/21/22 (units (unkno wn) date) unknown) (unknown) (no (unknown) (unknown) 10:17 (units (unkno wn) date) unknown) (unknown) (no (unknown) (unknown) 6-8 week history (units (unknown) date) of lower abdominal unknown) discomfort which is typically midline but (unknown) (no (unknown) (unknown) : [id number] (units (u nknown) date) unknown) (unknown) (no (unknown) (unknown) Age/Sex: 21 / F (units (unknown) date) Date of Service: unknown) (unknown) (no (unknown) (unknown) Allergies (units (unkn own) date) unknown) (unknown) (no (unknown) (unknown) [place], [place] (units ( unknown) date) [address] unknown) (unknown) (no (unknown) (unknown) Attending Dr: [...] (unknown) (unknown) : 2000 (units (unknown) date) Acct:[id number] unknown) (unknown) (no (unknown) (unknown) Date of [...] known) date) unknown) (unknown) (no (unknown) (unknown) 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 on (units (unknown) date) [...] unknown) (unknown) (no (unknown) (unknown) 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: [facility] (units (unknown) date) ED F/U unknown) Menorrhagia/Dysmen [...] unknown) effort is made to edit content, scalder errors Result panel 10 (unknown) (no (unknown) [...] midline but (unknown) (no (unknown) (unknown) : [id number] (units (u nknown) date) unknown) (unknown) (no (unknown) (unknown) Affect: normal (units (unknown) date) affect unknown) (unknown) (no (unknown) (unknown) Age/Sex: 21 / F (units (unknown) date) Date of Service: unknown) (unknown) (no (unknown) (unknown) Allergies (units (unkn own) date) unknown) (unknown) (no (unknown) (unknown) [place], [place] (units ( unknown) date) [address] unknown) (unknown) (no (unknown) (unknown) Appearance: (units [...] (unknown) (unknown) : 2000 (units (unknown) date) Acct:[id number] unknown) (unknown) (no (unknown) (unknown) Date of [...] date) mood unknown) (unknown) (no (unknown) (unknown) 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 on (units (unknown) date) [...] urethra (unknown) (no (unknown) (unknown) 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: [facility] (units (unknown) date) ED F/U unknown) Menorrhagia/Dysmen [...] unknown) effort is made to edit content, scalder errors (unknown) (no (unknown) (unknown) tender and [...] midline but (unknown) (no (unknown) (unknown) : [id number] (units (u nknown) date) unknown) (unknown) (no (unknown) (unknown) Abdominal (units (unkn own) date) location: lower unknown) abdomen, unspecified Qualified Code(s): (unknown) (no (unknown) (unknown) Affect: normal (units (unknown) date) affect unknown) (unknown) (no (unknown) (unknown) Age/Sex: 21 / F (units (unknown) date) Date of Service: unknown) (unknown) (no (unknown) (unknown) Allergies (units (unkn own) date) unknown) (unknown) (no (unknown) (unknown) [place], [place] (units ( unknown) date) [address] unknown) (unknown) (no (unknown) (unknown) Appearance: (units [...] (unknown) (unknown) : 2000 (units (unknown) date) Acct:[id number] unknown) (unknown) (no (unknown) (unknown) Date of [...] date) mood unknown) (unknown) (no (unknown) (unknown) 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 on (units (unknown) date) [...] urethra (unknown) (no (unknown) (unknown) 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: [facility] (units (unknown) date) ED F/U unknown) Menorrhagia/Dysmen [...] unknown) effort is made to edit content, scalder errors (unknown) (no (unknown) (unknown) source for [...] midline but (unknown) (no (unknown) (unknown) : [id number] (units (u nknown) date) unknown) (unknown) (no [...] (unknown) [place] (units ( unknown) date) [address] unknown) (unknown) (no (unknown) (unknown) Appearance: (units [...] (unknown) (unknown) : 2000 (units (unknown) date) Acct:[id number] unknown) (unknown) (no (unknown) (unknown) Date of [...] (unknown) Intake performed (units (unknown) date) by: Magige Bonds unknown) (unknown) (no (unknown) (unknown) Intake [...] date) mood unknown) (unknown) (no (unknown) (unknown) 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 on (units (unknown) date) [...] urethra (unknown) (no (unknown) (unknown) 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: [facility] (units (unknown) date) ED F/U unknown) Menorrhagia/Dysmen [...] unknown) effort is made to edit content, scalder errors (unknown) (no (unknown) (unknown) source for [...] midline but (unknown) (no (unknown) (unknown) : [id number] (units (u nknown) date) unknown) (unknown) (no [...] OCs as she (unknown) (no (unknown) (unknown) [place], [place] (units ( unknown) date) [address] unknown) (unknown) (no (unknown) (unknown) Appearance: (units [...] (unknown) (unknown) : 2000 (units (unknown) date) Acct:[id number] unknown) (unknown) (no (unknown) (unknown) Date of [...] date) mood unknown) (unknown) (no (unknown) (unknown) 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 on (units (unknown) date) [...] urethra (unknown) (no (unknown) (unknown) 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: [facility] (units (unknown) date) ED F/U unknown) Menorrhagia/Dysmen [...] unknown) effort is made to edit content, scalder errors (unknown) (no (unknown) (unknown) source for [...] date) unknown) (unknown) (no (unknown) (unknown) #: [id number] (units ( unknown) date) unknown) (unknown) (no (unknown) (unknown) 03/21/22 (units (unkno wn) date) unknown) (unknown) (no (unknown) (unknown) [address] [place] [address] (units (unknown) date) unknown) (unknown) (no (unknown) (unknown) Accession (units (unkn own) date) Number: unknown) [id number] (unknown) (no (unknown) (unknown) Additional (units (unk nown) date) endovaginal unknown) scanning was necessary due to incomplete visualization (unknown) (no (unknown) (unknown) Age/Sex: 21 / F (units (unknown) date) Date of Service: unknown) (unknown) (no (unknown) (unknown) [place] (units ( unknown) date) [address] unknown) (unknown) (no (unknown) (unknown) Approved by: (units (u nknown) date) sandra Borden) Sophia on 03/23/2022 at 9:14 (unknown) (no (unknown) (unknown) COMPARISON: (units (un known) date) None. unknown) (unknown) (no (unknown) (unknown) : 2000 (units (unknown) date) Acct:[id number] unknown) (unknown) (no (unknown) (unknown) Dictated by: (units (u nknown) date) Mayank Marino unknown) Sophia on 03/23/2022 at 9:09 (unknown) (no (unknown) (unknown) FINDINGS: (units (unkn own) date) unknown) (unknown) (no (unknown) (unknown) IMPRESSION: (units (un known) date) Normal study. unknown) (unknown) (no (unknown) (unknown) INDICATIONS: LLQ (units (unknown) date) Pelvic Pain unknown) (unknown) (no (unknown) (unknown) [facility] (units (unknown) date) unknown) (unknown) (no (unknown) [...] midline but (unknown) (no (unknown) (unknown) : [id number] (units (u nknown) date) unknown) (unknown) (no [...] OCs as she (unknown) (no (unknown) (unknown) [place], [place] (units ( unknown) date) [address] unknown) (unknown) (no (unknown) (unknown) Appearance: (units [...] (unknown) (unknown) : 2000 (units (unknown) date) Acct:[id number] unknown) (unknown) (no (unknown) (unknown) Date of [...] date) mood unknown) (unknown) (no (unknown) (unknown) 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 on (units (unknown) date) [...] (unknown) (unknown) Preg Expiration (units (unknown) date) [id number] Last Edit unknown) by Maggie Bonds MA on 03/21/22 17:11 (unknown) (no (unknown) (unknown) Preg Lot # (units (unk nown) date) [id number] Last unknown) Edit by Maggie Bonds MA [...] urethra (unknown) (no (unknown) (unknown) 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: [facility] (units (unknown) date) ED F/U unknown) Menorrhagia/Dysmen [...] unknown) effort is made to edit content, scalder errors (unknown) (no (unknown) (unknown) source for [...] midline but (unknown) (no (unknown) (unknown) : [id number] (units (u nknown) date) unknown) (unknown) (no [...] OCs as she (unknown) (no (unknown) (unknown) [place], [place] (units ( unknown) date) [address] unknown) (unknown) (no (unknown) (unknown) Appearance: (units [...] (unknown) (unknown) : 2000 (units (unknown) date) Acct:[id number] unknown) (unknown) (no (unknown) (unknown) Date of [...] date) mood unknown) (unknown) (no (unknown) (unknown) 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 on (units (unknown) date) [...] (unknown) (unknown) Preg Expiration (units (unknown) date) [id number] Last Edit unknown) by Maggie Bonds MA on 03/21/22 17:11 (unknown) (no (unknown) (unknown) Preg Lot # (units (unk nown) date) [id number] Last unknown) Edit by Maggie Bonds MA [...] urethra (unknown) (no (unknown) (unknown) 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: [facility] (units (unknown) date) ED F/U unknown) Menorrhagia/Dysmen [...] unknown) effort is made to edit content, scalder errors m (unknown) (no (unknown) (unknown) source [...] date) unknown) (unknown) (no (unknown) (unknown) : [id number] (units (u nknown) date) unknown) (unknown) (no (unknown) (unknown) ADHD (-2004) (units (u nknown) date) unknown) (unknown) (no (unknown) (unknown) Age/Sex: 21 / F (units (unknown) date) Date of Service: unknown) (unknown) (no (unknown) (unknown) Allergies (units (unkn own) date) () unknown) (unknown) (no (unknown) (unknown) Allergies (units (unkn own) date) unknown) (unknown) (no (unknown) (unknown) [place], [place] (units ( unknown) date) [address] unknown) (unknown) (no (unknown) (unknown) Ankle pain (units (unk nown) date) () unknown) (unknown) (no (unknown) (unknown) Anxiety () (units (unknown) date) unknown) (unknown) (no (unknown) (unknown) Attending Dr: (units ( unknown) date) Yordan Llanos unknown) (unknown) (no (unknown) (unknown) Chronic cough (units ( unknown) date) () unknown) (unknown) (no (unknown) (unknown) : 2000 (units (unknown) date) Acct:[id number] unknown) (unknown) (no (unknown) (unknown) Dept at [...] unknown) effort is made to edit content, scalder errors Result panel 19 (unknown) (no (unknown) (unknown) (no value) (units (unk nown) date) unknown) (unknown) (no (unknown) (unknown) 04/13/22 (units (unkno wn) date) unknown) (unknown) (no (unknown) (unknown) 16:18 (units (unkno wn) date) unknown) (unknown) (no (unknown) (unknown) : [id number] (units (u nknown) date) unknown) (unknown) (no (unknown) (unknown) ADHD (-2004) (units (u nknown) date) unknown) (unknown) (no (unknown) (unknown) Age/Sex: 21 / F (units (unknown) date) Date of Service: unknown) (unknown) (no (unknown) (unknown) Allergies (units (unkn own) date) () unknown) (unknown) (no (unknown) (unknown) Allergies (units (unkn own) date) unknown) (unknown) (no (unknown) (unknown) [place], [place] (units ( unknown) date) [address] unknown) (unknown) (no (unknown) (unknown) Ankle pain [...] (unknown) (unknown) : 2000 (units (unknown) date) Acct:[id number] unknown) (unknown) (no (unknown) (unknown) Date of [...] unknown) effort is made to edit content, scalder errors Result panel 20 (unknown) (no (unknown) (unknown) (no value) (units (unk nown) date) unknown) (unknown) (no (unknown) (unknown) 04/13/22 (units (unkno wn) date) unknown) (unknown) (no (unknown) (unknown) 16:18 (units (unkno wn) date) unknown) (unknown) (no (unknown) (unknown) : [id number] (units (u nknown) date) unknown) (unknown) (no (unknown) (unknown) ADHD (-2004) (units (u nknown) date) unknown) (unknown) (no (unknown) (unknown) Age/Sex: 21 / F (units (unknown) date) Date of Service: unknown) (unknown) (no (unknown) (unknown) Allergies (units (unkn own) date) () unknown) (unknown) (no (unknown) (unknown) Allergies (units (unkn own) date) unknown) (unknown) (no (unknown) (unknown) [place], [place] (units ( unknown) date) [address] unknown) (unknown) (no (unknown) (unknown) Ankle pain [...] (unknown) (unknown) : 2000 (units (unknown) date) Acct:[id number] unknown) (unknown) (no (unknown) (unknown) Date of [...] unknown) (unknown) (no (unknown) (unknown) Negative (units 03080- 6 date) unknown) (unknown) (no (unknown) (unknown) Negative (units 80395- 1 date) unknown) (unknown) (no (unknown) (unknown) Negative (units 27637- 5 date) unknown) (unknown) (no (unknown) (unknown) [...] unknown) effort is made to edit content, scalder errors Result panel 21 (unknown) (no (unknown) (unknown) (no value) (units (unk nown) date) unknown) (unknown) (no (unknown) (unknown) 04/13/22 (units (unkno wn) date) unknown) (unknown) (no (unknown) (unknown) 16:18 (units (unkno wn) date) unknown) (unknown) (no (unknown) (unknown) : [id number] (units (u nknown) date) unknown) (unknown) (no (unknown) (unknown) ADHD (-2004) (units (u nknown) date) unknown) (unknown) (no (unknown) (unknown) Age/Sex: 21 / F (units (unknown) date) Date of Service: unknown) (unknown) (no (unknown) (unknown) Allergies (units (unkn own) date) () unknown) (unknown) (no (unknown) (unknown) Allergies (units (unkn own) date) unknown) (unknown) (no (unknown) (unknown) [place], [place] (units ( unknown) date) [address] unknown) (unknown) (no (unknown) (unknown) Ankle pain [...] (unknown) (unknown) : 2000 (units (unknown) date) Acct:[id number] unknown) (unknown) (no (unknown) (unknown) Date of [...] unknown) effort is made to edit content, scalder errors Result panel 22 (unknown) (no (unknown) [...] She had (unknown) (no (unknown) (unknown) : [id number] (units (u nknown) date) unknown) (unknown) (no (unknown) (unknown) ADHD (-2004) (units (u nknown) date) unknown) (unknown) (no (unknown) (unknown) Age/Sex: 21 / F (units (unknown) date) Date of Service: unknown) (unknown) (no (unknown) (unknown) Allergies (units (unkn own) date) () unknown) (unknown) (no (unknown) (unknown) Allergies (units (unkn own) date) unknown) (unknown) (no (unknown) (unknown) [place], [place] (units ( unknown) date) [address] unknown) (unknown) (no (unknown) (unknown) Ankle pain [...] (unknown) (unknown) : 2000 (units (unknown) date) Acct:[id number] unknown) (unknown) (no (unknown) (unknown) Date of [...] unknown) effort is made to edit content, scalder errors (unknown) (no (unknown) (unknown) then (units [...] (unknown) ultrasound at (units ( unknown) date) [facility] unknown) on 03/21/2022 which showed: (unknown) (no [...] She had (unknown) (no (unknown) (unknown) : [id number] (units (u nknown) date) unknown) (unknown) (no (unknown) (unknown) ? (units (unkno wn) date) unknown) (unknown) (no (unknown) (unknown) ?? (units (unkno wn) date) unknown) (unknown) (no (unknown) (unknown) ADHD (-2004) (units (u nknown) date) unknown) (unknown) (no (unknown) (unknown) Abdominopelvic (units (unknown) date) CT performed at unknown) [facility] on 04/02/2022 showed (unknown) (no (unknown) (unknown) Age/Sex: 21 / F (units (unknown) date) Date of Service: unknown) (unknown) (no (unknown) (unknown) Allergies (units (unkn own) date) (-2009) unknown) (unknown) (no (unknown) (unknown) Allergies (units (unkn own) date) unknown) (unknown) (no (unknown) (unknown) [place], [place] (units ( unknown) date) [address] unknown) (unknown) (no (unknown) (unknown) Ankle pain [...] (unknown) (unknown) : 2000 (units (unknown) date) Acct:[id number] unknown) (unknown) (no (unknown) (unknown) Date of [...] unknown) effort is made to edit content, scalder errors (unknown) (no (unknown) (unknown) then (units [...] (unknown) ultrasound at (units ( unknown) date) [facility] unknown) on 03/21/2022 which showed: (unknown) (no [...] She had (unknown) (no (unknown) (unknown) : [id number] (units (u nknown) date) unknown) (unknown) (no [...] Abdominopelvic CT (units (unknown) date) performed at [facility] on 04/02/2022 showed (unknown) (no (unknown) (unknown) Affect: normal (units (unknown) date) affect unknown) (unknown) (no (unknown) (unknown) Age/Sex: 21 / F (units (unknown) date) Date of Service: unknown) (unknown) (no (unknown) (unknown) Allergies (-2009) (units (unknown) date) unknown) (unknown) (no (unknown) (unknown) Allergies (units (unkn own) date) unknown) (unknown) (no (unknown) (unknown) [place] [address] (unit s (unknown) date) unknown) (unknown) (no [...] (unknown) (unknown) : 2000 (units (unknown) date) Acct:[id number] unknown) (unknown) (no (unknown) (unknown) Date of [...] (unknown) date) contacted by our unknown) surgical specialist. Another test will (unknown) (no (unknown) (unknown) [...] effort is made unknown) to edit content, scalder errors m (unknown) (no (unknown) (unknown) tender, [...] (unknown) ultrasound at (units ( unknown) date) [facility] on unknown) 03/21/2022 which showed: (unknown) (no [...] 00:00 Tobacco smoking consumption unknown (fi nding) [facility] 2022-03-21 00:00 Never smoked tobacco (finding) [facility] 2022-04-13 00:00 Never smoked tobacco (finding) [facility] Vital Signs date measurement value units 2022-03-08 [...]
[2022-04-26] MEDS ORDERED: KETOROLAC 30 MG/ML VIAL IVP STA (15:34)
[2022-04-26] MEDS ORDERED: oxyCODONE 5 MG TABLET PO STA (17:03)
--- NOTE | 2022-04-26 17:30 | Ultrasound Report ---
PROCEDURE: Pelvic w/Transvag+Doppler Comp INDICATIONS: worsening pelvic pain TECHNIQUE: Real-time scanning was performed of the pelvic organs, with image documentation. Additional endovagi nal scanning was necessary due to incomplete visualization of the adnexal and endometrial structures by transabdominal scanning. Doppler interrogation was performed of the ovaries bilaterally. COMPARISON: 04/02/2022 FINDINGS: No pathologic free abdominal or pelvic fluid. Uterus: Uterus is retroverted and normal in size at 6.0 x 3.0 x 3.6 cm. The endometrium measures 7 mm in combined thickness. The myometrium is slightly heterogeneous. An irregular hypoechoic mass in t he right fundal myometrium measures 1 cm in greatest diameter. There is an ovoid cyst in the lower ut erine segment. Ovaries: Right ovary measures 4.3 x 2.3 x 3.8 cm for a volume of 20.0 cc. The left ovary measures 3. 4 x 2.1 x 2.9 cm for a volume of 10.6 cc. There are several follicles in each ovary. Normal appearing arterial and venous waveforms are confirmed to each ovary.] Small right paraovarian cyst. Other: Small amount of simple pelvic fluid present. IMPRESSION: 1. No evidence of ovarian torsion. 2. Bilateral enlarged ovaries with numerous follicles. In the setting of hyperandrogenism, polycystic ovarian syndrome could be considered. 3. Small right paraovarian cyst. 4. Heterogeneous myometrium may indicate adenomyosis. Routine pelvic MRI is an outpatient may be usef . T #5 useful if this seems clinically relevant. Preliminary results given by the furnace filler to the ordering provider immediately following the study . Reviewed by: Tiffanie Fontaine MD on 04/26/2022 5:28 PM PDT Approved by: Tiffanie Fontaine MD on 04/26/2022 5:28 PM PDT Station ID: [id number]
[2022-04-26] MEDS ORDERED: MORPHINE 2 MG/ML CARPUJECT IVP STA (17:54)
--- NOTE | 2022-04-26 17:58 | ED Physician Documentation ---
PD HPI FEMALE - Stated complaint Stated Complaint: PELVIC PX - Chief complaint Chief Complaint: Abd Pain - History obtained from History obtained from: Patient - Additional information Additional information: Pt is a 21 yo F presenting for evaluation of pelvic pain that has been ongoing for months but again worse today. She has been seen in our ED for this last month with workup and has been seen by a mold filler and drainer in [place]. She is scheduled for a laparoscopic procedure next week. She has not tried any medications for her symptoms. Her symptoms are bilateral and feel like sharp and cramping pain. She denies vaginal bleeding, discharge, concerns for for STI. Review of Systems Constitutional: denies: Fever Cardiac: denies: Chest pain / pressure Respiratory: denies: Dyspnea GI: reports: Abdominal Pain (Pelvic). denies: Nausea, Vomiting : denies: Dysuria, Discharge, Vaginal bleeding Musculoskeletal: denies: Back pain PD PAST MEDICAL HISTORY - Past Medical History Cardiovascular: None Respiratory: None [employer] W[employer]OW INST[employer]ER: Ovarian cysts Psych: ADD/ADHD Musculoskeletal: None - Past Surgical History Past Surgical History: No - Present Medications Home Medications: Ambulatory Orders Medication Instructions Recorded Confirmed Ondansetron Odt [Zofran] 4 mg TL Q6H PRN #10 tablet 12/30/21 04/03/22 HYDROcod/ACETAM 5/325 [[place] 5/325] 1 - 2 ea PO Q6H PRN #14 tablet 04/02/22 04/03/22 Cetirizine HCl/Pseudoephedrine 1 each PO BID PRN #30 tab 04/24/22 [Zyrtec-D Tablet] Oxymetazoline HCl [Afrin] 1 spray NS BID #1 each 04/24/22 Oxycodone HCl/Acetaminophen 1 each PO Q6H PRN #14 tablet 04/26/22 [Percocet 5-325 mg Tablet] - Allergies Allergies/Adverse Reactions: Allergies Allergy/AdvReac Type Severity Reaction Status Date / Time No Known Drug Allergies Allergy Verified 04/26/22 11:38 - Social History Does the pt smoke?: No Smoking Status: Never smoker Does the pt drink ETOH?: No Does the pt have substance abuse?: Yes - Immunizations Immunizations are current?: Yes - POLST Patient has POLST: No PD ED PE NORMAL - General General: Alert and oriented X 3, No acute distress, Well developed/nourished - HEENT HEENT: Atraumatic - Neck Neck: Supple, no meningeal sign - Cardiac Cardiac: RRR - Respiratory Respiratory: No respiratory distress, Clear bilaterally - Abdomen Abdomen: Soft, Non distended, Other (MIld lower abdominal tenderness, no rebound, no guarding; no tenderness over MCBurneys) - Female Female : Pt declined - Derm Derm: Warm and dry Results - Vitals Vitals: Vital Signs - 24 hr 04/26/22 04/26/22 11:36 18:06 Temperature 36.4 C L Heart Rate 91 75 Respiratory 20 16 Rate Blood Pressure 133/74 H 120/65 O2 Saturation 97 98 Oxygen O2 Source Room air - Labs Labs: Laboratory Tests 04/26/22 04/26/22 04/26/22 11:40 11:55 11:55 WBC 6.4 RBC 4.51 Hgb 12.1 Hct 38.7 MCV 85.8 MCH 26.8 L MCHC 31.3 L RDW 13.9 Plt Count 267 MPV 8.8 Neut # (Auto) 3.9 Lymph # (Auto) 1.9 [place] # (Auto) 0.6 Eos # (Auto) 0.0 Baso # (Auto) 0.0 Absolute Nucleated RBC 0.00 Nucleated RBC % 0.0 Sodium 140 Potassium 3.7 Chloride 107 Carbon Dioxide 25 Anion Gap 8.0 BUN 8 Creatinine 0.6 Estimated GFR (MDRD) 127 Glucose 99 Calcium 9.3 Total Bilirubin 1.0 AST 18 ALT 13 Alkaline Phosphatase 54 Total Protein 8.0 Albumin 4.7 Globulin 3.3 Albumin/Globulin Ratio 1.4 Lipase 27 Urine Color YELLOW Urine Clarity CLEAR Urine pH 7.5 Ur Specific [place] 1.015 Urine Protein NEGATIVE Urine Glucose (UA) NEGATIVE Urine Ketones NEGATIVE Urine Occult Blood NEGATIVE Urine Nitrite NEGATIVE Urine Bilirubin NEGATIVE Urine Urobilinogen 0.2 (NORMAL) Ur Leukocyte Esterase NEGATIVE Ur Microscopic Review NOT INDICATED Urine Culture Comments NOT INDICATED Urine HCG, Qual NEGATIVE PD Medical Decision Making - ED course Complexity details: reviewed results, re-evaluated patient ED course: Pt presenting for evaluation of pelvic pain that she has had ongoing for several months but worse today. She is scheduled for outpatient laparoscopic procedure next week. Her abdominal exam is overall benign with mild tenderness. Labs are reassuring and U/A is negative for infection and . Has had recent STI testing. Pt declines pelvic as she has had that done by [employer]. U/S obtained with no signs of torsion. I also reviewed U/S. There are U/S findings which could suggest PCOS and pt has a small right ovarian cyst. Reviewed these findings with pt. Pt has received narcotic pain medication in past for her pelvic pain and requesting meds to help. SHe was given one dose of IV morphine and PO med here as well as small Rx. Her repeat exam is again benign and I do not think clinically she has torsion. Pt counseled on concerning symptoms to return for and will be following up with her [employer] W[employer]OW INST[employer]ER. Departure - Departure Disposition: Home, Self Care Clinical Impression: Pelvic pain in female, Right ovarian cyst Condition: Stable Instructions: ED Pelvic Pain [facility] Prescriptions: Oxycodone HCl/Acetaminophen [Percocet 5-325 mg Tablet] 1 each PO Q6H PRN #14 tablet PRN Reason: pain Comments: Your ultrasound shows that you have enlarged ovaries with numerous follicles.This could be a sign of something called polycystic ovarian syndrome. You also have a cyst on the right ovary.I would recommend close follow-up. I would recommend close follow-up with your mold filler and drainer. You may need further testing such as an MRI of your pelvis. IMPRESSION: 1. No evidence of ovarian torsion. 2. Bilateral enlarged ovaries with numerous follicles. In the setting of hyperandrogenism, polycystic ovarian syndrome could be considered. 3. Small right paraovarian cyst. 4. Heterogeneous myometrium may indicate adenomyosis. Routine pelvic MRI is an outpatient may be useful. T #5 useful if this seems clinically relevant. I have sent a small prescription of narcotic pain medication to [facility] in [place]. I am prescribing a short course of narcotic pain medication for you. These are potentially dangerous and addictive medications that should be used carefully. These medications may constipate you. Take an [id number] stool softener (docusate) twice daily with plenty of water while taking these medications. If you go 24 hours without a bowel movement, take [id number] miralax, per package instructions. Do not drink or drive while taking these medications. If you received narcotic or sedating medications while in the emergency department, do not drive for 24 hours. Store this medication in a safe, secure place and out of reach of children. It is a violation of federal law to give or sell this medication to another person or to use in a manner other than prescribed. The ED will not refill narcotic prescriptions, including prescriptions lost or stolen. To dispose of unwanted medications: 1. [facility] at [address] in [place] has a medication drop box. They accept prescription medications (in pill form) Saturday through Saturday 9:00 a.m. to 5:00 p.m. 2. The [facility] [employer] accepts prescription medications (in pill form only) for disposal year round. Call for more information. 3. Contact the [facility] for the next [facility] sponsored prescription drug collection event. , [phone], or [phone]; Note that many narcotic pain relievers also contain Tylenol/acetaminophen. Please ensure that your total dose of acetaminophen from all sources does not exceed 3 g (3000 mg) per day. Discharge Date/Time: 04/26/22 18:43
[2022-04-26 18:07] VITALS: BP 120/65
[2022-04-26] MEDS ORDERED: LIDOCAINE PATCH 5% TOP STA (18:14)
== END 2022-04-26 18:43 | disposition home or self-care (01) ==
LOC: ED 11:26
DX: N83.291 Other ovarian cyst, right side (principal)
CPT/HCPCS: 36415; 76830; 76856; 80053; 81003; 81025; 83690; 85025; 93975; 96374; 96375; 99284; A9270; 81001; 87086

== ENCOUNTER 2022-04-30 04:10 | Emergency (ER) | payer MEDICAID ==
--- OUTSIDE RECORDS SUMMARY | 2022-04-30 04:21 | EXTERNAL MEDICAL SUMMARY RPT | Continuity of Care Document ---
:2000 Author Organization [facility] Address [address] [place] [address] Phone Care Team Providers Name Role Phone Abdias Valles Unavailable Unavailable Allergies and Intolerances date description facility type (no date) No Known Drug Allergies [facility] (unkn own) Encounters No information. Functional Status No information. Immunizations No information. Medications date description facility 2022-03-21 00:00 Naproxen [facility] Problems date description facility 2022-03-08 00:00 Endometriosis [facility] 2022-03-08 00:00 Abdominal pain [facility] 2022-03-21 10:55 Unspecified abdominal pain [facility] 2022-03-21 10:55 Encounter for screening for infections with [facility] 2022-03-21 16:11 Amenorrhea, unspecified [facility] 2022-03-21 16:11 Pelvic and perineal pain [facility] 2022-03-21 16:11 Encounter for test, result [facility] 2022-03-21 17:21 [facility], [facility] 17:21 Pelvic and perineal pain [facility] 2022-03-21 17:21 Encounter for test, result [facility] 2022-03-22 00:57 Unspecified abdominal pain [facility] 2022-03-22 00:57 Encounter for screening for infections with [facility] 2022-04-04 00:00 Anxiety [facility] 2022-04-04 00:00 Attention deficit hyperactivity disorde r (ADHD) [facility] 2022-04-04 00:00 Migraine headache [facility] 2022-04-04 00:00 Glaucoma [facility] 2022-04-04 00:00 Disorder of optic nerve [facility] 2022-04-04 00:00 Raynaud's disease [facility] 2022-04-04 00:00 Multiple gallstones [facility] 2022-04-04 00:00 Eczema [facility] 2022-04-04 00:00 Ankle pain [facility] 2022-04-04 00:00 Pain of foot [facility] 2022-04-04 00:00 Menorrhagia [facility] 2022-04-04 00:00 Heart murmur [facility] 2022-04-04 00:00 Chronic cough [facility] 2022-04-04 00:00 Allergy [facility] 2022-04-13 17:00 Encounter for screening for infections with a [facility] 2022-04-13 18:03 Pelvic and perineal pain [facility] 2022-04-14 02:27 Encounter for screening for infections with a [facility] 2022-04-24 10:10 Pain in right ankle and joints of right foot [facility] Procedures date description facility 2022-03-21 00:00 Complete ultrasound of pelvis [facility] Results/Labs test date author facility value unit interpret ation Result panel 1 (unknown) (no date) (unknown) [facility] (no value) (units ([facility] unknown) Result panel 2 (unknown) (no date) (unknown) [facility] (no value) (units ([facility] unknown) Result panel 3 (unknown) (no (unknown) (unknown) (no value) (units (k nown) date) unknown) (unknown) (no (unknown) (unknown) 03/08/22 (units (unkno wn) date) unknown) (unknown) (no (unknown) (unknown) 19:36 03/08/22 (units (unknown) date) unknown) (unknown) (no (unknown) (unknown) 21:35 03/08/22 (units (unknown) date) unknown) (unknown) (no (unknown) (unknown) 21:36 (units (unkno wn) date) unknown) (unknown) (no (unknown) (unknown) : [id number] (units (u nknown) date) unknown) (unknown) (no [...] (unknown) (unknown) : 2000 (units (unknown) date) Acct:[id number] unknown) (unknown) (no (unknown) (unknown) Date of [...] date) Signs: unknown) (unknown) (no (unknown) (unknown) [facility] (units (unknown) date) [address] [place] [address] unknown) [place] [address] (unknown) (no (unknown) (unknown) Lab Data (units [...] (unknown) (unknown) Urine Specific (units (unknown) date) [place] 1.010 unknown) (unknown) (no (unknown) (unknown) Vital [...] date) unknown) (unknown) (no (unknown) (unknown) : [id number] (units (u nknown) date) unknown) (unknown) (no [...] (unknown) (unknown) : 2000 (units (unknown) date) Acct:[id number] unknown) (unknown) (no (unknown) (unknown) Date of [...] unknown) (unknown) (no (unknown) (unknown) Documented By: CLMEENTINE (units (unknown) date) unknown) (unknown) (no (unknown) [...] for Abdominal Pain-Adult (unknown) (no (unknown) (unknown) Integumentary/[place] (units (unknown) date) sts unknown) (unknown) (no (unknown) (unknown) [facility] (units (unknown) date) [address] [place] [address] unknown) [place] [address] (unknown) (no (unknown) (unknown) Ketorolac (units (unkn [...] (unknown) (unknown) Urine Specific (units (unknown) date) [place] 1.010 unknown) (unknown) (no (unknown) (unknown) Vital [...] date) unknown) (unknown) (no (unknown) (unknown) : [id number] (units (u nknown) date) unknown) (unknown) (no (unknown) (unknown) Age/Sex: 21 / F (units (unknown) date) Date of Service: unknown) (unknown) (no (unknown) (unknown) Allergies (units (unkn own) date) unknown) (unknown) (no (unknown) (unknown) [place], [place] (units ( unknown) date) [address] unknown) (unknown) (no (unknown) (unknown) Attending Dr: (units ( unknown) date) Yordan Llanos unknown) (unknown) (no (unknown) (unknown) : 2000 (units (unknown) date) Acct:[id number] unknown) (unknown) (no (unknown) (unknown) Dept at [...] (unknown) (unknown) 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) Menorrhagia/Dysme norrhea (unknown) (no [...] unknown) effort is made to edit content, woods overseer errors Result panel 6 (unknown) (no (unknown) (unknown) (no value) (units (unk nown) date) unknown) (unknown) (no (unknown) (unknown) 03/21/22 (units (unkno wn) date) unknown) (unknown) (no (unknown) (unknown) : [id number] (units (u nknown) date) unknown) (unknown) (no (unknown) (unknown) Age/Sex: 21 / F (units (unknown) date) Date of Service: unknown) (unknown) (no (unknown) (unknown) Allergies (units (unkn own) date) unknown) (unknown) (no (unknown) (unknown) [place], [place] (units ( unknown) date) [address] unknown) (unknown) (no (unknown) (unknown) Attending Dr: (units ( unknown) date) Yordan Llanos unknown) (unknown) (no (unknown) (unknown) : 2000 (units (unknown) date) Acct:[id number] unknown) (unknown) (no (unknown) (unknown) Dept at [...] (unknown) (unknown) 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) Menorrhagia/Dysme norrhea (unknown) (no [...] unknown) effort is made to edit content, woods overseer errors Result panel 7 (unknown) (no (unknown) (unknown) (no value) (units (unk nown) date) unknown) (unknown) (no (unknown) (unknown) 03/21/22 (units (unkno wn) date) unknown) (unknown) (no (unknown) (unknown) 10:17 (units (unkno wn) date) unknown) (unknown) (no (unknown) (unknown) : [id number] (units (u nknown) date) unknown) (unknown) (no (unknown) (unknown) Age/Sex: 21 / F (units (unknown) date) Date of Service: unknown) (unknown) (no (unknown) (unknown) Allergies (units (unkn own) date) unknown) (unknown) (no (unknown) (unknown) [place], [place] (units ( unknown) date) [address] unknown) (unknown) (no (unknown) (unknown) Attending Dr: (units ( unknown) date) Yordan Llanos unknown) (unknown) (no (unknown) (unknown) BMI 21.3 (units (unkno wn) date) unknown) (unknown) (no (unknown) (unknown) BP 120/70 (units (unkn own) date) unknown) (unknown) (no (unknown) (unknown) Blood Pressure (units (unknown) date) Location Rt unknown) brachial (unknown) (no (unknown) (unknown) : 2000 (units (unknown) date) Acct:[id number] unknown) (unknown) (no (unknown) (unknown) Date of [...] known) date) unknown) (unknown) (no (unknown) (unknown) 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 (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 (unknown) date) on [...] (unknown) (unknown) 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) Menorrhagia/Dysme norrhea (unknown) (no [...] unknown) effort is made to edit content, woods overseer errors Result panel 8 (unknown) (no (unknown) (unknown) (no value) (units (unk nown) date) unknown) (unknown) (no (unknown) (unknown) 03/21/22 (units (unkno wn) date) unknown) (unknown) (no (unknown) (unknown) 10:17 (units (unkno wn) date) unknown) (unknown) (no (unknown) (unknown) 6-8 week history (units (unknown) date) unknown) (unknown) (no (unknown) (unknown) : [id number] (units (u nknown) date) unknown) (unknown) (no (unknown) (unknown) Age/Sex: 21 / F (units (unknown) date) Date of Service: unknown) (unknown) (no (unknown) (unknown) Allergies (units (unkn own) date) unknown) (unknown) (no (unknown) (unknown) [place] (units ( unknown) date) [address] unknown) (unknown) (no (unknown) (unknown) Attending Dr: [...] (unknown) (unknown) : 2000 (units (unknown) date) Acct:[id number] unknown) (unknown) (no (unknown) (unknown) Date of [...] known) date) unknown) (unknown) (no (unknown) (unknown) 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 (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 (unknown) date) on [...] (unknown) (unknown) 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) Menorrhagia/Dysme norrhea (unknown) (no [...] unknown) effort is made to edit content, woods overseer errors Result panel 9 (unknown) (no (unknown) (unknown) (no value) (units (unk nown) date) unknown) (unknown) (no (unknown) (unknown) 03/21/22 (units (unkno wn) date) unknown) (unknown) (no (unknown) (unknown) 10:17 (units (unkno wn) date) unknown) (unknown) (no (unknown) (unknown) 6-8 week history (units (unknown) date) of lower abdominal unknown) discomfort which is typically midline but (unknown) (no (unknown) (unknown) : [id number] (units (u nknown) date) unknown) (unknown) (no (unknown) (unknown) Age/Sex: 21 / F (units (unknown) date) Date of Service: unknown) (unknown) (no (unknown) (unknown) Allergies (units (unkn own) date) unknown) (unknown) (no (unknown) (unknown) [place], [place] (units ( unknown) date) [address] unknown) (unknown) (no (unknown) (unknown) Attending Dr: [...] (unknown) (unknown) : 2000 (units (unknown) date) Acct:[id number] unknown) (unknown) (no (unknown) (unknown) Date of [...] known) date) unknown) (unknown) (no (unknown) (unknown) 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 (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 (unknown) date) [...] unknown) (unknown) (no (unknown) (unknown) 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 unknown) Menorrhagia/Dysmen [...] unknown) effort is made to edit content, woods overseer errors Result panel 10 (unknown) (no (unknown) [...] midline but (unknown) (no (unknown) (unknown) : [id number] (units (u nknown) date) unknown) (unknown) (no (unknown) (unknown) Affect: normal (units (unknown) date) affect unknown) (unknown) (no (unknown) (unknown) Age/Sex: 21 / F (units (unknown) date) Date of Service: unknown) (unknown) (no (unknown) (unknown) Allergies (units (unkn own) date) unknown) (unknown) (no (unknown) (unknown) [place], [place] (units ( unknown) date) [address] unknown) (unknown) (no (unknown) (unknown) Appearance: (units [...] (unknown) (unknown) : 2000 (units (unknown) date) Acct:[id number] unknown) (unknown) (no (unknown) (unknown) Date of [...] date) mood unknown) (unknown) (no (unknown) (unknown) 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 (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 (unknown) date) [...] urethra (unknown) (no (unknown) (unknown) 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 unknown) Menorrhagia/Dysmen [...] unknown) effort is made to edit content, woods overseer errors (unknown) (no (unknown) (unknown) tender and [...] midline but (unknown) (no (unknown) (unknown) : [id number] (units (u nknown) date) unknown) (unknown) (no (unknown) (unknown) Abdominal (units (unkn own) date) location: lower unknown) abdomen, unspecified Qualified Code(s): (unknown) (no (unknown) (unknown) Affect: normal (units (unknown) date) affect unknown) (unknown) (no (unknown) (unknown) Age/Sex: 21 / F (units (unknown) date) Date of Service: unknown) (unknown) (no (unknown) (unknown) Allergies (units (unkn own) date) unknown) (unknown) (no (unknown) (unknown) [place], [place] (units ( unknown) date) [address] unknown) (unknown) (no (unknown) (unknown) Appearance: (units [...] (unknown) (unknown) : 2000 (units (unknown) date) Acct:[id number] unknown) (unknown) (no (unknown) (unknown) Date of [...] date) mood unknown) (unknown) (no (unknown) (unknown) 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 (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 (unknown) date) [...] urethra (unknown) (no (unknown) (unknown) 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 unknown) Menorrhagia/Dysmen [...] unknown) effort is made to edit content, woods overseer errors (unknown) (no (unknown) (unknown) source for [...] midline but (unknown) (no (unknown) (unknown) : [id number] (units (u nknown) date) unknown) (unknown) (no [...] (unknown) [place] (units ( unknown) date) [address] unknown) (unknown) (no (unknown) (unknown) Appearance: (units [...] (unknown) (unknown) : 2000 (units (unknown) date) Acct:[id number] unknown) (unknown) (no (unknown) (unknown) Date of [...] date) mood unknown) (unknown) (no (unknown) (unknown) 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 (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 (unknown) date) [...] urethra (unknown) (no (unknown) (unknown) 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 unknown) Menorrhagia/Dysmen [...] unknown) effort is made to edit content, woods overseer errors (unknown) (no (unknown) (unknown) source for [...] midline but (unknown) (no (unknown) (unknown) : [id number] (units (u nknown) date) unknown) (unknown) (no [...] OCs as she (unknown) (no (unknown) (unknown) [place], [place] (units ( unknown) date) [address] unknown) (unknown) (no (unknown) (unknown) Appearance: (units [...] (unknown) (unknown) : 2000 (units (unknown) date) Acct:[id number] unknown) (unknown) (no (unknown) (unknown) Date of [...] date) mood unknown) (unknown) (no (unknown) (unknown) 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 (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 (unknown) date) [...] urethra (unknown) (no (unknown) (unknown) 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 unknown) Menorrhagia/Dysmen [...] unknown) effort is made to edit content, woods overseer errors (unknown) (no (unknown) (unknown) source for [...] date) unknown) (unknown) (no (unknown) (unknown) #: [id number] (units ( unknown) date) unknown) (unknown) (no (unknown) (unknown) 03/21/22 (units (unkno wn) date) unknown) (unknown) (no (unknown) (unknown) [address] [place] [address] (units (unknown) date) unknown) (unknown) (no (unknown) (unknown) Accession (units (unkn own) date) Number: unknown) [id number] (unknown) (no (unknown) (unknown) Additional (units (unk nown) date) endovaginal unknown) scanning was necessary due to incomplete visualization (unknown) (no (unknown) (unknown) Age/Sex: 21 / F (units (unknown) date) Date of Service: unknown) (unknown) (no (unknown) (unknown) [place] (units ( unknown) date) [address] unknown) (unknown) (no (unknown) (unknown) Approved by: (units (u nknown) date) sandra Borden) Sophia on 03/23/2022 at 9:14 (unknown) (no (unknown) (unknown) COMPARISON: (units (un known) date) None. unknown) (unknown) (no (unknown) (unknown) : 2000 (units (unknown) date) Acct:[id number] unknown) (unknown) (no (unknown) (unknown) Dictated by: (units (u nknown) date) Mayank Marino unknown) Sophia on 03/23/2022 at 9:09 (unknown) (no (unknown) (unknown) FINDINGS: (units (unkn own) date) unknown) (unknown) (no (unknown) (unknown) IMPRESSION: (units (un known) date) Normal study. unknown) (unknown) (no (unknown) (unknown) INDICATIONS: LLQ (units (unknown) date) Pelvic Pain unknown) (unknown) (no (unknown) (unknown) [facility] (units (unknown) date) unknown) (unknown) (no (unknown) [...] midline but (unknown) (no (unknown) (unknown) : [id number] (units (u nknown) date) unknown) (unknown) (no [...] OCs as she (unknown) (no (unknown) (unknown) [place], [place] (units ( unknown) date) [address] unknown) (unknown) (no (unknown) (unknown) Appearance: (units [...] (unknown) (unknown) : 2000 (units (unknown) date) Acct:[id number] unknown) (unknown) (no (unknown) (unknown) Date of [...] date) mood unknown) (unknown) (no (unknown) (unknown) 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 (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 (unknown) date) [...] (unknown) (unknown) Preg Expiration (units (unknown) date) [id number] Last Edit unknown) by Maggie Bonds MA on 03/21/22 17:11 (unknown) (no (unknown) (unknown) Preg Lot # (units (unk nown) date) [id number] Last unknown) Edit by Maggie Bonds MA [...] urethra (unknown) (no (unknown) (unknown) 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 unknown) Menorrhagia/Dysmen [...] unknown) effort is made to edit content, woods overseer errors (unknown) (no (unknown) (unknown) source for [...] midline but (unknown) (no (unknown) (unknown) : [id number] (units (u nknown) date) unknown) (unknown) (no [...] OCs as she (unknown) (no (unknown) (unknown) [place], [place] (units ( unknown) date) [address] unknown) (unknown) (no (unknown) (unknown) Appearance: (units [...] (unknown) (unknown) : 2000 (units (unknown) date) Acct:[id number] unknown) (unknown) (no (unknown) (unknown) Date of [...] date) mood unknown) (unknown) (no (unknown) (unknown) 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 (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 (unknown) date) [...] (unknown) (unknown) Preg Expiration (units (unknown) date) [id number] Last Edit unknown) by Maggie Bonds MA on 03/21/22 17:11 (unknown) (no (unknown) (unknown) Preg Lot # (units (unk nown) date) [id number] Last unknown) Edit by Maggie Bonds MA [...] urethra (unknown) (no (unknown) (unknown) 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 unknown) Menorrhagia/Dysmen [...] unknown) effort is made to edit content, woods overseer errors m (unknown) (no (unknown) (unknown) source [...] date) unknown) (unknown) (no (unknown) (unknown) : [id number] (units (u nknown) date) unknown) (unknown) (no (unknown) (unknown) ADHD (-2004) (units (u nknown) date) unknown) (unknown) (no (unknown) (unknown) Age/Sex: 21 / F (units (unknown) date) Date of Service: unknown) (unknown) (no (unknown) (unknown) Allergies (units (unkn own) date) () unknown) (unknown) (no (unknown) (unknown) Allergies (units (unkn own) date) unknown) (unknown) (no (unknown) (unknown) [place], [place] (units ( unknown) date) [address] unknown) (unknown) (no (unknown) (unknown) Ankle pain (units (unk nown) date) () unknown) (unknown) (no (unknown) (unknown) Anxiety () (units (unknown) date) unknown) (unknown) (no (unknown) (unknown) Attending Dr: (units ( unknown) date) Yordan Llanos unknown) (unknown) (no (unknown) (unknown) Chronic cough (units ( unknown) date) () unknown) (unknown) (no (unknown) (unknown) : 2000 (units (unknown) date) Acct:[id number] unknown) (unknown) (no (unknown) (unknown) Dept at [...] unknown) effort is made to edit content, woods overseer errors Result panel 19 (unknown) (no (unknown) (unknown) (no value) (units (unk nown) date) unknown) (unknown) (no (unknown) (unknown) 04/13/22 (units (unkno wn) date) unknown) (unknown) (no (unknown) (unknown) 16:18 (units (unkno wn) date) unknown) (unknown) (no (unknown) (unknown) : [id number] (units (u nknown) date) unknown) (unknown) (no (unknown) (unknown) ADHD (-2004) (units (u nknown) date) unknown) (unknown) (no (unknown) (unknown) Age/Sex: 21 / F (units (unknown) date) Date of Service: unknown) (unknown) (no (unknown) (unknown) Allergies (units (unkn own) date) () unknown) (unknown) (no (unknown) (unknown) Allergies (units (unkn own) date) unknown) (unknown) (no (unknown) (unknown) [place], [place] (units ( unknown) date) [address] unknown) (unknown) (no (unknown) (unknown) Ankle pain [...] (unknown) (unknown) : 2000 (units (unknown) date) Acct:[id number] unknown) (unknown) (no (unknown) (unknown) Date of [...] unknown) effort is made to edit content, woods overseer errors Result panel 20 (unknown) (no (unknown) (unknown) (no value) (units (unk nown) date) unknown) (unknown) (no (unknown) (unknown) 04/13/22 (units (unkno wn) date) unknown) (unknown) (no (unknown) (unknown) 16:18 (units (unkno wn) date) unknown) (unknown) (no (unknown) (unknown) : [id number] (units (u nknown) date) unknown) (unknown) (no (unknown) (unknown) ADHD (-2004) (units (u nknown) date) unknown) (unknown) (no (unknown) (unknown) Age/Sex: 21 / F (units (unknown) date) Date of Service: unknown) (unknown) (no (unknown) (unknown) Allergies (units (unkn own) date) () unknown) (unknown) (no (unknown) (unknown) Allergies (units (unkn own) date) unknown) (unknown) (no (unknown) (unknown) [place], [place] (units ( unknown) date) [address] unknown) (unknown) (no (unknown) (unknown) Ankle pain [...] (unknown) (unknown) : 2000 (units (unknown) date) Acct:[id number] unknown) (unknown) (no (unknown) (unknown) Date of [...] (unknown) Intake performed (units (unknown) date) by: Mailka Eugene unknown) (unknown) (no (unknown) (unknown) Intake [...] unknown) (unknown) (no (unknown) (unknown) Negative (units 53555- 6 date) unknown) (unknown) (no (unknown) (unknown) Negative (units 63637- 1 date) unknown) (unknown) (no (unknown) (unknown) Negative (units 04198- 5 date) unknown) (unknown) (no (unknown) (unknown) [...] unknown) effort is made to edit content, woods overseer errors Result panel 21 (unknown) (no (unknown) (unknown) (no value) (units (unk nown) date) unknown) (unknown) (no (unknown) (unknown) 04/13/22 (units (unkno wn) date) unknown) (unknown) (no (unknown) (unknown) 16:18 (units (unkno wn) date) unknown) (unknown) (no (unknown) (unknown) : [id number] (units (u nknown) date) unknown) (unknown) (no (unknown) (unknown) ADHD (-2004) (units (u nknown) date) unknown) (unknown) (no (unknown) (unknown) Age/Sex: 21 / F (units (unknown) date) Date of Service: unknown) (unknown) (no (unknown) (unknown) Allergies (units (unkn own) date) () unknown) (unknown) (no (unknown) (unknown) Allergies (units (unkn own) date) unknown) (unknown) (no (unknown) (unknown) [place], [place] (units ( unknown) date) [address] unknown) (unknown) (no (unknown) (unknown) Ankle pain [...] (unknown) (unknown) : 2000 (units (unknown) date) Acct:[id number] unknown) (unknown) (no (unknown) (unknown) Date of [...] unknown) effort is made to edit content, woods overseer errors Result panel 22 (unknown) (no (unknown) [...] She had (unknown) (no (unknown) (unknown) : [id number] (units (u nknown) date) unknown) (unknown) (no (unknown) (unknown) ADHD (-2004) (units (u nknown) date) unknown) (unknown) (no (unknown) (unknown) Age/Sex: 21 / F (units (unknown) date) Date of Service: unknown) (unknown) (no (unknown) (unknown) Allergies (units (unkn own) date) () unknown) (unknown) (no (unknown) (unknown) Allergies (units (unkn own) date) unknown) (unknown) (no (unknown) (unknown) [place], [place] (units ( unknown) date) [address] unknown) (unknown) (no (unknown) (unknown) Ankle pain [...] (unknown) (unknown) : 2000 (units (unknown) date) Acct:[id number] unknown) (unknown) (no (unknown) (unknown) Date of [...] unknown) effort is made to edit content, woods overseer errors (unknown) (no (unknown) (unknown) then (units [...] (unknown) ultrasound at (units ( unknown) date) [facility] unknown) on 03/21/2022 which showed: (unknown) (no [...] She had (unknown) (no (unknown) (unknown) : [id number] (units (u nknown) date) unknown) (unknown) (no (unknown) (unknown) ? (units (unkno wn) date) unknown) (unknown) (no (unknown) (unknown) ?? (units (unkno wn) date) unknown) (unknown) (no (unknown) (unknown) ADHD (-2004) (units (u nknown) date) unknown) (unknown) (no (unknown) (unknown) Abdominopelvic (units (unknown) date) CT performed at unknown) [facility] on 04/02/2022 showed (unknown) (no (unknown) (unknown) Age/Sex: 21 / F (units (unknown) date) Date of Service: unknown) (unknown) (no (unknown) (unknown) Allergies (units (unkn own) date) (-2009) unknown) (unknown) (no (unknown) (unknown) Allergies (units (unkn own) date) unknown) (unknown) (no (unknown) (unknown) [place], [place] (units ( unknown) date) [address] unknown) (unknown) (no (unknown) (unknown) Ankle pain [...] (unknown) (unknown) : 2000 (units (unknown) date) Acct:[id number] unknown) (unknown) (no (unknown) (unknown) Date of [...] unknown) effort is made to edit content, woods overseer errors (unknown) (no (unknown) (unknown) then (units [...] (unknown) ultrasound at (units ( unknown) date) [facility] unknown) on 03/21/2022 which showed: (unknown) (no [...] She had (unknown) (no (unknown) (unknown) : [id number] (units (u nknown) date) unknown) (unknown) (no [...] Abdominopelvic CT (units (unknown) date) performed at [facility] on 04/02/2022 showed (unknown) (no (unknown) (unknown) Affect: normal (units (unknown) date) affect unknown) (unknown) (no (unknown) (unknown) Age/Sex: 21 / F (units (unknown) date) Date of Service: unknown) (unknown) (no (unknown) (unknown) Allergies (-2009) (units (unknown) date) unknown) (unknown) (no (unknown) (unknown) Allergies (units (unkn own) date) unknown) (unknown) (no (unknown) (unknown) [place] [address] (unit s (unknown) date) unknown) (unknown) (no [...] (unknown) (unknown) : 2000 (units (unknown) date) Acct:[id number] unknown) (unknown) (no (unknown) (unknown) Date of Last (units (u nknown) date) Menstrual Period: unknown) 12/26/21 (unknown) (no (unknown) (unknown) Dept at (units (unkno wn) date) . unknown) (unknown) (no (unknown) (unknown) Details: (units (unkno wn) date) unknown) (unknown) (no (unknown) (unknown) Documented By: (units (unknown) date) Yordan Llanso MD unknown) 04/13/22 1609 (unknown) (no (unknown) [...] Intake performed (units (unknown) date) by: Malika Eugeen unknown) (unknown) (no (unknown) (unknown) Intake (units [...] (unknown) date) contacted by our unknown) surgical first assistant. 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
[2022-04-30 05:06] LABS: BILIRUBIN,URINE NEGATIVE (NEGATIVE); GLUCOSE, URINE (UA) NEGATIVE (NEGATIVE); KETONES,URINE (UA) NEGATIVE (NEGATIVE); LEUKOCYTE ESTERASE, URINE NEGATIVE (NEGATIVE); NITRITE,URINE NEGATIVE (NEGATIVE); OCCULT BLOOD,URINE NEGATIVE (NEGATIVE); PROTEIN,URINE NEGATIVE (NEGATIVE); UROBILINOGEN,URINE 0.2 (NORMAL) E.U./dL (NORMAL)
[2022-04-30 05:08] LABS: CLARITY,URINE CLEAR (CLEAR); HCG UR QUAL NEGATIVE
[2022-04-30 06:43] LABS: BASOPHILS % (AUTO) 0.4 %; EOSINOPHILS # (AUTO) 0.1 10^3/uL (0.0-0.7); EOSINOPHILS % (AUTO) 1.1 %; HCT - HEMATOCRIT 37.5 % (37.0-47.0); HGB - HEMOGLOBIN 11.7 g/dL (12.0-16.0); LYMPHOCYTES # (AUTO) 3.1 10^3/uL (1.5-3.5); LYMPHOCYTES % (AUTO) 37.1 %; MEAN CORPUSCULAR HEMOGLOBIN 26.8 pg (27.0-31.0); MEAN CORPUSCULAR HGB CONC 31.2 g/dL (32.0-36.0); MEAN PLATELET VOLUME 8.5 fL (7.9-10.8); MONOCYTES # (AUTO) 0.6 10^3/uL (0.0-1.0); MONOCYTES % (AUTO) 7.6 %; NEUTROPHILS # (AUTO) 4.4 10^3/uL (1.5-6.6); NEUTROPHILS % (AUTO) 53.6 %; PLT - PLATELET COUNT 281 10^3/uL (130-450); RED BLOOD COUNT 4.36 10^6/uL (4.20-5.40); RED CELL DISTRIBUTION WIDTH 13.7 % (12.0-15.0); WHITE BLOOD COUNT 8.3 x10^3/uL (4.8-10.8)
[2022-04-30 06:57] LABS: ALBUMIN 4.8 g/dL (3.2-5.5); ALBUMIN/GLOBULIN RATIO 1.5 (1.0-2.2); BILIRUBIN,TOTAL 0.4 mg/dL (0.2-1.0); CALCIUM 9.4 mg/dL (8.5-10.3); CREATININE 0.6 mg/dL (0.4-1.0); POTASSIUM 3.6 mmol/L (3.5-5.0)
--- NOTE | 2022-04-30 07:39 | ED Physician Documentation ---
PD HPI ABD PAIN - Stated complaint Stated Complaint: ABD PX - Chief complaint Chief Complaint: Abd Pain - History obtained from History obtained from: Patient - History of Present Illness Timing - onset: Last night (about 11 pm, after getting off work.) Timing - duration: Hours Timing - details: Abrupt onset, Still present, Waxing and waning Quality: Cramping, Aching, Pain. No: Fullness/distended Location: Periumbilical, RLQ, Suprapubic Radiation: Lower back Improved by: Laying still. No: Eating Worsened by: Palpation. No: Eating, Breathing Associated symptoms: Nausea. No: Fever, Diarrhea, Constipation, Dysuria, Vaginal dc Similar symptoms before: No diagnosis Recently seen: Emergency Dept (seen recently in ER for similar with labs/UA and ultrasound without obvious cause for the pain. I reviewed the prior ER note.), Other (has had several visits to ERs and clinic for lower abd pains. Prior workup up has included labs, UA, CT, US, and will be seeing EXTERN this week or preop visit for pelvic laparoscpy.) Review of Systems Constitutional: denies: Fever, Chills Nose: denies: Rhinorrhea / runny nose, Congestion Throat: denies: Sore throat Respiratory: denies: Cough GI: reports: Abdominal Pain, Nausea, Vomiting. denies: Constipation, Diarrhea Neurologic: reports: Generalized weakness. denies: Focal weakness, Numbness, Near syncope Immunocompromised: denies: Immunocompromised PD PAST MEDICAL HISTORY - Past Medical History Past Medical History: Yes Cardiovascular: None Respiratory: None EXTERN: Ovarian cysts Psych: ADD/ADHD Musculoskeletal: None - Past Surgical History Past Surgical History: No - Present Medications Home Medications: Ambulatory Orders Medication Instructions Recorded Confirmed Ondansetron Odt [Zofran] 4 mg TL Q6H PRN #10 tablet 12/30/21 04/03/22 HYDROcod/ACETAM 5/325 [[place] 5/325] 1 - 2 ea PO Q6H PRN #14 tablet 04/02/22 04/03/22 Cetirizine HCl/Pseudoephedrine 1 each PO BID PRN #30 tab 04/24/22 [Zyrtec-D Tablet] Oxymetazoline HCl [Afrin] 1 spray NS BID #1 each 04/24/22 Oxycodone HCl/Acetaminophen 1 each PO Q6H PRN #14 tablet 04/26/22 [Percocet 5-325 mg Tablet] Meloxicam [Mobic] 7.5 mg PO BID 10 Days #20 tablet 04/30/22 - Allergies Allergies/Adverse Reactions: Allergies Allergy/AdvReac Type Severity Reaction Status Date / Time No Known Drug Allergies Allergy Verified 04/26/22 11:38 - Social History Does the pt smoke?: No Smoking Status: Never smoker Does the pt drink ETOH?: No Does the pt have substance abuse?: Yes Substance Use and Type: Marijuana - Immunizations Immunizations are current?: Yes - POLST Patient has POLST: No PD ED PE NORMAL - Vitals Vital signs reviewed: Yes - General General: Alert and oriented X 3, Well developed/nourished, Other (appears in pain, holding lower abdomen and is doubled over at waist. Crying. ) - Neck Neck: Supple, no meningeal sign, No adenopathy - Cardiac Cardiac: RRR, No murmur - Respiratory Respiratory: Clear bilaterally - Abdomen Abdomen: Normal bowel sounds, Soft, Non tender, Non distended, No organomegaly - Back Back: No CVA TTP - Derm Derm: Normal color, Warm and dry - Extremities Extremities: No calf tenderness / cord - Neuro Neuro: Alert and oriented X 3, No motor deficit, Normal speech Results - Vitals Vitals: Vital Signs - 24 hr 04/30/22 04/30/22 04/30/22 04:29 06:17 08:08 Temperature 36.6 C 36.3 C L 36.4 C L Heart Rate 107 H 82 79 Respiratory 17 16 16 Rate Blood Pressure 124/82 H 121/74 103/67 O2 Saturation 96 99 100 Oxygen O2 Source Room air - Labs Labs: Laboratory Tests 04/30/22 04/30/22 04/30/22 04:47 06:35 06:35 WBC 8.3 RBC 4.36 Hgb 11.7 L Hct 37.5 MCV 86.0 MCH 26.8 L MCHC 31.2 L RDW 13.7 Plt Count 281 MPV 8.5 Neut # (Auto) 4.4 Lymph # (Auto) 3.1 [place] # (Auto) 0.6 Eos # (Auto) 0.1 Baso # (Auto) 0.0 Absolute Nucleated RBC 0.00 Nucleated RBC % 0.0 Sodium 140 Potassium 3.6 Chloride 105 Carbon Dioxide 26 Anion Gap 9.0 BUN 10 Creatinine 0.6 Estimated GFR (MDRD) 127 Glucose 98 Calcium 9.4 Total Bilirubin 0.4 AST 13 ALT 12 Alkaline Phosphatase 49 Total Protein 8.0 Albumin 4.8 Globulin 3.2 Albumin/Globulin Ratio 1.5 Lipase 32 Urine Color LT. YELLOW Urine Clarity CLEAR Urine pH 7.0 Ur Specific [place] 1.010 Urine Protein NEGATIVE Urine Glucose (UA) NEGATIVE Urine Ketones NEGATIVE Urine Occult Blood NEGATIVE Urine Nitrite NEGATIVE Urine Bilirubin NEGATIVE Urine Urobilinogen 0.2 (NORMAL) Ur Leukocyte Esterase NEGATIVE Ur Microscopic Review NOT INDICATED Urine Culture Comments NOT INDICATED Urine HCG, Qual NEGATIVE C. glabrata (PCR) C. krusei (PCR) Lesli species DNA T. vaginalis (PCR) Bact Vaginosis (PCR) 04/30/22 08:40 WBC RBC Hgb Hct MCV MCH MCHC RDW Plt Count MPV Neut # (Auto) Lymph # (Auto) [place] # (Auto) Eos # (Auto) Baso # (Auto) Absolute Nucleated RBC Nucleated RBC % Sodium Potassium Chloride Carbon Dioxide Anion Gap BUN Creatinine Estimated GFR (MDRD) Glucose Calcium Total Bilirubin AST ALT Alkaline Phosphatase Total Protein Albumin Globulin Albumin/Globulin Ratio Lipase Urine Color Urine Clarity Urine pH Ur Specific [place] Urine Protein Urine Glucose (UA) Urine Ketones Urine Occult Blood Urine Nitrite Urine Bilirubin Urine Urobilinogen Ur Leukocyte Esterase Ur Microscopic Review Urine Culture Comments Urine HCG, Qual C. glabrata (PCR) NEGATIVE C. krusei (PCR) NEGATIVE Lesli species DNA NEGATIVE T. vaginalis (PCR) NEGATIVE Bact Vaginosis (PCR) NEGATIVE - Rads (name of study) abd/pelvic CT Relevant Findings:: Prelim report reviewed (no acute abnormality. ), See rad report PD Medical Decision Making - ED course Complexity details: reviewed results (normal UA/ labs including normal WBC, LFTs, and Amylase. She has lower to mid abd tenderness. Recent ultrasound was okay. ), considered differential (she has had recurring lower abd pain for months and has had a CT couple months ago, Ultrasounds, labs. Has seen EXTERN Dr. Jenkins in [place] with appt tomorrow as pre-op for diagnostic laparoscopy. COniseration of endometriosis is reason for scope plan. ), d/w patient Drug Therapy Requiring Monitoring for Toxicity: IV started and was given droperidol, Dilaudid and Toradol with pretty good improvement in pain. Recheck abdomen with some tender lower suprapubic area. Pelvic exam deferred, but vaginitis has not been evaluated per patient, so had her self swab. She is feeling improved enough to go home and have meds script for home. Departure - Departure Disposition: 01 Home, Self Care Clinical Impression: Lower abdominal pain Condition: Stable Record reviewed to determine appropriate education?: Yes Instructions: ED Abdominal Pain Female Non-Specific Abdominal Pain Follow-Up: SASKIA JENKINS MD [Physician No Access] - Prescriptions: Meloxicam [Mobic] 7.5 mg PO BID 10 Days #20 tablet Comments: Your CT scan does not show an obvious acute cause for the pain. Incidentally you do have gallstones which have been seen in the past. There is no signs of gallbladder wall inflammation or enlargement of the gallbladder. Your pain is not really in the area of that. I think that is just an incidental finding. You have a small cyst on the ovary which is very small and they are calling just a follicle. No signs of multiple cysts. Your urine looked okay without any signs of infection. We did have you obtain a vaginal swab to look for any signs of vaginal infection that may be causing this. This will result later today or tomorrow we will call you if there is any signs of bacterial vaginosis. Meanwhile stay well-hydrated. Continue with the oxycodone 2-3 times daily as needed for pain. Add a mild stool softener such as docusate. Continue with ondansetron as needed for nausea. I would suggest trying a different anti-inflammatory. I understand ibuprofen and Tylenol have not worked for you. You I have said they actually make it feel worse. It would still make sense to try an anti-inflammatory lip so lets try meloxicam twice daily with food and see if that does better and helps with your pain. I sent it to [facility] in [place]. Follow-up with your slab worker tomorrow as planned (I believe he said Dr. Jenkins). Discharge Date/Time: 04/30/22 10:00
[2022-04-30] MEDS ORDERED: HYDROmorphone 1 MG/ML CARPUJECT IVP STA (07:51)
[2022-04-30] MEDS ORDERED: SODIUM CHLORIDE 0.9% 1,000 ML IV STA (07:51)
[2022-04-30] MEDS ORDERED: DROPERIDOL 5 MG/2 ML VIAL IVP STA (07:52)
[2022-04-30] MEDS ORDERED: KETOROLAC 15 MG/ML VIAL IVP STA (07:52)
[2022-04-30] MEDS ORDERED: iohexoL-300 100 ML VIAL ONE (08:00)
[2022-04-30 08:10] VITALS: BP 103/67
--- NOTE | 2022-04-30 08:34 | CT Report ---
PROCEDURE: ABDOMEN/PELVIS W INDICATIONS: lower abd pain more consistent several days CONTRAST: 100ml Omnipaque 300 TECHNIQUE: After the administration of intravenous contrast, 5 mm thick sections acquired from the diaphragms to the symphysis. 5 mm thick coronal and sagittal reformats were acquired. For radiation dose reducti on, the following was used: automated exposure control, adjustment of mA and/or kV according to idalmis ent size. COMPARISON: 04/02/2022 FINDINGS: Image quality: Excellent. ABDOMEN: Lung bases: Lung bases are clear. Heart size is normal. Solid organs: Liver and spleen are normal in size and enhancement. Gallbladder contains tiny gallst ones as seen previously with no evidence of gallbladder wall thickening or acute cholecystitis. Bili gloria system is non dilated. Pancreas enhances normally. No adrenal nodules. Kidneys demonstrate nor mal size and enhancement, without hydronephrosis. Peritoneum and bowel: Bowel loops demonstrate normal wall thickness and caliber. No free fluid or a ir. Nodes and vessels: No retroperitoneal or mesenteric adenopathy by size criteria. Aorta and inferior vena cava are normal in size. Miscellaneous: No ventral hernias. PELVIS: Genitourinary: Bladder wall thickness is normal. Physiologic free fluid in the pelvis. Small low-de nsity ovarian cyst likely follicular in nature. Miscellaneous: No inguinal hernias or adenopathy. Bones: No suspicious bony lesions. No vertebral body compression fractures. IMPRESSION: Cholelithiasis redemonstrated with no findings of cholecystitis. Small physiologic ovarian cysts with small volume physiologic free fluid. Reviewed by: Mayank Marino MD on 04/30/2022 8:32 AM PDT Approved by: Mayank Marino MD on 04/30/2022 8:32 AM PDT Station ID: [id number]
[2022-04-30 10:52] LABS: BACTERIAL VAGINOSIS DNA NEGATIVE (NEGATIVE); CANDIDA GROUP DNA NEGATIVE (NEGATIVE); CANDIDA KRUSEI DNA NEGATIVE (NEGATIVE); TRICHOMONAS VAGINALIS DNA NEGATIVE (NEGATIVE)
[2022-04-30 10:53] LABS: CANDIDA GLABRATA DNA NEGATIVE (NEGATIVE)
[2022-04-30] MEDS ORDERED: iohexoL-300 100 ML VIAL IVP ONE (15:44)
== END 2022-04-30 10:00 | disposition home or self-care (01) ==
LOC: ED 04:10
DX: R10.30 Lower abdominal pain, unspecified (principal); K80.20 Calculus of gallbladder without cholecystitis without obstruction; N83.209 Unspecified ovarian cyst, unspecified side
CPT/HCPCS: 36415; 74177; 80053; 81003; 81025; 81514; 83690; 85025; 96374; 96375; 99284; J1170; Q9967; 81001; 87086

== ENCOUNTER 2022-05-13 13:06 | Emergency (ER) | payer MEDICAID ==
[2022-05-13 13:42] LABS: BASOPHILS % (AUTO) 0.4 %; EOSINOPHILS # (AUTO) 0.1 10^3/uL (0.0-0.7); EOSINOPHILS % (AUTO) 1.2 %; HCT - HEMATOCRIT 39.1 % (37.0-47.0); HGB - HEMOGLOBIN 12.3 g/dL (12.0-16.0); LYMPHOCYTES # (AUTO) 2.4 10^3/uL (1.5-3.5); LYMPHOCYTES % (AUTO) 34.3 %; MEAN CORPUSCULAR HEMOGLOBIN 27.1 pg (27.0-31.0); MEAN CORPUSCULAR HGB CONC 31.5 g/dL (32.0-36.0); MEAN CORPUSCULAR VOLUME 86.1 fL (81.0-99.0); MEAN PLATELET VOLUME 8.7 fL (7.9-10.8); MONOCYTES # (AUTO) 0.5 10^3/uL (0.0-1.0); MONOCYTES % (AUTO) 7.7 %; NEUTROPHILS # (AUTO) 3.9 10^3/uL (1.5-6.6); NEUTROPHILS % (AUTO) 56.3 %; PLT - PLATELET COUNT 289 10^3/uL (130-450); RED BLOOD COUNT 4.54 10^6/uL (4.20-5.40); RED CELL DISTRIBUTION WIDTH 13.9 % (12.0-15.0); WHITE BLOOD COUNT 6.9 x10^3/uL (4.8-10.8)
[2022-05-13] MEDS ORDERED: MORPHINE 2 MG/ML CARPUJECT IM STA (13:53)
--- NOTE | 2022-05-13 13:56 | ED Physician Documentation ---
PD HPI ABD PAIN - Stated complaint Stated Complaint: ABD PX - Chief complaint Chief Complaint: Abd Pain - Additional information Additional information: 21-year-old female with a history of chronic pelvic pain presents with lower abdominal pain. She has been seen here in the ER multiple times for this in the past and in fact recently had an exploratory lap for evaluation of possible endometriosis but states that they "did not find anything." She is following with her OB for this and states that he said they were back to square 1. She states pain today is very similar to prior episodes, it is in the lower abdomen bounces [id number] from right to left, she cannot identify any exacerbating factors such as p.o. intake or particular movements. She has no pain with p.o. intake, no dysuria. No constipation or diarrhea. She has not had a fever or chills. She denies any concern for STI, no dysuria, no vaginal discharge. She cannot identify any alleviating factors and states that she tried to take an oxycodone which she had leftover from her laparoscopic surgery and states this did not "help at all." She tells me that Toradol generally makes her pain worse. She had a CT scan during her last visit here which showed cholelithiasis and a uncomplicated ovarian cyst, no other acute findings. She has had ultrasounds and additional CTs in multiple lab evaluations in the past as well. Review of Systems Constitutional: reports: Reviewed and negative Nose: reports: Reviewed and negative Throat: reports: Reviewed and negative Cardiac: reports: Reviewed and negative Respiratory: reports: Reviewed and negative GI: reports: Abdominal Pain, Nausea. denies: Abdominal Swelling, Vomiting, Constipation, Diarrhea, Hematemesis, Bloody / black stool : reports: Reviewed and negative Skin: reports: Reviewed and negative Musculoskeletal: reports: Reviewed and negative PD PAST MEDICAL HISTORY - Past Medical History Past Medical History: Yes Cardiovascular: None Respiratory: None PROBATION COUNSELOR: Ovarian cysts, Other (chronic pelvic pain, unknown etiology) Psych: ADD/ADHD Musculoskeletal: None - Past Surgical History Past Surgical History: No /PROBATION COUNSELOR: Other - Present Medications Home Medications: Ambulatory Orders Medication Instructions Recorded Confirmed Ondansetron Odt [Zofran] 4 mg TL Q6H PRN #10 tablet 12/30/21 04/03/22 HYDROcod/ACETAM 5/325 [[place] 5/325] 1 - 2 ea PO Q6H PRN #14 tablet 04/02/22 04/03/22 Cetirizine HCl/Pseudoephedrine 1 each PO BID PRN #30 tab 04/24/22 [Zyrtec-D Tablet] Oxymetazoline HCl [Afrin] 1 spray NS BID #1 each 04/24/22 Oxycodone HCl/Acetaminophen 1 each PO Q6H PRN #14 tablet 04/26/22 [Percocet 5-325 mg Tablet] Meloxicam [Mobic] 7.5 mg PO BID 10 Days #20 tablet 04/30/22 - Allergies Allergies/Adverse Reactions: Allergies Allergy/AdvReac Type Severity Reaction Status Date / Time No Known Drug Allergies Allergy Verified 05/13/22 13:25 - Social History Does the pt smoke?: No Smoking Status: Current every day smoker Does the pt drink ETOH?: No Does the pt have substance abuse?: Yes Substance Use and Type: Marijuana - Immunizations Immunizations are current?: Yes - POLST Patient has POLST: No PD ED PE NORMAL - Vitals Vital signs reviewed: Yes - General General: Alert and oriented X 3, No acute distress, Well developed/nourished - HEENT HEENT: Atraumatic, Pharynx benign - Neck Neck: Supple, no meningeal sign, No JVD - Cardiac Cardiac: RRR, No murmur - Respiratory Respiratory: No respiratory distress, Clear bilaterally - Abdomen Abdomen: Normal bowel sounds, Soft, Non tender, Non distended, Other (no guarding) - Female Female : Deferred - Back Back: No CVA TTP, No spinal TTP - Derm Derm: Normal color, Warm and dry, No rash - Extremities Extremities: No deformity, No tenderness to palpate, Normal ROM s pain - Neuro Neuro: Alert and oriented X 3, No motor deficit, No sensory deficit, Normal speech Eye Opening: Spontaneous Motor: Obeys Commands Verbal: Oriented GCS Score: 15 Results - Vitals Vitals: Vital Signs - 24 hr 05/13/22 05/13/22 05/13/22 13:22 13:43 14:43 Temperature 36.7 C 36.8 C Heart Rate 91 90 74 Respiratory 15 18 16 Rate Blood Pressure 116/69 116/82 H 102/71 O2 Saturation 99 100 100 Oxygen O2 Source Room air - Labs Labs: Laboratory Tests 05/13/22 05/13/22 05/13/22 13:37 13:37 13:58 WBC 6.9 RBC 4.54 Hgb 12.3 Hct 39.1 MCV 86.1 MCH 27.1 MCHC 31.5 L RDW 13.9 Plt Count 289 MPV 8.7 Neut # (Auto) 3.9 Lymph # (Auto) 2.4 [place] # (Auto) 0.5 Eos # (Auto) 0.1 Baso # (Auto) 0.0 Absolute Nucleated RBC 0.00 Nucleated RBC % 0.0 Sodium 140 Potassium 3.4 L Chloride 106 Carbon Dioxide 27 Anion Gap 7.0 BUN 15 Creatinine 0.6 Estimated GFR (MDRD) 127 Glucose 99 Calcium 9.0 Total Bilirubin 0.8 AST 15 ALT 13 Alkaline Phosphatase 45 Total Protein 7.6 Albumin 4.6 Globulin 3.0 Albumin/Globulin Ratio 1.5 Lipase 31 Urine Color YELLOW Urine Clarity CLEAR Urine pH 7.0 Ur Specific [place] 1.020 Urine Protein NEGATIVE Urine Glucose (UA) NEGATIVE Urine Ketones NEGATIVE Urine Occult Blood NEGATIVE Urine Nitrite NEGATIVE Urine Bilirubin NEGATIVE Urine Urobilinogen 0.2 (NORMAL) Ur Leukocyte Esterase NEGATIVE Ur Microscopic Review NOT INDICATED Urine Culture Comments NOT INDICATED Urine HCG, Qual NEGATIVE PD Medical Decision Making - ED course Complexity details: reviewed old records, reviewed results, re-evaluated patient, considered differential, d/w patient ED course: 21-year-old female who has a history of chronic pelvic pain which has been worked up extensively in the past presents with an exacerbation of her chronic pelvic pain. She has no associated symptoms as described in HPI. Her physical exam is reassuring, abdomen is soft, there is no focal tenderness or guarding. Her vital signs today are stable. I did obtain labs as she did recently have laparoscopic surgery and there are no signs of acute infection or other acute abnormality. Her incision sites are well-healing and there is no palpable abscesses or erythema. I do not feel any additional imaging is indicated today as patient has had extensive work-up in the past without etiology. She has had recent negative gonorrhea chlamydia testing and denies any concern for STI today.I therefore do think she is stable for discharge home at this time, she was given 4 mg of IM morphine here with some improvement in her symptoms but I do not recommend long-term or recurrent narcotic use for this issue as the etiology has not been determined yet. 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 I advised to continue Tylenol, heating pad and ibuprofen as needed. Patient states understanding and will continue follow-up with her mine equipment design engineer for this chronic pelvic pain issue. Departure - Departure Disposition: 01 Home, Self Care Clinical Impression: Chronic pelvic pain in female Condition: Good Instructions: ED Pelvic Pain [facility] Comments: You presented today with lower abdominal and pelvic pain. This is similar to prior episodes. Unfortunately we have not been able to determine the etiology of your pain today or during prior work-ups. There does not appear to be any acute infection or other acute process going on today. Please continue follow- up with your OB and your primary care provider for ongoing pelvic pain managem ent. Discharge Date/Time: 05/13/22 14:44
[2022-05-13 14:00] LABS: ALBUMIN 4.6 g/dL (3.2-5.5); ALBUMIN/GLOBULIN RATIO 1.5 (1.0-2.2); BILIRUBIN,TOTAL 0.8 mg/dL (0.2-1.0); CREATININE 0.6 mg/dL (0.4-1.0); POTASSIUM 3.4 mmol/L (3.5-5.0); TOTAL PROTEIN 7.6 g/dL (6.7-8.2)
--- OUTSIDE RECORDS SUMMARY | 2022-05-13 14:14 | EXTERNAL MEDICAL SUMMARY RPT | Continuity of Care Document ---
:2000 Author Organization [place] Address [address] [place] [address] Phone Care Team Providers Name Role Phone Unavailable Unavailable Unavailable Abdias Valles Unavailable Unavailable Allergies and Intolerances date description facility type (no date) No Known Drug Allergies [facility] ([facility] own) Encounters No information. Functional Status No information. Immunizations No information. Medications date description facility 2022-05-04 00:[address] [facility] 2022-05-01 00:00 Oxycodone-Acetaminophen [facility] 2022-05-04 00:[address] [facility] 2022-03-21 00:[address] [facility] Problems date description facility 2022-03-08 [address] [facility] 2022-03-08 00:[address] [facility] 2022-03-21 10:55 Unspecified abdominal pain [facility] 2022-03-21 10:55 Encounter for screening for infections with [facility] 2022-03-21 16:11 Amenorrhea, unspecified [facility] 2022-03-21 16:11 Pelvic and perineal pain [facility] 2022-03-21 16:11 Encounter for test, result [facility] 2022-03-21 17:21 Amenorrhea, unspecified [facility] 2022-03-21 17:21 Pelvic and perineal pain [facility] 2022-03-21 17:21 Encounter for test, result [facility] 2022-03-22 00:57 Unspecified abdominal pain [facility] 2022-03-22 00:57 Encounter for screening for infections with [facility] 2022-04-[address] [facility] 2022-04-04 00:00 Attention deficit hyperactivity disorde r (ADHD) [facility] 2022-04-04 00:[address] [facility] 2022-04-04 00:[address] [facility] 2022-04-04 00:00 Disorder of optic nerve [facility] 2022-04-04 00:[address] [facility] 2022-04-04 00:[address] [facility] 2022-04-04 00:[address] [facility] 2022-04-04 00:[address] [facility] 2022-04-04 00:[address] [facility] 2022-04-04 00:[address] [facility] 2022-04-04 00:[address] [facility] 2022-04-04 00:[address] [facility] 2022-04-04 00:[address] [facility] 2022-04-13 00:00 Amenorrhea following discontinuation of oral [facility] contraceptive use 2022-04-13 00:00 Pelvic pain in female [facility] 2022-04-13 17:00 Encounter for screening for infections with [facility] 2022-04-13 18:03 Pelvic and perineal pain [facility] 2022-04-14 02:27 Encounter for screening for infections with [facility] 2022-04-24 10:10 Pain in right ankle and joints of right [facility] 2022-05-04 06:46 Endometriosis, unspecified [facility] 2022-05-04 06:46 Pelvic and perineal pain [facility] 2022-05-04 06:46 Right lower quadrant pain [facility] 2022-05-04 07:01 Pain in right ankle and joints of [facility] 2022-05-04 09:11 Endometriosis, unspecified [facility] 2022-05-04 09:11 [facility] 09:11 Right lower quadrant pain [facility] 2022-05-04 09:14 Endometriosis, unspecified [facility] 2022-05-04 09:14 Pelvic and [facility]ineal pain [facility] 2022-05-04 09:14 Right lower quadrant pain [facility] 2022-05-04 09:48 Endometriosis, unspecified [facility] 2022-05-04 09:48 Pelvic and perineal pain [facility] 2022-05-04 09:48 [facility] Procedures date description facility 2022-03-21 00:00 Complete ultrasound of pelvis [facility] 2022-05-04 00:00 Laparoscopic Fulguration Endometriosis (Not [facility] Applicable) Results/Labs test date author facility value unit interpret ation Result panel 1 (unknown) (no date) (unknown[facility]) Result panel 2 (unknown) (no date) (unknown[facility] Result panel 3 (unknown) (no date) (unknown[facility]) Result panel 4 (unknown) (no date) (unknown[facility]) Result panel 5 (unknown) (no date) (unknown[facility]) Result panel 6 (unknown) (no date) (unknown[facility]) Result panel 7 (unknown) (no date) (unknown[facility]) Result panel 8 (unknown) (no date) (unknown[facility]) Result panel 9 (unknown) (no date) (unknown[facility]) Result panel 10 (unknown) (no date) (unknown[facility]) Result panel 11 (unknown) (no date) (unknown[facility]) Result panel 12 (unknown) (no date) (unknown[facility]) Result panel 13 (unknown) (no date) (unknown[facility]) Result panel 14 (unknown) (no date) (unknown[facility]) Result panel 15 (unknown) (no date) (unknown[facility]) Result panel 16 (unknown) (no date) (unknown[facility]) Result panel 17 (unknown) (no date) (unknown[facility]) Result panel 18 (unknown) (no date) (unknown[facility]) Result panel 19 (unknown) (no date) (unknown[facility]) Result panel 20 (unknown) (no date) (unknown[facility]) Result panel 21 (unknown) (no date) (unknown[facility]) Result panel 22 (unknown) (no date) (unknown[facility]) Result panel 23 (unknown) (no date) (unknown[facility]) Result panel 24 (unknown) (no date) (unknown) [facility]) Result panel 25 (unknown) (no date) (unknown) [facility]) Result panel 26 (unknown) (no date) (unknown) [facility]) Result panel 27 (unknown) (no date) (unknown) [facility]) Result panel 28 (unknown) (no date) (unknown) [facility]) Result panel 29 (unknown) (no date) (unknown[facility]) Result panel 30 (unknown) (no date) (unknown[facility]) Result panel 31 (unknown) (no date) (unknown[facility]) Result panel 32 (unknown) (no date) (unknown[facility]) Result panel 33 (unknown) (no date) (unknown) [facility]) Result panel 34 (unknown) (no date) (unknown) [facility]) Result panel 35 (unknown) (no date) (unknown) [facility]) Result panel 36 (unknown) (no date) (unknown) [facility] unknown) Result panel 37 (unknown) (no date) (unknown) [facility] unknown) Result panel 38 (unknown) (no date) (unknown) [facility] unknown) Result panel 39 (unknown) (no (unknown) (unknown) (no value) (units (unk nown) date) unknown) (unknown) (no (unknown) (unknown) 03/08/22 (units (unkno wn) date) unknown) (unknown) (no (unknown) (unknown) 19:36 03/08/22 (units (unknown) date) unknown) (unknown) (no (unknown) (unknown) 21:35 03/08/22 (units (unknown) date) unknown) (unknown) (no (unknown) (unknown) 21:36 (units (unkno wn) date) unknown) (unknown) (no (unknown) (unknown) : [id number] (units (u nknown) date) unknown) (unknown) (no [...] (unknown) (unknown) : 2000 (units (unknown) date) Acct:[id number] unknown) (unknown) (no (unknown) (unknown) Date of [...] date) Signs: unknown) (unknown) (no (unknown) (unknown) [facility] (units (unknown) date) [address] unknown) [place] [address] (unknown) (no (unknown) (unknown) Lab Data (units [...] (unknown) (unknown) Urine Specific (units (unknown) date) Flora 1.010 unknown) (unknown) (no (unknown) (unknown) Vital [...] wn) date) independently: unknown) Yes Result panel 40 (unknown) (no (unknown) (unknown) (no value) (units [...] date) unknown) (unknown) (no (unknown) (unknown) : [id number] (units (u nknown) date) unknown) (unknown) (no [...] (unknown) (unknown) : 2000 (units (unknown) date) Acct:[id number] unknown) (unknown) (no (unknown) (unknown) Date of [...] date) sts unknown) (unknown) (no (unknown) (unknown) [facility] (units (unknown) date) [address] unknown) [place] [address] (unknown) (no (unknown) (unknown) Ketorolac (units (unkn [...] (unknown) (unknown) Urine Specific (units (unknown) date) Flora 1.010 unknown) (unknown) (no (unknown) (unknown) Vital [...] frequent recently. She denies any Result panel 41 (unknown) (no (unknown) (unknown) (no value) (units (unk nown) date) unknown) (unknown) (no (unknown) (unknown) 03/21/22 (units (unkno wn) date) unknown) (unknown) (no (unknown) (unknown) : [id number] (units (u nknown) date) unknown) (unknown) (no (unknown) (unknown) Age/Sex: 21 / F (units (unknown) date) Date of Service: unknown) (unknown) (no (unknown) (unknown) Allergies (units (unkn own) date) unknown) (unknown) (no (unknown) (unknown) [place], [place] (units ( unknown) date) [address] unknown) (unknown) (no (unknown) (unknown) Attending Dr: (units ( unknown) date) Yordan lLanos unknown) (unknown) (no (unknown) (unknown) : 2000 (units (unknown) date) Acct:[id number] unknown) (unknown) (no (unknown) (unknown) Dept at [...] (unknown) (unknown) 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) Menorrhagia/Dysme norrhea (unknown) (no [...] unknown) effort is made to edit content, housekeeping aid errors Result panel 42 (unknown) (no (unknown) (unknown) (no value) (units (unk nown) date) unknown) (unknown) (no (unknown) (unknown) 03/21/22 (units (unkno wn) date) unknown) (unknown) (no (unknown) (unknown) : [id number] (units (u nknown) date) unknown) (unknown) (no (unknown) (unknown) Age/Sex: 21 / F (units (unknown) date) Date of Service: unknown) (unknown) (no (unknown) (unknown) Allergies (units (unkn own) date) unknown) (unknown) (no (unknown) (unknown) [place], [place] (units ( unknown) date) [address] unknown) (unknown) (no (unknown) (unknown) Attending Dr: (units ( unknown) date) Yordan Llanos unknown) (unknown) (no (unknown) (unknown) : 2000 (units (unknown) date) Acct:[id number] unknown) (unknown) (no (unknown) (unknown) Dept at [...] (unknown) (unknown) 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) Menorrhagia/Dysme norrhea (unknown) (no [...] unknown) effort is made to edit content, housekeeping aid errors Result panel 43 (unknown) (no (unknown) (unknown) (no value) (units (unk nown) date) unknown) (unknown) (no (unknown) (unknown) 03/21/22 (units (unkno wn) date) unknown) (unknown) (no (unknown) (unknown) 10:17 (units (unkno wn) date) unknown) (unknown) (no (unknown) (unknown) : [id number] (units (u nknown) date) unknown) (unknown) (no (unknown) (unknown) Age/Sex: 21 / F (units (unknown) date) Date of Service: unknown) (unknown) (no (unknown) (unknown) Allergies (units (unkn own) date) unknown) (unknown) (no (unknown) (unknown) [place], [place] (units ( unknown) date) [address] unknown) (unknown) (no (unknown) (unknown) Attending Dr: (units ( unknown) date) Yordan Llanos unknown) (unknown) (no (unknown) (unknown) BMI 21.3 (units (unkno wn) date) unknown) (unknown) (no (unknown) (unknown) BP 120/70 (units (unkn own) date) unknown) (unknown) (no (unknown) (unknown) Blood Pressure (units (unknown) date) Location Rt unknown) brachial (unknown) (no (unknown) (unknown) : 2000 (units (unknown) date) Acct:[id number] unknown) (unknown) (no (unknown) (unknown) Date of [...] known) date) unknown) (unknown) (no (unknown) (unknown) 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 (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 (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) on [...] (unknown) (unknown) 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) Menorrhagia/Dysme norrhea (unknown) (no [...] unknown) effort is made to edit content, housekeeping aid errors Result panel 44 (unknown) (no (unknown) (unknown) (no value) (units (unk nown) date) unknown) (unknown) (no (unknown) (unknown) 03/21/22 (units (unkno wn) date) unknown) (unknown) (no (unknown) (unknown) 10:17 (units (unkno wn) date) unknown) (unknown) (no (unknown) (unknown) 6-8 week history (units (unknown) date) unknown) (unknown) (no (unknown) (unknown) : [id number] (units (u nknown) date) unknown) (unknown) (no (unknown) (unknown) Age/Sex: 21 / F (units (unknown) date) Date of Service: unknown) (unknown) (no (unknown) (unknown) Allergies (units (unkn own) date) unknown) (unknown) (no (unknown) (unknown) DIMITRIOS Odonnell (units ( unknown) date) [address] unknown) (unknown) (no (unknown) (unknown) Attending Dr: [...] (unknown) (unknown) : 2000 (units (unknown) date) Acct:[id number] unknown) (unknown) (no (unknown) (unknown) Date of [...] known) date) unknown) (unknown) (no (unknown) (unknown) 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 (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 (unknown) date) on [...] (unknown) (unknown) 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) Menorrhagia/Dysme norrhea (unknown) (no [...] unknown) effort is made to edit content, housekeeping aid errors Result panel 45 (unknown) (no (unknown) (unknown) (no value) (units (unk nown) date) unknown) (unknown) (no (unknown) (unknown) 03/21/22 (units (unkno wn) date) unknown) (unknown) (no (unknown) (unknown) 10:17 (units (unkno wn) date) unknown) (unknown) (no (unknown) (unknown) 6-8 week history (units (unknown) date) of lower abdominal unknown) discomfort which is typically midline but (unknown) (no (unknown) (unknown) : [id number] (units (u nknown) date) unknown) (unknown) (no (unknown) (unknown) Age/Sex: 21 / F (units (unknown) date) Date of Service: unknown) (unknown) (no (unknown) (unknown) Allergies (units (unkn own) date) unknown) (unknown) (no (unknown) (unknown) DIMITRIOS Odonnell (units ( unknown) date) [address] unknown) (unknown) (no (unknown) (unknown) Attending Dr: [...] (unknown) (unknown) : 2000 (units (unknown) date) Acct:[id number] unknown) (unknown) (no (unknown) (unknown) Date of [...] known) date) unknown) (unknown) (no (unknown) (unknown) 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 (units (unknown) date) [...] unknown) (unknown) (no (unknown) (unknown) 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) Menorrhagia/Dysmen [...] unknown) effort is made to edit content, housekeeping aid errors Result panel 46 (unknown) (no (unknown) (unknown) (no value) (units [...] midline but (unknown) (no (unknown) (unknown) : [id number] (units (u nknown) date) unknown) (unknown) (no (unknown) (unknown) Affect: normal (units (unknown) date) affect unknown) (unknown) (no (unknown) (unknown) Age/Sex: 21 / F (units (unknown) date) Date of Service: unknown) (unknown) (no (unknown) (unknown) Allergies (units (unkn own) date) unknown) (unknown) (no (unknown) (unknown) [place], [place] (units ( unknown) date) [address] unknown) (unknown) (no (unknown) (unknown) Appearance: (units [...] (unknown) (unknown) : 2000 (units (unknown) date) Acct:[id number] unknown) (unknown) (no (unknown) (unknown) Date of [...] date) mood unknown) (unknown) (no (unknown) (unknown) 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 (units (unknown) date) [...] urethra (unknown) (no (unknown) (unknown) 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) Menorrhagia/Dysmen [...] unknown) effort is made to edit content, housekeeping aid errors (unknown) (no (unknown) (unknown) tender and other (units (unknown) date) unknown) (unknown) (no (unknown) (unknown) tender, (units (unkno wn) date) non-tender, no unknown) cervical motion tenderness and displaced (Slightly (unknown) (no (unknown) (unknown) urethra and no (units (unknown) date) lesions unknown) Result panel 47 (unknown) (no (unknown) (unknown) (no value) (units [...] midline but (unknown) (no (unknown) (unknown) : [id number] (units (u nknown) date) unknown) (unknown) (no (unknown) (unknown) Abdominal (units (unkn own) date) location: lower unknown) abdomen, unspecified Qualified Code(s): (unknown) (no (unknown) (unknown) Affect: normal (units (unknown) date) affect unknown) (unknown) (no (unknown) (unknown) Age/Sex: 21 / F (units (unknown) date) Date of Service: unknown) (unknown) (no (unknown) (unknown) Allergies (units (unkn own) date) unknown) (unknown) (no (unknown) (unknown) [place], [place] (units ( unknown) date) [address] unknown) (unknown) (no (unknown) (unknown) Appearance: (units [...] (unknown) (unknown) : 2000 (units (unknown) date) Acct:[id number] unknown) (unknown) (no (unknown) (unknown) Date of [...] (unknown) Medical History (units (unknown) date) (Reviewed 01/27/23 unknown) @ 02:55 by Abdias Valles DO) (unknown) (no (unknown) (unknown) Medications (units (un known) date) unknown) (unknown) (no (unknown) (unknown) Mental Status: (units (unknown) date) mental status unknown) grossly normal (unknown) (no (unknown) (unknown) Mood: congruent (units (unknown) date) mood unknown) (unknown) (no (unknown) (unknown) 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 (units (unknown) date) [...] urethra (unknown) (no (unknown) (unknown) 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) Menorrhagia/Dysmen [...] unknown) effort is made to edit content, housekeeping aid errors (unknown) (no (unknown) (unknown) source for [...] Patient has not had pelvic Result panel 48 (unknown) (no (unknown) (unknown) (no value) (units [...] midline but (unknown) (no (unknown) (unknown) : [id number] (units (u nknown) date) unknown) (unknown) (no [...] OCs as she (unknown) (no (unknown) (unknown) [place], [place] (units ( unknown) date) [address] unknown) (unknown) (no (unknown) (unknown) Appearance: (units [...] (unknown) (unknown) : 2000 (units (unknown) date) Acct:[id number] unknown) (unknown) (no (unknown) (unknown) Date of [...] [address]955 (unknown) (no (unknown) (unknown) Draft (units ( wn) date) unknown) (unknown) (no [...] date) mood unknown) (unknown) (no (unknown) (unknown) 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 (units (unknown) date) [...] urethra (unknown) (no (unknown) (unknown) 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) Menorrhagia/Dysmen [...] unknown) effort is made to edit content, housekeeping aid errors (unknown) (no (unknown) (unknown) source for [...] Patient has not had pelvic Result panel 49 (unknown) (no (unknown) (unknown) (no value) (units [...] midline but (unknown) (no (unknown) (unknown) : [id number] (units (u nknown) date) unknown) (unknown) (no [...] OCs as she (unknown) (no (unknown) (unknown) [place], [place] (units ( unknown) date) [address] unknown) (unknown) (no (unknown) (unknown) Appearance: (units [...] (unknown) (unknown) : 2000 (units (unknown) date) Acct:[id number] unknown) (unknown) (no (unknown) (unknown) Date of [...] date) mood unknown) (unknown) (no (unknown) (unknown) 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 (units (unknown) date) [...] urethra (unknown) (no (unknown) (unknown) 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) Menorrhagia/Dysmen [...] unknown) effort is made to edit content, housekeeping aid errors (unknown) (no (unknown) (unknown) source for [...] Patient has not had pelvic Result panel 50 (unknown) (no date) (unknown) (unknown) NOT DETECTED (units ( unknown) unknown) Result panel 51 (unknown) (no (unknown) (unknown) (no value) (units (unk nown) date) unknown) (unknown) (no (unknown) (unknown) #: [id number] (units ( unknown) date) unknown) (unknown) (no (unknown) (unknown) 03/21/22 (units (unkno wn) date) unknown) (unknown) (no (unknown) (unknown) [address] [place] [address] (units (unknown) date) unknown) (unknown) (no (unknown) (unknown) Accession (units (unkn own) date) Number: unknown) [id number] (unknown) (no (unknown) (unknown) Additional (units (unk nown) date) endovaginal unknown) scanning was necessary due to incomplete visualization (unknown) (no (unknown) (unknown) Age/Sex: 21 / F (units (unknown) date) Date of Service: unknown) (unknown) (no (unknown) (unknown) DIMITRIOS Odonnell (units ( unknown) date) [address] unknown) (unknown) (no (unknown) (unknown) Approved by: (units (u nknown) date) ange Borden M.D. on 03/23/2022 at 9:14 (unknown) (no (unknown) (unknown) COMPARISON: (units (un known) date) None. unknown) (unknown) (no (unknown) (unknown) : 2000 (units (unknown) date) Acct:[id number] unknown) (unknown) (no (unknown) (unknown) Dictated by: (units (u nknown) date) Mayank Marino unknownRikki Cortes on 03/23/2022 at 9:09 (unknown) (no (unknown) (unknown) FINDINGS: (units (unkn own) date) unknown) (unknown) (no (unknown) (unknown) IMPRESSION: (units (un known) date) Normal study. unknown) (unknown) (no (unknown) (unknown) INDICATIONS: LLQ (units (unknown) date) Pelvic Pain unknown) (unknown) (no (unknown) (unknown) [facility] (units (unknown) date) unknown) (unknown) (no (unknown) [...] both ovaries. 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 (units (unknown) date) [...] (unknown) (unknown) Preg Expiration (units (unknown) date) [id number] Last Edit unknown) by Maggie Bonds MA on 03/21/22 17:11 (unknown) (no (unknown) (unknown) Preg Lot # (units (unk nown) date) [id number] Last unknown) Edit by Maggie Bonds MA [...] urethra (unknown) (no (unknown) (unknown) 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) Menorrhagia/Dysmen [...] unknown) effort is made to edit content, housekeeping aid errors (unknown) (no (unknown) (unknown) source for [...] Patient has not had pelvic Result panel 53 (unknown) (no (unknown) (unknown) (no value) (units [...] midline but (unknown) (no (unknown) (unknown) : [id number] (units (u nknown) date) unknown) (unknown) (no [...] OCs as she (unknown) (no (unknown) (unknown) [place], [place] (units ( unknown) date) [address] unknown) (unknown) (no (unknown) (unknown) Appearance: (units [...] (unknown) (unknown) : 2000 (units (unknown) date) Acct:[id number] unknown) (unknown) (no (unknown) (unknown) Date of [...] date) (Reviewed 03/09/22 unknown) @ 02:55 by Abdisa Valles DO) (unknown) (no (unknown) (unknown) Medications (units (un known) date) unknown) (unknown) (no (unknown) (unknown) Medications: (units (u nknown) date) unknown) (unknown) (no (unknown) (unknown) Mental Status: (units (unknown) date) mental status unknown) grossly normal (unknown) (no (unknown) (unknown) Mood: congruent (units (unknown) date) mood unknown) (unknown) (no (unknown) (unknown) 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 (units (unknown) date) [...] (unknown) (unknown) Preg Expiration (units (unknown) date) [id number] Last Edit unknown) by Maggie Bonds MA on 03/21/22 17:11 (unknown) (no (unknown) (unknown) Preg Lot # (units (unk nown) date) [id number] Last unknown) Edit by Maggie Bonds MA [...] (unknown) date) unknown) (unknown) (no (unknown) (unknown) pelvic (units (unkn own) date) complete 03/21/22 unknown) N91.2 - Amenorrhea, unspecified, R10.2 - Pelvic and (unknown) (no (unknown) (unknown) Urethra: normal (units (unknown) date) appearance of the unknown) urethra (unknown) (no (unknown) (unknown) 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) Menorrhagia/Dysmen [...] unknown) effort is made to edit content, housekeeping aid errors m (unknown) (no (unknown) (unknown) source [...] Patient has not had pelvic Result panel 54 (unknown) (no (unknown) (unknown) (no value) (units (unk nown) date) unknown) (unknown) (no (unknown) (unknown) 04/13/22 (units (unkno wn) date) unknown) (unknown) (no (unknown) (unknown) : [id number] (units (u nknown) date) unknown) (unknown) (no (unknown) (unknown) ADHD (-2004) (units (u nknown) date) unknown) (unknown) (no (unknown) (unknown) Age/Sex: 21 / F (units (unknown) date) Date of Service: unknown) (unknown) (no (unknown) (unknown) Allergies (units (unkn own) date) () unknown) (unknown) (no (unknown) (unknown) Allergies (units (unkn own) date) unknown) (unknown) (no (unknown) (unknown) [place], [place] (units ( unknown) date) [id number] unknown) (unknown) (no (unknown) (unknown) Ankle pain (units (unk nown) date) () unknown) (unknown) (no (unknown) (unknown) Anxiety () (units (unknown) date) unknown) (unknown) (no (unknown) (unknown) Attending Dr: (units ( unknown) date) Yordan Llanos unknown) (unknown) (no (unknown) (unknown) Chronic cough (units ( unknown) date) () unknown) (unknown) (no (unknown) (unknown) : 2000 (units (unknown) date) Acct:[id number] unknown) (unknown) (no (unknown) (unknown) Dept at [...] unknown) effort is made to edit content, housekeeping aid errors Result panel 55 (unknown) (no (unknown) (unknown) (no value) (units (unk nown) date) unknown) (unknown) (no (unknown) (unknown) 04/13/22 (units (unkno wn) date) unknown) (unknown) (no (unknown) (unknown) 16:18 (units (unkno wn) date) unknown) (unknown) (no (unknown) (unknown) : [id number] (units (u nknown) date) unknown) (unknown) (no (unknown) (unknown) ADHD (-2005) (units (u nknown) date) unknown) (unknown) (no (unknown) (unknown) Age/Sex: 21 / F (units (unknown) date) Date of Service: unknown) (unknown) (no (unknown) (unknown) Allergies (units (unkn own) date) () unknown) (unknown) (no (unknown) (unknown) Allergies (units (unkn own) date) unknown) (unknown) (no (unknown) (unknown) [place], [place] (units ( unknown) date) [id number] unknown) (unknown) (no (unknown) (unknown) Ankle pain [...] (unknown) (unknown) : 2000 (units (unknown) date) Acct:[id number] unknown) (unknown) (no (unknown) (unknown) Date of [...] unknown) effort is made to edit content, housekeeping aid errors Result panel 56 (unknown) (no (unknown) (unknown) (no value) (units (unk nown) date) unknown) (unknown) (no (unknown) (unknown) 04/13/22 (units (unkno wn) date) unknown) (unknown) (no (unknown) (unknown) 16:18 (units (unkno wn) date) unknown) (unknown) (no (unknown) (unknown) : [id number] (units (u nknown) date) unknown) (unknown) (no (unknown) (unknown) ADHD (-2004) (units (u nknown) date) unknown) (unknown) (no (unknown) (unknown) Age/Sex: 21 / F (units (unknown) date) Date of Service: unknown) (unknown) (no (unknown) (unknown) Allergies (units (unkn own) date) (-2009) unknown) (unknown) (no (unknown) (unknown) Allergies (units (unkn own) date) unknown) (unknown) (no (unknown) (unknown) [place]IMITRIOS [place] (units ( unknown) date) [id number] unknown) (unknown) (no (unknown) (unknown) Ankle pain [...] (unknown) (unknown) : 2000 (units (unknown) date) Acct:[id number] unknown) (unknown) (no (unknown) (unknown) Date of [...] (unknown) Foot pain (units (unkn own) date) (-2013) unknown) (unknown) (no (unknown) (unknown) Fracture () [...] (unknown) (unknown) Migraines (units (unkn own) date) (-2016) unknown) (unknown) (no (unknown) (unknown) Negative (units (unkno wn) date) unknown) (unknown) (no (unknown) (unknown) Negative (units 22072- 6 date) unknown) (unknown) (no (unknown) (unknown) Negative (units 26570- 1 date) unknown) (unknown) (no (unknown) (unknown) Negative (units 79072- 5 date) unknown) (unknown) (no (unknown) (unknown) [...] unknown) effort is made to edit content, housekeeping aid errors Result panel 57 (unknown) (no (unknown) (unknown) (no value) (units (unk nown) date) unknown) (unknown) (no (unknown) (unknown) 04/13/22 (units (unkno wn) date) unknown) (unknown) (no (unknown) (unknown) 16:18 (units (unkno wn) date) unknown) (unknown) (no (unknown) (unknown) : [id number] (units (u nknown) date) unknown) (unknown) (no (unknown) (unknown) ADHD (-2005) (units (u nknown) date) unknown) (unknown) (no (unknown) (unknown) Age/Sex: 21 / F (units (unknown) date) Date of Service: unknown) (unknown) (no (unknown) (unknown) Allergies (units (unkn own) date) () unknown) (unknown) (no (unknown) (unknown) Allergies (units (unkn own) date) unknown) (unknown) (no (unknown) (unknown) DIMITRIOS [place] (units ( unknown) date) [address] unknown) (unknown) (no (unknown) (unknown) Ankle pain [...] (unknown) (unknown) : 2000 (units (unknown) date) Acct:[id number] unknown) (unknown) (no (unknown) (unknown) Date of [...] unknown) effort is made to edit content, housekeeping aid errors Result panel 58 (unknown) (no (unknown) (unknown) (no value) (units [...] She had (unknown) (no (unknown) (unknown) : [id number] (units (u nknown) date) unknown) (unknown) (no (unknown) (unknown) ADHD (-2004) (units (u nknown) date) unknown) (unknown) (no (unknown) (unknown) Age/Sex: 21 / F (units (unknown) date) Date of Service: unknown) (unknown) (no (unknown) (unknown) Allergies (units (unkn own) date) () unknown) (unknown) (no (unknown) (unknown) Allergies (units (unkn own) date) unknown) (unknown) (no (unknown) (unknown) [place], [place] (units ( unknown) date) [id number] unknown) (unknown) (no (unknown) (unknown) Ankle pain [...] (unknown) (unknown) : 2000 (units (unknown) date) Acct:[id number] unknown) (unknown) (no (unknown) (unknown) Date of [...] unknown) effort is made to edit content, housekeeping aid errors (unknown) (no (unknown) (unknown) then (units [...] (unknown) ultrasound at (units ( unknown) date) [facility] unknown) on 03/21/2022 which showed: (unknown) (no [...] standing, or prolonged episodes of Result panel 59 (unknown) (no (unknown) (unknown) (no value) (units [...] She had (unknown) (no (unknown) (unknown) : [id number] (units (u nknown) date) unknown) (unknown) (no (unknown) (unknown) ? (units (unkno wn) date) unknown) (unknown) (no (unknown) (unknown) ?? (units (unkno wn) date) unknown) (unknown) (no (unknown) (unknown) ADHD (-2004) (units (u nknown) date) unknown) (unknown) (no (unknown) (unknown) Abdominopelvic (units (unknown) date) CT performed at unknown) [facility] on 04/02/2022 showed (unknown) (no (unknown) (unknown) Age/Sex: 21 / F (units (unknown) date) Date of Service: unknown) (unknown) (no (unknown) (unknown) Allergies (units (unkn own) date) () unknown) (unknown) (no (unknown) (unknown) Allergies (units (unkn own) date) unknown) (unknown) (no (unknown) (unknown) [place] (units ( unknown) date) [id number] unknown) (unknown) (no (unknown) (unknown) Ankle pain [...] (unknown) (unknown) : 2000 (units (unknown) date) Acct:[id number] unknown) (unknown) (no (unknown) (unknown) Date of [...] unknown) effort is made to edit content, housekeeping aid errors (unknown) (no (unknown) (unknown) then (units [...] (unknown) ultrasound at (units ( unknown) date) [facility] unknown) on 03/21/2022 which showed: (unknown) (no [...] standing, or prolonged episodes of Result panel 60 (unknown) (no (unknown) (unknown) (no value) (units (unk nown) date) unknown) (unknown) (no (unknown) (unknown) (1) Pelvic pain in (units (unknown) date) female: unknown) (unknown) (no (unknown) (unknown) (2) Amenorrhea (units (unknown) date) following unknown) discontinuation of oral contraceptive use: (unknown) (no (unknown) (unknown) (Right side only, (units (unknown) date) mild), No cul-de-sac unknown) fullness, No cul-de-sac tenderness, No (unknown) (no (unknown) (unknown) 04/13/22 1814 (units ( unknown) date) unknown) (unknown) (no [...] She had (unknown) (no (unknown) (unknown) : [id number] (units (u nknown) date) unknown) (unknown) (no [...] Ab[facility]el[facility] showed (unknown) (no (unknown) (unknown) Affect: normal (units (unknown) date) affect unknown) (unknown) (no (unknown) (unknown) Age/Sex: 21 / F (units (unknown) date) Date of Service: unknown) (unknown) (no (unknown) (unknown) Allergies (2010) (units (unknown) date) unknown) (unknown) (no (unknown) (unknown) Allergies (units (unkn own) date) unknown) (unknown) (no (unknown) (unknown) [place] [address] (unit s (unknown) date) unknown) (unknown) (no (unknown) (unknown) Ankle pain () (units (unknown) date) unknown) (unknown) (no (unknown) (unknown) Anxiety () [...] (unknown) (unknown) : 2000 (units (unknown) date) Acct:[id number] unknown) (unknown) (no (unknown) (unknown) Date of [...] acute distress (unknown) (no (unknown) (unknown) Glaucoma (-2007) (units [...] grossly normal (unknown) (no (unknown) (unknown) Migraines (-2015) (units (unknown) date) unknown) (unknown) (no (unknown) [...] (units (unknown) date) 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 Another test will (unknown) (no (unknown) [...] effort is made unknown) to edit content, housekeeping aid errors m (unknown) (no (unknown) (unknown) tender, [...] (unknown) ultrasound at (units ( unknown) date) [facility] on unknown) 03/21/2022 which showed: (unknown) (no [...] standing, or prolonged episodes of Result panel 61 (unknown) (no date) (unknown) (unknown) 0 /ul [...] (unknown) 82.5 fl (unkn own) Result panel 62 (unknown) (no date) (unknown) (unknown) 0 /ul [...] (unknown) 82.5 fl (unkn own) Result panel 63 (unknown) (no date) (unknown) (unknown) Negative (units (unkn own) unknown) (unknown) (no date) (unknown) (unknown) Negative (units (unkn own) unknown) (unknown) (no date) (unknown) (unknown) Negative (units (unkn own) unknown) Result panel 64 (unknown) (no (unknown) (unknown) (no value) (units (unk nown) date) unknown) (unknown) (no (unknown) (unknown) [id number] (units (unkn own) date) unknown) (unknown) (no (unknown) (unknown) 05/01/22 (units (unkno wn) date) unknown) (unknown) (no (unknown) (unknown) ADHD (-2004) (units (u nknown) date) unknown) (unknown) (no (unknown) (unknown) Age/Sex: 21 / F (units (unknown) date) Date of Service: unknown) (unknown) (no (unknown) (unknown) Allergies (units (unkn own) date) (-2009) unknown) (unknown) (no (unknown) (unknown) Allergies (units (unkn own) date) unknown) (unknown) (no (unknown) (unknown) [place], [place] (units ( unknown) date) [address] unknown) (unknown) (no (unknown) (unknown) Ankle pain (units (unk nown) date) () unknown) (unknown) (no (unknown) (unknown) Anxiety (-2009) (units (unknown) date) unknown) (unknown) (no (unknown) (unknown) Attending Dr: (units ( unknown) date) Yordan Llanos unknown) (unknown) (no (unknown) (unknown) Chronic cough (units ( unknown) date) () unknown) (unknown) (no (unknown) (unknown) : 2000 (units (unknown) date) Acct:[id number] unknown) (unknown) (no (unknown) (unknown) Dept at (units (unkno wn) date) . unknown) (unknown) (no (unknown) (unknown) Documented By: (units (unknown) date) Yordan Llanos unknown) 05/01/22 1549 (unknown) (no (unknown) (unknown) Draft (units (unkno [...] () unknown) (unknown) (no (unknown) (unknown) Intake Note: [...] (units (unknown) date) (Updated 04/13/22 unknown) @ 18:08 by Yordan Llanos MD) (unknown) (no [...] Patient: (units (unkno wn) date) Carol Grimm Khadra unknown) MR#: M (unknown) (no (unknown) (unknown) Pt here for (units (un known) date) pre-op visit unknown) (unknown) (no (unknown) (unknown) Raynaud's (units [...] (unknown) (unknown) 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: (units (unknown) date) Pre op unknown) (unknown) (no (unknown) (unknown) alcohol intake: (units (unknown) date) current unknown) (unknown) (no (unknown) (unknown) have occurred. [...] unknown) effort is made to edit content, housekeeping aid errors Result panel 65 (unknown) (no (unknown) (unknown) (no value) (units (unk nown) date) unknown) (unknown) (no (unknown) (unknown) [id number] (units (unkn own) date) unknown) (unknown) (no (unknown) (unknown) 05/01/22 (units (unkno wn) date) unknown) (unknown) (no (unknown) (unknown) 16:02 (units (unkno wn) date) unknown) (unknown) (no (unknown) (unknown) ADHD (-2004) (units (u nknown) date) unknown) (unknown) (no (unknown) (unknown) Age/Sex: 21 / F (units (unknown) date) Date of Service: unknown) (unknown) (no (unknown) (unknown) Allergies (units (unkn own) date) () unknown) (unknown) (no (unknown) (unknown) Allergies (units (unkn own) date) unknown) (unknown) (no (unknown) (unknown) [place], [place] (units ( unknown) date) [id number] unknown) (unknown) (no (unknown) (unknown) Ankle pain (units (unk nown) date) () unknown) (unknown) (no (unknown) (unknown) Anxiety () (units (unknown) date) unknown) (unknown) (no (unknown) (unknown) Attending Dr: (units ( unknown) date) Yordan Llanos unknown) (unknown) (no (unknown) (unknown) BID 05/01/22 (units (u nknown) date) [History unknown) Confirmed 05/01/22] (unknown) (no (unknown) (unknown) BMI 20.9 (units (unkno wn) date) unknown) (unknown) (no (unknown) (unknown) BP 98/58 L (units (unk nown) date) unknown) (unknown) (no (unknown) (unknown) Blood Pressure (units (unknown) date) Location Rt unknown) brachial (unknown) (no (unknown) (unknown) Chronic cough (units ( unknown) date) () unknown) (unknown) (no (unknown) (unknown) Confirmed (units (unkn own) date) 05/01/22] unknown) (unknown) (no (unknown) (unknown) : 2000 (units (unknown) date) Acct:[id number] unknown) (unknown) (no (unknown) (unknown) Date of Last (units (u nknown) date) Menstrual Period: unknown) 12/26/21 (unknown) (no (unknown) (unknown) Dept at (units (unkno wn) date) . unknown) (unknown) (no (unknown) (unknown) Documented By: (units (unknown) date) Yordan Llanos unknown) 05/01/22 1549 (unknown) (no (unknown) (unknown) Draft (units (unkno [...] date) in unknown) (unknown) (no (unknown) (unknown) Intake [...] (units (unknown) date) (Updated 04/13/22 unknown) @ 18:08 by Yordan Llanos MD) (unknown) (no (unknown) (unknown) Medications (units (un known) date) unknown) (unknown) (no (unknown) (unknown) Migraines (units (unkn own) date) (-2015) unknown) (unknown) (no (unknown) (unknown) No Known Drug (units ( unknown) date) Allergies Allergy unknown) (Verified 05/01/22 16:02) 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) (unknown) (no (unknown) (unknown) Oxygen Delivery (units (unknown) date) Method room air unknown) (unknown) (no (unknown) (unknown) PFSH (units (unkno wn) date) unknown) (unknown) (no (unknown) (unknown) Painful (units (unkno wn) date) menstrual periods unknown) () (unknown) (no (unknown) (unknown) Patient: (units (unkno wn) date) Carol Grimm unknown) MR#: M (unknown) (no (unknown) (unknown) Position Sitting (units (unknown) date) unknown) (unknown) (no (unknown) (unknown) Pt here for (units (un known) date) pre-op visit unknown) (unknown) (no (unknown) (unknown) Pulse 89 (units (unkno wn) date) unknown) (unknown) (no (unknown) (unknown) Pulse Oximetry (units (unknown) date) (%) 99 unknown) (unknown) (no (unknown) (unknown) Pulse Source (units (u nknown) date) Monitor unknown) (unknown) (no (unknown) (unknown) Raynaud's (units (unkn own) date) disease unknown) (unknown) (no (unknown) (unknown) Reason For Visit (units (unknown) date) unknown) (unknown) (no (unknown) (unknown) Respiration 12 (units (unknown) date) unknown) (unknown) (no (unknown) (unknown) Signed By: (units (unk nown) date) unknown) (unknown) (no (unknown) (unknown) Smoking Status: (units (unknown) date) Never smoker unknown) (unknown) (no (unknown) (unknown) Social History (units (unknown) date) unknown) (unknown) (no (unknown) (unknown) Temp 99 F (units (unkn own) date) unknown) (unknown) (no (unknown) (unknown) Temp Source (units (un known) date) Temporal Artery unknown) Scan (unknown) (no (unknown) (unknown) This note may (units ( unknown) date) have been all or unknown) partially generated using voice recognition (unknown) (no (unknown) (unknown) Tobacco + (units (unkn own) date) Substance Use unknown) (unknown) (no (unknown) (unknown) Tobacco Status (units (unknown) date) unknown) (unknown) (no (unknown) (unknown) 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: (units (unknown) date) Pre op unknown) (unknown) (no (unknown) (unknown) Vitals (units (unkno wn) date) unknown) (unknown) (no (unknown) (unknown) Weight 100 lb (units ( unknown) date) unknown) (unknown) (no (unknown) (unknown) alcohol intake: (units (unknown) date) current unknown) (unknown) (no (unknown) (unknown) cetirizine 5 (units (u nknown) date) mg-pseudoephedrin unknown) e ER 120 mg tablet,extended release,12hr 1 tab PO (unknown) (no (unknown) (unknown) have occurred. (units [...] recognition software. Please (unknown) (no (unknown) (unknown) oxycodone-acetam (units (unknown) date) inophen 5 mg-325 unknown) mg tablet 1 tab PO Q6H PRN 05/01/22 [History (unknown) (no (unknown) (unknown) read the note (units ( unknown) date) carefully and unknown) recognize, using context, where these substitutions (unknown) (no (unknown) (unknown) software. (units (unkn own) date) Although every unknown) effort is made to edit content, housekeeping aid errors Result panel 66 (unknown) (no (unknown) (unknown) (no value) (units (unk nown) date) unknown) (unknown) (no (unknown) (unknown) [id number] (units (unkn own) date) unknown) (unknown) (no (unknown) (unknown) 05/01/22 (units (unkno wn) date) unknown) (unknown) (no (unknown) (unknown) 13 lb since July (units (unknown) date) 2021.? Recent unknown) pelvic imaging thus far includes a pelvic (unknown) (no (unknown) (unknown) 16:02 (units (unkno wn) date) unknown) (unknown) (no (unknown) (unknown) 2021 when she (units ( unknown) date) discontinued them unknown) and had her final withdrawal period.? She had (unknown) (no (unknown) (unknown) ? (units (unkno wn) date) unknown) (unknown) (no (unknown) (unknown) ?? (units (unkno wn) date) unknown) (unknown) (no (unknown) (unknown) ADHD (-2005) (units (u nknown) date) unknown) (unknown) (no (unknown) (unknown) Abdominopelvic (units (unknown) date) CT performed at unknown) [facility] on 04/02/2022 showed (unknown) (no (unknown) (unknown) After (units (unkno wn) date) consideration of unknown) all options (unknown) (no (unknown) (unknown) Age/Sex: 21 / F (units (unknown) date) Date of Service: unknown) (unknown) (no (unknown) (unknown) Allergies (units (unkn own) date) () unknown) (unknown) (no (unknown) (unknown) Allergies (units (unkn own) date) unknown) (unknown) (no (unknown) (unknown) [place], [place] (units ( unknown) date) [id number] unknown) (unknown) (no (unknown) (unknown) Ankle pain (units (unk nown) date) () unknown) (unknown) (no (unknown) (unknown) Anxiety () (units (unknown) date) unknown) (unknown) (no (unknown) (unknown) Attending Dr: (units ( unknown) date) Yordan Llanos unknown) (unknown) (no (unknown) (unknown) BID 05/01/22 (units (u nknown) date) [History unknown) Confirmed 05/01/22] (unknown) (no (unknown) (unknown) BMI 20.9 (units (unkno wn) date) unknown) (unknown) (no (unknown) (unknown) BP 98/58 L (units (unk nown) date) unknown) (unknown) (no (unknown) (unknown) Blood Pressure (units (unknown) date) Location Rt unknown) brachial (unknown) (no (unknown) (unknown) Carol is a (units (u nknown) date) 21-year-old G0, unknown) LMP December 26, 2021, who presents today for (unknown) (no (unknown) (unknown) Chief Complaint (units (unknown) date) unknown) (unknown) (no (unknown) (unknown) Chief Complaint: (units (unknown) date) Preop visit unknown) (unknown) (no (unknown) (unknown) Chronic cough (units ( unknown) date) () unknown) (unknown) (no (unknown) (unknown) Confirmed (units (unkn own) date) 05/01/22] unknown) (unknown) (no (unknown) (unknown) : 2000 (units (unknown) date) Acct:[id number] unknown) (unknown) (no (unknown) (unknown) Date of Last (units (u nknown) date) Menstrual Period: unknown) 12/26/21 (unknown) (no (unknown) (unknown) Dept at (units (unkno wn) date) . unknown) (unknown) (no (unknown) (unknown) Details: (units (unkno wn) date) unknown) (unknown) (no (unknown) (unknown) Documented By: (units (unknown) date) Yordan Llanos unknownRikki CHINCHILLA 05/01/22 1549 (unknown) (no (unknown) (unknown) Draft (units (unkno wn) date) unknown) (unknown) (no (unknown) (unknown) Eczema (-2002) (units (unknown) date) unknown) (unknown) (no (unknown) (unknown) FINDINGS:? [...] (units (unknown) date) (Updated 04/13/22 unknown) @ 18:08 by Yordan Llanos MD) (unknown) (no (unknown) (unknown) Medications (units (un known) date) unknown) (unknown) (no (unknown) (unknown) Migraines (units (unkn own) date) (-2015) unknown) (unknown) (no (unknown) (unknown) No Known Drug (units ( unknown) date) Allergies Allergy unknown) (Verified 05/01/22 16:02) (unknown) (no (unknown) (unknown) Normal-appearing (units (unknown) date) arterial and unknown) venous waveforms are confirmed to each ovary.? 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) (unknown) (no (unknown) (unknown) Oxygen Delivery (units (unknown) date) Method room air unknown) (unknown) (no (unknown) (unknown) PFSH (units (unkno wn) date) unknown) (unknown) (no (unknown) (unknown) Painful (units (unkno wn) date) menstrual periods unknown) () (unknown) (no (unknown) (unknown) Patient: (units (unkno wn) date) Carol Grimm unknown) MR#: M (unknown) (no (unknown) (unknown) Physiologic (units (un known) date) unknown) (unknown) (no (unknown) (unknown) Position Sitting (units (unknown) date) unknown) (unknown) (no (unknown) (unknown) Pt here for (units (un known) date) pre-op visit unknown) (unknown) (no (unknown) (unknown) Pulse 89 (units (unkno wn) date) unknown) (unknown) (no (unknown) (unknown) Pulse Oximetry (units (unknown) date) (%) 99 unknown) (unknown) (no (unknown) (unknown) Pulse Source (units (u nknown) date) Monitor unknown) (unknown) (no (unknown) (unknown) Raynaud's (units (unkn own) date) disease unknown) (unknown) (no (unknown) (unknown) Reason For Visit (units (unknown) date) unknown) (unknown) (no (unknown) (unknown) Respiration 12 (units (unknown) date) unknown) (unknown) (no (unknown) (unknown) Several (units (unkno wn) date) physiologic/folli unknown) cular subcentimeter cysts present in both ovaries.? (unknown) (no (unknown) (unknown) Signed By: (units (unk nown) date) unknown) (unknown) (no (unknown) (unknown) Smoking Status: (units (unknown) date) Never smoker unknown) (unknown) (no (unknown) (unknown) Social History (units (unknown) date) unknown) (unknown) (no (unknown) (unknown) Temp 99 F (units (unkn own) date) unknown) (unknown) (no (unknown) (unknown) Temp Source (units (un known) date) Temporal Artery unknown) Scan (unknown) (no (unknown) (unknown) The uterine body [...] (unknown) (unknown) 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: (units (unknown) date) Pre op unknown) (unknown) (no (unknown) (unknown) Vitals (units (unkno wn) date) unknown) (unknown) (no (unknown) (unknown) Weight 100 lb (units ( unknown) date) unknown) (unknown) (no (unknown) (unknown) adnexal mass.? (units (unknown) date) unknown) (unknown) (no (unknown) (unknown) alcohol intake: (units (unknown) date) current unknown) (unknown) (no (unknown) (unknown) another period (units (unknown) date) on December 26 unknown) 2021 but has not had any bleeding since that (unknown) (no (unknown) (unknown) can radiate down (units (unknown) date) the anterior unknown) aspect of her right thigh.? She states her (unknown) (no (unknown) (unknown) cetirizine 5 (units (u nknown) date) mg-pseudoephedrin unknown) e ER 120 mg tablet,extended release,12hr 1 tab PO (unknown) (no (unknown) (unknown) combined (units (unkno wn) date) thickness.? The unknown) right ovary measures 1.9 x 4.1 x 4.0 cm and the left (unknown) (no (unknown) (unknown) constant right (units (unknown) date) lower unknown) quadrant/right sided pelvic pain for the last 3 months and (unknown) (no (unknown) (unknown) currently use (units (u nknown) date) contraception.? unknown) She was on control pills up until November (unknown) (no (unknown) (unknown) dysmenorrhea has (units (unknown) date) gradually unknown) increased over the years and she does have both (unknown) (no (unknown) (unknown) evaluation of a (units (unknown) date) three-month unknown) history of right lower quadrant/right sided pelvic (unknown) (no (unknown) (unknown) evidence of (units (un known) date) biliary unknown) obstruction or acute cholecystitis.? No other abnormalities (unknown) (no (unknown) (unknown) free fluid in (units ( unknown) date) the cul-de-sac.? unknown) (unknown) (no (unknown) (unknown) have occurred. (units (unknown) date) If there are any unknown) questions, please contact the Medical Records (unknown) (no (unknown) (unknown) introital and (units [...] by (units (unknown) date) 3.0 x 3.5 cm.? No unknown) dominant cyst is seen in either ovary.? (unknown) (no (unknown) (unknown) menses but she (units (unknown) date) has a long unknown) history of primary dysmenorrhea.? Her symptoms are (unknown) (no (unknown) (unknown) occurred due to (units (unknown) date) the inherent unknown) limitations of voice recognition software. Please (unknown) (no (unknown) (unknown) oxycodone-acetam (units (unknown) date) inophen 5 mg-325 unknown) mg tablet 1 tab PO Q6H PRN 05/01/22 [History (unknown) (no (unknown) (unknown) pain.? Menarche (units (unknown) date) occurred at age [...] unknown) effort is made to edit content, housekeeping aid errors (unknown) (no (unknown) (unknown) then (units (unkno wn) date) exacerbations unknown) which are sharp.? These do not appear to be related to her (unknown) (no (unknown) (unknown) thickness.? No (units (unknown) date) unknown) (unknown) (no (unknown) (unknown) throughout her (units (unknown) date) reproductive life unknown) thus far.? She is sexually active but does not (unknown) (no (unknown) (unknown) time.? Serial (units (u nknown) date) tests unknown) have been negative.? Patient has been having sharp (unknown) (no (unknown) (unknown) to be normal in (units (unknown) date) size at 2.9 x 4.2 unknown) x 6.4 cm.? The endometrium measures 6.6 mm in (unknown) (no (unknown) (unknown) ultrasound at (units ( unknown) date) [facility] unknown) on 03/21/2022 which showed: (unknown) (no (unknown) (unknown) uterine mass.? (units (unknown) date) Normal size and unknown) appearance of both ovaries.? No ovarian or (unknown) (no (unknown) (unknown) visits and also (units (unknown) date) from her mother.? unknown) Pain is constant with a dull component and (unknown) (no (unknown) (unknown) walking.? She (units ( unknown) date) has no GI or unknown) complaints.? Pain is always in the same spot but (unknown) (no (unknown) (unknown) were seen.? (units (un known) date) Pelvic ultrasound unknown) performed at that same ED visit showed the uterus (unknown) (no (unknown) (unknown) worsened with (units ( unknown) date) prolonged sitting unknown) or prolonged standing, or prolonged episodes of Result panel 67 (unknown) (no (unknown) (unknown) (no value) (units (unk nown) date) unknown) (unknown) (no (unknown) (unknown) [id number] (units (unkn own) date) unknown) (unknown) (no (unknown) (unknown) 05/01/22 (units (unkno wn) date) unknown) (unknown) (no (unknown) (unknown) 13 lb since July (units (unknown) date) 2021.? Recent unknown) pelvic imaging thus far includes a pelvic (unknown) (no (unknown) (unknown) 16:02 (units (unkno wn) date) unknown) (unknown) (no (unknown) (unknown) 2021 when she (units ( unknown) date) discontinued them unknown) and had her final withdrawal period.? She had (unknown) (no (unknown) (unknown) ? (units (unkno wn) date) unknown) (unknown) (no (unknown) (unknown) ?? (units (unkno wn) date) unknown) (unknown) (no (unknown) (unknown) ADHD (-2004) (units (u nknown) date) unknown) (unknown) (no (unknown) (unknown) Abdominopelvic (units (unknown) date) CT performed at unknown) [facility] on 04/02/2022 showed (unknown) (no (unknown) (unknown) Age/Sex: 21 / F (units (unknown) date) Date of Service: unknown) (unknown) (no (unknown) (unknown) Allergies (units (unkn own) date) () unknown) (unknown) (no (unknown) (unknown) Allergies (units (unkn own) date) unknown) (unknown) (no (unknown) (unknown) [place], [place] (units ( unknown) date) [id number] unknown) (unknown) (no (unknown) (unknown) Ankle pain (units (unk nown) date) () unknown) (unknown) (no (unknown) (unknown) Anxiety (-2009) (units (unknown) date) unknown) (unknown) (no (unknown) (unknown) Attending Dr: (units ( unknown) date) Yordan Llanos unknown) (unknown) (no (unknown) (unknown) BID 05/01/22 (units (u nknown) date) [History unknown) Confirmed 05/01/22] (unknown) (no (unknown) (unknown) BMI 20.9 (units (unkno wn) date) unknown) (unknown) (no (unknown) (unknown) BP 98/58 L (units (unk nown) date) unknown) (unknown) (no (unknown) (unknown) Blood Pressure (units (unknown) date) Location Rt unknown) brachial (unknown) (no (unknown) (unknown) Carol is a (units (u nknown) date) 21-year-old G0, unknown) LMP December 26, 2021, who presents today for (unknown) (no (unknown) (unknown) Chief Complaint (units (unknown) date) unknown) (unknown) (no (unknown) (unknown) Chief Complaint: (units (unknown) date) Preop visit unknown) (unknown) (no (unknown) (unknown) Chronic cough (units ( unknown) date) () unknown) (unknown) (no (unknown) (unknown) Confirmed (units (unkn own) date) 05/01/22] unknown) (unknown) (no (unknown) (unknown) : 2000 (units (unknown) date) Acct:[id number] unknown) (unknown) (no (unknown) (unknown) Date of Last (units (u nknown) date) Menstrual Period: unknown) 12/26/21 (unknown) (no (unknown) (unknown) Dept at (units (unkno wn) date) . unknown) (unknown) (no (unknown) (unknown) Details: (units (unkno wn) date) unknown) (unknown) (no (unknown) (unknown) Documented By: (units (unknown) date) Yordan Llanos unknownRikki CHINCHILLA 05/01/22 1549 (unknown) (no (unknown) (unknown) Draft (units (unkno wn) date) unknown) (unknown) (no (unknown) (unknown) Eczema (-2002) (units (unknown) date) unknown) (unknown) (no (unknown) (unknown) FINDINGS:? [...] (units (unknown) date) (Updated 04/13/22 unknown) @ 18:08 by Yordan Llanos MD) (unknown) (no (unknown) (unknown) Medications (units (un known) date) unknown) (unknown) (no (unknown) (unknown) Migraines (units (unkn own) date) (-2015) unknown) (unknown) (no (unknown) (unknown) No Known Drug (units ( unknown) date) Allergies Allergy unknown) (Verified 05/01/22 16:02) (unknown) (no (unknown) (unknown) Normal-appearing (units (unknown) date) arterial and unknown) venous waveforms are confirmed to each ovary.? 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) (unknown) (no (unknown) (unknown) Oxygen Delivery (units (unknown) date) Method room air unknown) (unknown) (no (unknown) (unknown) PFSH (units (unkno wn) date) unknown) (unknown) (no (unknown) (unknown) Painful (units (unkno wn) date) menstrual periods unknown) () (unknown) (no (unknown) (unknown) Patient: (units (unkno wn) date) Carol Grimm unknown) MR#: M (unknown) (no (unknown) (unknown) Physiologic (units (un known) date) unknown) (unknown) (no (unknown) (unknown) Position Sitting (units (unknown) date) unknown) (unknown) (no (unknown) (unknown) Pt here for (units (un known) date) pre-op visit unknown) (unknown) (no (unknown) (unknown) Pulse 89 (units (unkno wn) date) unknown) (unknown) (no (unknown) (unknown) Pulse Oximetry (units (unknown) date) (%) 99 unknown) (unknown) (no (unknown) (unknown) Pulse Source (units (u nknown) date) Monitor unknown) (unknown) (no (unknown) (unknown) Raynaud's (units (unkn own) date) disease unknown) (unknown) (no (unknown) (unknown) Reason For Visit (units (unknown) date) unknown) (unknown) (no (unknown) (unknown) Respiration 12 (units (unknown) date) unknown) (unknown) (no (unknown) (unknown) Several (units (unkno wn) date) physiologic/folli unknown) cular subcentimeter cysts present in both ovaries.? (unknown) (no (unknown) (unknown) Signed By: (units (unk nown) date) unknown) (unknown) (no (unknown) (unknown) Smoking Status: (units (unknown) date) Never smoker unknown) (unknown) (no (unknown) (unknown) Social History (units (unknown) date) unknown) (unknown) (no (unknown) (unknown) Temp 99 F (units (unkn own) date) unknown) (unknown) (no (unknown) (unknown) Temp Source (units (un known) date) Temporal Artery unknown) Scan (unknown) (no (unknown) (unknown) The nature the (units ( unknown) date) patient's pelvic unknown) pain is unclear at this point.? Her long history (unknown) (no (unknown) (unknown) The uterine body [...] (unknown) (unknown) 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: (units (unknown) date) Pre op unknown) (unknown) (no (unknown) (unknown) Vitals (units (unkno wn) date) unknown) (unknown) (no (unknown) (unknown) Weight 100 lb (units ( unknown) date) unknown) (unknown) (no (unknown) (unknown) adnexal mass.? (units (unknown) date) unknown) (unknown) (no (unknown) (unknown) alcohol intake: (units (unknown) date) current unknown) (unknown) (no (unknown) (unknown) and/or other (units (un known) date) potential causes unknown) of right lower quadrant/pelvic pain.? She presents (unknown) (no (unknown) (unknown) another period (units (unknown) date) on December 26 unknown) 2021 but has not had any bleeding since that (unknown) (no (unknown) (unknown) can radiate down (units (unknown) date) the anterior unknown) aspect of her right thigh.? She states her (unknown) (no (unknown) (unknown) cetirizine 5 (units (u nknown) date) mg-pseudoephedrin unknown) e ER 120 mg tablet,extended release,12hr 1 tab PO (unknown) (no (unknown) (unknown) combined (units (unkno wn) date) thickness.? The unknown) right ovary measures 1.9 x 4.1 x 4.0 cm and the left (unknown) (no (unknown) (unknown) constant right (units (unknown) date) lower unknown) quadrant/right sided pelvic pain for the last 3 months and (unknown) (no (unknown) (unknown) currently use (units (u nknown) date) contraception.? unknown) She was on control pills up until November of (unknown) (no (unknown) (unknown) does not appear (units (unknown) date) to be cyclic.? unknown) She does however have history of deep dyspareunia (unknown) (no (unknown) (unknown) dysmenorrhea has (units (unknown) date) gradually unknown) increased over the years and she does have both (unknown) (no (unknown) (unknown) evaluation of a (units (unknown) date) three-month unknown) history of right lower quadrant/right sided pelvic (unknown) (no (unknown) (unknown) evidence of (units (un known) date) biliary unknown) obstruction or acute cholecystitis.? No other abnormalities (unknown) (no (unknown) (unknown) free fluid in (units ( unknown) date) the cul-de-sac.? unknown) (unknown) (no (unknown) (unknown) have occurred. (units (unknown) date) If there are any unknown) questions, please contact the Medical Records (unknown) (no (unknown) (unknown) introital and (units [...] by (units (unknown) date) 3.0 x 3.5 cm.? No unknown) dominant cyst is seen in either ovary.? (unknown) (no (unknown) (unknown) menses but she (units (unknown) date) has a long unknown) history of primary dysmenorrhea.? Her symptoms are (unknown) (no (unknown) (unknown) methods of (units (unk nown) date) evaluating/treati unknown) ng those different possibilities.? A CBC and ESR (unknown) (no (unknown) (unknown) obtained and are (units (unknown) date) both normal.? unknown) After discussing all options, the patient wishes (unknown) (no (unknown) (unknown) occurred due to (units (unknown) date) the inherent unknown) limitations of voice recognition software. Please (unknown) (no (unknown) (unknown) of primary (units (unk nown) date) dysmenorrhea is unknown) concerning for the possibility of an previously (unknown) (no (unknown) (unknown) oxycodone-acetam (units (unknown) date) inophen 5 mg-325 unknown) mg tablet 1 tab PO Q6H PRN 05/01/22 [History (unknown) (no (unknown) (unknown) pain.? Menarche (units (unknown) date) occurred at age [...] unknown) effort is made to edit content, housekeeping aid errors (unknown) (no (unknown) (unknown) then (units (unkno wn) date) exacerbations unknown) which are sharp.? These do not appear to be related to her (unknown) (no (unknown) (unknown) thickness.? No (units (unknown) date) unknown) (unknown) (no (unknown) (unknown) throughout her (units (unknown) date) reproductive life unknown) thus far.? She is sexually active but does not (unknown) (no (unknown) (unknown) time.? Serial (units (u nknown) date) tests unknown) have been negative.? Patient has been having sharp (unknown) (no (unknown) (unknown) to be normal in (units (unknown) date) size at 2.9 x 4.2 unknown) x 6.4 cm.? The endometrium measures 6.6 mm in (unknown) (no (unknown) (unknown) to proceed with (units (unknown) date) diagnostic unknown) laparoscopy to evaluate for possible endometriosis (unknown) (no (unknown) (unknown) today for (units (unkn own) date) preoperative unknown) evaluation, counseling, and consent. (unknown) (no (unknown) (unknown) ultrasound at (units ( unknown) date) [facility] unknown) on 03/21/2022 which showed: (unknown) (no (unknown) (unknown) undiagnosed (units (un known) date) endometriosis unknown) with a right lower quadrant pain she is experiencing (unknown) (no (unknown) (unknown) uterine mass.? (units (unknown) date) Normal size and unknown) appearance of both ovaries.? No ovarian or (unknown) (no (unknown) (unknown) visits and also (units (unknown) date) from her mother.? unknown) Pain is constant with a dull component and (unknown) (no (unknown) (unknown) walking.? She (units ( unknown) date) has no GI or unknown) complaints.? Pain is always in the same spot but (unknown) (no (unknown) (unknown) were seen.? (units (un known) date) Pelvic ultrasound unknown) performed at that same ED visit showed the uterus (unknown) (no (unknown) (unknown) which is also (units (u nknown) date) concerning.? We unknown) discussed potential causes for her pelvic pain and (unknown) (no (unknown) (unknown) worsened with (units ( unknown) date) prolonged sitting unknown) or prolonged standing, or prolonged episodes of Result panel 68 (unknown) (no (unknown) (unknown) (no value) (units (unk nown) date) unknown) (unknown) (no (unknown) (unknown) [id number] (units (unkn own) date) unknown) (unknown) (no (unknown) (unknown) 05/01/22 (units (unkno wn) date) unknown) (unknown) (no (unknown) (unknown) 13 lb since July (units (unknown) date) 2021.? Recent unknown) pelvic imaging thus far includes a pelvic (unknown) (no (unknown) (unknown) 16:02 (units (unkno wn) date) unknown) (unknown) (no (unknown) (unknown) 2021 when she (units ( unknown) date) discontinued them unknown) and had her final withdrawal period.? She had (unknown) (no (unknown) (unknown) ? (units (unkno wn) date) unknown) (unknown) (no (unknown) (unknown) ?? (units (unkno wn) date) unknown) (unknown) (no (unknown) (unknown) ADHD (-2004) (units (u nknown) date) unknown) (unknown) (no (unknown) (unknown) Abdominopelvic (units (unknown) date) CT performed at unknown) [facility] on 04/02/2022 showed (unknown) (no (unknown) (unknown) Age/Sex: 21 / F (units (unknown) date) Date of Service: unknown) (unknown) (no (unknown) (unknown) Allergies (units (unkn own) date) () unknown) (unknown) (no (unknown) (unknown) Allergies (units (unkn own) date) unknown) (unknown) (no (unknown) (unknown) [place], [place] (units ( unknown) date) [id number] unknown) (unknown) (no (unknown) (unknown) Ankle pain (units (unk nown) date) () unknown) (unknown) (no (unknown) (unknown) Anxiety (-2009) (units (unknown) date) unknown) (unknown) (no (unknown) (unknown) Attending Dr: (units ( unknown) date) Yordan Llanos unknown) (unknown) (no (unknown) (unknown) BID 05/01/22 (units (u nknown) date) [History unknown) Confirmed 05/01/22] (unknown) (no (unknown) (unknown) BMI 20.9 (units (unkno wn) date) unknown) (unknown) (no (unknown) (unknown) BP 98/58 L (units (unk nown) date) unknown) (unknown) (no (unknown) (unknown) Blood Pressure (units (unknown) date) Location Rt unknown) brachial (unknown) (no (unknown) (unknown) Carol is a (units (u nknown) date) 21-year-old G0, unknown) LMP December 26, 2021, who presents today for (unknown) (no (unknown) (unknown) Chief Complaint (units (unknown) date) unknown) (unknown) (no (unknown) (unknown) Chief Complaint: (units (unknown) date) Preop visit unknown) (unknown) (no (unknown) (unknown) Chronic cough (units ( unknown) date) (-2017) unknown) (unknown) (no (unknown) (unknown) Confirmed (units (unkn own) date) 05/01/22] unknown) (unknown) (no (unknown) (unknown) : 2000 (units (unknown) date) Acct:[id number] unknown) (unknown) (no (unknown) (unknown) Date of Last (units (u nknown) date) Menstrual Period: unknown) 12/26/21 (unknown) (no (unknown) (unknown) Dept at (units (unkno wn) date) . unknown) (unknown) (no (unknown) (unknown) Details: (units (unkno wn) date) unknown) (unknown) (no (unknown) (unknown) Documented By: (units (unknown) date) Yordan Llanos unknownRikki CHINCHILLA 05/01/22 1549 (unknown) (no (unknown) (unknown) Draft (units (unkno wn) date) unknown) (unknown) (no (unknown) (unknown) Eczema (-2002) (units (unknown) date) unknown) (unknown) (no (unknown) (unknown) FINDINGS:? [...] (units (unknown) date) (Updated 04/13/22 unknown) @ 18:08 by Yordan Llanos MD) (unknown) (no (unknown) (unknown) Medications (units (un known) date) unknown) (unknown) (no (unknown) (unknown) Migraines (units (unkn own) date) (-2015) unknown) (unknown) (no (unknown) (unknown) No Known Drug (units ( unknown) date) Allergies Allergy unknown) (Verified 05/01/22 16:02) (unknown) (no (unknown) (unknown) Normal-appearing (units (unknown) date) arterial and unknown) venous waveforms are confirmed to each ovary.? 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) (unknown) (no (unknown) (unknown) Oxygen Delivery (units (unknown) date) Method room air unknown) (unknown) (no (unknown) (unknown) PFSH (units (unkno wn) date) unknown) (unknown) (no (unknown) (unknown) Painful (units (unkno wn) date) menstrual periods unknown) () (unknown) (no (unknown) (unknown) Patient: (units (unkno wn) date) Carol Grimm unknown) MR#: M (unknown) (no (unknown) (unknown) Physiologic (units (un known) date) unknown) (unknown) (no (unknown) (unknown) Position Sitting (units (unknown) date) unknown) (unknown) (no (unknown) (unknown) Problem-specific (units (unknown) date) ROS positives unknown) included with the HPI (unknown) (no (unknown) (unknown) Pt here for (units (un known) date) pre-op visit unknown) (unknown) (no (unknown) (unknown) Pulse 89 (units (unkno wn) date) unknown) (unknown) (no (unknown) (unknown) Pulse Oximetry (units (unknown) date) (%) 99 unknown) (unknown) (no (unknown) (unknown) Pulse Source (units (u nknown) date) Monitor unknown) (unknown) (no (unknown) (unknown) ROS Narrative (units ( unknown) date) unknown) (unknown) (no (unknown) (unknown) ROS Narrative: (units (unknown) date) unknown) (unknown) (no (unknown) (unknown) ROS (units (unkno wn) date) unknown) (unknown) (no (unknown) (unknown) Raynaud's (units (unkn own) date) disease unknown) (unknown) (no (unknown) (unknown) Reason For Visit (units (unknown) date) unknown) (unknown) (no (unknown) (unknown) Respiration 12 (units (unknown) date) unknown) (unknown) (no (unknown) (unknown) Several (units (unkno wn) date) physiologic/folli unknown) cular subcentimeter cysts present in both ovaries.? (unknown) (no (unknown) (unknown) Signed By: (units (unk nown) date) unknown) (unknown) (no (unknown) (unknown) Smoking Status: (units (unknown) date) Never smoker unknown) (unknown) (no (unknown) (unknown) Social History (units (unknown) date) unknown) (unknown) (no (unknown) (unknown) Temp 99 F (units (unkn own) date) unknown) (unknown) (no (unknown) (unknown) Temp Source (units (un known) date) Temporal Artery unknown) Scan (unknown) (no (unknown) (unknown) The nature the (units ( unknown) date) patient's pelvic unknown) pain is unclear at this point.? Her long history (unknown) (no (unknown) (unknown) The uterine body [...] (unknown) (unknown) 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: (units (unknown) date) Pre op unknown) (unknown) (no (unknown) (unknown) Vitals (units (unkno wn) date) unknown) (unknown) (no (unknown) (unknown) Weight 100 lb (units ( unknown) date) unknown) (unknown) (no (unknown) (unknown) adnexal mass.? (units (unknown) date) unknown) (unknown) (no (unknown) (unknown) alcohol intake: (units (unknown) date) current unknown) (unknown) (no (unknown) (unknown) and/or other (units (un known) date) potential causes unknown) of right lower quadrant/pelvic pain.? She presents (unknown) (no (unknown) (unknown) another period (units (unknown) date) on December 26 unknown) 2021 but has not had any bleeding since that (unknown) (no (unknown) (unknown) can radiate down (units (unknown) date) the anterior unknown) aspect of her right thigh.? She states her (unknown) (no (unknown) (unknown) cetirizine 5 (units (u nknown) date) mg-pseudoephedrin unknown) e ER 120 mg tablet,extended release,12hr 1 tab PO (unknown) (no (unknown) (unknown) combined (units (unkno wn) date) thickness.? The unknown) right ovary measures 1.9 x 4.1 x 4.0 cm and the left (unknown) (no (unknown) (unknown) constant right (units (unknown) date) lower unknown) quadrant/right sided pelvic pain for the last 3 months and (unknown) (no (unknown) (unknown) currently use (units (u nknown) date) contraception.? unknown) She was on control pills up until November (unknown) (no (unknown) (unknown) does not appear (units (unknown) date) to be cyclic.? unknown) She does however have history of deep dyspareunia (unknown) (no (unknown) (unknown) dysmenorrhea has (units (unknown) date) gradually unknown) increased over the years and she does have both (unknown) (no (unknown) (unknown) evaluation of a (units (unknown) date) three-month unknown) history of right lower quadrant/right sided pelvic (unknown) (no (unknown) (unknown) evidence of (units (un known) date) biliary unknown) obstruction or acute cholecystitis.? No other abnormalities (unknown) (no (unknown) (unknown) free fluid in (units ( unknown) date) the cul-de-sac.? unknown) (unknown) (no (unknown) (unknown) have occurred. (units (unknown) date) If there are any unknown) questions, please contact the Medical Records (unknown) (no (unknown) (unknown) introital and (units [...] by (units (unknown) date) 3.0 x 3.5 cm.? No unknown) dominant cyst is seen in either ovary.? (unknown) (no (unknown) (unknown) menses but she (units (unknown) date) has a long unknown) history of primary dysmenorrhea.? Her symptoms are (unknown) (no (unknown) (unknown) methods of (units (unk nown) date) evaluating/treati unknown) ng those different possibilities.? A CBC and ESR (unknown) (no (unknown) (unknown) obtained and are (units (unknown) date) both normal.? unknown) After discussing all options, the patient wishes (unknown) (no (unknown) (unknown) occurred due to (units (unknown) date) the inherent unknown) limitations of voice recognition software. Please (unknown) (no (unknown) (unknown) of primary (units (unk nown) date) dysmenorrhea is unknown) concerning for the possibility of an previously (unknown) (no (unknown) (unknown) oxycodone-acetam (units (unknown) date) inophen 5 mg-325 unknown) mg tablet 1 tab PO Q6H PRN 05/01/22 [History (unknown) (no (unknown) (unknown) pain.? Menarche (units (unknown) date) occurred at age [...] unknown) effort is made to edit content, housekeeping aid errors (unknown) (no (unknown) (unknown) then (units (unkno wn) date) exacerbations unknown) which are sharp.? These do not appear to be related to her (unknown) (no (unknown) (unknown) thickness.? No (units (unknown) date) unknown) (unknown) (no (unknown) (unknown) throughout her (units (unknown) date) reproductive life unknown) thus far.? She is sexually active but does not (unknown) (no (unknown) (unknown) time.? Serial (units (u nknown) date) tests unknown) have been negative.? Patient has been having sharp (unknown) (no (unknown) (unknown) to be normal in (units (unknown) date) size at 2.9 x 4.2 unknown) x 6.4 cm.? The endometrium measures 6.6 mm in (unknown) (no (unknown) (unknown) to proceed with (units (unknown) date) diagnostic unknown) laparoscopy to evaluate for possible endometriosis (unknown) (no (unknown) (unknown) today for (units (unkn own) date) preoperative unknown) evaluation, counseling, and consent. (unknown) (no (unknown) (unknown) ultrasound at (units ( unknown) date) [facility] unknown) on 03/21/2022 which showed: (unknown) (no (unknown) (unknown) undiagnosed (units (un known) date) endometriosis unknown) with a right lower quadrant pain she is experiencing (unknown) (no (unknown) (unknown) uterine mass.? (units (unknown) date) Normal size and unknown) appearance of both ovaries.? No ovarian or (unknown) (no (unknown) (unknown) visits and also (units (unknown) date) from her mother.? unknown) Pain is constant with a dull component and (unknown) (no (unknown) (unknown) walking.? She (units ( unknown) date) has no GI or unknown) complaints.? Pain is always in the same spot but (unknown) (no (unknown) (unknown) were seen.? (units (un known) date) Pelvic ultrasound unknown) performed at that same ED visit showed the uterus (unknown) (no (unknown) (unknown) which is also (units (u nknown) date) concerning.? We unknown) discussed potential causes for her pelvic pain and (unknown) (no (unknown) (unknown) worsened with (units ( unknown) date) prolonged sitting unknown) or prolonged standing, or prolonged episodes of Result panel 69 (unknown) (no (unknown) (unknown) (no value) (units (unk nown) date) unknown) (unknown) (no (unknown) (unknown) (1) Amenorrhea (units (unknown) date) following unknown) discontinuation of oral contraceptive use: (unknown) (no (unknown) (unknown) (2) Pelvic pain in (units (unknown) date) female: unknown) (unknown) (no (unknown) (unknown) (Right side only, (units (unknown) date) mild), No cul-de-sac unknown) fullness, No cul-de-sac tenderness, No (unknown) (no (unknown) (unknown) [phone] (units (unkn own) date) unknown) (unknown) (no (unknown) (unknown) 05/01/22 (units (unkno wn) date) unknown) (unknown) (no (unknown) (unknown) 13 lb since July (units (unknown) date) 2021.? Recent pelvic unknown) imaging thus far includes a pelvic (unknown) (no (unknown) (unknown) 16:02 (units (unkno wn) date) unknown) (unknown) (no (unknown) (unknown) 2021 when she (units ( unknown) date) discontinued them unknown) and had her final withdrawal period.? She had (unknown) (no (unknown) (unknown) ? (units (unkno wn) date) unknown) (unknown) (no (unknown) (unknown) ?? (units (unkno wn) date) unknown) (unknown) (no (unknown) (unknown) ADHD (-2004) (units (u nknown) date) unknown) (unknown) (no (unknown) (unknown) Abdominopelvic CT (units (unknown) date[facility] showed (unknown) (no (unknown) (unknown) Affect: normal (units (unknown) date) affect unknown) (unknown) (no (unknown) (unknown) Age/Sex: 21 / F (units (unknown) date) Date of Service: unknown) (unknown) (no (unknown) (unknown) Allergies () (units (unknown) date) unknown) (unknown) (no (unknown) (unknown) Allergies (units (unkn own) date) unknown) (unknown) (no (unknown) (unknown) [place] [address] (unit s (unknown) date) unknown) (unknown) (no (unknown) (unknown) Ankle pain () (units (unknown) date) unknown) (unknown) (no (unknown) (unknown) Anxiety () (units (unknown) date) unknown) (unknown) (no (unknown) (unknown) Appearance: grossly (unit s (unknown) date) normal unknown) (unknown) (no (unknown) (unknown) Assessment + Plan (units (unknown) date) unknown) (unknown) (no (unknown) (unknown) Attending Dr: (units ( unknown) date) Yordan Llanos MD unknown) (unknown) (no (unknown) (unknown) Attitude: (units (unkn own) date) cooperative unknown) (unknown) (no (unknown) (unknown) Auscultation: clear (unit s (unknown) date) to auscultation unknown) bilaterally (unknown) (no (unknown) (unknown) BID 05/01/22 (units (u nknown) date) [History Confirmed unknown) 05/01/22] (unknown) (no (unknown) (unknown) BMI 20.9 (units (unkno wn) date) unknown) (unknown) (no (unknown) (unknown) BP 98/58 L (units (unk nown) date) unknown) (unknown) (no (unknown) (unknown) Bimanual [...] presents today for (unknown) (no (unknown) (unknown) Cardio (units (unkno wn) date) unknown) (unknown) (no (unknown) (unknown) Chief Complaint (units (unknown) date) unknown) (unknown) (no (unknown) (unknown) Chief Complaint: (units (unknown) date) Preop visit unknown) (unknown) (no (unknown) (unknown) Chronic cough (units ( unknown) date) () unknown) (unknown) (no (unknown) (unknown) Confirmed 05/01/22] (unit s (unknown) date) unknown) (unknown) (no (unknown) (unknown) Conjunctivae: (units ( unknown) date) conjunctivae normal unknown) (unknown) (no (unknown) (unknown) Const (units (unkno wn) date) unknown) (unknown) (no (unknown) (unknown) Counseling and (units (unknown) date) educating the unknown) patient/family/careg iver: 5 (unknown) (no (unknown) (unknown) : 2000 (units (unknown) date) Acct:[id number] unknown) (unknown) (no (unknown) (unknown) Date of Last (units (u nknown) date) Menstrual Period: unknown) 12/26/21 (unknown) (no (unknown) (unknown) Dept at (units (unkno wn) date) . unknown) (unknown) (no (unknown) (unknown) Details: (units (unkno wn) date) unknown) (unknown) (no (unknown) (unknown) Documented By: (units (unknown) date) Yordan Llanos MD unknown) 05/01/22 1549 (unknown) (no (unknown) (unknown) Draft (units (unkno [...] acute distress (unknown) (no (unknown) (unknown) Glaucoma (-2007) (units [...] date) unknown) (unknown) (no (unknown) (unknown) Heart Sounds: S1 (units (unknown) date) normal, S2 normal unknown) and no murmurs (unknown) (no (unknown) (unknown) Heart murmur (units (u nknown) date) unknown) (unknown) (no (unknown) (unknown) Heavy menstrual (units (unknown) date) period (-2010) unknown) (unknown) (no (unknown) (unknown) Height 4 ft 10 in (units (unknown) date) unknown) (unknown) (no (unknown) (unknown) IMPRESSION:? Normal (unit s (unknown) date) study. unknown) (unknown) (no (unknown) (unknown) Incidental note is (units (unknown) date) made of a small left unknown) paraovarian cyst at the left adnexa. (unknown) (no (unknown) (unknown) Inspection: normal (units (unknown) date) to inspection, no unknown) incisions and no scars (unknown) (no (unknown) (unknown) [...] Yes unknown) (unknown) (no (unknown) (unknown) Judgment: judgment (units (unknown) date) good unknown) (unknown) (no (unknown) (unknown) Last Menstural (units (unknown) date) Cycle + Details unknown) (unknown) (no (unknown) (unknown) Loc: [facility] (units (unkno wn) date) unknown) (unknown) (no (unknown) (unknown) Medical History (units (unknown) date) (Updated 04/13/22 @ unknown) 18:08 by Yordan Llanos MD) (unknown) (no (unknown) (unknown) Medications (units (un [...] ( unknown) date) Allergies Allergy unknown) (Verified 05/01/22 16:02) (unknown) (no (unknown) (unknown) Normal-appearing (units (unknown) date) arterial and venous unknown) waveforms are confirmed to each ovary.? 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) (unknown) (no (unknown) (unknown) Orientation: alert (units (unknown) date) and oriented x3 unknown) (unknown) (no (unknown) (unknown) Other: (units (unkno wn) date) unknown) (unknown) (no (unknown) (unknown) Oxygen Delivery (units (unknown) date) Method room air unknown) (unknown) (no (unknown) (unknown) PFSH (units (unkno wn) date) unknown) (unknown) (no (unknown) (unknown) Painful menstrual (units (unknown) date) periods (-2010) unknown) (unknown) (no (unknown) (unknown) Palpation: soft, no (unit s (unknown) date) hepatosplenomegaly unknown) and tender (Direct, RLQ) (unknown) (no (unknown) (unknown) Patient counseled (units (unknown) date) regarding unknown) alternatives, risks, benefits, and potential (unknown) (no (unknown) (unknown) Patient: (units (unkno wn) date) Carol Grimm unknown) MR#: [id number] (unknown) (no (unknown) (unknown) Pelvic Support: (units [...] unknown) (unknown) (no (unknown) (unknown) Pt here for pre-op (units (unknown) date) visit unknown) (unknown) (no (unknown) (unknown) Pulse 89 (units (unkno wn) date) unknown) (unknown) (no (unknown) (unknown) Pulse Oximetry (%) (units (unknown) date) 99 unknown) (unknown) (no (unknown) (unknown) Pulse Source (units (u nknown) date) Monitor unknown) (unknown) (no (unknown) (unknown) ROS Narrative (units ( unknown) date) unknown) (unknown) (no (unknown) (unknown) ROS Narrative: (units (unknown) date) unknown) (unknown) (no (unknown) (unknown) ROS (units (unkno wn) date) unknown) (unknown) (no (unknown) (unknown) Rate: regular rate (units (unknown) date) unknown) (unknown) (no (unknown) (unknown) Raynaud's disease (units (unknown) date) unknown) (unknown) (no (unknown) (unknown) Reason For Visit (units (unknown) date) unknown) (unknown) (no (unknown) (unknown) Recto-Vaginal: no (units (unknown) date) cul-de-sac fullness, unknown) no cul-de-sac tenderness and no (unknown) (no (unknown) (unknown) Referring and (units ( unknown) date) communicating with unknown) other health professionals: 5 (unknown) (no (unknown) (unknown) Resp (units (unkno wn) date) unknown) (unknown) (no (unknown) (unknown) Respiration 12 (units (unknown) date) unknown) (unknown) (no (unknown) (unknown) Rhythm: regular (units (unknown) date) rhythm unknown) (unknown) (no (unknown) (unknown) Sclera: sclerae [...] unknown) date) unknown) (unknown) (no (unknown) (unknown) Temp 99 F (units (unkn own) date) unknown) (unknown) (no (unknown) (unknown) Temp Source (units (un known) date) Temporal Artery Scan unknown) (unknown) (no (unknown) (unknown) The nature the (units ( unknown) date) patient's pelvic unknown) pain is unclear at this point.? Her long history (unknown) (no (unknown) (unknown) The uterine body [...] unknown) (unknown) (no (unknown) (unknown) Total Time: 25 (units (unknown) date) unknown) (unknown) (no (unknown) (unknown) Urethra: normal (units (unknown) date) appearance of the unknown) urethra (unknown) (no (unknown) (unknown) 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: Pre (units (unknown) date) op unknown) (unknown) (no (unknown) (unknown) Vitals (units (unkno wn) date) unknown) (unknown) (no (unknown) (unknown) Weight 100 lb (units ( unknown) date) unknown) (unknown) (no (unknown) (unknown) adnexal mass.? (units (unknown) date) unknown) (unknown) (no (unknown) (unknown) alcohol intake: (units (unknown) date) current unknown) (unknown) (no (unknown) (unknown) and/or other (units (un known) date) potential causes of unknown) right lower quadrant/pelvic pain.? She presents (unknown) (no (unknown) (unknown) another period on (units (unknown) date) December 26 2021 unknown) but has not had any bleeding since that (unknown) (no (unknown) (unknown) can radiate down (units (unknown) date) the anterior aspect unknown) of her right thigh.? She states her (unknown) (no (unknown) (unknown) cetirizine 5 (units (u nknown) date) mg-pseudoephedrine unknown) ER 120 mg tablet,extended release,12hr 1 tab PO (unknown) (no (unknown) (unknown) combined (units (unkno wn) date) thickness.? The unknown) right ovary measures 1.9 x 4.1 x 4.0 cm and the left (unknown) (no (unknown) (unknown) complications (units ( unknown) date) associated with unknown) diagnostic laparoscopy, possible excision and/or (unknown) (no (unknown) (unknown) constant right (units (unknown) date) lower quadrant/right unknown) sided pelvic pain for the last 3 months and (unknown) (no (unknown) (unknown) cul-de-sac (units (unk nown) date) nodularity and apex unknown) supported (unknown) (no (unknown) (unknown) cul-de-sac (units (unk nown) date) nodularlity unknown) (unknown) (no (unknown) (unknown) currently use (units (u nknown) date) contraception.? She unknown) was on control pills up until November of (unknown) (no (unknown) (unknown) discharge, no (units ( unknown) date) lesions and No unknown) vaginal bleeding (unknown) (no (unknown) (unknown) does not appear to (units (unknown) date) be cyclic.? She does unknown) however have history of deep dyspareunia (unknown) (no (unknown) (unknown) dysmenorrhea has (units (unknown) date) gradually increased unknown) over the years and she does have both (unknown) (no (unknown) (unknown) evaluation of a (units (unknown) date) three-month history unknown) of right lower quadrant/right sided pelvic (unknown) (no (unknown) (unknown) evidence of biliary (unit s (unknown) date) obstruction or acute unknown) cholecystitis.? No other abnormalities (unknown) (no (unknown) (unknown) free fluid in the (units (unknown) date) cul-de-sac.? unknown) (unknown) (no (unknown) (unknown) fulguration of (units (unknown) date) endometrial unknown) implants, and possible appendectomy for right lower (unknown) (no (unknown) (unknown) have occurred. If (units (unknown) date) there are any unknown) questions, please contact the Medical Records (unknown) (no (unknown) (unknown) introital and deep [...] 3.0 (unit s (unknown) date) x 3.5 cm.? No unknown) dominant cyst is seen in either ovary.? (unknown) (no (unknown) (unknown) menses but she has (units (unknown) date) a long history of unknown) primary dysmenorrhea.? Her symptoms are (unknown) (no (unknown) (unknown) methods of (units (unk nown) date) evaluating/treating unknown) those different possibilities.? A CBC and ESR (unknown) (no (unknown) (unknown) obtained and are (units (unknown) date) both normal.? After unknown) discussing all options, the patient wishes (unknown) (no (unknown) (unknown) occurred due to the (unit s (unknown) date) inherent limitations unknown) of voice recognition software. Please (unknown) (no (unknown) (unknown) of primary (units (unk nown) date) dysmenorrhea is unknown) concerning for the possibility of an previously (unknown) (no (unknown) (unknown) oxycodone-acetamino (unit s (unknown) date) phen 5 mg-325 mg unknown) tablet 1 tab PO Q6H PRN 05/01/22 [History (unknown) (no (unknown) (unknown) pain.? Menarche (units (unknown) date) occurred at age 13 unknown) and in general she is had regular periods (unknown) (no (unknown) (unknown) previously noted (units (unknown) date) small calcified unknown) gallstones in the gallbladder lumen without (unknown) (no (unknown) (unknown) quadrant pain and (units (unknown) date) chronic pelvic pain. unknown) With full understanding of the above, a (unknown) (no (unknown) (unknown) read the note (units ( unknown) date) carefully and unknown) recognize, using context, where these substitutions (unknown) (no (unknown) (unknown) rness) (units (unkno wn) date) unknown) (unknown) (no (unknown) (unknown) sentences (units (unkn own) date) unknown) (unknown) (no (unknown) (unknown) software. Although (units (unknown) date) every effort is made unknown) to edit content, housekeeping aid errors (unknown) (no (unknown) (unknown) tender, non-tender, (unit s (unknown) date) no cervical motion unknown) tenderness and other (No levator tende (unknown) (no (unknown) (unknown) then exacerbations (units (unknown) date) which are sharp.? unknown) These do not appear to be related to her (unknown) (no (unknown) (unknown) thickness.? No (units (unknown) date) unknown) (unknown) (no (unknown) (unknown) throughout her (units (unknown) date) reproductive life unknown) thus far.? She is sexually active but does not (unknown) (no (unknown) (unknown) time.? Serial (units (u nknown) date) tests have unknown) been negative.? Patient has been having sharp (unknown) (no (unknown) (unknown) to be normal in (units (unknown) date) size at 2.9 x 4.2 x unknown) 6.4 cm.? The endometrium measures 6.6 mm in (unknown) (no (unknown) (unknown) to proceed with (units (unknown) date) diagnostic unknown) laparoscopy to evaluate for possible endometriosis (unknown) (no (unknown) (unknown) today for (units (unkn own) date) preoperative unknown) evaluation, counseling, and consent. (unknown) (no (unknown) (unknown) ultrasound at (units ( unknown) date) [facility] on unknown) 03/21/2022 which showed: (unknown) (no (unknown) (unknown) undiagnosed (units (un known) date) endometriosis with a unknown) right lower quadrant pain she is experiencing (unknown) (no (unknown) (unknown) urethra, no lesions (unit s (unknown) date) and No bartholin unknown) cyst (unknown) (no (unknown) (unknown) uterine mass.? (units (unknown) date) Normal size and unknown) appearance of both ovaries.? No ovarian or (unknown) (no (unknown) (unknown) visits and also (units (unknown) date) from her mother.? unknown) Pain is constant with a dull component and (unknown) (no (unknown) (unknown) walking.? She has (units (unknown) date) no GI or unknown) complaints.? Pain is always in the same spot but (unknown) (no (unknown) (unknown) were seen.? Pelvic (units (unknown) date) ultrasound performed unknown) at that same ED visit showed the uterus (unknown) (no (unknown) (unknown) which is also (units (u nknown) date) concerning.? We unknown) discussed potential causes for her pelvic pain and (unknown) (no (unknown) (unknown) worsened with (units ( unknown) date) prolonged sitting or unknown) prolonged standing, or prolonged episodes of (unknown) (no (unknown) (unknown) written consent was (unit s (unknown) date) executed, signed, unknown) and witnessed this date. Result panel 70 (unknown) (no (unknown) (unknown) (no value) (units (unk nown) date) unknown) (unknown) (no (unknown) (unknown) (1) Amenorrhea (units (unknown) date) following unknown) discontinuation of oral contraceptive use: (unknown) (no (unknown) (unknown) (2) Pelvic pain in (units (unknown) date) female: unknown) (unknown) (no (unknown) (unknown) (Right side only, (units (unknown) date) mild), No cul-de-sac unknown) fullness, No cul-de-sac tenderness, No (unknown) (no (unknown) (unknown) [id number] (units (unkn own) date) unknown) (unknown) (no (unknown) (unknown) 05/01/22 (units (unkno wn) date) unknown) (unknown) (no (unknown) (unknown) 05/02/22 0809 (units ( unknown) date) unknown) (unknown) (no (unknown) (unknown) 13 lb since July (units (unknown) date) 2021.? Recent pelvic unknown) imaging thus far includes a pelvic (unknown) (no (unknown) (unknown) 16:02 (units (unkno wn) date) unknown) (unknown) (no (unknown) (unknown) 2021 when she (units ( unknown) date) discontinued them unknown) and had her final withdrawal period.? She had (unknown) (no (unknown) (unknown) ? (units (unkno wn) date) unknown) (unknown) (no (unknown) (unknown) ?? (units (unkno wn) date) unknown) (unknown) (no (unknown) (unknown) ADHD (-2004) (units (u nknown) date) unknown) (unknown) (no (unknown) (unknown) Abdominopelvic CT (units (unknown) date) [facility]22 showed (unknown) (no (unknown) (unknown) Affect: normal (units (unknown) date) affect unknown) (unknown) (no (unknown) (unknown) Age/Sex: 21 / F (units (unknown) date) Date of Service: unknown) (unknown) (no (unknown) (unknown) Allergies (-2010) (units (unknown) date) unknown) (unknown) (no (unknown) (unknown) Allergies (units (unkn own) date) unknown) (unknown) (no (unknown) (unknown) [place] [address] (unit s (unknown) date) unknown) (unknown) (no (unknown) (unknown) Ankle pain () (units (unknown) date) unknown) (unknown) (no (unknown) (unknown) Anxiety () (units (unknown) date) unknown) (unknown) (no (unknown) (unknown) Appearance: grossly (unit s (unknown) date) normal unknown) (unknown) (no (unknown) (unknown) Assessment + Plan (units (unknown) date) unknown) (unknown) (no (unknown) (unknown) Attending Dr: (units ( unknown) date) Yordan Llanos MD unknown) (unknown) (no (unknown) (unknown) Attitude: (units (unkn own) date) cooperative unknown) (unknown) (no (unknown) (unknown) Auscultation: clear (unit s (unknown) date) to auscultation unknown) bilaterally (unknown) (no (unknown) (unknown) BID 05/01/22 (units (u nknown) date) [History Confirmed unknown) 05/01/22] (unknown) (no (unknown) (unknown) BMI 20.9 (units (unkno wn) date) unknown) (unknown) (no (unknown) (unknown) BP 98/58 L (units (unk nown) date) unknown) (unknown) (no (unknown) (unknown) Bimanual [...] presents today for (unknown) (no (unknown) (unknown) Cardio (units (unkno wn) date) unknown) (unknown) (no (unknown) (unknown) Chief Complaint (units (unknown) date) unknown) (unknown) (no (unknown) (unknown) Chief Complaint: (units (unknown) date) Preop visit unknown) (unknown) (no (unknown) (unknown) Chronic cough (units ( unknown) date) () unknown) (unknown) (no (unknown) (unknown) Confirmed 05/01/22] (unit s (unknown) date) unknown) (unknown) (no (unknown) (unknown) Conjunctivae: (units ( unknown) date) conjunctivae normal unknown) (unknown) (no (unknown) (unknown) Const (units (unkno wn) date) unknown) (unknown) (no (unknown) (unknown) Counseling and (units (unknown) date) educating the unknown) patient/family/careg iver: 5 (unknown) (no (unknown) (unknown) : 2000 (units (unknown) date) Acct:[id number] unknown) (unknown) (no (unknown) (unknown) Date of Last (units (u nknown) date) Menstrual Period: unknown) 12/26/21 (unknown) (no (unknown) (unknown) Dept at (units (unkno wn) date) . unknown) (unknown) (no (unknown) (unknown) Details: (units (unkno wn) date) unknown) (unknown) (no (unknown) (unknown) Documented By: (units (unknown) date) Yordan Llanos MD unknown) 05/01/22 1549 (unknown) (no (unknown) (unknown) EOM: EOM intact [...] (unknown) (no (unknown) (unknown) FINDINGS:? (units (unk n) date) unknown) (unknown) (no (unknown) (unknown) Face [...] acute distress (unknown) (no (unknown) (unknown) Glaucoma (-2007) (units [...] date) unknown) (unknown) (no (unknown) (unknown) Heart Sounds: S1 (units (unknown) date) normal, S2 normal unknown) and no murmurs (unknown) (no (unknown) (unknown) Heart murmur (units (u nknown) date) unknown) (unknown) (no (unknown) (unknown) Heavy menstrual (units (unknown) date) period (-2010) unknown) (unknown) (no (unknown) (unknown) Height 4 ft 10 in (units (unknown) date) unknown) (unknown) (no (unknown) (unknown) IMPRESSION:? Normal (unit s (unknown) date) study. unknown) (unknown) (no (unknown) (unknown) Incidental note is (units (unknown) date) made of a small left unknown) paraovarian cyst at the left adnexa. (unknown) (no (unknown) (unknown) Inspection: normal (units (unknown) date) to inspection, no unknown) incisions and no scars (unknown) (no (unknown) (unknown) [...] Yes unknown) (unknown) (no (unknown) (unknown) Judgment: judgment (units (unknown) date) good unknown) (unknown) (no (unknown) (unknown) Last Menstural (units (unknown) date) Cycle + Details unknown) (unknown) (no (unknown) (unknown) Loc: [facility] (units (unkno wn) date) unknown) (unknown) (no (unknown) (unknown) Medical History (units (unknown) date) (Updated 04/13/22 @ unknown) 18:08 by Yordan Llanos MD) (unknown) (no (unknown) (unknown) Medications (units (un [...] ( unknown) date) Allergies Allergy unknown) (Verified 05/01/22 16:02) (unknown) (no (unknown) (unknown) Normal-appearing (units (unknown) date) arterial and venous unknown) waveforms are confirmed to each ovary.? 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) (unknown) (no (unknown) (unknown) Orientation: alert (units (unknown) date) and oriented x3 unknown) (unknown) (no (unknown) (unknown) Other: (units (unkno wn) date) unknown) (unknown) (no (unknown) (unknown) Oxygen Delivery (units (unknown) date) Method room air unknown) (unknown) (no (unknown) (unknown) PFSH (units (unkno wn) date) unknown) (unknown) (no (unknown) (unknown) Painful menstrual (units (unknown) date) periods (-2010) unknown) (unknown) (no (unknown) (unknown) Palpation: soft, no (unit s (unknown) date) hepatosplenomegaly unknown) and tender (Direct, RLQ) (unknown) (no (unknown) (unknown) Patient counseled (units (unknown) date) regarding unknown) alternatives, risks, benefits, and potential (unknown) (no (unknown) (unknown) Patient: (units (unkno wn) date) Carol Grimm unknown) MR#: M (unknown) (no (unknown) (unknown) Pelvic Support: (units [...] unknown) (unknown) (no (unknown) (unknown) Pt here for pre-op (units (unknown) date) visit unknown) (unknown) (no (unknown) (unknown) Pulse 89 (units (unkno wn) date) unknown) (unknown) (no (unknown) (unknown) Pulse Oximetry (%) (units (unknown) date) 99 unknown) (unknown) (no (unknown) (unknown) Pulse Source (units (u nknown) date) Monitor unknown) (unknown) (no (unknown) (unknown) ROS Narrative (units ( unknown) date) unknown) (unknown) (no (unknown) (unknown) ROS Narrative: (units (unknown) date) unknown) (unknown) (no (unknown) (unknown) ROS (units (unkno wn) date) unknown) (unknown) (no (unknown) (unknown) Rate: regular rate (units (unknown) date) unknown) (unknown) (no (unknown) (unknown) Raynaud's disease (units (unknown) date) unknown) (unknown) (no (unknown) (unknown) Reason For Visit (units (unknown) date) unknown) (unknown) (no (unknown) (unknown) Recto-Vaginal: no (units (unknown) date) cul-de-sac fullness, unknown) no cul-de-sac tenderness and no (unknown) (no (unknown) (unknown) Referring and (units ( unknown) date) communicating with unknown) other health professionals: 5 (unknown) (no (unknown) (unknown) Resp (units (unkno wn) date) unknown) (unknown) (no (unknown) (unknown) Respiration 12 (units (unknown) date) unknown) (unknown) (no (unknown) (unknown) Rhythm: regular (units (unknown) date) rhythm unknown) (unknown) (no (unknown) (unknown) Sclera: sclerae [...] unknown) date) unknown) (unknown) (no (unknown) (unknown) Temp 99 F (units (unkn own) date) unknown) (unknown) (no (unknown) (unknown) Temp Source (units (un known) date) Temporal Artery Scan unknown) (unknown) (no (unknown) (unknown) The nature the (units ( unknown) date) patient's pelvic unknown) pain is unclear at this point.? Her long history (unknown) (no (unknown) (unknown) The uterine body [...] unknown) (unknown) (no (unknown) (unknown) Total Time: 25 (units (unknown) date) unknown) (unknown) (no (unknown) (unknown) Urethra: normal (units (unknown) date) appearance of the unknown) urethra (unknown) (no (unknown) (unknown) 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: Pre (units (unknown) date) op unknown) (unknown) (no (unknown) (unknown) Vitals (units (unkno wn) date) unknown) (unknown) (no (unknown) (unknown) Weight 100 lb (units ( unknown) date) unknown) (unknown) (no (unknown) (unknown) adnexal mass.? (units (unknown) date) unknown) (unknown) (no (unknown) (unknown) alcohol intake: (units (unknown) date) current unknown) (unknown) (no (unknown) (unknown) and/or other (units (un known) date) potential causes of unknown) right lower quadrant/pelvic pain.? She presents (unknown) (no (unknown) (unknown) another period on (units (unknown) date) December 26 2021 unknown) but has not had any bleeding since that (unknown) (no (unknown) (unknown) ay occur. (units (unkn own) date) Occasional unknown) wrong-word or 'sound-alike' substitutions may have (unknown) (no (unknown) (unknown) can radiate down (units (unknown) date) the anterior aspect unknown) of her right thigh.? She states her (unknown) (no (unknown) (unknown) cetirizine 5 (units (u nknown) date) mg-pseudoephedrine unknown) ER 120 mg tablet,extended release,12hr 1 tab PO (unknown) (no (unknown) (unknown) combined (units (unkno wn) date) thickness.? The unknown) right ovary measures 1.9 x 4.1 x 4.0 cm and the left (unknown) (no (unknown) (unknown) complications (units ( unknown) date) associated with unknown) diagnostic laparoscopy, possible excision and/or (unknown) (no (unknown) (unknown) constant right (units (unknown) date) lower quadrant/right unknown) sided pelvic pain for the last 3 months and (unknown) (no (unknown) (unknown) cul-de-sac (units (unk nown) date) nodularity and apex unknown) supported (unknown) (no (unknown) (unknown) cul-de-sac (units (unk nown) date) nodularlity unknown) (unknown) (no (unknown) (unknown) currently use (units (u nknown) date) contraception.? She unknown) was on control pills up until November of (unknown) (no (unknown) (unknown) discharge, no (units ( unknown) date) lesions and No unknown) vaginal bleeding (unknown) (no (unknown) (unknown) does not appear to (units (unknown) date) be cyclic.? She does unknown) however have history of deep dyspareunia (unknown) (no (unknown) (unknown) dysmenorrhea has (units (unknown) date) gradually increased unknown) over the years and she does have both (unknown) (no (unknown) (unknown) evaluation of a (units (unknown) date) three-month history unknown) of right lower quadrant/right sided pelvic (unknown) (no (unknown) (unknown) evidence of biliary (unit s (unknown) date) obstruction or acute unknown) cholecystitis.? No other abnormalities (unknown) (no (unknown) (unknown) free fluid in the (units (unknown) date) cul-de-sac.? unknown) (unknown) (no (unknown) (unknown) fulguration of (units (unknown) date) endometrial unknown) implants, and possible appendectomy for right lower (unknown) (no (unknown) (unknown) have occurred. If (units (unknown) date) there are any unknown) questions, please contact the Medical Records (unknown) (no (unknown) (unknown) introital and deep [...] 3.0 (unit s (unknown) date) x 3.5 cm.? No unknown) dominant cyst is seen in either ovary.? (unknown) (no (unknown) (unknown) menses but she has (units (unknown) date) a long history of unknown) primary dysmenorrhea.? Her symptoms are (unknown) (no (unknown) (unknown) methods of (units (unk nown) date) evaluating/treating unknown) those different possibilities.? A CBC and ESR (unknown) (no (unknown) (unknown) obtained and are (units (unknown) date) both normal.? After unknown) discussing all options, the patient wishes (unknown) (no (unknown) (unknown) occurred due to the (unit s (unknown) date) inherent limitations unknown) of voice recognition software. Please (unknown) (no (unknown) (unknown) of primary (units (unk nown) date) dysmenorrhea is unknown) concerning for the possibility of an previously (unknown) (no (unknown) (unknown) oxycodone-acetamino (unit s (unknown) date) phen 5 mg-325 mg unknown) tablet 1 tab PO Q6H PRN 05/01/22 [History (unknown) (no (unknown) (unknown) pain.? Menarche (units (unknown) date) occurred at age 13 unknown) and in general she is had regular periods (unknown) (no (unknown) (unknown) previously noted (units (unknown) date) small calcified unknown) gallstones in the gallbladder lumen without (unknown) (no (unknown) (unknown) quadrant pain and (units (unknown) date) chronic pelvic pain. unknown) With full understanding of the above, a (unknown) (no (unknown) (unknown) read the note (units ( unknown) date) carefully and unknown) recognize, using context, where these substitutions (unknown) (no (unknown) (unknown) rness) (units (unkno wn) date) unknown) (unknown) (no (unknown) (unknown) sentences (units (unkn own) date) unknown) (unknown) (no (unknown) (unknown) software. Although (units (unknown) date) every effort is made unknown) to edit content, housekeeping aid errors m (unknown) (no (unknown) (unknown) tender, non-tender, (unit s (unknown) date) no cervical motion unknown) tenderness and other (No levator tende (unknown) (no (unknown) (unknown) then exacerbations (units (unknown) date) which are sharp.? unknown) These do not appear to be related to her (unknown) (no (unknown) (unknown) thickness.? No (units (unknown) date) unknown) (unknown) (no (unknown) (unknown) throughout her (units (unknown) date) reproductive life unknown) thus far.? She is sexually active but does not (unknown) (no (unknown) (unknown) time.? Serial (units (u nknown) date) tests have unknown) been negative.? Patient has been having sharp (unknown) (no (unknown) (unknown) to be normal in (units (unknown) date) size at 2.9 x 4.2 x unknown) 6.4 cm.? The endometrium measures 6.6 mm in (unknown) (no (unknown) (unknown) to proceed with (units (unknown) date) diagnostic unknown) laparoscopy to evaluate for possible endometriosis (unknown) (no (unknown) (unknown) today for (units (unkn own) date) preoperative unknown) evaluation, counseling, and consent. (unknown) (no (unknown) (unknown) ultrasound at (units ( unknown) date) [facility] on unknown) 03/21/2022 which showed: (unknown) (no (unknown) (unknown) undiagnosed (units (un known) date) endometriosis with a unknown) right lower quadrant pain she is experiencing (unknown) (no (unknown) (unknown) urethra, no lesions (unit s (unknown) date) and No bartholin unknown) cyst (unknown) (no (unknown) (unknown) uterine mass.? (units (unknown) date) Normal size and unknown) appearance of both ovaries.? No ovarian or (unknown) (no (unknown) (unknown) visits and also (units (unknown) date) from her mother.? unknown) Pain is constant with a dull component and (unknown) (no (unknown) (unknown) walking.? She has (units (unknown) date) no GI or unknown) complaints.? Pain is always in the same spot but (unknown) (no (unknown) (unknown) were seen.? Pelvic (units (unknown) date) ultrasound performed unknown) at that same ED visit showed the uterus (unknown) (no (unknown) (unknown) which is also (units (u nknown) date) concerning.? We unknown) discussed potential causes for her pelvic pain and (unknown) (no (unknown) (unknown) worsened with (units ( unknown) date) prolonged sitting or unknown) prolonged standing, or prolonged episodes of (unknown) (no (unknown) (unknown) written consent was (unit s (unknown) date) executed, signed, unknown) and witnessed this date. Result panel 71 (unknown) (no (unknown) (unknown) (no value) (units (unk nown) date) unknown) (unknown) (no (unknown) (unknown) [id number] (units (unkn own) date) unknown) (unknown) (no (unknown) (unknown) 05/04/22 0740 (units ( unknown) date) unknown) (unknown) (no (unknown) (unknown) Age/Sex: 21 / F (units (unknown) date) unknown) (unknown) (no (unknown) (unknown) COVID-19 (units (unkno wn) date) status: Not unknown) tested (unknown) (no (unknown) (unknown) COVID-19 (units (unkno wn) date) unknown) (unknown) (no (unknown) (unknown) Changes to H+P: (units (unknown) date) No unknown) (unknown) (no (unknown) (unknown) Criteria for (units (u nknown) date) continued unknown) procedure: Non-surgical alternatives not available or (unknown) (no (unknown) (unknown) : 2000 (units (unknown) date) Acct:[id number] unknown) (unknown) (no (unknown) (unknown) Date of (units (unkno wn) date) Service: unknown) 05/04/22 (unknown) (no (unknown) (unknown) History + (units (unkn own) date) Physical unknown) reviewed/Exam performed by Physician: Yes (unknown) (no (unknown) (unknown) Interval Note (units ( unknown) date) unknown) (unknown) (no (unknown) (unknown) [facility] (units (unknown) date) [address] unknown) [place] [address] (unknown) (no (unknown) (unknown) Patient: (units (unkno wn) date) AlfaCarol unknown) Khadra MR#: M (unknown) (no (unknown) (unknown) Pre-operative (units ( unknown) date) Note unknown) (unknown) (no (unknown) (unknown) Provider: (units (unkn own) date) Yordan Llanos unknown) (unknown) (no (unknown) (unknown) Signed (units (unkno wn) date) By:<Electronical unknown) ly signed by Yordan Llanos MD> (unknown) (no (unknown) (unknown) appropriate per (units (unknown) date) current SOC unknown) Result panel 72 (unknown) (no (unknown) (unknown) (no value) (units (unk nown) date) unknown) (unknown) (no (unknown) (unknown) [id number] (units (unkn own) date) unknown) (unknown) (no (unknown) (unknown) 13 lb since July (units (unknown) date) 2021.? Recent unknown) pelvic imaging thus far includes a pelvic (unknown) (no (unknown) (unknown) 2021 when she (units ( unknown) date) discontinued them unknown) and had her final withdrawal period.? She had (unknown) (no (unknown) (unknown) ? (units (unkno wn) date) unknown) (unknown) (no (unknown) (unknown) ?? (units (unkno wn) date) unknown) (unknown) (no (unknown) (unknown) Abdominopelvic (units (unknown) date) CT performed at unknown) [facility] on 04/02/2022 showed (unknown) (no (unknown) (unknown) Actual Procedure (units (unknown) date) Side Surgeon unknown) (unknown) (no (unknown) (unknown) Age/Sex: 21 / F (units (unknown) date) unknown) (unknown) (no (unknown) (unknown) Anesthesia Type: (units (unknown) date) General unknown) (unknown) (no (unknown) (unknown) Carol is a (units (u nknown) date) 21-year-old G0, unknown) LMP December 26, 2021, who presents today for (unknown) (no (unknown) (unknown) : 2000 (units (unknown) date) Acct:[id number] unknown) (unknown) (no (unknown) (unknown) Date of Service: (units (unknown) date) 05/04/22 unknown) (unknown) (no (unknown) (unknown) Date of (units (unkno wn) date) procedure: unknown) 05/04/22 (unknown) (no (unknown) (unknown) FINDINGS:? (units (unk nown) date) unknown) (unknown) (no (unknown) (unknown) IMPRESSION:? (units (u nknown) date) Normal study. unknown) (unknown) (no (unknown) (unknown) Incidental note (units (unknown) date) is made of a unknown) small left paraovarian cyst at the left adnexa. (unknown) (no (unknown) (unknown) Indications: (units (u nknown) date) unknown) (unknown) (no (unknown) (unknown) [facility] (units (unknown) date) [address] [place] [address] Street unknown) [place] [address] (unknown) (no (unknown) (unknown) Normal-appearing (units (unknown) date) arterial and unknown) venous waveforms are confirmed to each ovary.? (unknown) (no (unknown) (unknown) Operation Date: (units (unknown) date) 05/04/22 07:45 unknown) (unknown) (no (unknown) (unknown) Operative (units (unkn own) date) Date/Time/Diagnos unknown) es (unknown) (no (unknown) (unknown) Operative Note (units (unknown) date) unknown) (unknown) (no (unknown) (unknown) Patient: (units (unkno wn) date) Carol Grimm unknown) MR#: M (unknown) (no (unknown) (unknown) Physiologic (units (un known) date) unknown) (unknown) (no (unknown) (unknown) Post-op (units (unkno wn) date) diagnosis: other unknown) (Same as above; Normal pelvis) (unknown) (no (unknown) (unknown) Pre-op (units (unkno wn) date) diagnosis: unknown) Chronic pelvic pain (unknown) (no (unknown) (unknown) Procedure + (units (un known) date) Clinicians unknown) (unknown) (no (unknown) (unknown) Procedure: (units (unk nown) date) unknown) (unknown) (no (unknown) (unknown) Procedures (units (unk nown) date) unknown) (unknown) (no (unknown) (unknown) Provider: (units (unkn own) date) Yordan Llanos unknown) (unknown) (no (unknown) (unknown) Several (units (unkno wn) date) physiologic/folli unknown) cular subcentimeter cysts present in both ovaries.? (unknown) (no (unknown) (unknown) Signed By: (units (unk nown) date) unknown) (unknown) (no (unknown) (unknown) Surgeon: Yordan (units (unknown) date) Keisha Llanos unknown) (unknown) (no (unknown) (unknown) The nature the (units ( unknown) date) patient's pelvic unknown) pain is unclear at this point.? Her long history (unknown) (no (unknown) (unknown) The uterine body (units (unknown) date) measures 6.4 x unknown) 3.2 x 4.1 centimeters.? Normal endometrial (unknown) (no (unknown) (unknown) Time of (units (unkno wn) date) procedure: 08:05 unknown) (unknown) (no (unknown) (unknown) adnexal mass.? (units (unknown) date) unknown) (unknown) (no (unknown) (unknown) and/or other (units (un known) date) potential causes unknown) of right lower quadrant/pelvic pain.? She presents (unknown) (no (unknown) (unknown) another period (units (unknown) date) on December 26 unknown) 2021 but has not had any bleeding since that (unknown) (no (unknown) (unknown) can radiate down (units (unknown) date) the anterior unknown) aspect of her right thigh.? She states her (unknown) (no (unknown) (unknown) combined (units (unkno wn) date) thickness.? The unknown) right ovary measures 1.9 x 4.1 x 4.0 cm and the left (unknown) (no (unknown) (unknown) constant right (units (unknown) date) lower unknown) quadrant/right sided pelvic pain for the last 3 months and (unknown) (no (unknown) (unknown) currently use (units (u nknown) date) contraception.? unknown) She was on control pills up until November (unknown) (no (unknown) (unknown) does not appear (units (unknown) date) to be cyclic.? unknown) She does however have history of deep dyspareunia (unknown) (no (unknown) (unknown) dysmenorrhea has (units (unknown) date) gradually unknown) increased over the years and she does have both (unknown) (no (unknown) (unknown) evaluation of a (units (unknown) date) three-month unknown) history of right lower quadrant/right sided pelvic (unknown) (no (unknown) (unknown) free fluid in (units ( unknown) date) the cul-de-sac.? unknown) (unknown) (no (unknown) (unknown) idence of (units (unkn own) date) biliary unknown) obstruction or acute cholecystitis.? No other abnormalities (unknown) (no (unknown) (unknown) introital and (units (u nknown) date) deep dyspareunia unknown) on occasion patient states that she is lost about (unknown) (no (unknown) (unknown) is only obtained (units (unknown) date) relief by taking unknown) hydrocodone which she has received from her ER (unknown) (no (unknown) (unknown) measures 3.5 by (units (unknown) date) 3.0 x 3.5 cm.? No unknown) dominant cyst is seen in either ovary.? (unknown) (no (unknown) (unknown) menses but she (units (unknown) date) has a long unknown) history of primary dysmenorrhea.? Her symptoms are (unknown) (no (unknown) (unknown) methods of (units (unk nown) date) evaluating/treati unknown) ng those different possibilities.? A CBC and ESR (unknown) (no (unknown) (unknown) obtained and are (units (unknown) date) both normal.? unknown) After discussing all options, the patient wishes (unknown) (no (unknown) (unknown) of primary (units (unk nown) date) dysmenorrhea is unknown) concerning for the possibility of an previously (unknown) (no (unknown) (unknown) p DX Laparoscopy (units (unknown) date) Not Applicable unknown) Yordan Llanos MD (unknown) (no (unknown) (unknown) pain.? Menarche (units (unknown) date) occurred at age unknown) 13 and in general she is had regular periods (unknown) (no (unknown) (unknown) previously noted (units (unknown) date) small calcified unknown) gallstones in the gallbladder lumen without ev (unknown) (no (unknown) (unknown) then (units (unkno wn) date) exacerbations unknown) which are sharp.? These do not appear to be related to her (unknown) (no (unknown) (unknown) thickness.? No (units (unknown) date) unknown) (unknown) (no (unknown) (unknown) throughout her (units (unknown) date) reproductive life unknown) thus far.? She is sexually active but does not (unknown) (no (unknown) (unknown) time.? Serial (units (u nknown) date) tests unknown) have been negative.? Patient has been having sharp (unknown) (no (unknown) (unknown) to be normal in (units (unknown) date) size at 2.9 x 4.2 unknown) x 6.4 cm.? The endometrium measures 6.6 mm in (unknown) (no (unknown) (unknown) to proceed with (units (unknown) date) diagnostic unknown) laparoscopy to evaluate for possible endometriosis (unknown) (no (unknown) (unknown) today for (units (unkn own) date) preoperative unknown) evaluation, counseling, and consent. (unknown) (no (unknown) (unknown) ultrasound at (units ( unknown) date) [facility] unknown) on 03/21/2022 which showed: (unknown) (no (unknown) (unknown) undiagnosed (units (un known) date) endometriosis unknown) with a right lower quadrant pain she is experiencing (unknown) (no (unknown) (unknown) uterine mass.? (units (unknown) date) Normal size and unknown) appearance of both ovaries.? No ovarian or (unknown) (no (unknown) (unknown) visits and also (units (unknown) date) from her mother.? unknown) Pain is constant with a dull component and (unknown) (no (unknown) (unknown) walking.? She (units ( unknown) date) has no GI or unknown) complaints.? Pain is always in the same spot but (unknown) (no (unknown) (unknown) were seen.? (units (un known) date) Pelvic ultrasound unknown) performed at that same ED visit showed the uterus (unknown) (no (unknown) (unknown) which is also (units (u nknown) date) concerning.? We unknown) discussed potential causes for her pelvic pain and (unknown) (no (unknown) (unknown) worsened with (units ( unknown) date) prolonged sitting unknown) or prolonged standing, or prolonged episodes of Result panel 73 (unknown) (no (unknown) (unknown) (no value) (units (unk nown) date) unknown) (unknown) (no (unknown) (unknown) [id number] (units (unkn own) date) unknown) (unknown) (no (unknown) (unknown) 13 lb since July (units (unknown) date) 2021.? Recent unknown) pelvic imaging thus far includes a pelvic (unknown) (no (unknown) (unknown) 2021 when she (units ( unknown) date) discontinued them unknown) and had her final withdrawal period.? She had (unknown) (no (unknown) (unknown) ? (units (unkno wn) date) unknown) (unknown) (no (unknown) (unknown) ?? (units (unkno wn) date) unknown) (unknown) (no (unknown) (unknown) Abdominopelvic (units (unknown) date) CT performed at unknown) [facility] on 04/02/2022 showed (unknown) (no (unknown) (unknown) Actual Procedure (units (unknown) date) Side Surgeon unknown) (unknown) (no (unknown) (unknown) Age/Sex: 21 / F (units (unknown) date) unknown) (unknown) (no (unknown) (unknown) Anesthesia Type: (units (unknown) date) General unknown) (unknown) (no (unknown) (unknown) Blood products (units (unknown) date) transfused: none unknown) (unknown) (no (unknown) (unknown) Carol is a (units (u nknown) date) 21-year-old G0, unknown) LMP December 26, 2021, who presents today for (unknown) (no (unknown) (unknown) Closure Type: (units ( unknown) date) primary unknown) (unknown) (no (unknown) (unknown) : 2000 (units (unknown) date) Acct:[id number] unknown) (unknown) (no (unknown) (unknown) Date of Service: (units (unknown) date) 05/04/22 unknown) (unknown) (no (unknown) (unknown) Date of (units (unkno wn) date) procedure: unknown) 05/04/22 (unknown) (no (unknown) (unknown) Estimated blood (units (unknown) date) loss (mL): 0 unknown) (unknown) (no (unknown) (unknown) FINDINGS:? (units (unk nown) date) unknown) (unknown) (no (unknown) (unknown) Findings: (units (unkn own) date) unknown) (unknown) (no (unknown) (unknown) IMPRESSION:? (units (u nknown) date) Normal study. unknown) (unknown) (no (unknown) (unknown) Incidental note (units (unknown) date) is made of a unknown) small left paraovarian cyst at the left adnexa. (unknown) (no (unknown) (unknown) Indications: (units (u nknown) date) unknown) (unknown) (no (unknown) (unknown) [facility] (units (unknown) date) [address] [place] [address] unknown) [place] [address] (unknown) (no (unknown) (unknown) Normal-appearing (units (unknown) date) arterial and unknown) venous waveforms are confirmed to each ovary.? (unknown) (no (unknown) (unknown) Operation Date: (units (unknown) date) 05/04/22 07:45 unknown) (unknown) (no (unknown) (unknown) Operative (units (unkn own) date) Date/Time/Diagnos unknown) es (unknown) (no (unknown) (unknown) Operative Note (units (unknown) date) unknown) (unknown) (no (unknown) (unknown) Operative Notes (units (unknown) date) unknown) (unknown) (no (unknown) (unknown) Patient: (units (unkno wn) date) Carol Grimm unknown) MR#: M (unknown) (no (unknown) (unknown) Physiologic (units (un known) date) unknown) (unknown) (no (unknown) (unknown) Post-op (units (unkno wn) date) diagnosis: other unknown) (Same as above; Normal pelvis) (unknown) (no (unknown) (unknown) Pre-op (units (unkno wn) date) diagnosis: unknown) Chronic pelvic pain (unknown) (no (unknown) (unknown) Procedure + (units (un known) date) Clinicians unknown) (unknown) (no (unknown) (unknown) Procedure in (units (u nknown) date) detail: unknown) (unknown) (no (unknown) (unknown) Procedure: (units (unk nown) date) unknown) (unknown) (no (unknown) (unknown) Procedures (units (unk nown) date) unknown) (unknown) (no (unknown) (unknown) Provider: (units (unkn own) date) Yordan Llanos unknown) (unknown) (no (unknown) (unknown) Several (units (unkno wn) date) physiologic/folli unknown) cular subcentimeter cysts present in both ovaries.? (unknown) (no (unknown) (unknown) Signed By: (units (unk nown) date) unknown) (unknown) (no (unknown) (unknown) Specimen(s): (units (u nknown) date) none unknown) (unknown) (no (unknown) (unknown) Surgeon: Yordan (units (unknown) date) Keisha Llanos unknown) (unknown) (no (unknown) (unknown) The anterior (units (un known) date) cul-de-sac is unknown) unremarkable with no scarring or endometrial implants (unknown) (no (unknown) (unknown) The nature the (units ( unknown) date) patient's pelvic unknown) pain is unclear at this point.? Her long history (unknown) (no (unknown) (unknown) The uterine body (units (unknown) date) measures 6.4 x unknown) 3.2 x 4.1 centimeters.? Normal endometrial (unknown) (no (unknown) (unknown) Time of (units (unkno wn) date) procedure: 08:05 unknown) (unknown) (no (unknown) (unknown) With the patient (units (unknown) date) under unknown) satisfactory general anesthesia in the modified dorsal (unknown) (no (unknown) (unknown) adnexal mass.? 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 She presents (unknown) (no (unknown) (unknown) another period (units (unknown) date) on December 26 unknown) 2021 but has not had any bleeding since that (unknown) (no (unknown) (unknown) can radiate down (units (unknown) date) the anterior unknown) aspect of her right thigh.? She states her (unknown) (no (unknown) (unknown) combined (units (unkno wn) date) thickness.? The unknown) right ovary measures 1.9 x 4.1 x 4.0 cm and the left (unknown) (no (unknown) (unknown) constant right (units (unknown) date) lower unknown) quadrant/right sided pelvic pain for the last 3 months and (unknown) (no (unknown) (unknown) currently use (units (u nknown) date) contraception.? unknown) She was on control pills up until November of (unknown) (no (unknown) (unknown) distal portion (units (unknown) date) of the fallopian unknown) tube. The right tube and ovary were also normal (unknown) (no (unknown) (unknown) does not appear (units (unknown) date) to be cyclic.? unknown) She does however have history of deep dyspareunia (unknown) (no (unknown) (unknown) dysmenorrhea has (units (unknown) date) gradually unknown) increased over the years and she does have both (unknown) (no (unknown) (unknown) evaluation of a (units (unknown) date) three-month unknown) history of right lower quadrant/right sided pelvic (unknown) (no (unknown) (unknown) evidence of (units (un known) date) endometrial unknown) implants. The posterior cul-de-sac is also free of (unknown) (no (unknown) (unknown) free fluid in (units ( unknown) date) the cul-de-sac.? unknown) (unknown) (no (unknown) (unknown) idence of (units (unkn own) date) biliary unknown) obstruction or acute cholecystitis.? No other abnormalities (unknown) (no (unknown) (unknown) implants. Both (units (unknown) date) gutters were unknown) visualized and there was peritoneal no abnormality (unknown) (no (unknown) (unknown) in all respects (units (unknown) date) with no scarring, unknown) areas of thickening, mass or endometrial (unknown) (no (unknown) (unknown) in all respects. (units (unknown) date) The ovarian unknown) fossas on both sides are free of adhesions or (unknown) (no (unknown) (unknown) introital and (units (u nknown) date) deep dyspareunia unknown) on occasion patient states that she is lost about (unknown) (no (unknown) (unknown) is only obtained (units (unknown) date) relief by taking unknown) hydrocodone which she has received from her ER (unknown) (no (unknown) (unknown) lithotomy (units (unkno wn) date) position, the unknown) perineum, vagina, and abdomen were prepped and draped in (unknown) (no (unknown) (unknown) measures 3.5 by (units (unknown) date) 3.0 x 3.5 cm.? No unknown) dominant cyst is seen in either ovary.? (unknown) (no (unknown) (unknown) menses but she (units (unknown) date) has a long unknown) history of primary dysmenorrhea.? Her symptoms are (unknown) (no (unknown) (unknown) methods of (units (unk nown) date) evaluating/treati unknown) ng those different possibilities.? A CBC and ESR (unknown) (no (unknown) (unknown) noted. The (units (unk nown) date) uterus is normal unknown) in size and shape and retroverted. The left tube (unknown) (no (unknown) (unknown) obtained and are (units (unknown) date) both normal.? unknown) After discussing all options, the patient wishes (unknown) (no (unknown) (unknown) of primary (units (unk nown) date) dysmenorrhea is unknown) concerning for the possibility of an previously (unknown) (no (unknown) (unknown) p DX Laparoscopy (units (unknown) date) Not Applicable unknown) Yordan Llanos MD (unknown) (no (unknown) (unknown) pain.? Menarche (units (unknown) date) occurred at age unknown) 13 and in general she is had regular periods (unknown) (no (unknown) (unknown) peritoneal fluid (units (unknown) date) present there. unknown) The cecum is mobile and the appendix is normal (unknown) (no (unknown) (unknown) present. The (units (u nknown) date) gallbladder unknown) appears to be normal as does the liver edge of both (unknown) (no (unknown) (unknown) previously noted (units (unknown) date) small calcified unknown) gallstones in the gallbladder lumen without ev (unknown) (no (unknown) (unknown) scarring or (units (un known) date) endometrial unknown) implants with only a small amount of physiologic (unknown) (no (unknown) (unknown) the left and (units (u nknown) date) right lobe. The unknown) diaphragms are also unremarkable. (unknown) (no (unknown) (unknown) the usual manner (units (unknown) date) for laparoscopy. unknown) (unknown) (no (unknown) (unknown) then (units (unkno wn) date) exacerbations unknown) which are sharp.? These do not appear to be related to her (unknown) (no (unknown) (unknown) thickness.? No (units (unknown) date) unknown) (unknown) (no (unknown) (unknown) throughout her (units (unknown) date) reproductive life unknown) thus far.? She is sexually active but does not (unknown) (no (unknown) (unknown) time.? Serial (units (u nknown) date) tests unknown) have been negative.? Patient has been having sharp (unknown) (no (unknown) (unknown) to be normal in (units (unknown) date) size at 2.9 x 4.2 unknown) x 6.4 cm.? The endometrium measures 6.6 mm in (unknown) (no (unknown) (unknown) to proceed with (units (unknown) date) diagnostic unknown) laparoscopy to evaluate for possible endometriosis (unknown) (no (unknown) (unknown) today for (units (unkn own) date) preoperative unknown) evaluation, counseling, and consent. (unknown) (no (unknown) (unknown) ultrasound at (units ( unknown) date) [facility] unknown) on 03/21/2022 which showed: (unknown) (no (unknown) (unknown) undiagnosed (units (un known) date) endometriosis unknown) with a right lower quadrant pain she is experiencing (unknown) (no (unknown) (unknown) uterine mass.? (units (unknown) date) Normal size and unknown) appearance of both ovaries.? No ovarian or (unknown) (no (unknown) (unknown) visits and also (units (unknown) date) from her mother.? unknown) Pain is constant with a dull component and (unknown) (no (unknown) (unknown) walking.? She (units ( unknown) date) has no GI or unknown) complaints.? Pain is always in the same spot but (unknown) (no (unknown) (unknown) were seen.? (units (un known) date) Pelvic ultrasound unknown) performed at that same ED visit showed the uterus (unknown) (no (unknown) (unknown) which is also (units (u nknown) date) concerning.? We unknown) discussed potential causes for her pelvic pain and (unknown) (no (unknown) (unknown) worsened with (units ( unknown) date) prolonged sitting unknown) or prolonged standing, or prolonged episodes of Result panel 74 (unknown) (no (unknown) (unknown) (no value) (units (unk nown) date) unknown) (unknown) (no (unknown) (unknown) [id number] (units (unkn own) date) unknown) (unknown) (no (unknown) (unknown) 05/04/22 0959 (units ( unknown) date) unknown) (unknown) (no (unknown) (unknown) 13 lb since July (units (unknown) date) 2021.? Recent unknown) pelvic imaging thus far includes a pelvic (unknown) (no (unknown) (unknown) 2021 when she (units ( unknown) date) discontinued them unknown) and had her final withdrawal period.? She had (unknown) (no (unknown) (unknown) ? (units (unkno wn) date) unknown) (unknown) (no (unknown) (unknown) ?? (units (unkno wn) date) unknown) (unknown) (no (unknown) (unknown) Abdominopelvic CT (units (unknown) date) performed at unknown) [facility] on 04/02/2022 showed (unknown) (no (unknown) (unknown) Actual Procedure (units (unknown) date) Side Surgeon unknown) (unknown) (no (unknown) (unknown) Age/Sex: 21 / F (units (unknown) date) unknown) (unknown) (no (unknown) (unknown) Anesthesia Type: (units (unknown) date) General unknown) (unknown) (no (unknown) (unknown) Blood products (units (unknown) date) transfused: none unknown) (unknown) (no (unknown) (unknown) Carol is a (units (u nknown) date) 21-year-old G0, LMP unknown) December 26, 2021, who presents today for (unknown) (no (unknown) (unknown) Closure Type: (units ( unknown) date) primary unknown) (unknown) (no (unknown) (unknown) Condition: stable (units (unknown) date) unknown) (unknown) (no (unknown) (unknown) : 2000 (units (unknown) date) Acct:[id number] unknown) (unknown) (no (unknown) (unknown) Date of Service: (units (unknown) date) 05/04/22 unknown) (unknown) (no (unknown) (unknown) Date of procedure: (units (unknown) date) 05/04/22 unknown) (unknown) (no (unknown) (unknown) Disposition: PACU (units (unknown) date) unknown) (unknown) (no (unknown) (unknown) Estimated blood (units (unknown) date) loss (mL): 0 unknown) (unknown) (no (unknown) (unknown) FINDINGS:? (units (unk nown) date) unknown) (unknown) (no (unknown) (unknown) Findings: (units (unkn own) date) unknown) (unknown) (no (unknown) (unknown) IMPRESSION:? (units (u nknown) date) Normal study. unknown) (unknown) (no (unknown) (unknown) Incidental note is (units (unknown) date) made of a small unknown) left paraovarian cyst at the left adnexa. (unknown) (no (unknown) (unknown) Indications: (units (u nknown) date) unknown) (unknown) (no (unknown) (unknown) [facility] (units (unknown) date) [address] unknown) [place] [id number] (unknown) (no (unknown) (unknown) Marcaine with (units ( unknown) date) epinephrine and a 1 unknown) cm transverse incision was made. A [place]ress (unknown) (no (unknown) (unknown) Normal-appearing (units (unknown) date) arterial and venous unknown) waveforms are confirmed to each ovary.? (unknown) (no (unknown) (unknown) Operation Date: (units (unknown) date) 05/04/22 07:45 unknown) (unknown) (no (unknown) (unknown) Operative (units (unkn own) date) Date/Time/Diagnoses unknown) (unknown) (no (unknown) (unknown) Operative Note (units (unknown) date) unknown) (unknown) (no (unknown) (unknown) Operative Notes (units (unknown) date) unknown) (unknown) (no (unknown) (unknown) Patient: (units (unkno wn) date) Carol Grimm unknown) MR#: [id number] (unknown) (no (unknown) (unknown) Physiologic (units (un known) date) unknown) (unknown) (no (unknown) (unknown) Plan for (units (unkno wn) date) aftercare: unknown) (unknown) (no (unknown) (unknown) Post-op diagnosis: (units (unknown) date) other (Same as unknown) above; Normal pelvis) (unknown) (no (unknown) (unknown) Post-operative (units (unknown) date) unknown) (unknown) (no (unknown) (unknown) Pre-op diagnosis: (units (unknown) date) Chronic pelvic pain unknown) (unknown) (no (unknown) (unknown) Procedure + (units (un known) date) Clinicians unknown) (unknown) (no (unknown) (unknown) Procedure in (units (u nknown) date) detail: unknown) (unknown) (no (unknown) (unknown) Procedure: (units (unk nown) date) unknown) (unknown) (no (unknown) (unknown) Procedures (units (unk nown) date) unknown) (unknown) (no (unknown) (unknown) Provider: (units (unkn own) date) Yordan Llanos MD unknown) (unknown) (no (unknown) (unknown) Routine (units (unkno wn) date) postoperative care unknown) with 2 week postop follow-up scheduled. (unknown) (no (unknown) (unknown) Several (units (unkno wn) date) physiologic/follicu unknown) lar subcentimeter cysts present in both ovaries.? (unknown) (no (unknown) (unknown) Signed (units (unkno wn) date) By:<Electronically unknown) signed by Yordan Llanos MD> (unknown) (no (unknown) (unknown) Specimen(s): none (units (unknown) date) unknown) (unknown) (no (unknown) (unknown) Surgeon: Yordan Valdes (units (unknown) date) Viet unknown) (unknown) (no (unknown) (unknown) The anterior (units (un known) date) cul-de-sac is unknown) unremarkable with no scarring or endometrial implants (unknown) (no (unknown) (unknown) The nature the (units ( unknown) date) patient's pelvic unknown) pain is unclear at this point.? Her long history (unknown) (no (unknown) (unknown) The uterine body (units (unknown) date) measures 6.4 x 3.2 unknown) x 4.1 centimeters.? Normal endometrial (unknown) (no (unknown) (unknown) Time of procedure: (units (unknown) date) 08:05 unknown) (unknown) (no (unknown) (unknown) With the patient (units (unknown) date) under satisfactory unknown) general anesthesia in the modified dorsal (unknown) (no (unknown) (unknown) adnexal mass.? (units (unknown) date) unknown) (unknown) (no (unknown) (unknown) and ovary are (units ( unknown) date) completely normal unknown) with a small hydatid of Morgagni noted near the (unknown) (no (unknown) (unknown) and/or other (units (un known) date) potential causes of unknown) right lower quadrant/pelvic pain.? She presents (unknown) (no (unknown) (unknown) another period on (units (unknown) date) December 26 2021 unknown) but has not had any bleeding since that (unknown) (no (unknown) (unknown) applied. (units (unkno wn) date) Appropriate unknown) dressings were then applied and the patient was (unknown) (no (unknown) (unknown) can radiate down (units (unknown) date) the anterior aspect unknown) of her right thigh.? She states her (unknown) (no (unknown) (unknown) cavity for uterine (units (unknown) date) manipulation. The unknown) umbilicus was infiltrated with 0.5% (unknown) (no (unknown) (unknown) closed with 4-0 (units (unknown) date) Monocryl using unknown) inverted interrupted stitches and skin glue was (unknown) (no (unknown) (unknown) combined (units (unkno wn) date) thickness.? The unknown) right ovary measures 1.9 x 4.1 x 4.0 cm and the left (unknown) (no (unknown) (unknown) constant right (units (unknown) date) lower unknown) quadrant/right sided pelvic pain for the last 3 months and (unknown) (no (unknown) (unknown) currently use (units (u nknown) date) contraception.? She unknown) was on control pills up until November (unknown) (no (unknown) (unknown) demonstrable (units (u nknown) date) abnormality seen, unknown) the procedure was terminated by thinning of the (unknown) (no (unknown) (unknown) distal portion of (units (unknown) date) the fallopian tube. unknown) The right tube and ovary were also normal (unknown) (no (unknown) (unknown) does not appear to (units (unknown) date) be cyclic.? She unknown) does however have history of deep dyspareunia (unknown) (no (unknown) (unknown) dysmenorrhea has (units (unknown) date) gradually increased unknown) over the years and she does have both (unknown) (no (unknown) (unknown) evaluation of a (units (unknown) date) three-month history unknown) of right lower quadrant/right sided pelvic (unknown) (no (unknown) (unknown) evidence of (units (un known) date) endometrial unknown) implants. The posterior cul-de-sac is also free of (unknown) (no (unknown) (unknown) free fluid in the (units (unknown) date) cul-de-sac.? unknown) (unknown) (no (unknown) (unknown) idence of biliary (units (unknown) date) obstruction or unknown) acute cholecystitis.? No other abnormalities (unknown) (no (unknown) (unknown) implants. Both (units (unknown) date) gutters were unknown) visualized and there was peritoneal no abnormality (unknown) (no (unknown) (unknown) in accordance with (units (unknown) date) [facility] unknown) Main OR protocols. A bivalve speculum was (unknown) (no (unknown) (unknown) in all respects (units (unknown) date) with no scarring, unknown) areas of thickening, mass or endometrial (unknown) (no (unknown) (unknown) in all respects. (units (unknown) date) The ovarian fossas unknown) on both sides are free of adhesions or (unknown) (no (unknown) (unknown) incision. The (units ( unknown) date) presence of the unknown) sleeve in the abdominal cavity was confirmed (unknown) (no (unknown) (unknown) inserted in the (units (unknown) date) vagina and a Zumi unknown) manipulator inserted into the endometrial (unknown) (no (unknown) (unknown) introital and deep (units (unknown) date) dyspareunia on unknown) occasion patient states that she is lost about (unknown) (no (unknown) (unknown) is only obtained (units (unknown) date) relief by taking unknown) hydrocodone which she has received from her ER (unknown) (no (unknown) (unknown) laparoscopically (units (unknown) date) and a 2nd and 3rd 5 unknown) mm port were placed in the left and right (unknown) (no (unknown) (unknown) lithotomy position, (units (unknown) date) the perineum, unknown) vagina, and abdomen were prepped and draped in (unknown) (no (unknown) (unknown) measures 3.5 by (units (unknown) date) 3.0 x 3.5 cm.? No unknown) dominant cyst is seen in either ovary.? (unknown) (no (unknown) (unknown) menses but she has (units (unknown) date) a long history of unknown) primary dysmenorrhea.? Her symptoms are (unknown) (no (unknown) (unknown) methods of (units (unk nown) date) evaluating/treating unknown) those different possibilities.? A CBC and ESR (unknown) (no (unknown) (unknown) mid quadrants (units ( unknown) date) respectively. Using unknown) a 3 puncture technique the pelvis and abdomen (unknown) (no (unknown) (unknown) needle was then (units (unknown) date) used to insufflate unknown) the abdominal cavity with carbon dioxide and (unknown) (no (unknown) (unknown) noted. The uterus (units (unknown) date) is normal in size unknown) and shape and retroverted. The left tube (unknown) (no (unknown) (unknown) obtained and are (units (unknown) date) both normal.? After unknown) discussing all options, the patient wishes (unknown) (no (unknown) (unknown) of primary (units (unk nown) date) dysmenorrhea is unknown) concerning for the possibility of an previously (unknown) (no (unknown) (unknown) once insufflated a (units (unknown) date) 5 mm trocar and unknown) sleeve were introduced through the umbilical (unknown) (no (unknown) (unknown) p DX Laparoscopy (units (unknown) date) Not Applicable unknown) Yordan Llanos MD (unknown) (no (unknown) (unknown) pain.? Menarche (units (unknown) date) occurred at age 13 unknown) and in general she is had regular periods (unknown) (no (unknown) (unknown) peritoneal fluid (units (unknown) date) present there. The unknown) cecum is mobile and the appendix is normal (unknown) (no (unknown) (unknown) pneumoperitoneum (units (unknown) date) and removal of the unknown) laparoscopic ports. The incisions were then (unknown) (no (unknown) (unknown) present. The (units (u nknown) date) gallbladder appears unknown) to be normal as does the liver edge of both (unknown) (no (unknown) (unknown) previously noted (units (unknown) date) small calcified unknown) gallstones in the gallbladder lumen without ev (unknown) (no (unknown) (unknown) scarring or (units (un known) date) endometrial unknown) implants with only a small amount of physiologic (unknown) (no (unknown) (unknown) the left and right (units (unknown) date) lobe. The unknown) diaphragms are also unremarkable. (unknown) (no (unknown) (unknown) the usual manner (units (unknown) date) for laparoscopy. A unknown) pre-surgical safety time-out was then taken (unknown) (no (unknown) (unknown) then exacerbations (units (unknown) date) which are sharp.? unknown) These do not appear to be related to her (unknown) (no (unknown) (unknown) thickness.? No (units (unknown) date) unknown) (unknown) (no (unknown) (unknown) throughout her (units (unknown) date) reproductive life unknown) thus far.? She is sexually active but does not (unknown) (no (unknown) (unknown) time.? Serial (units (u nknown) date) tests unknown) have been negative.? Patient has been having sharp (unknown) (no (unknown) (unknown) to be normal in (units (unknown) date) size at 2.9 x 4.2 x unknown) 6.4 cm.? The endometrium measures 6.6 mm in (unknown) (no (unknown) (unknown) to proceed with (units (unknown) date) diagnostic unknown) laparoscopy to evaluate for possible endometriosis (unknown) (no (unknown) (unknown) today for (units (unkn own) date) preoperative unknown) evaluation, counseling, and consent. (unknown) (no (unknown) (unknown) tolerated the (units ( unknown) date) procedure well. unknown) (unknown) (no (unknown) (unknown) transferred to the (units (unknown) date) PACU for a period unknown) of observation and recovery after having (unknown) (no (unknown) (unknown) ultrasound at (units ( unknown) date) [facility] on unknown) 03/21/2022 which showed: (unknown) (no (unknown) (unknown) undiagnosed (units (un known) date) endometriosis with unknown) a right lower quadrant pain she is experiencing (unknown) (no (unknown) (unknown) uterine mass.? (units (unknown) date) Normal size and unknown) appearance of both ovaries.? No ovarian or (unknown) (no (unknown) (unknown) visits and also (units (unknown) date) from her mother.? unknown) Pain is constant with a dull component and (unknown) (no (unknown) (unknown) walking.? She has (units (unknown) date) no GI or unknown) complaints.? Pain is always in the same spot but (unknown) (no (unknown) (unknown) were seen.? Pelvic (units (unknown) date) ultrasound unknown) performed at that same ED visit showed the uterus (unknown) (no (unknown) (unknown) were thoroughly (units (unknown) date) inspected with the unknown) findings as noted above. With no (unknown) (no (unknown) (unknown) which is also (units (u nknown) date) concerning.? We unknown) discussed potential causes for her pelvic pain and (unknown) (no (unknown) (unknown) worsened with (units ( unknown) date) prolonged sitting unknown) or prolonged standing, or prolonged episodes of Social History date description facility 2022-03-08 00:00 Tobacco smoking consumption unknown (fi nding) [facility] 2022-03-21 00:00 Never smoked tobacco (finding) [facility] 2022-04-13 00:00 Never smoked tobacco (finding) [facility] 2022-05-01 00:00 Never smoked tobacco (finding) [facility] 2022-05-04 00:00 Smokes tobacco daily (finding) [facility] Vital Signs date measurement value units 2022-03-08 [...] 46.26 kg 2022-04-13 00:00 weight_standard 101.99 lb 2022-05-01 00:00 BMI 20.9 kg/m2 2022-05-01 00:00 BP_diastolic 58 mmHg 2022-05-01 00:00 BP_systolic 98 mmHg 2022-05-01 00:00 heart_rate 89 /min 2022-05-01 00:00 height_metric 147.32 cm 2022-05-01 00:00 height_standard 58 in 2022-05-01 00:00 o2_saturation 99 % 2022-05-01 00:00 respiration_rate 12 /min 2022-05-01 00:00 temperature_metric 37.22 C 2022-05-01 00:00 temperature_standard 99 F 2022-05-01 00:00 weight_metric 45.35 kg 2022-05-01 00:00 weight_standard 99.98 lb 2022-05-04 00:00 BMI 46.0 kg/m2 2022-05-04 00:00 BP_diastolic 65 mmHg 2022-05-04 00:00 BP_systolic 119 mmHg 2022-05-04 00:00 heart_rate 71 /min 2022-05-04 00:00 height_metric 147.32 cm 2022-05-04 00:00 height_standard 58 in 2022-05-04 00:00 o2_saturation 98 % 2022-05-04 00:00 respiration_rate 20 /min 2022-05-04 00:00 temperature_metric 36.5 C 2022-05-04 00:00 temperature_standard 97.7 F 2022-05-04 00:00 weight_metric 100 kg 2022-05-04 00:00 weight_standard 220.46 lb
[2022-05-13 14:21] LABS: BILIRUBIN,URINE NEGATIVE (NEGATIVE); GLUCOSE, URINE (UA) NEGATIVE (NEGATIVE); KETONES,URINE (UA) NEGATIVE (NEGATIVE); LEUKOCYTE ESTERASE, URINE NEGATIVE (NEGATIVE); NITRITE,URINE NEGATIVE (NEGATIVE); OCCULT BLOOD,URINE NEGATIVE (NEGATIVE); PROTEIN,URINE NEGATIVE (NEGATIVE); UROBILINOGEN,URINE 0.2 (NORMAL) E.U./dL (NORMAL)
[2022-05-13 14:23] LABS: CLARITY,URINE CLEAR (CLEAR); HCG UR QUAL NEGATIVE
[2022-05-13 14:44] VITALS: BP 102/71
== END 2022-05-13 14:44 | disposition home or self-care (01) ==
LOC: ED 13:06
DX: R10.2 Pelvic and perineal pain (principal); G89.29 Other chronic pain; F17.200 Nicotine dependence, unspecified, uncomplicated
CPT/HCPCS: 36415; 80053; 81001; 81003; 81025; 83690; 85025; 87086; 96372; 99283

== ENCOUNTER 2022-09-17 04:02 | Emergency (ER) | payer MEDICAID ==
[2022-09-17 04:37] LABS: BILIRUBIN,URINE NEGATIVE (NEGATIVE); GLUCOSE, URINE (UA) NEGATIVE (NEGATIVE); KETONES,URINE (UA) NEGATIVE (NEGATIVE); LEUKOCYTE ESTERASE, URINE NEGATIVE (NEGATIVE); NITRITE,URINE NEGATIVE (NEGATIVE); OCCULT BLOOD,URINE NEGATIVE (NEGATIVE); PROTEIN,URINE NEGATIVE (NEGATIVE); UROBILINOGEN,URINE 0.2 (NORMAL) E.U./dL (NORMAL)
[2022-09-17 04:38] LABS: CLARITY,URINE CLEAR (CLEAR)
[2022-09-17 04:39] LABS: HCG UR QUAL NEGATIVE
[2022-09-17 04:49] LABS: BASOPHILS # (AUTO) 0.1 10^3/uL (0.0-0.1); BASOPHILS % (AUTO) 0.7 %; EOSINOPHILS # (AUTO) 0.4 10^3/uL (0.0-0.7); HCT - HEMATOCRIT 33.5 % (37.0-47.0); HGB - HEMOGLOBIN 10.1 g/dL (12.0-16.0); LYMPHOCYTES # (AUTO) 3.2 10^3/uL (1.5-3.5); LYMPHOCYTES % (AUTO) 34.9 %; MEAN CORPUSCULAR HEMOGLOBIN 25.6 pg (27.0-31.0); MEAN CORPUSCULAR HGB CONC 30.1 g/dL (32.0-36.0); MEAN CORPUSCULAR VOLUME 84.8 fL (81.0-99.0); MEAN PLATELET VOLUME 9.3 fL (7.9-10.8); MONOCYTES # (AUTO) 0.8 10^3/uL (0.0-1.0); MONOCYTES % (AUTO) 8.2 %; NEUTROPHILS # (AUTO) 4.8 10^3/uL (1.5-6.6); PLT - PLATELET COUNT 314 10^3/uL (130-450); RED BLOOD COUNT 3.95 10^6/uL (4.20-5.40); RED CELL DISTRIBUTION WIDTH 14.4 % (12.0-15.0); WHITE BLOOD COUNT 9.2 x10^3/uL (4.8-10.8)
--- NOTE | 2022-09-17 04:52 | ED Physician Documentation ---
PD HPI ABD PAIN - Stated complaint Stated Complaint: R SIDE PX - Chief complaint Chief Complaint: Abd Pain - History obtained from History obtained from: Patient - Additional information Additional information: HPI from patient. Patient c/o generalized abdominal pain, more pronounced on right anterior abdomen, episodic x 2 weeks. No ameliorating nor exacerbating factors. Nausea but no vomiting. Denies fever. Patient had cholecystectomy 08/11/22. Per LATRELL form, vandana is her 17th ED visit over past 12 months to two different EDs (, [facility]). 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 Review of Systems Constitutional: reports: Reviewed and negative Cardiac: reports: Reviewed and negative Respiratory: reports: Reviewed and negative GI: reports: Abdominal Pain, Nausea. 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: Ovarian cysts, Other (chronic pelvic pain, unknown etiology) Psych: ADD/ADHD Musculoskeletal: None - Past Surgical History Past Surgical History: No /FILLING CARRIER: Other - Present Medications Home Medications: Ambulatory Orders Medication Instructions Recorded Confirmed No Known Home Medications 09/17/22 09/17/22 - Allergies Allergies/Adverse Reactions: Allergies Allergy/AdvReac Type Severity Reaction Status Date / Time No Known Drug Allergies Allergy Verified 09/17/22 04:22 - Social History Does the pt smoke?: No Smoking Status: Current every day smoker Does the pt drink ETOH?: No Does the pt have substance abuse?: Yes - Immunizations Immunizations are current?: Yes - POLST Patient has POLST: No PD ED PE NORMAL - Vitals Vital signs reviewed: Yes - General General: Alert and oriented X 3, No acute distress, Well developed/nourished - HEENT HEENT: Moist mucous membranes - Cardiac Cardiac: RRR, No murmur - Respiratory Respiratory: No respiratory distress, Clear bilaterally - Abdomen Abdomen: Normal bowel sounds, Soft, Non tender, Non distended - Back Back: No CVA TTP Results - Vitals Vitals: Oxygen O2 Source Room air - Labs Labs: Laboratory Tests 09/17/22 09/17/22 09/17/22 04:32 04:32 04:40 WBC 9.2 RBC 3.95 L Hgb 10.1 L Hct 33.5 L MCV 84.8 MCH 25.6 L MCHC 30.1 L RDW 14.4 Plt Count 314 MPV 9.3 Neut # (Auto) 4.8 Lymph # (Auto) 3.2 Carter # (Auto) 0.8 Eos # (Auto) 0.4 Baso # (Auto) 0.1 Absolute Nucleated RBC 0.00 Nucleated RBC % 0.0 Sodium Potassium Chloride Carbon Dioxide Anion Gap BUN Creatinine Estimated GFR (MDRD) Glucose Calcium Total Bilirubin AST ALT Alkaline Phosphatase Total Protein Albumin Globulin Albumin/Globulin Ratio Lipase Urine Color YELLOW Urine Clarity CLEAR Urine pH 6.0 Ur Specific [place] >=1.030 H Urine Protein NEGATIVE Urine Glucose (UA) NEGATIVE Urine Ketones NEGATIVE Urine Occult Blood NEGATIVE Urine Nitrite NEGATIVE Urine Bilirubin NEGATIVE Urine Urobilinogen 0.2 (NORMAL) Ur Leukocyte Esterase NEGATIVE Ur Microscopic Review NOT INDICATED Urine Culture Comments NOT INDICATED Urine HCG, Qual NEGATIVE 09/17/22 04:40 WBC RBC Hgb Hct MCV MCH MCHC RDW Plt Count MPV Neut # (Auto) Lymph # (Auto) Carter # (Auto) Eos # (Auto) Baso # (Auto) Absolute Nucleated RBC Nucleated RBC % Sodium 136 Potassium 4.2 Chloride 109 Carbon Dioxide 25 Anion Gap 2.0 L BUN 17 Creatinine 0.5 L Estimated GFR (MDRD) 156 Glucose 92 Calcium 9.2 Total Bilirubin 0.3 AST 10 ALT 8 L Alkaline Phosphatase 54 Total Protein 6.9 Albumin 4.3 Globulin 2.6 Albumin/Globulin Ratio 1.7 Lipase 48 Urine Color Urine Clarity Urine pH Ur Specific [place] Urine Protein Urine Glucose (UA) Urine Ketones Urine Occult Blood Urine Nitrite Urine Bilirubin Urine Urobilinogen Ur Leukocyte Esterase Ur Microscopic Review Urine Culture Comments Urine HCG, Qual PD Medical Decision Making - ED course Complexity details: reviewed old records, reviewed results, re-evaluated patient, considered differential, d/w patient ED course: This is the 21st [facility] for this 22 year-old patient. Patient presents c/o abdominal pain, checking in shortly after her friend (whom she was visiting in ED) was admitted to [facility] after ED evaluation. Patient was also evaluated in ED August 11, 2022 and August 01, 2022; the other patient whom she was visiting [facility] [place] was also evaluated in ED on those same days. Before [facility] [place], my most recent evaluation of this patient was 04/03/22, the same day her friend was admitted to [facility] ED. Both she (patient) and her friend had been evaluated in [facility] ED 04/02/22. When I evaluated patient on 04/03/22, she said her friend was admitted to [facility] and she stayed with him beyond pharmacy hours and thus returned to the ED for pain control until pharmacy opened so she could fill the prescription provided by ED MD for pain medication. The frequency with which this patient's emergent issues coincide with those of her friend's is quite unusual. On tonight's tests, there are no concerning nor diagnostic findings. Mild anemia noted, with hemoglobin 10.1 (lower than previous results but not low enough to necessitate further emergent testing nor explain symptoms). ER abdominal panel results are unremarkable. UA negative except for concentrated urine (SG >= 1.030). UHCG negative. She is given 4mg IV zofran, 30mg IV toradol. On reevaluation, she remains in NAD. Results of tests reviewed with patient, strong emphasis placed on seeking follow up in outpatient setting for reevaluation. She is given take-home pack of vicodin but no further rx provided by me. Departure - Departure Disposition: 01 Home, Self Care Clinical Impression: Abdominal pain Qualifiers: Abdominal location: right upper quadrant Qualified Code(s): R10.11 - Right upper quadrant pain Condition: Good Instructions: ED Abdominal Pain Female Non-Specific Abdominal Pain Comments: There were no concerning findings on tonight's blood tests, urinalysis. Contact your primary care provider and arrange for next available appointment for follow-up. Forms: PCP List Discharge Date/Time: 09/17/22 06:30
[2022-09-17 05:07] LABS: ALBUMIN 4.3 g/dL (3.2-5.5); ALBUMIN/GLOBULIN RATIO 1.7 (1.0-2.2); BILIRUBIN,TOTAL 0.3 mg/dL (0.2-1.0); CALCIUM 9.2 mg/dL (8.5-10.3); CREATININE 0.5 mg/dL (0.6-1.3); POTASSIUM 4.2 mmol/L (3.5-4.5); TOTAL PROTEIN 6.9 g/dL (6.4-8.9)
[2022-09-17] MEDS ORDERED: ONDANSETRON 4 MG/2 ML VIAL IVP STA (05:28)
[2022-09-17] MEDS ORDERED: KETOROLAC 30 MG/ML VIAL IVP STA (05:28)
--- OUTSIDE RECORDS SUMMARY | 2022-09-17 05:35 | EXTERNAL MEDICAL SUMMARY RPT | Continuity of Care Document ---
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 Name Role Phone Unavailable Unavailable Unavailable Abdias Valles Unavailable Unavailable Allergies and Intolerances date description facility reaction severity (no date) No Known Drug Allergies Formerly [facility] (no [place] ction) (no severity) Medications date description facility 2022-08-01 00:00 Ondansetron [facility] 2022-08-04 00:00 Oxycodone [facility] 2022-08-12 00:00 Oxycodone [facility] 2022-08-12 00:00 Acetaminophen [facility] 2022-08-12 00:00 Ibuprofen [facility] 2022-08-01 00:00 Hydrocodone-Acetaminophen [facility] Hospital Problems date description facility 2022-08-01 00:00 Multiple gallstones [facility] 2022-08-04 00:00 Bright red [facility] 2022-08-04 00:00 Multiple gallstones [facility] 2022-08-04 00:00 Abdominal pain [facility] 2022-08-12 00:00 Acute cholecystitis [facility] 2022-08-13 07:10 Acute cholecystitis [facility] 2022-08-13 11:22 Acute cholecystitis [facility] 2022-08-13 13:50 Acute cholecystitis [facility] 2022-08-15 08:16 Acute cholecystitis [facility] 2022-08-16 09:04 Acute cholecystitis [facility] 2022-08-20 08:15 Acute cholecystitis [facility] 2022-08-20 08:15 Unspecified abdominal pain [facility] Procedures date description facility 2022-08-01 00:00 Viral Culture [facility] 2022-08-01 00:00 Gram Stain [facility] 2022-08-01 00:00 Wet Prep [facility] 2022-08-04 00:00 CT abdomen pelvis w [facility] 2022-08-01 00:00 US Abdomen limited [facility] rk 2022-08-11 00:00 US Abdomen [facility] rk 2022-08-12 00:00 Laparoscopic Cholecystectomy (N ot Applicable) [facility] Results/Labs test date facility value unit notes Social History date description facility 2022-08-01 00:00 Smokes tobacco daily (finding) [facility] 2022-08-04 00:00 Smokes tobacco daily (finding) [facility] 2022-08-06 00:00 Smokes tobacco daily (finding) [facility] 2022-08-11 00:00 Smokes tobacco daily (finding) [facility] 2022-08-12 00:00 Smokes tobacco daily (finding) [facility] 2022-09-06 00:00 Smokes tobacco daily (finding) [facility] Vital Signs date measurement value units 2022-08-01 00:00 BMI 23.8 kg/m2 2022-08-01 00:00 BP_diastolic 69 mmHg 2022-08-01 00:00 BP_systolic 124 mmHg 2022-08-01 00:00 heart_rate 97 /min 2022-08-01 00:00 height_metric 147.96 cm 2022-08-01 00:00 height_standard 58.25 in 2022-08-01 00:00 o2_saturation 99 % 2022-08-01 00:00 respiration_rate 14 /min 2022-08-01 00:00 temperature_metric 36.56 C 2022-08-01 00:00 temperature_standard 97.8 F 2022-08-01 00:00 weight_metric 52.16 kg 2022-08-01 00:00 weight_standard 114.99 lb 2022-08-04 00:00 BMI 24.0 kg/m2 2022-08-04 00:00 BP_diastolic 57 mmHg 2022-08-04 00:00 BP_systolic 107 mmHg 2022-08-04 00:00 heart_rate 83 /min 2022-08-04 00:00 height_metric 147.32 cm 2022-08-04 00:00 height_standard 58 in 2022-08-04 00:00 o2_saturation 100 % 2022-08-04 00:00 respiration_rate 18 /min 2022-08-04 00:00 temperature_metric 36.89 C 2022-08-04 00:00 temperature_standard 98.4 F 2022-08-04 00:00 weight_metric 52.16 kg 2022-08-04 00:00 weight_standard 114.99 lb 2022-08-06 00:00 BMI 20.3 kg/m2 2022-08-06 00:00 BP_diastolic 60 mmHg 2022-08-06 00:00 BP_systolic 108 mmHg 2022-08-06 00:00 heart_rate 90 /min 2022-08-06 00:00 height_metric 148.59 cm 2022-08-06 00:00 height_standard 58.5 in 2022-08-06 00:00 o2_saturation 98 % 2022-08-06 00:00 temperature_metric 36.61 C 2022-08-06 00:00 temperature_standard 97.9 F 2022-08-06 00:00 weight_metric 44.9 kg 2022-08-06 00:00 weight_standard 98.99 lb 2022-08-11 00:00 BMI 20.8 kg/m2 2022-08-11 00:00 BP_diastolic 78 mmHg 2022-08-11 00:00 BP_systolic 117 mmHg 2022-08-11 00:00 heart_rate 86 /min 2022-08-11 00:00 height_metric 147.32 cm 2022-08-11 00:00 height_standard 58 in 2022-08-11 00:00 o2_saturation 99 % 2022-08-11 00:00 respiration_rate 18 /min 2022-08-11 00:00 temperature_metric 36.5 C 2022-08-11 00:00 temperature_standard 97.7 F 2022-08-11 00:00 weight_metric 45.17 kg 2022-08-11 00:00 weight_standard 99.58 lb 2022-08-12 00:00 BMI 20.8 kg/m2 2022-08-12 00:00 height_metric 147.32 cm 2022-08-12 00:00 height_standard 58 in 2022-08-12 00:00 weight_metric 45.17 kg 2022-08-12 00:00 weight_standard 99.58 lb 2022-08-13 00:00 BP_diastolic 56 mmHg 2022-08-13 00:00 BP_systolic 113 mmHg 2022-08-13 00:00 heart_rate 116 /min 2022-08-13 00:00 o2_saturation 100 % 2022-08-13 00:00 respiration_rate 17 /min 2022-08-13 00:00 temperature_metric 36.56 C 2022-08-13 00:00 temperature_standard 97.8 F 2022-09-06 00:00 BMI 20.7 kg/m2 2022-09-06 00:00 heart_rate 91 /min 2022-09-06 00:00 height_metric 147.32 cm 2022-09-06 00:00 height_standard 58 in 2022-09-06 00:00 o2_saturation 100 % 2022-09-06 00:00 temperature_metric 37.06 C 2022-09-06 00:00 temperature_standard 98.7 F 2022-09-06 00:00 weight_metric 44.9 kg 2022-09-06 00:00 weight_standard 98.99 lb
[2022-09-17] MEDS ORDERED: HYDROcod/ACET 5/325 Prepack 4 PO STA (05:39)
[2022-09-17 06:36] VITALS: BP 106/65; O2SAT 100
== END 2022-09-17 06:30 | disposition home or self-care (01) ==
LOC: ED 04:02
DX: R10.11 Right upper quadrant pain (principal); F17.200 Nicotine dependence, unspecified, uncomplicated
CPT/HCPCS: 36415; 80053; 81001; 81003; 81025; 83690; 85025; 87086; 96374; 96375; 99284

== ENCOUNTER 2023-08-19 19:07 | Outpatient (CLI) | payer SELFPAY | END 2023-08-19 19:08 | disposition EMS.NT | LOC: EMS 19:07 | DX: M25.572 Pain in left ankle and joints of left foot (principal); S99.912A Unspecified injury of left ankle, initial encounter; V02.00XA Pedestrian on foot injured in collision with two- or three-wheeled motor vehicle in nontraffic accident, initial encounter ==